=== PATIENT | male | born 1940 | race Caucasian/White ===

== ENCOUNTER → 2018-03-24 11:08 | Outpatient (CLI) | payer MEDICARE, OTHER, SELFPAY ==
[2018-03-24 12:01] LABS: Add Manual Diff / Slide Review NO; Basophils Percent Auto 1.1 % (0-2); Eosinophils Percent Auto 2.7 % (2-4); Hematocrit 40.9 % (41-53); Lymphocytes Percent Auto 23.7 % (25-40); Mean Corpuscular HGB Conc 34.2 % (30-36); Mean Corpuscular Hemoglobin 30.9 PG (26-34); Mean Corpuscular Volume 90.6 fL (80-100); Monocytes Percent Auto 10.8 % (3-14); Neutrophils Absolute Auto 3700 /uL (3000-5900); Neutrophils Percent Auto 61.7 % (50-75); Platelet Count 206 X10^3/uL (150-400); Red Blood Cell Count 4.52 X10^6/uL (4.5-5.9); Red Cell Distribution Width 13.1 % (11.6-14.8)
[2018-03-24 12:12] LABS: Alanine Aminotransferase 13 IU/L (21-72); Albumin 4.3 g/dL (3.5-5.0); Albumin Globulin Ratio 1.4 (1.0-2.8); Alkaline Phosphatase 102 U/L (38-126); Aspartate Aminotransferase 28 IU/L (17-59); Bilirubin Total 0.8 mg/dL (0.2-1.3); Blood Urea Nitrogen 14 mg/dL (9-20); Calcium 9.3 mg/dL (8.4-10.2); Carbon Dioxide 31 mmol/L (22-32); Chloride 96 mmol/L (98-107); Cholesterol 146 mg/dL (140-199); Estimated Glomerular Filt Rate > 60.0 mL/min (>60); Globulin 3.1 g/dL (1.7-4.1); Glucose 97 mg/dL (80-110); HDL Cholesterol 77 mg/dL (40-60); HEMOLYSIS < 15 (0-50); LDL Cholesterol Calculated 59 mg/dL (<100); Potassium 3.9 mmol/L (3.4-5.1); Sodium 136 mmol/L (137-145); Total Protein 7.4 g/dL (6.3-8.2); Triglycerides 51 mg/dL (35-150)
[2018-03-24 12:59] LABS: Vitamin B12 916 pg/mL (239-931)
[2018-03-24 13:21] LABS: TSH w/ Reflex to FT4 1.61 uIU/mL (0.47-4.68)
[2018-03-24 16:22] LABS: Vitamin D 25 Hydroxy (D3) 53.8 ng/mL (30.0-100.0)
== END ==
PROVIDERS: PCP Family Medicine; Visit Provider Family Medicine
DX: R53.83 Other fatigue (principal); I10 Essential (primary) hypertension; E78.5 Hyperlipidemia, unspecified; E53.8 Deficiency of other specified B group vitamins; E55.9 Vitamin D deficiency, unspecified; G20 Parkinson's disease
CPT/HCPCS: 36415; 80053; 80061; 82306; 82607; 84443; 85025

== ENCOUNTER 2018-04-20 13:30 | Outpatient (RCR) | payer MEDICARE, OTHER, SELFPAY ==
--- NOTE | 2018-03-28 07:43 | PT.OIE ---
Current Diagnoses Parkinson's disease (03/27/18) Past Medical History (Last Reviewed 03/28/18 @ 06:54 by Marialuisa Culver, PT) Benign prostatic hyperplasia (Chronic ~2003) Hepatitis A (Chronic ~1985) Hypertension (Chronic ~1989) Migraines (Chronic ~2011) Osteoarthritis (Chronic ~2004) Osteopenia (Chronic ~2004) Osteoporosis (Chronic ~2009) Parkinson's disease (Chronic ~2012) Peripheral neuropathy (Chronic ~2011) Scoliosis (Chronic ~2004) Chicken pox (Resolved) Measles (Resolved) Mumps (Resolved) Past Surgical History (Last Reviewed 03/25/18 @ 17:00 by Steff Jacobson DO) Anesthesia (Resolved) History of tonsillectomy (Resolved ~1944) Provider Visit Care Team Role Provider Type Steff Jacobson DO Primary Care Provider Physician Specialty: Family Practice Address: [address] [place] [address], [id number] Email: [email or web address] Vidal Fernandes MD Attending Provider Non-Staff Specialty: Neurology Address: [address] [place] [address] [place], [address] Email: Physical Therapy Initial Evaluation PT-OP-A Visit Information Start: 03/28/18 06:41 Freq: Status: Active Protocol: Document 03/27/18 13:30 AMB (Rec: 03/28/18 07:05 AMB [email or web address]) Out-Patient Physical Therapy Visit Information Visit Information Visit Type Initial Evaluation Visit Start Time 13:30 Visit Stop Time 14:30 Total Visit Minutes 60 Visit Number 1 Evaluation Information Evaluation Date 03/27/18 PT-OP-B Current Condition Start: 03/28/18 06:41 Freq: Status: Active Protocol: Document 03/27/18 13:30 AMB (Rec: 03/28/18 07:05 AMB [email or web address]) Current Condition History of Current Condition History of Current Condition The patient reports history of Parkinson's for about the last 5 years. He moved to [place] about 7 months ago, to live closer to his brother and sister in law. He lives at [facility], but is still able to dress himself and bathe himself independently (although it does take longer to do). Prior Functional Status Baseline Function- ADL's Modified Independent Baseline Function- Mobility Modified Independent Current Functional Impairments (Reported) Functional Limitations- ADL's Patient is right handed, but has recently switched to eating with his left hand due to right sided stiffness. Difficulty writing, difficulty donning pants. Functional Limitations- Mobility/Gait Walks for an hour 5x/week, but gets tired doing so. No stairs at [place], but stairs at the park where he walks. Functional Limitations- Other Nocturia x4 (does use a night light) Personal Factors Other Personal Factors That May Effect History of 1 fall a year ago Therapy/Recovery PT-OP-C Subjective Start: 03/28/18 06:41 Freq: Status: Active Protocol: Document 03/27/18 13:30 AMB (Rec: 03/28/18 07:08 AMB [email or web address]) OP-PT Subjective Patient Comments Patient Comments Pt reports overall more difficulty in the last 2 years with ADLs and gait. Generally slower and stiffer. PT-OP-D Balance Start: 03/28/18 06:41 Freq: Status: Active Protocol: Document 03/27/18 13:30 AMB (Rec: 03/28/18 07:24 AMB [email or web address]) Balance Tests Romberg Romberg 15 seconds with forward LOB Single Limb Standing Single Limb- Right 12 seconds Single Limb- Left 10 seconds PT-OP-E Functional Tests Start: 03/28/18 06:41 Freq: Status: Active Protocol: Document 03/27/18 13:30 AMB (Rec: 03/28/18 07:21 AMB [email or web address]) Functional Tests 6 Minute Walk Test Distance 1026 Device Used none Five Times Sit to Stand Test Score 11 seconds Comments difficulty coming into full stand PT-OP-G Mobility & Gait Start: 03/28/18 06:41 Freq: Status: Active Protocol: Document 03/27/18 13:30 AMB (Rec: 03/28/18 07:21 AMB [email or web address]) OP Gait Assessment Comments Gait Comments Complete lack of trunk rotation/ arm swing unless the patient is actively concentrating on it, and then still small. Significantly reduced ankle dorsiflexion on the right during swing. PT-OP-H Neuro Start: 03/28/18 06:41 Freq: Status: Active Protocol: Document 03/27/18 13:30 AMB (Rec: 03/28/18 07:21 AMB [email or web address]) Sensation Evaluation Comments Summary Comments Pt reports reduced sensation in toes/ feet bilaterally. 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 Overall increased tightness with hip and shoulder flexion and wrist extension. PT-OP-J Posture/Palpation/Skin Start: 03/28/18 06:41 Freq: Status: Active Protocol: Document 03/27/18 13:30 AMB (Rec: 03/28/18 07:21 AMB [email or web address]) Posture Evaluation Comments Posture Comments Moderate thoracic kyphosis with history of scoliosis. PT-OP-K Range of Motion Start: 03/28/18 06:41 Freq: Status: Active Protocol: Document 03/27/18 13:30 AMB (Rec: 03/28/18 07:21 AMB [email or web address]) Shoulder Goniometric Range of Motion Shoulder Measured in Degrees Left Active Flexion 145 Extension 55 Right Active Flexion 133 Extension 55 PT-OP-M Strength Start: 03/28/18 06:41 Freq: Status: Active Protocol: Document 03/27/18 13:30 AMB (Rec: 03/28/18 07:21 AMB [email or web address]) Hand Med Spa Manager/Pinch Strength Hand Dominance Hand Dominance Right Hand Strength Right Med Spa Manager (lbs) 43 Left Med Spa Manager (lbs) 53 PT-OP-T Assessment and Plan Start: 03/28/18 06:41 Freq: Status: Active Protocol: Document 03/27/18 13:30 AMB (Rec: 03/28/18 07:42 AMB [email or web address]) Physical Therapy Assessment Rehab Potential Rehabilitation Potential Good Evaluation Complexity Number of Personal Factors/Comorbidities 1-2 Number of Body Systems Impaired 4 or More Clinical Presentation at Evaluation Evolving Impairments Impairments Balance Coordination Functional Mobility Gait Posture ROM Sensation Strength Tone Transfers Goals Three Impairment ADLs Short Term Goal (STG) The patient will use his right arm to eat a meal. STG Duration 2 weeks Gl Accountant Goal (LTG) The patient will write 3 sentences legibly within 1 minute. LTG Duration 4 weeks Two Impairment Balance Short Term Goal (STG) The patient will improve his single leg stance to 15 seconds bilaterally to show reduced risk of falling. STG Duration 2 weeks Correction Goal (LTG) The patient will stand from a chair without UE support without loss of balance. LTG Duration 4 weeks One Impairment Gait Short Term Goal (STG) The patient will ambulate short distances with appropriate trunk rotation and arm swing. STG Duration 2 weeks Gl Accountant Goal (LTG) The patient will increase his 6MWT to 1,300 feet so that he can improve to 75% of his age/ gender norm. LTG Duration 4 weeks Assessment Summary Assessment The patient presents to physical therapy with impaired gait, balance, stiffness, posture, and difficulty using the right hand to eat or write . He will benefit from the LSV[employer] BIG program to improve these impairments and instruct him in a program that he will be able to continue with safely at home. Physical Therapy Plan Frequency and Duration Frequency of Treatment 4x/Week Duration of Treatment 4 weeks Plan of Care Start Date 03/27/18 Plan of Care End Date 04/24/18 Therapeutic Interventions Therapeutic Interventions Balance Training Coordination Training Gait Training Home Exercise Program Manual Therapy Neuromuscular Re-education Self-Care/Home Management Therapeutic Activities Therapeutic Exercises Modalities Cold Pack/Ice Massage Electric Stimulation Hot Packs Next Visit Focus/Plan Next Note Type Treatment Note
--- NOTE | 2018-03-28 07:44 | PT.OPPOC ---
Current Diagnoses Parkinson's disease (03/27/18) Provider Visit Care Team Role Provider Type Steff Jacobson DO Primary Care Provider Physician Specialty: Family Practice Address: [address] [place] [address], [id number] Email: [email or web address] Vidal Fernandes MD Attending Provider Non-Staff Specialty: Neurology Address: [address] [place] [address] [id number], [place], [address] Email: Plan Of Care PT-OP-T Assessment and Plan Start: 03/28/18 06:41 Freq: Status: Active Protocol: Document 03/27/18 13:30 AMB (Rec: 03/28/18 07:42 AMB [email or web address]) Physical Therapy Assessment Rehab Potential Rehabilitation Potential Good Evaluation Complexity Number of Personal Factors/Comorbidities 1-2 Number of Body Systems Impaired 4 or More Clinical Presentation at Evaluation Evolving Impairments Impairments Balance Coordination Functional Mobility Gait Posture ROM Sensation Strength Tone Transfers Goals Three Impairment ADLs Short Term Goal (STG) The patient will use his right arm to eat a meal. STG Duration 2 weeks Nursing Home Goal (LTG) The patient will write 3 sentences legibly within 1 minute. LTG Duration 4 weeks Two Impairment Balance Short Term Goal (STG) The patient will improve his single leg stance to 15 seconds bilaterally to show reduced risk of falling. STG Duration 2 weeks Ict Development Manager Goal (LTG) The patient will stand from a chair without UE support without loss of balance. LTG Duration 4 weeks One Impairment Gait Short Term Goal (STG) The patient will ambulate short distances with appropriate trunk rotation and arm swing. STG Duration 2 weeks Ict Development Manager Goal (LTG) The patient will increase his 6MWT to 1,300 feet so that he can improve to 75% of his age/ gender norm. LTG Duration 4 weeks Assessment Summary Assessment The patient presents to physical therapy with impaired gait, balance, stiffness, posture, and difficulty using the right hand to eat or write . He will benefit from the LSVT BIG program to improve these impairments and instruct him in a program that he will be able to continue with safely at home. Physical Therapy Plan Frequency and Duration Frequency of Treatment 4x/Week Duration of Treatment 4 weeks Plan of Care Start Date 03/27/18 Plan of Care End Date 04/24/18 Therapeutic Interventions Therapeutic Interventions Balance Training Coordination Training Gait Training Home Exercise Program Manual Therapy Neuromuscular Re-education Self-Care/Home Management Therapeutic Activities Therapeutic Exercises Modalities Cold Pack/Ice Massage Electric Stimulation Hot Packs Next Visit Focus/Plan Next Note Type Treatment Note Plan of Care Dates Plan of Care Start Date 03/27/18 Plan of Care End Date 04/24/18 Please Sign and Return: I have reviewed this Plan of Care and certify that the skilled therapy services above are required to meet the patient?s needs. Physician Signature Date Printed Name and Credentials Clinical Instructor Signature Printed Name and Credentials
--- NOTE | 2018-03-28 16:40 | PT.OTN ---
Current Diagnoses Parkinson's disease (03/28/18) Physical Therapy Treatment Note PT-OP-A Visit Information Start: 03/28/18 06:41 Freq: Status: Active Protocol: Document 03/28/18 13:30 AMB (Rec: 03/28/18 16:39 AMB [email or web address]) Out-Patient Physical Therapy Visit Information Visit Information Visit Type Treatment Note Visit Start Time 13:30 Visit Stop Time 14:30 Total Visit Minutes 60 Visit Number 2 Evaluation Information Evaluation Date 03/27/18 PT-OP-B Current Condition Start: 03/28/18 06:41 Freq: Status: Active Protocol: Document 03/27/18 13:30 AMB (Rec: 03/28/18 07:05 AMB [email or web address]) Current Condition History of Current Condition History of Current Condition The patient reports history of Parkinson's for about the last 5 years. He moved to [place] about 7 months ago, to live closer to his brother and sister in law. He lives at [facility], but is still able to dress himself and bathe himself independently (although it does take longer to do). Prior Functional Status Baseline Function- ADL's Modified Independent Baseline Function- Mobility Modified Independent Current Functional Impairments (Reported) Functional Limitations- ADL's Patient is right handed, but has recently switched to eating with his left hand due to right sided stiffness. Difficulty writing, difficulty donning pants. Functional Limitations- Mobility/Gait Walks for an hour 5x/week, but gets tired doing so. No stairs at [facility], but stairs at the park where [place] walks. Functional Limitations- Other Nocturia x4 (does use a night light) Personal Factors Other Personal Factors That May Effect History of 1 fall a year ago Therapy/Recovery PT-OP-C Subjective Start: 03/28/18 06:41 Freq: Status: Active Protocol: Document 03/28/18 13:30 AMB (Rec: 03/28/18 16:39 AMB [email or web address]) OP-PT Subjective Patient Comments Patient Comments Pt reports working hard in speech therapy. PT-OP-D Balance Start: 03/28/18 06:41 Freq: Status: Active Protocol: Document 03/27/18 13:30 AMB (Rec: 03/28/18 07:24 AMB [email or web address]) Balance Tests Romberg Romberg 15 seconds with forward LOB Single Limb Standing Single Limb- Right 12 seconds Single Limb- Left 10 seconds PT-OP-E Functional Tests Start: 03/28/18 06:41 Freq: Status: Active Protocol: Document 03/27/18 13:30 AMB (Rec: 03/28/18 07:21 AMB [email or web address]) Functional Tests 6 Minute Walk Test Distance 1026 Device Used none Five Times Sit to Stand Test Score 11 seconds Comments difficulty coming into full stand PT-OP-G Mobility & Gait Start: 03/28/18 06:41 Freq: Status: Active Protocol: Document 03/27/18 13:30 AMB (Rec: 03/28/18 07:21 AMB [email or web address]) OP Gait Assessment Comments Gait Comments Complete lack of trunk rotation/ arm swing unless the patient is actively concentrating on it, and then still small. Significantly reduced ankle dorsiflexion on the right during swing. PT-OP-H Neuro Start: 03/28/18 06:41 Freq: Status: Active Protocol: Document 03/27/18 13:30 AMB (Rec: 03/28/18 07:21 AMB [email or web address]) Sensation Evaluation Comments Summary Comments Pt reports reduced sensation in toes/ feet bilaterally. 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 Overall increased tightness with hip and shoulder flexion and wrist extension. PT-OP-J Posture/Palpation/Skin Start: 03/28/18 06:41 Freq: Status: Active Protocol: Document 03/27/18 13:30 AMB (Rec: 03/28/18 07:21 AMB [email or web address]) Posture Evaluation Comments Posture Comments Moderate thoracic kyphosis with history of scoliosis. PT-OP-K Range of Motion Start: 03/28/18 06:41 Freq: Status: Active Protocol: Document 03/27/18 13:30 AMB (Rec: 03/28/18 07:21 AMB [email or web address]) Shoulder Goniometric Range of Motion Shoulder Measured in Degrees Left Active Flexion 145 Extension 55 Right Active Flexion 133 Extension 55 PT-OP-M Strength Start: 03/28/18 06:41 Freq: Status: Active Protocol: Document 03/27/18 13:30 AMB (Rec: 03/28/18 07:21 AMB [email or web address]) Hand Wagon Winder/Pinch Strength Hand Dominance Hand Dominance Right Hand Strength Right Wagon Winder (lbs) 43 Left Wagon Winder (lbs) 53 PT-OP-Q Treatments Start: 03/28/18 06:41 Freq: Status: Active Protocol: Document 03/28/18 13:30 AMB (Rec: 03/28/18 16:39 AMB [email or web address]) Therapeutic Exercises Sitting Exercises 3 Sitting Exercise Name putty gripping with pinch and finger extension Comments yellow 2 Sitting Exercise Name Trunk rotation with reach Reps/Minutes 8 1 Sitting Exercise Name Forward bend with horizontal abduction Reps/Minutes 8 Neuro Re-Education Treatment Balance Activities 5 Details WBOS trunk rotation Comments with UE reach 4 Details Stride stance a/p weightshift Comments With alternating arm reach 3 Details Backward stepping Comments With UE reach 1 Details Lateral stepping Comments With UE reach 2 Details Forward stepping Comments With UE reach PT-OP-T Assessment and Plan Start: 03/28/18 06:41 Freq: Status: Active Protocol: Document 03/28/18 13:30 AMB (Rec: 03/28/18 16:39 AMB [email or web address]) Physical Therapy Assessment Assessment Summary Assessment Pt needed extensive cueing physical and verbal for appropriate exercise. Stiffness is difficult. HEP will have pt with UE support with exercises. Physical Therapy Plan Next Visit Focus/Plan Next Note Type Treatment Note Next Visit Plan Progress HEP, gait
--- NOTE | 2018-03-29 17:08 | PT.OTN ---
Current Diagnoses Parkinson's disease (03/29/18) Physical Therapy Treatment Note PT-OP-A Visit Information Start: 03/28/18 06:41 Freq: Status: Active Protocol: Document 03/29/18 14:30 AMB (Rec: 03/29/18 17:08 AMB [email or web address]) Out-Patient Physical Therapy Visit Information Visit Information Visit Type Treatment Note Visit Start Time 13:30 Visit Stop Time 14:30 Total Visit Minutes 60 Visit Number 3 Evaluation Information Evaluation Date 03/27/18 PT-OP-B Current Condition Start: 03/28/18 06:41 Freq: Status: Active Protocol: Document 03/27/18 13:30 AMB (Rec: 03/28/18 07:05 AMB [email or web address]) Current Condition History of Current Condition History of Current Condition The patient reports history of Parkinson's for about the last 5 years. He moved to [place] about 7 months ago, to live closer to his brother and sister in law. He lives at [facility], but is still able to dress himself and bathe himself independently (although it does take longer to do). Prior Functional Status Baseline Function- ADL's Modified Independent Baseline Function- Mobility Modified Independent Current Functional Impairments (Reported) Functional Limitations- ADL's Patient is right handed, but has recently switched to eating with his left hand due to right sided stiffness. Difficulty writing, difficulty donning pants. Functional Limitations- Mobility/Gait Walks for an hour 5x/week, but gets tired doing so. No stairs at [facility], but stairs at the park where [place] walks. Functional Limitations- Other Nocturia x4 (does use a night light) Personal Factors Other Personal Factors That May Effect History of 1 fall a year ago Therapy/Recovery PT-OP-C Subjective Start: 03/28/18 06:41 Freq: Status: Active Protocol: Document 03/29/18 14:30 AMB (Rec: 03/29/18 17:08 AMB [email or web address]) OP-PT Subjective Patient Comments Patient Comments Pt reports he did his exercises yesterday, but did not feel he was able to move as far as he was during therapy. PT-OP-D Balance Start: 03/28/18 06:41 Freq: Status: Active Protocol: Document 03/27/18 13:30 AMB (Rec: 03/28/18 07:24 AMB [email or web address]) Balance Tests Romberg Romberg 15 seconds with forward LOB Single Limb Standing Single Limb- Right 12 seconds Single Limb- Left 10 seconds PT-OP-E Functional Tests Start: 03/28/18 06:41 Freq: Status: Active Protocol: Document 03/27/18 13:30 AMB (Rec: 03/28/18 07:21 AMB [email or web address]) Functional Tests 6 Minute Walk Test Distance 1026 Device Used none Five Times Sit to Stand Test Score 11 seconds Comments difficulty coming into full stand PT-OP-G Mobility & Gait Start: 03/28/18 06:41 Freq: Status: Active Protocol: Document 03/27/18 13:30 AMB (Rec: 03/28/18 07:21 AMB [email or web address]) OP Gait Assessment Comments Gait Comments Complete lack of trunk rotation/ arm swing unless the patient is actively concentrating on it, and then still small. Significantly reduced ankle dorsiflexion on the right during swing. PT-OP-H Neuro Start: 03/28/18 06:41 Freq: Status: Active Protocol: Document 03/27/18 13:30 AMB (Rec: 03/28/18 07:21 AMB [email or web address]) Sensation Evaluation Comments Summary Comments Pt reports reduced sensation in toes/ feet bilaterally. 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 Overall increased tightness with hip and shoulder flexion and wrist extension. PT-OP-J Posture/Palpation/Skin Start: 03/28/18 06:41 Freq: Status: Active Protocol: Document 03/27/18 13:30 AMB (Rec: 03/28/18 07:21 AMB [email or web address]) Posture Evaluation Comments Posture Comments Moderate thoracic kyphosis with history of scoliosis. PT-OP-K Range of Motion Start: 03/28/18 06:41 Freq: Status: Active Protocol: Document 03/27/18 13:30 AMB (Rec: 03/28/18 07:21 AMB [email or web address]) Shoulder Goniometric Range of Motion Shoulder Measured in Degrees Left Active Flexion 145 Extension 55 Right Active Flexion 133 Extension 55 PT-OP-M Strength Start: 03/28/18 06:41 Freq: Status: Active Protocol: Document 03/27/18 13:30 AMB (Rec: 07/10/18 07:21 AMB [email or web address]) Hand Stock Pitcher/Pinch Strength Hand Dominance Hand Dominance Right Hand Strength Right Stock Pitcher (lbs) 43 Left Stock Pitcher (lbs) 53 PT-OP-Q Treatments Start: 03/28/18 06:41 Freq: Status: Active Protocol: Document 03/29/18 14:30 AMB (Rec: 03/29/18 17:08 AMB [email or web address]) Therapeutic Exercises Sitting Exercises 2 Sitting Exercise Name Trunk rotation with reach Reps/Minutes 8 1 Sitting Exercise Name Forward bend with horizontal abduction Reps/Minutes 8 Standing Exercises 1 Standing Exercise Name Shoulder extension Side bilateral Resistance #1 Therapeutic Activity Therapeutic Activity 1 Name Writing Comments support forearm, take breaks Gait Training Gait Activity 1 Description Smooth surface ambulation Distance/Duration 4 min Comments Vc for arm swing and to control R ankle dorsiflexion Neuro Re-Education Treatment Balance Activities 5 Details WBOS trunk rotation Comments with UE reach 4 Details Stride stance a/p weightshift Comments With alternating arm reach 3 Details Backward stepping Comments With UE reach 1 Details Lateral stepping Comments With UE reach 2 Details Forward stepping Comments With UE reach PT-OP-T Assessment and Plan Start: 03/28/18 06:41 Freq: Status: Active Protocol: Document 03/29/18 14:30 AMB (Rec: 03/29/18 17:08 AMB [email or web address]) Physical Therapy Assessment Assessment Summary Assessment Pt will need repetition to do well with PT. Physical Therapy Plan Next Visit Focus/Plan Next Note Type Treatment Note Next Visit Plan Progress HEP, gait
--- NOTE | 2018-03-30 16:19 | PT.OTN ---
Current Diagnoses Parkinson's disease (03/30/18) Physical Therapy Treatment Note PT-OP-A Visit Information Start: 03/28/18 06:41 Freq: Status: Active Protocol: Document 03/30/18 13:30 AMB (Rec: 03/30/18 16:16 AMB [email or web address]) Out-Patient Physical Therapy Visit Information Visit Information Visit Type Treatment Note Visit Start Time 13:30 Visit Stop Time 14:30 Total Visit Minutes 60 Visit Number 4 Evaluation Information Evaluation Date 03/27/18 PT-OP-B Current Condition Start: 03/28/18 06:41 Freq: Status: Active Protocol: Document 03/27/18 13:30 AMB (Rec: 03/28/18 07:05 AMB [email or web address]) Current Condition History of Current Condition History of Current Condition The patient reports history of Parkinson's for about the last 5 years. He moved to [place] about 7 months ago, to live closer to his brother and sister in law. He lives at [facility], but is still able to dress himself and bathe himself independently (although it does take longer to do). Prior Functional Status Baseline Function- ADL's Modified Independent Baseline Function- Mobility Modified Independent Current Functional Impairments (Reported) Functional Limitations- ADL's Patient is right handed, but has recently switched to eating with his left hand due to right sided stiffness. Difficulty writing, difficulty donning pants. Functional Limitations- Mobility/Gait Walks for an hour 5x/week, but gets tired doing so. No stairs at [facility], but stairs at the park [place] walks. Functional Limitations- Other Nocturia x4 (does use a night light) Personal Factors Other Personal Factors That May Effect History of 1 fall a year ago Therapy/Recovery PT-OP-C Subjective Start: 03/28/18 06:41 Freq: Status: Active Protocol: Document 03/30/18 13:30 AMB (Rec: 03/30/18 16:16 AMB [email or web address]) OP-PT Subjective Patient Comments Patient Comments Pt reports he was sore in his R arm after exercising. PT-OP-D Balance Start: 03/28/18 06:41 Freq: Status: Active Protocol: Document 03/27/18 13:30 AMB (Rec: 03/28/18 07:24 AMB [email or web address]) Balance Tests Romberg Romberg 15 seconds with forward LOB Single Limb Standing Single Limb- Right 12 seconds Single Limb- Left 10 seconds PT-OP-E Functional Tests Start: 03/28/18 06:41 Freq: Status: Active Protocol: Document 03/27/18 13:30 AMB (Rec: 03/28/18 07:21 AMB [email or web address]) Functional Tests 6 Minute Walk Test Distance 1026 Device Used none Five Times Sit to Stand Test Score 11 seconds Comments difficulty coming into full stand PT-OP-G Mobility & Gait Start: 03/28/18 06:41 Freq: Status: Active Protocol: Document 03/27/18 13:30 AMB (Rec: 03/28/18 07:21 AMB [email or web address]) OP Gait Assessment Comments Gait Comments Complete lack of trunk rotation/ arm swing unless the patient is actively concentrating on it, and then still small. Significantly reduced ankle dorsiflexion on the right during swing. PT-OP-H Neuro Start: 03/28/18 06:41 Freq: Status: Active Protocol: Document 03/27/18 13:30 AMB (Rec: 03/28/18 07:21 AMB [email or web address]) Sensation Evaluation Comments Summary Comments Pt reports reduced sensation in toes/ feet bilaterally. 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 Overall increased tightness with hip and shoulder flexion and wrist extension. PT-OP-J Posture/Palpation/Skin Start: 03/28/18 06:41 Freq: Status: Active Protocol: Document 03/27/18 13:30 AMB (Rec: 03/28/18 07:21 AMB [email or web address]) Posture Evaluation Comments Posture Comments Moderate thoracic kyphosis with history of scoliosis. PT-OP-K Range of Motion Start: 03/28/18 06:41 Freq: Status: Active Protocol: Document 03/27/18 13:30 AMB (Rec: 03/28/18 07:21 AMB [email or web address]) Shoulder Goniometric Range of Motion Shoulder Measured in Degrees Left Active Flexion 145 Extension 55 Right Active Flexion 133 Extension 55 PT-OP-M Strength Start: 03/28/18 06:41 Freq: Status: Active Protocol: Document 03/27/18 13:30 AMB (Rec: 03/28/18 07:21 AMB [email or web address]) Hand Certified Technician/Pinch Strength Hand Dominance Hand Dominance Right Hand Strength Right Certified Technician (lbs) 43 Left Certified Technician (lbs) 53 PT-OP-Q Treatments Start: 03/28/18 06:41 Freq: Status: Active Protocol: Document 03/30/18 13:30 AMB (Rec: 03/30/18 16:16 AMB [email or web address]) Therapeutic Exercises Sitting Exercises 2 Sitting Exercise Name Trunk rotation with reach Reps/Minutes 8 1 Sitting Exercise Name Forward bend with horizontal abduction Reps/Minutes 8 Standing Exercises 5 Standing Exercise Name shoulder flexion Resistance 1# 4 Standing Exercise Name bicep curl Resistance 2# Comments pc for full ROM 3 Standing Exercise Name calf stretch Reps/Minutes 30x2 2 Standing Exercise Name door way stretch Comments 30x2 1 Standing Exercise Name Shoulder extension Side bilateral Resistance #1 Neuro Re-Education Treatment Balance Activities 5 Details WBOS trunk rotation Comments with UE reach 4 Details Stride stance a/p weightshift Comments With alternating arm reach 3 Details Backward stepping Comments With UE reach 1 Details Lateral stepping Comments With UE reach 2 Details Forward stepping Comments With UE reach PT-OP-T Assessment and Plan Start: 03/28/18 06:41 Freq: Status: Active Protocol: Document 03/30/18 13:30 AMB (Rec: 03/30/18 16:16 AMB [email or web address]) Physical Therapy Assessment Assessment Summary Assessment Encouraged pt that muscle soreness right now is to be expected. Physical Therapy Plan Frequency and Duration Frequency of Treatment 4x/Week Duration of Treatment 4 weeks Plan of Care Start Date 03/27/18 Plan of Care End Date 04/24/18 Next Visit Focus/Plan Next Note Type Treatment Note Next Visit Plan Progress HEP, UE function
--- NOTE | 2018-04-03 17:28 | PT.OTN ---
Current Diagnoses Parkinson's disease (04/03/18) Physical Therapy Treatment Note PT-OP-A Visit Information Start: 03/28/18 06:41 Freq: Status: Active Protocol: Document 04/03/18 13:30 AMB (Rec: 04/03/18 17:26 AMB [email or web address]) Out-Patient Physical Therapy Visit Information Visit Information Visit Type Treatment Note Visit Start Time 13:30 Visit Stop Time 14:30 Total Visit Minutes 60 Visit Number 5 Evaluation Information Evaluation Date 03/27/18 PT-OP-B Current Condition Start: 03/28/18 06:41 Freq: Status: Active Protocol: Document 03/27/18 13:30 AMB (Rec: 03/28/18 07:05 AMB [email or web address]) Current Condition History of Current Condition History of Current Condition The patient reports history of Parkinson's for about the last 5 years. He moved to [place] about 7 months ago, to live closer to his brother and sister in law. He lives at [facility], but is still able to dress himself and bathe himself independently (although it does take longer to do). Prior Functional Status Baseline Function- ADL's Modified Independent Baseline Function- Mobility Modified Independent Current Functional Impairments (Reported) Functional Limitations- ADL's Patient is right handed, but has recently switched to eating with his left hand due to right sided stiffness. Difficulty writing, difficulty donning pants. Functional Limitations- Mobility/Gait Walks for an hour 5x/week, but gets tired doing so. No stairs at [facility], but stairs at the park [place]. Functional Limitations- Other Nocturia x4 (does use a night light) Personal Factors Other Personal Factors That May Effect History of 1 fall a year ago Therapy/Recovery PT-OP-C Subjective Start: 03/28/18 06:41 Freq: Status: Active Protocol: Document 04/03/18 13:30 AMB (Rec: 04/03/18 17:26 AMB [email or web address]) OP-PT Subjective Patient Comments Patient Comments Pt reports continued R arm soreness. PT-OP-D Balance Start: 03/28/18 06:41 Freq: Status: Active Protocol: Document 03/27/18 13:30 AMB (Rec: 03/28/18 07:24 AMB [email or web address]) Balance Tests Romberg Romberg 15 seconds with forward LOB Single Limb Standing Single Limb- Right 12 seconds Single Limb- Left 10 seconds PT-OP-E Functional Tests Start: 03/28/18 06:41 Freq: Status: Active Protocol: Document 03/27/18 13:30 AMB (Rec: 03/28/18 07:21 AMB [email or web address]) Functional Tests 6 Minute Walk Test Distance 1026 Device Used none Five Times Sit to Stand Test Score 11 seconds Comments difficulty coming into full stand PT-OP-G Mobility & Gait Start: 03/28/18 06:41 Freq: Status: Active Protocol: Document 03/27/18 13:30 AMB (Rec: 03/28/18 07:21 AMB [email or web address]) OP Gait Assessment Comments Gait Comments Complete lack of trunk rotation/ arm swing unless the patient is actively concentrating on it, and then still small. Significantly reduced ankle dorsiflexion on the right during swing. PT-OP-H Neuro Start: 03/28/18 06:41 Freq: Status: Active Protocol: Document 03/27/18 13:30 AMB (Rec: 03/28/18 07:21 AMB [email or web address]) Sensation Evaluation Comments Summary Comments Pt reports reduced sensation in toes/ feet bilaterally. 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 Overall increased tightness with hip and shoulder flexion and wrist extension. PT-OP-J Posture/Palpation/Skin Start: 03/28/18 06:41 Freq: Status: Active Protocol: Document 03/27/18 13:30 AMB (Rec: 03/28/18 07:21 AMB [email or web address]) Posture Evaluation Comments Posture Comments Moderate thoracic kyphosis with history of scoliosis. PT-OP-K Range of Motion Start: 03/28/18 06:41 Freq: Status: Active Protocol: Document 03/27/18 13:30 AMB (Rec: 03/28/18 07:21 AMB [email or web address]) Shoulder Goniometric Range of Motion Shoulder Measured in Degrees Left Active Flexion 145 Extension 55 Right Active Flexion 133 Extension 55 PT-OP-M Strength Start: 03/28/18 06:41 Freq: Status: Active Protocol: Document 03/27/18 13:30 AMB (Rec: 03/28/18 07:21 AMB [email or web address]) Hand Reciprocating Drill Operator/Pinch Strength Hand Dominance Hand Dominance Right Hand Strength Right Reciprocating Drill Operator (lbs) 43 Left Reciprocating Drill Operator (lbs) 53 PT-OP-Q Treatments Start: 03/28/18 06:41 Freq: Status: Active Protocol: Document 04/03/18 13:30 AMB (Rec: 04/03/18 17:26 AMB [email or web address]) Therapeutic Exercises Standing Exercises 6 Standing Exercise Name forearm AROM Comments flex/ext, sup/pron, rad/ulnar deviation 3 Standing Exercise Name calf stretch Reps/Minutes 30x2 2 Standing Exercise Name door way stretch Comments 30x2 1 Standing Exercise Name Shoulder extension Side bilateral Resistance #1 Gait Training Gait Activity 1 Description Smooth surface ambulation Distance/Duration 4 min Comments Vc for arm swing and to control R ankle dorsiflexion Neuro Re-Education Treatment Balance Activities 5 Details WBOS trunk rotation Comments with UE reach 4 Details Stride stance a/p weightshift Comments With alternating arm reach 3 Details Backward stepping Comments With UE reach 1 Details Lateral stepping Comments With UE reach 2 Details Forward stepping Comments With UE reach PT-OP-T Assessment and Plan Start: 03/28/18 06:41 Freq: Status: Active Protocol: Document 04/03/18 13:30 AMB (Rec: 04/03/18 17:26 AMB [email or web address]) Physical Therapy Assessment Assessment Summary Assessment Educated pt in icing his elbow . Would benefit from forearm strengthening. Physical Therapy Plan Next Visit Focus/Plan Next Note Type Treatment Note Next Visit Plan Progress HEP, UE function
--- NOTE | 2018-04-04 18:00 | PT.OTN ---
Current Diagnoses Parkinson's disease (04/04/18) Physical Therapy Treatment Note PT-OP-A Visit Information Start: 03/28/18 06:41 Freq: Status: Active Protocol: Document 04/04/18 13:30 AMB (Rec: 04/04/18 18:00 AMB [email or web address]) Out-Patient Physical Therapy Visit Information Visit Information Visit Type Treatment Note Visit Start Time 13:30 Visit Stop Time 14:30 Total Visit Minutes 60 Visit Number 6 Evaluation Information Evaluation Date 03/27/18 PT-OP-B Current Condition Start: 03/28/18 06:41 Freq: Status: Active Protocol: Document 03/27/18 13:30 AMB (Rec: 03/28/18 07:05 AMB [email or web address]) Current Condition History of Current Condition History of Current Condition The patient reports history of Parkinson's for about the last 5 years. He moved to [place] about 7 months ago, to live closer to his brother and sister in law. He lives at [facility], but is still able to dress himself and bathe himself independently (although it does take longer to do). Prior Functional Status Baseline Function- ADL's Modified Independent Baseline Function- Mobility Modified Independent Current Functional Impairments (Reported) Functional Limitations- ADL's Patient is right handed, but has recently switched to eating with his left hand due to right sided stiffness. Difficulty writing, difficulty donning pants. Functional Limitations- Mobility/Gait Walks for an hour 5x/week, but gets tired doing so. No stairs at [facility], but stairs at the [place]. Functional Limitations- Other Nocturia x4 (does use a night light) Personal Factors Other Personal Factors That May Effect History of 1 fall a year ago Therapy/Recovery PT-OP-C Subjective Start: 03/28/18 06:41 Freq: Status: Active Protocol: Document 04/04/18 13:30 AMB (Rec: 04/04/18 18:00 AMB [email or web address]) OP-PT Subjective Patient Comments Patient Comments Pt reports continued R arm soreness, better with icing. PT-OP-D Balance Start: 03/28/18 06:41 Freq: Status: Active Protocol: Document 03/27/18 13:30 AMB (Rec: 03/28/18 07:24 AMB [email or web address]) Balance Tests Romberg Romberg 15 seconds with forward LOB Single Limb Standing Single Limb- Right 12 seconds Single Limb- Left 10 seconds PT-OP-E Functional Tests Start: 03/28/18 06:41 Freq: Status: Active Protocol: Document 03/27/18 13:30 AMB (Rec: 03/28/18 07:21 AMB [email or web address]) Functional Tests 6 Minute Walk Test Distance 1026 Device Used none Five Times Sit to Stand Test Score 11 seconds Comments difficulty coming into full stand PT-OP-G Mobility & Gait Start: 03/28/18 06:41 Freq: Status: Active Protocol: Document 03/27/18 13:30 AMB (Rec: 03/28/18 07:21 AMB [email or web address]) OP Gait Assessment Comments Gait Comments Complete lack of trunk rotation/ arm swing unless the patient is actively concentrating on it, and then still small. Significantly reduced ankle dorsiflexion on the right during swing. PT-OP-H Neuro Start: 03/28/18 06:41 Freq: Status: Active Protocol: Document 03/27/18 13:30 AMB (Rec: 03/28/18 07:21 AMB [email or web address]) Sensation Evaluation Comments Summary Comments Pt reports reduced sensation in toes/ feet bilaterally. 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 Overall increased tightness with hip and shoulder flexion and wrist extension. PT-OP-J Posture/Palpation/Skin Start: 03/28/18 06:41 Freq: Status: Active Protocol: Document 03/27/18 13:30 AMB (Rec: 03/28/18 07:21 AMB [email or web address]) Posture Evaluation Comments Posture Comments Moderate thoracic kyphosis with history of scoliosis. PT-OP-K Range of Motion Start: 03/28/18 06:41 Freq: Status: Active Protocol: Document 03/27/18 13:30 AMB (Rec: 03/28/18 07:21 AMB [email or web address]) Shoulder Goniometric Range of Motion Shoulder Measured in Degrees Left Active Flexion 145 Extension 55 Right Active Flexion 133 Extension 55 PT-OP-M Strength Start: 03/28/18 06:41 Freq: Status: Active Protocol: Document 03/27/18 13:30 AMB (Rec: 03/28/18 07:21 AMB [email or web address]) Hand Career Development Consultant/Pinch Strength Hand Dominance Hand Dominance Right Hand Strength Right Career Development Consultant (lbs) 43 Left Career Development Consultant (lbs) 53 PT-OP-Q Treatments Start: 03/28/18 06:41 Freq: Status: Active Protocol: Document 04/04/18 13:30 AMB (Rec: 04/04/18 18:00 AMB [email or web address]) Therapeutic Exercises Sitting Exercises 2 Sitting Exercise Name Trunk rotation with reach Reps/Minutes 8 1 Sitting Exercise Name Forward bend with horizontal abduction Reps/Minutes 8 Standing Exercises 7 Standing Exercise Name D1, D2 flexion Comments 2# weight 6 Standing Exercise Name forearm AROM Comments flex/ext, sup/pron, rad/ulnar deviation 3 Standing Exercise Name calf stretch Reps/Minutes 30x2 2 Standing Exercise Name door way stretch Comments 30x2 1 Standing Exercise Name Shoulder extension Side bilateral Resistance #1 Therapeutic Activity Therapeutic Activity 1 Name Writing Comments support forearm, take breaks, stretch hand Neuro Re-Education Treatment Balance Activities 5 Details WBOS trunk rotation Comments with UE reach 4 Details Stride stance a/p weightshift Comments With alternating arm reach 3 Details Backward stepping Comments With UE reach 1 Details Lateral stepping Comments With UE reach 2 Details Forward stepping Comments With UE reach PT-OP-T Assessment and Plan Start: 03/28/18 06:41 Freq: Status: Active Protocol: Document 04/04/18 13:30 AMB (Rec: 04/04/18 18:00 AMB [email or web address]) Physical Therapy Assessment Assessment Summary Assessment Pt is doing well, but feels he does not get as good of a workout at home. Educated to take his time and really think about getting maximal amplitude. Physical Therapy Plan Frequency and Duration Frequency of Treatment 4x/Week Duration of Treatment 4 weeks Plan of Care Start Date 03/27/18 Plan of Care End Date 04/24/18 Next Visit Focus/Plan Next Note Type Treatment Note Next Visit Plan Progress UE function, eating, writing, brushing teeth
--- NOTE | 2018-04-05 17:44 | PT.OTN ---
Current Diagnoses Parkinson's disease (04/05/18) Physical Therapy Treatment Note PT-OP-A Visit Information Start: 03/28/18 06:41 Freq: Status: Active Protocol: Document 04/05/18 16:30 AMB (Rec: 04/05/18 17:44 AMB [email or web address]) Out-Patient Physical Therapy Visit Information Visit Information Visit Type Treatment Note Visit Start Time 14:30 Visit Stop Time 15:30 Total Visit Minutes 60 Visit Number 7 Evaluation Information Evaluation Date 03/27/18 PT-OP-B Current Condition Start: 03/28/18 06:41 Freq: Status: Active Protocol: Document 03/27/18 13:30 AMB (Rec: 03/28/18 07:05 AMB [email or web address]) Current Condition History of Current Condition History of Current Condition The patient reports history of Parkinson's for about the last 5 years. He moved to [place] about 7 months ago, to live closer to his brother and sister in law. He lives at [facility], but is still able to dress himself and bathe himself independently (although it does take longer to do). Prior Functional Status Baseline Function- ADL's Modified Independent Baseline Function- Mobility Modified Independent Current Functional Impairments (Reported) Functional Limitations- ADL's Patient is right handed, but has recently switched to eating with his left hand due to right sided stiffness. Difficulty writing, difficulty donning pants. Functional Limitations- Mobility/Gait Walks for an hour 5x/week, but gets tired doing so. No stairs at [facility], but stairs at the [place]. Functional Limitations- Other Nocturia x4 (does use a night light) Personal Factors Other Personal Factors That May Effect History of 1 fall a year ago Therapy/Recovery PT-OP-C Subjective Start: 03/28/18 06:41 Freq: Status: Active Protocol: Document 04/05/18 16:30 AMB (Rec: 04/05/18 17:44 AMB [email or web address]) OP-PT Subjective Patient Comments Patient Comments Pt went to the dentist today so he is a little sore. PT-OP-D Balance Start: 03/28/18 06:41 Freq: Status: Active Protocol: Document 03/27/18 13:30 AMB (Rec: 03/28/18 07:24 AMB [email or web address]) Balance Tests Romberg Romberg 15 seconds with forward LOB Single Limb Standing Single Limb- Right 12 seconds Single Limb- Left 10 seconds PT-OP-E Functional Tests Start: 03/28/18 06:41 Freq: Status: Active Protocol: Document 03/27/18 13:30 AMB (Rec: 03/28/18 07:21 AMB [email or web address]) Functional Tests 6 Minute Walk Test Distance 1026 Device Used none Five Times Sit to Stand Test Score 11 seconds Comments difficulty coming into full stand PT-OP-G Mobility & Gait Start: 03/28/18 06:41 Freq: Status: Active Protocol: Document 03/27/18 13:30 AMB (Rec: 03/28/18 07:21 AMB [email or web address]) OP Gait Assessment Comments Gait Comments Complete lack of trunk rotation/ arm swing unless the patient is actively concentrating on it, and then still small. Significantly reduced ankle dorsiflexion on the right during swing. PT-OP-H Neuro Start: 03/28/18 06:41 Freq: Status: Active Protocol: Document 03/27/18 13:30 AMB (Rec: 03/28/18 07:21 AMB [email or web address]) Sensation Evaluation Comments Summary Comments Pt reports reduced sensation in toes/ feet bilaterally. 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 Overall increased tightness with hip and shoulder flexion and wrist extension. PT-OP-J Posture/Palpation/Skin Start: 03/28/18 06:41 Freq: Status: Active Protocol: Document 03/27/18 13:30 AMB (Rec: 03/28/18 07:21 AMB [email or web address]) Posture Evaluation Comments Posture Comments Moderate thoracic kyphosis with history of scoliosis. PT-OP-K Range of Motion Start: 03/28/18 06:41 Freq: Status: Active Protocol: Document 03/27/18 13:30 AMB (Rec: 03/28/18 07:21 AMB [email or web address]) Shoulder Goniometric Range of Motion Shoulder Measured in Degrees Left Active Flexion 145 Extension 55 Right Active Flexion 133 Extension 55 PT-OP-M Strength Start: 03/28/18 06:41 Freq: Status: Active Protocol: Document 03/27/18 13:30 AMB (Rec: 03/28/18 07:21 AMB [email or web address]) Hand Registered Dietetic Technician/Pinch Strength Hand Dominance Hand Dominance Right Hand Strength Right Registered Dietetic Technician (lbs) 43 Left Registered Dietetic Technician (lbs) 53 PT-OP-Q Treatments Start: 03/28/18 06:41 Freq: Status: Active Protocol: Document 04/05/18 16:30 AMB (Rec: 04/05/18 17:44 AMB [email or web address]) Therapeutic Exercises Sitting Exercises 2 Sitting Exercise Name Trunk rotation with reach Reps/Minutes 8 1 Sitting Exercise Name Forward bend with horizontal abduction Reps/Minutes 8 Standing Exercises 7 Standing Exercise Name D1, D2 flexion Comments 2# weight 3 Standing Exercise Name calf stretch Reps/Minutes 30x2 1 Standing Exercise Name Shoulder extension Side bilateral Resistance #1 Gait Training Gait Activity 1 Description Smooth surface ambulation Distance/Duration 10 min Comments Vc for arm swing and to control R ankle dorsiflexion Neuro Re-Education Treatment Balance Activities 5 Details WBOS trunk rotation Comments with UE reach 4 Details Stride stance a/p weightshift Comments With alternating arm reach 3 Details Backward stepping Comments With UE reach 1 Details Lateral stepping Comments With UE reach 2 Details Forward stepping Comments With UE reach PT-OP-T Assessment and Plan Start: 03/28/18 06:41 Freq: Status: Active Protocol: Document 04/05/18 16:30 AMB (Rec: 04/05/18 17:44 AMB [email or web address]) Physical Therapy Assessment Assessment Summary Assessment The patient went to the dentist earlier so he is a bit numb in his face, a bit tired . Physical Therapy Plan Next Visit Focus/Plan Next Note Type Treatment Note Next Visit Plan Progress R arm function
--- NOTE | 2018-04-07 16:52 | PT.OTN ---
Current Diagnoses Parkinson's disease (04/07/18) Physical Therapy Treatment Note PT-OP-A Visit Information Start: 03/28/18 06:41 Freq: Status: Active Protocol: Document 04/07/18 13:30 AMB (Rec: 04/07/18 14:24 AMB [id number]) Out-Patient Physical Therapy Visit Information Visit Information Visit Type Treatment Note PT-OP-B Current Condition Start: 03/28/18 06:41 Freq: Status: Active Protocol: Document 03/27/18 13:30 AMB (Rec: 03/28/18 07:05 AMB [email or web address]) Current Condition History of Current Condition History of Current Condition The patient reports history of Parkinson's for about the last 5 years. He moved to [place] about 7 months ago, to live closer to his brother and sister in law. He lives at [facility], but is still able to dress himself and bathe himself independently (although it does take longer to do). Prior Functional Status Baseline Function- ADL's Modified Independent Baseline Function- Mobility Modified Independent Current Functional Impairments (Reported) Functional Limitations- ADL's Patient is right handed, but has recently switched to eating with his left hand due to right sided stiffness. Difficulty writing, difficulty donning pants. Functional Limitations- Mobility/Gait Walks for an hour 5x/week, but gets tired doing so. No stairs at [facility], but stairs at the [place]. Functional Limitations- Other Nocturia x4 (does use a night light) Personal Factors Other Personal Factors That May Effect History of 1 fall a year ago Therapy/Recovery PT-OP-C Subjective Start: 03/28/18 06:41 Freq: Status: Active Protocol: Document 04/07/18 13:30 AMB (Rec: 04/07/18 14:44 AMB [id number]) OP-PT Subjective Patient Comments Patient Comments Pt did not sleep well last night. PT-OP-D Balance Start: 03/28/18 06:41 Freq: Status: Active Protocol: Document 03/27/18 13:30 AMB (Rec: 03/28/18 07:24 AMB [email or web address]) Balance Tests Romberg Romberg 15 seconds with forward LOB Single Limb Standing Single Limb- Right 12 seconds Single Limb- Left 10 seconds PT-OP-E Functional Tests Start: 03/28/18 06:41 Freq: Status: Active Protocol: Document 03/27/18 13:30 AMB (Rec: 03/28/18 07:21 AMB [email or web address]) Functional Tests 6 Minute Walk Test Distance 1026 Device Used none Five Times Sit to Stand Test Score 11 seconds Comments difficulty coming into full stand PT-OP-G Mobility & Gait Start: 03/28/18 06:41 Freq: Status: Active Protocol: Document 03/27/18 13:30 AMB (Rec: 03/28/18 07:21 AMB [email or web address]) OP Gait Assessment Comments Gait Comments Complete lack of trunk rotation/ arm swing unless the patient is actively concentrating on it, and then still small. Significantly reduced ankle dorsiflexion on the right during swing. PT-OP-H Neuro Start: 03/28/18 06:41 Freq: Status: Active Protocol: Document 03/27/18 13:30 AMB (Rec: 03/28/18 07:21 AMB [email or web address]) Sensation Evaluation Comments Summary Comments Pt reports reduced sensation in toes/ feet bilaterally. 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 Overall increased tightness with hip and shoulder flexion and wrist extension. PT-OP-J Posture/Palpation/Skin Start: 03/28/18 06:41 Freq: Status: Active Protocol: Document 03/27/18 13:30 AMB (Rec: 03/28/18 07:21 AMB [email or web address]) Posture Evaluation Comments Posture Comments Moderate thoracic kyphosis with history of scoliosis. PT-OP-K Range of Motion Start: 03/28/18 06:41 Freq: Status: Active Protocol: Document 03/27/18 13:30 AMB (Rec: 03/28/18 07:21 AMB [email or web address]) Shoulder Goniometric Range of Motion Shoulder Measured in Degrees Left Active Flexion 145 Extension 55 Right Active Flexion 133 Extension 55 PT-OP-M Strength Start: 03/28/18 06:41 Freq: Status: Active Protocol: Document 03/27/18 13:30 AMB (Rec: 03/28/18 07:21 AMB [email or web address]) Hand Monotype Mechanic/Pinch Strength Hand Dominance Hand Dominance Right Hand Strength Right Monotype Mechanic (lbs) 43 Left Monotype Mechanic (lbs) 53 PT-OP-Q Treatments Start: 03/28/18 06:41 Freq: Status: Active Protocol: Document 04/07/18 13:30 AMB (Rec: 04/07/18 14:24 AMB [id number]) Therapeutic Exercises Sitting Exercises 2 Sitting Exercise Name Trunk rotation with reach Reps/Minutes 8 1 Sitting Exercise Name Forward bend with horizontal abduction Reps/Minutes 8 Standing Exercises 7 Standing Exercise Name D1, D2 flexion Comments 2# weight 3 Standing Exercise Name calf stretch Reps/Minutes 30x2 1 Standing Exercise Name Shoulder extension Side bilateral Resistance #1 Gait Training Gait Activity 1 Description Smooth surface ambulation Distance/Duration 10 min Comments Vc for arm swing and to control R ankle dorsiflexion Manual Therapy Treatment Taping 2 Body Location R elbow Type of Tape Kinesio Tape Neuro Re-Education Treatment Balance Activities 5 Details WBOS trunk rotation Comments with UE reach 4 Details Stride stance a/p weightshift Comments With alternating arm reach 3 Details Backward stepping Comments With UE reach 1 Details Lateral stepping Comments With UE reach 2 Details Forward stepping Comments With UE reach PT-OP-R Modalities Start: 04/07/18 16:46 Freq: Status: Active Protocol: Document 04/07/18 13:30 AMB (Rec: 04/07/18 16:48 AMB [email or web address]) Electric Stimulation Electric Stimulation Interferential Current (IFC) Body Location R elbow Duration (Minutes) 10 Combined With Heat/Cold Cold Pack PT-OP-T Assessment and Plan Start: 03/28/18 06:41 Freq: Status: Active Protocol: Document 04/07/18 13:30 AMB (Rec: 04/07/18 14:24 AMB [id number]) Physical Therapy Assessment Assessment Summary Assessment The patient states he did not sleep well. Physical Therapy Plan Frequency and Duration Frequency of Treatment 4x/Week Duration of Treatment 4 weeks Plan of Care Start Date 03/27/18 Plan of Care End Date 04/24/18
--- NOTE | 2018-04-10 15:51 | PT.OTN ---
Current Diagnoses Parkinson's disease (04/10/18) Physical Therapy Treatment Note PT-OP-A Visit Information Start: 03/28/18 06:41 Freq: Status: Active Protocol: Document 04/10/18 13:30 AMB (Rec: 04/10/18 13:31 AMB [id number]) Out-Patient Physical Therapy Visit Information Visit Information Visit Type Treatment Note Visit Start Time 13:30 Visit Stop Time 14:30 Total Visit Minutes 60 Visit Number 9 Evaluation Information Evaluation Date 03/27/18 PT-OP-B Current Condition Start: 03/28/18 06:41 Freq: Status: Active Protocol: Document 03/27/18 13:30 AMB (Rec: 03/28/18 07:05 AMB [email or web address]) Current Condition History of Current Condition History of Current Condition The patient reports history of Parkinson's for about the last 5 years. He moved to [place] about 7 months ago, to live closer to his brother and sister in law. He lives at [facility], but is still able to dress himself and bathe himself independently (although it does take longer to do). Prior Functional Status Baseline Function- ADL's Modified Independent Baseline Function- Mobility Modified Independent Current Functional Impairments (Reported) Functional Limitations- ADL's Patient is right handed, but has recently switched to eating with his left hand due to right sided stiffness. Difficulty writing, difficulty donning pants. Functional Limitations- Mobility/Gait Walks for an hour 5x/week, but gets tired doing so. No stairs at [facility], but stairs at the [place]. Functional Limitations- Other Nocturia x4 (does use a night light) Personal Factors Other Personal Factors That May Effect History of 1 fall a year ago Therapy/Recovery PT-OP-C Subjective Start: 03/28/18 06:41 Freq: Status: Active Protocol: Document 04/10/18 13:30 AMB (Rec: 04/10/18 14:50 AMB [id number]) OP-PT Subjective Patient Comments Patient Comments Pt continues to feel that he is unable to reach as far at home as when he is at PT. PT-OP-D Balance Start: 03/28/18 06:41 Freq: Status: Active Protocol: Document 03/27/18 13:30 AMB (Rec: 03/28/18 07:24 AMB [email or web address]) Balance Tests Romberg Romberg 15 seconds with forward LOB Single Limb Standing Single Limb- Right 12 seconds Single Limb- Left 10 seconds PT-OP-E Functional Tests Start: 03/28/18 06:41 Freq: Status: Active Protocol: Document 03/27/18 13:30 AMB (Rec: 03/28/18 07:21 AMB [email or web address]) Functional Tests 6 Minute Walk Test Distance 1026 Device Used none Five Times Sit to Stand Test Score 11 seconds Comments difficulty coming into full stand PT-OP-G Mobility & Gait Start: 03/28/18 06:41 Freq: Status: Active Protocol: Document 03/27/18 13:30 AMB (Rec: 03/28/18 07:21 AMB [email or web address]) OP Gait Assessment Comments Gait Comments Complete lack of trunk rotation/ arm swing unless the patient is actively concentrating on it, and then still small. Significantly reduced ankle dorsiflexion on the right during swing. PT-OP-H Neuro Start: 03/28/18 06:41 Freq: Status: Active Protocol: Document 03/27/18 13:30 AMB (Rec: 03/28/18 07:21 AMB [email or web address]) Sensation Evaluation Comments Summary Comments Pt reports reduced sensation in toes/ feet bilaterally. 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 Overall increased tightness with hip and shoulder flexion and wrist extension. PT-OP-J Posture/Palpation/Skin Start: 03/28/18 06:41 Freq: Status: Active Protocol: Document 03/27/18 13:30 AMB (Rec: 03/28/18 07:21 AMB [email or web address]) Posture Evaluation Comments Posture Comments Moderate thoracic kyphosis with history of scoliosis. PT-OP-K Range of Motion Start: 03/28/18 06:41 Freq: Status: Active Protocol: Document 03/27/18 13:30 AMB (Rec: 03/28/18 07:21 AMB [email or web address]) Shoulder Goniometric Range of Motion Shoulder Measured in Degrees Left Active Flexion 145 Extension 55 Right Active Flexion 133 Extension 55 PT-OP-M Strength Start: 03/28/18 06:41 Freq: Status: Active Protocol: Document 03/27/18 13:30 AMB (Rec: 03/28/18 07:21 AMB [email or web address]) Hand Stamp Machine Servicer/Pinch Strength Hand Dominance Hand Dominance Right Hand Strength Right Stamp Machine Servicer (lbs) 43 Left Stamp Machine Servicer (lbs) 53 PT-OP-Q Treatments Start: 03/28/18 06:41 Freq: Status: Active Protocol: Document 04/10/18 13:30 AMB (Rec: 04/10/18 15:50 AMB [email or web address]) Therapeutic Exercises Sitting Exercises 2 Sitting Exercise Name Trunk rotation with reach Reps/Minutes 8 1 Sitting Exercise Name Forward bend with horizontal abduction Reps/Minutes 8 Standing Exercises 6 Standing Exercise Name forearm AROM Comments flex/ext, sup/pron, rad/ulnar deviation 3 Standing Exercise Name calf stretch Reps/Minutes 30x2 1 Standing Exercise Name Shoulder extension Side bilateral Resistance #1 Gait Training Gait Activity 1 Description Smooth surface ambulation Distance/Duration 10 min Comments Vc for arm swing and to control R ankle dorsiflexion Manual Therapy Treatment Taping 2 Body Location R elbow Type of Tape Kinesio Tape Neuro Re-Education Treatment Balance Activities 5 Details WBOS trunk rotation Comments with UE reach 4 Details Stride stance a/p weightshift Comments With alternating arm reach 3 Details Backward stepping Comments With UE reach 1 Details Lateral stepping Comments With UE reach 2 Details Forward stepping Comments With UE reach PT-OP-R Modalities Start: 04/07/18 16:46 Freq: Status: Active Protocol: Document 04/10/18 13:30 AMB (Rec: 04/10/18 15:50 AMB [email or web address]) Electric Stimulation Electric Stimulation Interferential Current (IFC) Body Location R elbow Duration (Minutes) 10 Combined With Heat/Cold Cold Pack PT-OP-T Assessment and Plan Start: 03/28/18 06:41 Freq: Status: Active Protocol: Document 04/10/18 13:30 AMB (Rec: 04/10/18 15:50 AMB [email or web address]) Physical Therapy Assessment Assessment Summary Assessment The patient needs continued encouragement that he is doing well, would likely do better in a group environment once discharged. Suggested Parkinson's dance group, possibly consider personal insurance advisor? Physical Therapy Plan Frequency and Duration Frequency of Treatment 4x/Week Duration of Treatment 4 weeks Plan of Care Start Date 03/27/18 Plan of Care End Date 04/24/18 Next Visit Focus/Plan Next Note Type Treatment Note Next Visit Plan Focus on HEP- what pt can do at home to get max
--- NOTE | 2018-04-11 15:53 | PT.OTN ---
Current Diagnoses Parkinson's disease (04/11/18) Physical Therapy Treatment Note PT-OP-A Visit Information Start: 03/28/18 06:41 Freq: Status: Active Protocol: Document 04/11/18 13:30 AMB (Rec: 04/11/18 13:35 AMB [email or web address]) Out-Patient Physical Therapy Visit Information Visit Information Visit Type Treatment Note Visit Start Time 13:30 Visit Stop Time 14:30 Total Visit Minutes 60 Visit Number 10 Evaluation Information Evaluation Date 03/27/18 PT-OP-B Current Condition Start: 03/28/18 06:41 Freq: Status: Active Protocol: Document 03/27/18 13:30 AMB (Rec: 03/28/18 07:05 AMB [email or web address]) Current Condition History of Current Condition History of Current Condition The patient reports history of Parkinson's for about the last 5 years. He moved to [place] about 7 months ago, to live closer to his brother and sister in law. He lives at [facility], but is still able to dress himself and bathe himself independently (although it does take longer to do). Prior Functional Status Baseline Function- ADL's Modified Independent Baseline Function- Mobility Modified Independent Current Functional Impairments (Reported) Functional Limitations- ADL's Patient is right handed, but has recently switched to eating with his left hand due to right sided stiffness. Difficulty writing, difficulty donning pants. Functional Limitations- Mobility/Gait Walks for an hour 5x/week, but gets tired doing so. No stairs at [facility], but stairs at the [place]. Functional Limitations- Other Nocturia x4 (does use a night light) Personal Factors Other Personal Factors That May Effect History of 1 fall a year ago Therapy/Recovery PT-OP-C Subjective Start: 03/28/18 06:41 Freq: Status: Active Protocol: Document 04/11/18 13:30 AMB (Rec: 04/11/18 14:36 AMB [id number]) OP-PT Subjective Patient Comments Patient Comments Pt reports 3/10 R arm pain at the beginning of the session. No pain at the end of the session. He was busy yesterday with a walk to [employer]. PT-OP-D Balance Start: 03/28/18 06:41 Freq: Status: Active Protocol: Document 03/27/18 13:30 AMB (Rec: 03/28/18 07:24 AMB [email or web address]) Balance Tests Romberg Romberg 15 seconds with forward LOB Single Limb Standing Single Limb- Right 12 seconds Single Limb- Left 10 seconds PT-OP-E Functional Tests Start: 03/28/18 06:41 Freq: Status: Active Protocol: Document 03/27/18 13:30 AMB (Rec: 03/28/18 07:21 AMB [email or web address]) Functional Tests 6 Minute Walk Test Distance 1026 Device Used none Five Times Sit to Stand Test Score 11 seconds Comments difficulty coming into full stand PT-OP-G Mobility & Gait Start: 03/28/18 06:41 Freq: Status: Active Protocol: Document 03/27/18 13:30 AMB (Rec: 03/28/18 07:21 AMB [email or web address]) OP Gait Assessment Comments Gait Comments Complete lack of trunk rotation/ arm swing unless the patient is actively concentrating on it, and then still small. Significantly reduced ankle dorsiflexion on the right during swing. PT-OP-H Neuro Start: 03/28/18 06:41 Freq: Status: Active Protocol: Document 03/27/18 13:30 AMB (Rec: 03/28/18 07:21 AMB [email or web address]) Sensation Evaluation Comments Summary Comments Pt reports reduced sensation in toes/ feet bilaterally. 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 Overall increased tightness with hip and shoulder flexion and wrist extension. PT-OP-J Posture/Palpation/Skin Start: 03/28/18 06:41 Freq: Status: Active Protocol: Document 03/27/18 13:30 AMB (Rec: 03/28/18 07:21 AMB [email or web address]) Posture Evaluation Comments Posture Comments Moderate thoracic kyphosis with history of scoliosis. PT-OP-K Range of Motion Start: 03/28/18 06:41 Freq: Status: Active Protocol: Document 03/27/18 13:30 AMB (Rec: 03/28/18 07:21 AMB [email or web address]) Shoulder Goniometric Range of Motion Shoulder Measured in Degrees Left Active Flexion 145 Extension 55 Right Active Flexion 133 Extension 55 PT-OP-M Strength Start: 03/28/18 06:41 Freq: Status: Active Protocol: Document 03/27/18 13:30 AMB (Rec: 03/28/18 07:21 AMB [email or web address]) Hand Tax Attorney/Pinch Strength Hand Dominance Hand Dominance Right Hand Strength Right Tax Attorney (lbs) 43 Left Tax Attorney (lbs) 53 PT-OP-Q Treatments Start: 03/28/18 06:41 Freq: Status: Active Protocol: Document 04/11/18 13:30 AMB (Rec: 04/11/18 13:35 AMB [email or web address]) Therapeutic Exercises Sitting Exercises 2 Sitting Exercise Name Trunk rotation with reach Reps/Minutes 8 1 Sitting Exercise Name Forward bend with horizontal abduction Reps/Minutes 8 Standing Exercises 8 Standing Exercise Name pec stretch doorway Reps/Minutes 30x2 6 Standing Exercise Name forearm AROM Resistance 2# Reps/Minutes 1x10 ea Comments flex/ext, sup/pron, rad/ulnar deviation 3 Standing Exercise Name calf stretch Reps/Minutes 30x2 1 Standing Exercise Name Shoulder extension Side bilateral Resistance #1 Gait Training Gait Activity 1 Description Smooth surface ambulation Distance/Duration 10 min Comments Vc for arm swing and to control R ankle dorsiflexion Neuro Re-Education Treatment Balance Activities 5 Details WBOS trunk rotation Comments with UE reach 4 Details Stride stance a/p weightshift Comments With alternating arm reach 3 Details Backward stepping Comments With UE reach 1 Details Lateral stepping Comments With UE reach 2 Details Forward stepping Comments With UE reach PT-OP-R Modalities Start: 04/07/18 16:46 Freq: Status: Active Protocol: Document 04/11/18 13:30 AMB (Rec: 04/11/18 14:39 AMB [id number]) Electric Stimulation Electric Stimulation Interferential Current (IFC) Body Location R elbow Duration (Minutes) 10 Combined With Heat/Cold Cold Pack PT-OP-T Assessment and Plan Start: 03/28/18 06:41 Freq: Status: Active Protocol: Document 04/11/18 13:30 AMB (Rec: 04/11/18 15:49 AMB [email or web address]) Physical Therapy Assessment Assessment Summary Assessment The patient continues to report less arm pain after exercising, but he is concerned he is not working as hard a he should be. 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 Physical Therapy Plan Next Visit Focus/Plan Next Note Type Treatment Note Next Visit Plan Continue to progress fine motor exercises
--- NOTE | 2018-04-12 16:05 | PT.OTN ---
Current Diagnoses Parkinson's disease (04/12/18) Physical Therapy Treatment Note PT-OP-A Visit Information Start: 03/28/18 06:41 Freq: Status: Active Protocol: Document 04/12/18 13:30 AMB (Rec: 04/12/18 13:30 AMB [email or web address]) Out-Patient Physical Therapy Visit Information Visit Information Visit Type Treatment Note Visit Start Time 13:30 Visit Stop Time 14:30 Total Visit Minutes 60 Visit Number 11 Evaluation Information Evaluation Date 03/27/18 PT-OP-B Current Condition Start: 03/28/18 06:41 Freq: Status: Active Protocol: Document 03/27/18 13:30 AMB (Rec: 03/28/18 07:05 AMB [email or web address]) Current Condition History of Current Condition History of Current Condition The patient reports history of Parkinson's for about the last 5 years. He moved to [place] about 7 months ago, to live closer to his brother and sister in law. He lives at [facility], but is still able to dress himself and bathe himself independently (although it does take longer to do). Prior Functional Status Baseline Function- ADL's Modified Independent Baseline Function- Mobility Modified Independent Current Functional Impairments (Reported) Functional Limitations- ADL's Patient is right handed, but has recently switched to eating with his left hand due to right sided stiffness. Difficulty writing, difficulty donning pants. Functional Limitations- Mobility/Gait Walks for an hour 5x/week, but gets tired doing so. No stairs at [facility], but stairs at the [place]. Functional Limitations- Other Nocturia x4 (does use a night light) Personal Factors Other Personal Factors That May Effect History of 1 fall a year ago Therapy/Recovery PT-OP-C Subjective Start: 03/28/18 06:41 Freq: Status: Active Protocol: Document 04/12/18 13:30 AMB (Rec: 04/12/18 16:03 AMB [email or web address]) OP-PT Subjective Patient Comments Patient Comments The patient continues to note R arm stiffness, not so much pain. Finds it difficult to push himself as much at home as he does here. PT-OP-D Balance Start: 03/28/18 06:41 Freq: Status: Active Protocol: Document 03/27/18 13:30 AMB (Rec: 03/28/18 07:24 AMB [email or web address]) Balance Tests Romberg Romberg 15 seconds with forward LOB Single Limb Standing Single Limb- Right 12 seconds Single Limb- Left 10 seconds PT-OP-E Functional Tests Start: 03/28/18 06:41 Freq: Status: Active Protocol: Document 03/27/18 13:30 AMB (Rec: 03/28/18 07:21 AMB [email or web address]) Functional Tests 6 Minute Walk Test Distance 1026 Device Used none Five Times Sit to Stand Test Score 11 seconds Comments difficulty coming into full stand PT-OP-G Mobility & Gait Start: 03/28/18 06:41 Freq: Status: Active Protocol: Document 03/27/18 13:30 AMB (Rec: 03/28/18 07:21 AMB [email or web address]) OP Gait Assessment Comments Gait Comments Complete lack of trunk rotation/ arm swing unless the patient is actively concentrating on it, and then still small. Significantly reduced ankle dorsiflexion on the right during swing. PT-OP-H Neuro Start: 03/28/18 06:41 Freq: Status: Active Protocol: Document 03/27/18 13:30 AMB (Rec: 03/28/18 07:21 AMB [email or web address]) Sensation Evaluation Comments Summary Comments Pt reports reduced sensation in toes/ feet bilaterally. 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 Overall increased tightness with hip and shoulder flexion and wrist extension. PT-OP-J Posture/Palpation/Skin Start: 03/28/18 06:41 Freq: Status: Active Protocol: Document 03/27/18 13:30 AMB (Rec: 03/28/18 07:21 AMB [email or web address]) Posture Evaluation Comments Posture Comments Moderate thoracic kyphosis with history of scoliosis. PT-OP-K Range of Motion Start: 03/28/18 06:41 Freq: Status: Active Protocol: Document 03/27/18 13:30 AMB (Rec: 03/28/18 07:21 AMB [email or web address]) Shoulder Goniometric Range of Motion Shoulder Measured in Degrees Left Active Flexion 145 Extension 55 Right Active Flexion 133 Extension 55 PT-OP-M Strength Start: 03/28/18 06:41 Freq: Status: Active Protocol: Document 03/27/18 13:30 AMB (Rec: 03/28/18 07:21 AMB [email or web address]) Hand [employer]/Pinch Strength Hand Dominance Hand Dominance Right Hand Strength Right [employer] (lbs) 43 Left [employer] (lbs) 53 PT-OP-Q Treatments Start: 03/28/18 06:41 Freq: Status: Active Protocol: Document 04/12/18 13:30 AMB (Rec: 04/12/18 16:03 AMB [email or web address]) Therapeutic Exercises Sitting Exercises 2 Sitting Exercise Name Trunk rotation with reach Reps/Minutes 8 1 Sitting Exercise Name Forward bend with horizontal abduction Reps/Minutes 8 Standing Exercises 8 Standing Exercise Name pec stretch doorway Reps/Minutes 30x2 6 Standing Exercise Name forearm AROM Resistance 2# Reps/Minutes 1x10 ea Comments flex/ext, sup/pron, rad/ulnar deviation 3 Standing Exercise Name calf stretch Reps/Minutes 30x2 Gait Training Gait Activity 1 Description Smooth surface ambulation Distance/Duration 10 min Comments Vc for arm swing and to control R ankle dorsiflexion Neuro Re-Education Treatment Balance Activities 5 Details WBOS trunk rotation Comments with UE reach 4 Details Stride stance a/p weightshift Comments With alternating arm reach 3 Details Backward stepping Comments With UE reach 1 Details Lateral stepping Comments With UE reach 2 Details Forward stepping Comments With UE reach PT-OP-R Modalities Start: 04/07/18 16:46 Freq: Status: Active Protocol: Document 04/11/18 13:30 AMB (Rec: 04/11/18 14:39 AMB [id number]) Electric Stimulation Electric Stimulation Interferential Current (IFC) Body Location R elbow Duration (Minutes) 10 Combined With Heat/Cold Cold Pack PT-OP-T Assessment and Plan Start: 03/28/18 06:41 Freq: Status: Active Protocol: Document 04/12/18 13:30 AMB (Rec: 04/12/18 16:03 AMB [email or web address]) Physical Therapy Assessment Assessment Summary Assessment Encourage pt that he is doing well, to continue to move arm to avoid stiffness. Working on one good movement for sit to stand, to get out of movie theater seat. Physical Therapy Plan Frequency and Duration Frequency of Treatment 4x/Week Duration of Treatment 4 weeks Plan of Care Start Date 03/27/18 Plan of Care End Date 04/24/18 Next Visit Focus/Plan Next Note Type Treatment Note Next Visit Plan Continue to progress dynamic balance, full ROM.
--- NOTE | 2018-04-13 15:26 | PT.OTN ---
Current Diagnoses Parkinson's disease (04/13/18) Physical Therapy Treatment Note PT-OP-A Visit Information Start: 03/28/18 06:41 Freq: Status: Active Protocol: Document 04/13/18 13:30 AMB (Rec: 04/13/18 14:35 AMB [id number]) Out-Patient Physical Therapy Visit Information Visit Information Visit Type Treatment Note Visit Start Time 13:30 Visit Stop Time 14:30 Total Visit Minutes 60 Visit Number 12 Evaluation Information Evaluation Date 03/27/18 PT-OP-B Current Condition Start: 03/28/18 06:41 Freq: Status: Active Protocol: Document 03/27/18 13:30 AMB (Rec: 03/28/18 07:05 AMB [email or web address]) Current Condition History of Current Condition History of Current Condition The patient reports history of Parkinson's for about the last 5 years. He moved to [place] about 7 months ago, to live closer to his brother and sister in law. He lives at [facility], but is still able to dress himself and bathe himself independently (although it does take longer to do). Prior Functional Status Baseline Function- ADL's Modified Independent Baseline Function- Mobility Modified Independent Current Functional Impairments (Reported) Functional Limitations- ADL's Patient is right handed, but has recently switched to eating with his left hand due to right sided stiffness. Difficulty writing, difficulty donning pants. Functional Limitations- Mobility/Gait Walks for an hour 5x/week, but gets tired doing so. No stairs at [facility], but stairs at the park [place]. Functional Limitations- Other Nocturia x4 (does use a night light) Personal Factors Other Personal Factors That May Effect History of 1 fall a year ago Therapy/Recovery PT-OP-C Subjective Start: 03/28/18 06:41 Freq: Status: Active Protocol: Document 04/13/18 13:30 AMB (Rec: 04/13/18 14:35 AMB [id number]) OP-PT Subjective Patient Comments Patient Comments Pt reports fatigue today. No difficulty getting out of movie theater seats. PT-OP-D Balance Start: 03/28/18 06:41 Freq: Status: Active Protocol: Document 03/27/18 13:30 AMB (Rec: 03/28/18 07:24 AMB [email or web address]) Balance Tests Romberg Romberg 15 seconds with forward LOB Single Limb Standing Single Limb- Right 12 seconds Single Limb- Left 10 seconds PT-OP-E Functional Tests Start: 03/28/18 06:41 Freq: Status: Active Protocol: Document 03/27/18 13:30 AMB (Rec: 03/28/18 07:21 AMB [email or web address]) Functional Tests 6 Minute Walk Test Distance 1026 Device Used none Five Times Sit to Stand Test Score 11 seconds Comments difficulty coming into full stand PT-OP-G Mobility & Gait Start: 03/28/18 06:41 Freq: Status: Active Protocol: Document 03/27/18 13:30 AMB (Rec: 03/28/18 07:21 AMB [email or web address]) OP Gait Assessment Comments Gait Comments Complete lack of trunk rotation/ arm swing unless the patient is actively concentrating on it, and then still small. Significantly reduced ankle dorsiflexion on the right during swing. PT-OP-H Neuro Start: 03/28/18 06:41 Freq: Status: Active Protocol: Document 03/27/18 13:30 AMB (Rec: 03/28/18 07:21 AMB [email or web address]) Sensation Evaluation Comments Summary Comments Pt reports reduced sensation in toes/ feet bilaterally. 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 Overall increased tightness with hip and shoulder flexion and wrist extension. PT-OP-J Posture/Palpation/Skin Start: 03/28/18 06:41 Freq: Status: Active Protocol: Document 03/27/18 13:30 AMB (Rec: 03/28/18 07:21 AMB [email or web address]) Posture Evaluation Comments Posture Comments Moderate thoracic kyphosis with history of scoliosis. PT-OP-K Range of Motion Start: 03/28/18 06:41 Freq: Status: Active Protocol: Document 03/27/18 13:30 AMB (Rec: 03/28/18 07:21 AMB [email or web address]) Shoulder Goniometric Range of Motion Shoulder Measured in Degrees Left Active Flexion 145 Extension 55 Right Active Flexion 133 Extension 55 PT-OP-M Strength Start: 03/28/18 06:41 Freq: Status: Active Protocol: Document 03/27/18 13:30 AMB (Rec: 03/28/18 07:21 AMB [email or web address]) Hand Timber Hand/Pinch Strength Hand Dominance Hand Dominance Right Hand Strength Right Timber Hand (lbs) 43 Left Timber Hand (lbs) 53 PT-OP-Q Treatments Start: 03/28/18 06:41 Freq: Status: Active Protocol: Document 04/13/18 13:30 AMB (Rec: 04/13/18 14:39 AMB [id number]) Therapeutic Exercises Supine Exercises 1 Supine Exercise Name Trunk rotation Comments on 55cm ball Sitting Exercises 2 Sitting Exercise Name Trunk rotation with reach Reps/Minutes 8 1 Sitting Exercise Name Forward bend with horizontal abduction Reps/Minutes 8 Standing Exercises 8 Standing Exercise Name pec stretch doorway Reps/Minutes 30x2 7 Standing Exercise Name D1, D2 flexion Comments 3# weight 6 Standing Exercise Name forearm AROM Resistance 2# Reps/Minutes 1x10 ea Comments flex/ext, sup/pron, rad/ulnar deviation 3 Standing Exercise Name calf stretch Reps/Minutes 30x2 1 Standing Exercise Name Shoulder extension Side bilateral Resistance #1 Neuro Re-Education Treatment Balance Activities 5 Details WBOS trunk rotation Comments with UE reach 4 Details Stride stance a/p weightshift Comments With alternating arm reach 3 Details Backward stepping Comments With UE reach 1 Details Lateral stepping Comments With UE reach 2 Details Forward stepping Comments With UE reach PT-OP-R Modalities Start: 04/07/18 16:46 Freq: Status: Active Protocol: Document 04/13/18 13:30 AMB (Rec: 04/13/18 14:40 AMB [id number]) Electric Stimulation Electric Stimulation Interferential Current (IFC) Body Location R elbow Duration (Minutes) 10 Combined With Heat/Cold Cold Pack PT-OP-T Assessment and Plan Start: 03/28/18 06:41 Freq: Status: Active Protocol: Document 04/13/18 13:30 AMB (Rec: 04/13/18 15:23 AMB [email or web address]) Physical Therapy Assessment Assessment Summary Assessment Mirror feedback helped pt realize how close his ROM is L vs R. Physical Therapy Plan Next Visit Focus/Plan Next Note Type Treatment Note Next Visit Plan Follwo up on use of R arm with eating
--- NOTE | 2018-04-17 14:37 | PT.OTN ---
Current Diagnoses Parkinson's disease (04/17/18) Physical Therapy Treatment Note PT-OP-A Visit Information Start: 03/28/18 06:41 Freq: Status: Active Protocol: Document 04/17/18 13:30 AMB (Rec: 04/17/18 14:25 AMB [id number]) Out-Patient Physical Therapy Visit Information Visit Information Visit Type Treatment Note Visit Start Time 13:30 Visit Stop Time 14:30 Total Visit Minutes 60 Visit Number 13 Evaluation Information Evaluation Date 03/27/18 PT-OP-B Current Condition Start: 03/28/18 06:41 Freq: Status: Active Protocol: Document 03/27/18 13:30 AMB (Rec: 03/28/18 07:05 AMB [email or web address]) Current Condition History of Current Condition History of Current Condition The patient reports history of Parkinson's for about the last 5 years. He moved to [place] about 7 months ago, to live closer to his brother and sister in law. He lives at [facility], but is still able to dress himself and bathe himself independently (although it does take longer to do). Prior Functional Status Baseline Function- ADL's Modified Independent Baseline Function- Mobility Modified Independent Current Functional Impairments (Reported) Functional Limitations- ADL's Patient is right handed, but has recently switched to eating with his left hand due to right sided stiffness. Difficulty writing, difficulty donning pants. Functional Limitations- Mobility/Gait Walks for an hour 5x/week, but gets tired doing so. No stairs at [facility], but stairs at the park [place]. Functional Limitations- Other Nocturia x4 (does use a night light) Personal Factors Other Personal Factors That May Effect History of 1 fall a year ago Therapy/Recovery PT-OP-C Subjective Start: 03/28/18 06:41 Freq: Status: Active Protocol: Document 04/17/18 13:30 AMB (Rec: 04/17/18 14:25 AMB [id number]) OP-PT Subjective Patient Comments Patient Comments Pt reports he did not sleep well last night PT-OP-D Balance Start: 03/28/18 06:41 Freq: Status: Active Protocol: Document 03/27/18 13:30 AMB (Rec: 03/28/18 07:24 AMB [email or web address]) Balance Tests Romberg Romberg 15 seconds with forward LOB Single Limb Standing Single Limb- Right 12 seconds Single Limb- Left 10 seconds PT-OP-E Functional Tests Start: 03/28/18 06:41 Freq: Status: Active Protocol: Document 03/27/18 13:30 AMB (Rec: 03/28/18 07:21 AMB [email or web address]) Functional Tests 6 Minute Walk Test Distance 1026 Device Used none Five Times Sit to Stand Test Score 11 seconds Comments difficulty coming into full stand PT-OP-G Mobility & Gait Start: 03/28/18 06:41 Freq: Status: Active Protocol: Document 03/27/18 13:30 AMB (Rec: 03/28/18 07:21 AMB [email or web address]) OP Gait Assessment Comments Gait Comments Complete lack of trunk rotation/ arm swing unless the patient is actively concentrating on it, and then still small. Significantly reduced ankle dorsiflexion on the right during swing. PT-OP-H Neuro Start: 03/28/18 06:41 Freq: Status: Active Protocol: Document 03/27/18 13:30 AMB (Rec: 03/28/18 07:21 AMB [email or web address]) Sensation Evaluation Comments Summary Comments Pt reports reduced sensation in toes/ feet bilaterally. 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 Overall increased tightness with hip and shoulder flexion and wrist extension. PT-OP-J Posture/Palpation/Skin Start: 03/28/18 06:41 Freq: Status: Active Protocol: Document 03/27/18 13:30 AMB (Rec: 03/28/18 07:21 AMB [email or web address]) Posture Evaluation Comments Posture Comments Moderate thoracic kyphosis with history of scoliosis. PT-OP-K Range of Motion Start: 03/28/18 06:41 Freq: Status: Active Protocol: Document 03/27/18 13:30 AMB (Rec: 03/28/18 07:21 AMB [email or web address]) Shoulder Goniometric Range of Motion Shoulder Measured in Degrees Left Active Flexion 145 Extension 55 Right Active Flexion 133 Extension 55 PT-OP-M Strength Start: 03/28/18 06:41 Freq: Status: Active Protocol: Document 03/27/18 13:30 AMB (Rec: 03/28/18 07:21 AMB [email or web address]) Hand [employer]/Pinch Strength Hand Dominance Hand Dominance Right Hand Strength Right [employer] (lbs) 43 Left [employer] (lbs) 53 PT-OP-Q Treatments Start: 03/28/18 06:41 Freq: Status: Active Protocol: Document 04/17/18 13:30 AMB (Rec: 04/17/18 14:25 AMB [id number]) Therapeutic Exercises Sitting Exercises 2 Sitting Exercise Name Trunk rotation with reach Reps/Minutes 8 1 Sitting Exercise Name Forward bend with horizontal abduction Reps/Minutes 8 Standing Exercises 8 Standing Exercise Name pec stretch doorway Reps/Minutes 30x2 3 Standing Exercise Name calf stretch Reps/Minutes 30x2 1 Standing Exercise Name Shoulder extension Side bilateral Resistance #1 Gait Training Gait Activity 1 Description Smooth surface ambulation Distance/Duration 10 min Comments Vc for arm swing and to control R ankle dorsiflexion Neuro Re-Education Treatment Balance Activities 5 Details WBOS trunk rotation Comments with UE reach 4 Details Stride stance a/p weightshift Comments With alternating arm reach 3 Details Backward stepping Comments With UE reach 1 Details Lateral stepping Comments With UE reach 2 Details Forward stepping Comments With UE reach PT-OP-R Modalities Start: 04/07/18 16:46 Freq: Status: Active Protocol: Document 04/17/18 14:30 AMB (Rec: 04/17/18 14:31 AMB [id number]) Hot Pack/Cold Pack Treatment Cold Pack Location R elbow Patient Position Sitting Treatment Duration (minutes) 15 PT-OP-T Assessment and Plan Start: 03/28/18 06:41 Freq: Status: Active Protocol: Document 04/17/18 13:30 AMB (Rec: 04/17/18 14:37 AMB [id number]) Physical Therapy Assessment Assessment Summary Assessment Pt with difficult with writing / typing activities, but much better with stretching the hand. Continues to need cues for good gait. Physical Therapy Plan Next Visit Focus/Plan Next Note Type Treatment Note Next Visit Plan Progress gait/ fine motor activities
--- NOTE | 2018-04-18 16:26 | PT.OTN ---
Current Diagnoses Parkinson's disease (04/18/18) Physical Therapy Treatment Note PT-OP-A Visit Information Start: 03/28/18 06:41 Freq: Status: Active Protocol: Document 04/18/18 13:30 AMB (Rec: 04/18/18 16:25 AMB [email or web address]) Out-Patient Physical Therapy Visit Information Visit Information Visit Type Treatment Note Visit Start Time 13:30 Visit Stop Time 14:30 Total Visit Minutes 60 Visit Number 14 PT-OP-B Current Condition Start: 03/28/18 06:41 Freq: Status: Active Protocol: Document 03/27/18 13:30 AMB (Rec: 03/28/18 07:05 AMB [email or web address]) Current Condition History of Current Condition History of Current Condition The patient reports history of Parkinson's for about the last 5 years. He moved to [place] about 7 months ago, to live closer to his brother and sister in law. He lives at [facility], but is still able to dress himself and bathe himself independently (although it does take longer to do). Prior Functional Status Baseline Function- ADL's Modified Independent Baseline Function- Mobility Modified Independent Current Functional Impairments (Reported) Functional Limitations- ADL's Patient is right handed, but has recently switched to eating with his left hand due to right sided stiffness. Difficulty writing, difficulty donning pants. Functional Limitations- Mobility/Gait Walks for an hour 5x/week, but gets tired doing so. No stairs at [facility], but stairs at the park [place]. Functional Limitations- Other Nocturia x4 (does use a night light) Personal Factors Other Personal Factors That May Effect History of 1 fall a year ago Therapy/Recovery PT-OP-C Subjective Start: 03/28/18 06:41 Freq: Status: Active Protocol: Document 04/18/18 13:30 AMB (Rec: 04/18/18 16:25 AMB [email or web address]) OP-PT Subjective Patient Comments Patient Comments Pt is feeling better today. PT-OP-D Balance Start: 03/28/18 06:41 Freq: Status: Active Protocol: Document 03/27/18 13:30 AMB (Rec: 03/28/18 07:24 AMB [email or web address]) Balance Tests Romberg Romberg 15 seconds with forward LOB Single Limb Standing Single Limb- Right 12 seconds Single Limb- Left 10 seconds PT-OP-E Functional Tests Start: 03/28/18 06:41 Freq: Status: Active Protocol: Document 03/27/18 13:30 AMB (Rec: 03/28/18 07:21 AMB [email or web address]) Functional Tests 6 Minute Walk Test Distance 1026 Device Used none Five Times Sit to Stand Test Score 11 seconds Comments difficulty coming into full stand PT-OP-G Mobility & Gait Start: 03/28/18 06:41 Freq: Status: Active Protocol: Document 03/27/18 13:30 AMB (Rec: 03/28/18 07:21 AMB [email or web address]) OP Gait Assessment Comments Gait Comments Complete lack of trunk rotation/ arm swing unless the patient is actively concentrating on it, and then still small. Significantly reduced ankle dorsiflexion on the right during swing. PT-OP-H Neuro Start: 03/28/18 06:41 Freq: Status: Active Protocol: Document 03/27/18 13:30 AMB (Rec: 03/28/18 07:21 AMB [email or web address]) Sensation Evaluation Comments Summary Comments Pt reports reduced sensation in toes/ feet bilaterally. 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 Overall increased tightness with hip and shoulder flexion and wrist extension. PT-OP-J Posture/Palpation/Skin Start: 03/28/18 06:41 Freq: Status: Active Protocol: Document 03/27/18 13:30 AMB (Rec: 03/28/18 07:21 AMB [email or web address]) Posture Evaluation Comments Posture Comments Moderate thoracic kyphosis with history of scoliosis. PT-OP-K Range of Motion Start: 03/28/18 06:41 Freq: Status: Active Protocol: Document 03/27/18 13:30 AMB (Rec: 03/28/18 07:21 AMB [email or web address]) Shoulder Goniometric Range of Motion Shoulder Measured in Degrees Left Active Flexion 145 Extension 55 Right Active Flexion 133 Extension 55 PT-OP-M Strength Start: 03/28/18 06:41 Freq: Status: Active Protocol: Document 04/18/18 14:07 AMB (Rec: 04/18/18 14:08 AMB [id number]) Hand [employer]/Pinch Strength Hand Strength Right [employer] (lbs) 45 Left [employer] (lbs) 55 PT-OP-Q Treatments Start: 03/28/18 06:41 Freq: Status: Active Protocol: Document 04/18/18 13:30 AMB (Rec: 04/18/18 16:25 AMB [email or web address]) Therapeutic Exercises Sitting Exercises 2 Sitting Exercise Name Trunk rotation with reach Reps/Minutes 8 1 Sitting Exercise Name Forward bend with horizontal abduction Reps/Minutes 8 Standing Exercises 8 Standing Exercise Name pec stretch doorway Reps/Minutes 30x2 7 Standing Exercise Name D1, D2 flexion Comments 3# weight 6 Standing Exercise Name forearm AROM Resistance 2# Reps/Minutes 1x10 ea Comments flex/ext, sup/pron, rad/ulnar deviation 3 Standing Exercise Name calf stretch Reps/Minutes 30x2 1 Standing Exercise Name Shoulder extension Side bilateral Resistance #2 Gait Training Gait Activity 1 Description Smooth surface ambulation Distance/Duration 10 min Comments Vc for arm swing and to control R ankle dorsiflexion Neuro Re-Education Treatment Balance Activities 5 Details WBOS trunk rotation Comments with UE reach 4 Details Stride stance a/p weightshift Comments With alternating arm reach 3 Details Backward stepping Comments With UE reach 1 Details Lateral stepping Comments With UE reach 2 Details Forward stepping Comments With UE reach PT-OP-R Modalities Start: 04/07/18 16:46 Freq: Status: Active Protocol: Document 04/18/18 13:30 AMB (Rec: 04/18/18 16:25 AMB [email or web address]) Electric Stimulation Electric Stimulation Interferential Current (IFC) Body Location R elbow Duration (Minutes) 10 Combined With Heat/Cold Cold Pack PT-OP-T Assessment and Plan Start: 03/28/18 06:41 Freq: Status: Active Protocol: Document 04/18/18 13:30 AMB (Rec: 04/18/18 16:25 AMB [email or web address]) Physical Therapy Assessment Assessment Summary Assessment Pt with difficulty reaching to full extent without using chair. For now continue to recommend UE support at home. Physical Therapy Plan Next Visit Focus/Plan Next Note Type Treatment Note Next Visit Plan Begin reassessing objective measures
--- NOTE | 2018-04-19 16:03 | PT.OTN ---
Current Diagnoses Parkinson's disease (04/19/18) Physical Therapy Treatment Note PT-OP-A Visit Information Start: 03/28/18 06:41 Freq: Status: Active Protocol: Document 04/19/18 13:30 AMB (Rec: 04/19/18 16:01 AMB [email or web address]) Out-Patient Physical Therapy Visit Information Visit Information Visit Type Treatment Note Visit Start Time 13:30 Visit Stop Time 14:30 Total Visit Minutes 60 Visit Number 15 Evaluation Information Evaluation Date 03/27/18 PT-OP-B Current Condition Start: 03/28/18 06:41 Freq: Status: Active Protocol: Document 03/27/18 13:30 AMB (Rec: 03/28/18 07:05 AMB [email or web address]) Current Condition History of Current Condition History of Current Condition The patient reports history of Parkinson's for about the last 5 years. He moved to [place] about 7 months ago, to live closer to his brother and sister in law. He lives at [facility], but is still able to dress himself and bathe himself independently (although it does take longer to do). Prior Functional Status Baseline Function- ADL's Modified Independent Baseline Function- Mobility Modified Independent Current Functional Impairments (Reported) Functional Limitations- ADL's Patient is right handed, but has recently switched to eating with his left hand due to right sided stiffness. Difficulty writing, difficulty donning pants. Functional Limitations- Mobility/Gait Walks for an hour 5x/week, but gets tired doing so. No stairs at [facility], but stairs at the park [place]. Functional Limitations- Other Nocturia x4 (does use a night light) Personal Factors Other Personal Factors That May Effect History of 1 fall a year ago Therapy/Recovery PT-OP-C Subjective Start: 03/28/18 06:41 Freq: Status: Active Protocol: Document 04/19/18 13:30 AMB (Rec: 04/19/18 16:01 AMB [email or web address]) OP-PT Subjective Patient Comments Patient Comments Pt notes his family is noticing he is a bit louder. PT-OP-D Balance Start: 03/28/18 06:41 Freq: Status: Active Protocol: Document 03/27/18 13:30 AMB (Rec: 03/28/18 07:24 AMB [email or web address]) Balance Tests Romberg Romberg 15 seconds with forward LOB Single Limb Standing Single Limb- Right 12 seconds Single Limb- Left 10 seconds PT-OP-E Functional Tests Start: 03/28/18 06:41 Freq: Status: Active Protocol: Document 04/19/18 13:30 AMB (Rec: 04/19/18 14:06 AMB [id number]) Functional Tests 6 Minute Walk Test Distance 1, 282 feet Device Used none Five Times Sit to Stand Test Score 10 seconds Comments full stand PT-OP-G Mobility & Gait Start: 03/28/18 06:41 Freq: Status: Active Protocol: Document 03/27/18 13:30 AMB (Rec: 03/28/18 07:21 AMB [email or web address]) OP Gait Assessment Comments Gait Comments Complete lack of trunk rotation/ arm swing unless the patient is actively concentrating on it, and then still small. Significantly reduced ankle dorsiflexion on the right during swing. PT-OP-H Neuro Start: 03/28/18 06:41 Freq: Status: Active Protocol: Document 03/27/18 13:30 AMB (Rec: 03/28/18 07:21 AMB [email or web address]) Sensation Evaluation Comments Summary Comments Pt reports reduced sensation in toes/ feet bilaterally. 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 Overall increased tightness with hip and shoulder flexion and wrist extension. PT-OP-J Posture/Palpation/Skin Start: 03/28/18 06:41 Freq: Status: Active Protocol: Document 03/27/18 13:30 AMB (Rec: 03/28/18 07:21 AMB [email or web address]) Posture Evaluation Comments Posture Comments Moderate thoracic kyphosis with history of scoliosis. PT-OP-K Range of Motion Start: 03/28/18 06:41 Freq: Status: Active Protocol: Document 04/19/18 14:06 AMB (Rec: 04/19/18 14:10 AMB [id number]) Shoulder Goniometric Range of Motion Shoulder Measured in Degrees Left Active Flexion 150 Extension 60 Right Active Flexion 145 Extension 60 PT-OP-M Strength Start: 03/28/18 06:41 Freq: Status: Active Protocol: Document 04/18/18 14:07 AMB (Rec: 04/18/18 14:08 AMB [id number]) Hand Licensed Therapist/Pinch Strength Hand Strength Right Licensed Therapist (lbs) 45 Left Licensed Therapist (lbs) 55 PT-OP-Q Treatments Start: 03/28/18 06:41 Freq: Status: Active Protocol: Document 04/19/18 13:30 AMB (Rec: 04/19/18 16:01 AMB [email or web address]) Therapeutic Exercises Sitting Exercises 2 Sitting Exercise Name Trunk rotation with reach Reps/Minutes 8 1 Sitting Exercise Name Forward bend with horizontal abduction Reps/Minutes 8 Standing Exercises 8 Standing Exercise Name pec stretch doorway Reps/Minutes 30x2 3 Standing Exercise Name calf stretch Reps/Minutes 30x2 1 Standing Exercise Name Shoulder extension Side bilateral Resistance #2 Gait Training Gait Activity 1 Description Smooth surface ambulation Distance/Duration 10 min Comments Vc for arm swing and to control R ankle dorsiflexion Neuro Re-Education Treatment Balance Activities 5 Details WBOS trunk rotation Comments with UE reach 4 Details Stride stance a/p weightshift Comments With alternating arm reach 3 Details Backward stepping Comments With UE reach 1 Details Lateral stepping Comments With UE reach 2 Details Forward stepping Comments With UE reach PT-OP-R Modalities Start: 04/07/18 16:46 Freq: Status: Active Protocol: Document 04/19/18 13:30 AMB (Rec: 04/19/18 16:01 AMB [email or web address]) Hot Pack/Cold Pack Treatment Cold Pack Location R elbow Patient Position Sitting Treatment Duration (minutes) 15 PT-OP-T Assessment and Plan Start: 03/28/18 06:41 Freq: Status: Active Protocol: Document 04/19/18 13:30 AMB (Rec: 04/19/18 16:01 AMB [email or web address]) Physical Therapy Assessment Goals Three Impairment ADLs Short Term Goal (STG) The patient will use his right arm to eat a meal. STG Duration 2 weeks Group Home Goal (LTG) The patient will write 3 sentences legibly within 1 minute. LTG Duration 4 weeks Two Impairment Balance Short Term Goal (STG) The patient will improve his single leg stance to 15 seconds bilaterally to show reduced risk of falling. STG Duration 2 weeks Group Home Goal (LTG) The patient will stand from a chair without UE support without loss of balance. LTG Duration 4 weeks One Impairment Gait Short Term Goal (STG) The patient will ambulate short distances with appropriate trunk rotation and arm swing. STG Duration 2 weeks Group Home Goal (LTG) The patient will increase his 6MWT to 1,300 feet so that he can improve to 75% of his age/ gender norm. LTG Duration 4 weeks Assessment Summary Assessment Pt with improvement in shoulder flexion and 6MWT, 5x sit to stand about the same. Physical Therapy Plan Next Visit Focus/Plan Next Note Type Discharge Summary
--- NOTE | 2018-04-20 16:19 | PT.OTN ---
Current Diagnoses Parkinson's disease (04/20/18) Physical Therapy Treatment Note PT-OP-A Visit Information Start: 03/28/18 06:41 Freq: Status: Active Protocol: Document 04/20/18 13:30 AMB (Rec: 04/20/18 16:05 AMB [email or web address]) Out-Patient Physical Therapy Visit Information Visit Information Visit Type Treatment Note Visit Start Time 13:30 Visit Stop Time 14:40 Total Visit Minutes 70 Visit Number 16 Evaluation Information Evaluation Date 03/27/18 PT-OP-B Current Condition Start: 03/28/18 06:41 Freq: Status: Active Protocol: Document 03/27/18 13:30 AMB (Rec: 03/28/18 07:05 AMB [email or web address]) Current Condition History of Current Condition History of Current Condition The patient reports history of Parkinson's for about the last 5 years. He moved to [place] about 7 months ago, to live closer to his brother and sister in law. He lives at [facility], but is still able to dress himself and bathe himself independently (although it does take longer to do). Prior Functional Status Baseline Function- ADL's Modified Independent Baseline Function- Mobility Modified Independent Current Functional Impairments (Reported) Functional Limitations- ADL's Patient is right handed, but has recently switched to eating with his left hand due to right sided stiffness. Difficulty writing, difficulty donning pants. Functional Limitations- Mobility/Gait Walks for an hour 5x/week, but gets tired doing so. No stairs at [facility], but stairs at the park where [place] walks. Functional Limitations- Other Nocturia x4 (does use a night light) Personal Factors Other Personal Factors That May Effect History of 1 fall a year ago Therapy/Recovery PT-OP-C Subjective Start: 03/28/18 06:41 Freq: Status: Active Protocol: Document 04/20/18 13:30 AMB (Rec: 04/20/18 16:05 AMB [email or web address]) OP-PT Subjective Patient Comments Patient Comments The patient states he is doing well. Sad to be done with PT . PT-OP-D Balance Start: 03/28/18 06:41 Freq: Status: Active Protocol: Document 04/20/18 14:06 AMB (Rec: 04/20/18 14:10 AMB [id number]) Balance Tests Romberg Romberg 30 sec Single Limb Standing Single Limb- Right 10 sec Single Limb- Left 10 sec PT-OP-E Functional Tests Start: 03/28/18 06:41 Freq: Status: Active Protocol: Document 04/19/18 13:30 AMB (Rec: 04/19/18 14:06 AMB [id number]) Functional Tests 6 Minute Walk Test Distance 1, 282 feet Device Used none Five Times Sit to Stand Test Score 10 seconds Comments full stand PT-OP-G Mobility & Gait Start: 03/28/18 06:41 Freq: Status: Active Protocol: Document 03/27/18 13:30 AMB (Rec: 03/28/18 07:21 AMB [email or web address]) OP Gait Assessment Comments Gait Comments Complete lack of trunk rotation/ arm swing unless the patient is actively concentrating on it, and then still small. Significantly reduced ankle dorsiflexion on the right during swing. PT-OP-H Neuro Start: 03/28/18 06:41 Freq: Status: Active Protocol: Document 03/27/18 13:30 AMB (Rec: 03/28/18 07:21 AMB [email or web address]) Sensation Evaluation Comments Summary Comments Pt reports reduced sensation in toes/ feet bilaterally. 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 Overall increased tightness with hip and shoulder flexion and wrist extension. PT-OP-J Posture/Palpation/Skin Start: 03/28/18 06:41 Freq: Status: Active Protocol: Document 03/27/18 13:30 AMB (Rec: 03/28/18 07:21 AMB [email or web address]) Posture Evaluation Comments Posture Comments Moderate thoracic kyphosis with history of scoliosis. PT-OP-K Range of Motion Start: 03/28/18 06:41 Freq: Status: Active Protocol: Document 04/19/18 14:06 AMB (Rec: 04/19/18 14:10 AMB [id number]) Shoulder Goniometric Range of Motion Shoulder Measured in Degrees Left Active Flexion 150 Extension 60 Right Active Flexion 145 Extension 60 PT-OP-M Strength Start: 03/28/18 06:41 Freq: Status: Active Protocol: Document 04/18/18 14:07 AMB (Rec: 04/18/18 14:08 AMB [id number]) Hand Chain Saw Mechanic/Pinch Strength Hand Strength Right Chain Saw Mechanic (lbs) 45 Left Chain Saw Mechanic (lbs) 55 PT-OP-Q Treatments Start: 03/28/18 06:41 Freq: Status: Active Protocol: Document 04/20/18 13:30 AMB (Rec: 04/20/18 16:05 AMB [email or web address]) Therapeutic Exercises Sitting Exercises 2 Sitting Exercise Name Trunk rotation with reach Reps/Minutes 8 1 Sitting Exercise Name Forward bend with horizontal abduction Reps/Minutes 8 Standing Exercises 8 Standing Exercise Name pec stretch doorway Reps/Minutes 30x2 6 Standing Exercise Name forearm AROM Resistance 2# Reps/Minutes 1x10 ea Comments flex/ext, sup/pron, rad/ulnar deviation 3 Standing Exercise Name calf stretch Reps/Minutes 30x2 1 Standing Exercise Name Shoulder extension Side bilateral Resistance #2 Gait Training Gait Activity 1 Description Smooth surface ambulation Distance/Duration 10 min Comments Vc for arm swing and to control R ankle dorsiflexion Neuro Re-Education Treatment Balance Activities 5 Details WBOS trunk rotation Comments with UE reach 4 Details Stride stance a/p weightshift Comments With alternating arm reach 3 Details Backward stepping Comments With UE reach 1 Details Lateral stepping Comments With UE reach 2 Details Forward stepping Comments With UE reach PT-OP-R Modalities Start: 04/07/18 16:46 Freq: Status: Active Protocol: Document 04/20/18 13:30 AMB (Rec: 04/20/18 16:05 AMB [email or web address]) Electric Stimulation Electric Stimulation Interferential Current (IFC) Body Location R elbow Duration (Minutes) 10 Combined With Heat/Cold Cold Pack PT-OP-T Assessment and Plan Start: 03/28/18 06:41 Freq: Status: Active Protocol: Document 04/20/18 13:30 AMB (Rec: 04/20/18 16:05 AMB [email or web address]) Physical Therapy Assessment Goals Three Impairment ADLs Short Term Goal (STG) The patient will use his right arm to eat a meal. - NOT MET - pt eats primarily with left, but will try to eat with right intermittently STG Duration 2 weeks Long-Term Goal (LTG) The patient will write 3 sentences legibly within 1 minute. NOT MET- legible but takes more than 1 minute. LTG Duration 4 weeks Two Impairment Balance Short Term Goal (STG) The patient will improve his single leg stance to 15 seconds bilaterally to show reduced risk of falling. NOT MET STG Duration 2 weeks Long-Term Goal (LTG) The patient will stand from a chair without UE support without loss of balance. MET LTG Duration 4 weeks One Impairment Gait Short Term Goal (STG) The patient will ambulate short distances with appropriate trunk rotation and arm swing. PARTIALLY MET- requires verbal cues STG Duration 2 weeks Long-Term Goal (LTG) The patient will increase his 6MWT to 1,300 feet so that he can improve to 75% of his age/ gender norm. ALMOST MET- 1, 282 LTG Duration 4 weeks Assessment Summary Assessment The patient has shown some progress with his gait and good progress with his shoulder range. He continues to have discomfort in his right elbow with full extension. He continues to use his left hand to eat instead of making the right hand do it. So he has had some progress, but could have more if he works to move through his available range with ADLs. He has been consistent with his HEP and continues his daily walks. Physical Therapy Plan Discharge Physical Therapy Discharge Reasons Plateau in Progress Discharge Comments The patient came close to meeting many of his goals and has finished his [employer] program. He will need to continue with his HEP. He does find it difficult to push himself to get his maximal range.
== END 2018-04-24 12:45 ==
LOC: PHYS 13:30
PROVIDERS: PCP Family Medicine; Visit Provider Psychiatry & Neurology Neurology
DX: G20 Parkinson's disease (principal)
CPT/HCPCS: 97010; 97014; 97110; 97112; 97116; 97162; 97530; G0283

== ENCOUNTER 2018-04-27 11:00 | Outpatient (RCR) | payer MEDICARE, OTHER, SELFPAY | END 2018-05-19 11:01 | LOC: SP 11:00 | PROVIDERS: PCP Family Medicine; Visit Provider Psychiatry & Neurology Neurology | DX: G20 Parkinson's disease (principal) | CPT/HCPCS: 92507; 92520; 92524 ==

== ENCOUNTER 2018-08-01 17:06 | Emergency (ER) | payer MEDICARE, OTHER, SELFPAY ==
[2018-08-01 17:17] VITALS: BP 189/81; PULSE 54; RESP 15; TEMP 35.8; O2SAT 100
[2018-08-01 17:24] VITALS: BP 189/88; PULSE 54; RESP 15; TEMP 35.8; O2SAT 100
--- NOTE | 2018-08-01 17:31 | DI.CT.S_ITS ---
PROCEDURE: CT HEAD/BRAIN WO CON INDICATIONS: fall legs gave out TECHNIQUE: Noncontrast 4.5 mm thick angled axial sections acquired from the foramen magnum to the vertex, with coronal and sagittal reformats. For radiation dose reduction, the following was used: automated exposure control, adjustment of mA and/or kV according to patient size. COMPARISON: None. FINDINGS: Image quality: Excellent. CSF spaces: Basal cisterns are patent. No extra-axial fluid collections. Ventricles are normal in size and shape. Brain: No midline shift. No intracranial masses or hemorrhage. Mata-white matter interface is normal. There is calcified plaque of the cavernous internal carotid arteries. There is moderate subcortical and periventricular white matter hypoattenuation which is nonspecific but consistent with chronic microvascular ischemic changes. Skull and face: Calvarium and visualized facial bones are intact, without suspicious lesions. Sinuses: Visualized sinuses and mastoids are clear. IMPRESSION: No acute intracranial abnormality. Dictated by: Tony Heredia M.D. on 08/01/2018 at 18:43 Approved by: Tony Heredia M.D. on 08/01/2018 at 18:48
--- NOTE | 2018-08-01 17:31 | DI.RAD.S_ITS ---
PROCEDURE: XR CHEST 1V INDICATIONS: syncope TECHNIQUE: One view of the chest was acquired. COMPARISON: None. FINDINGS: Surgical changes and devices: None. Lungs and pleura: No pleural effusions or pneumothorax. Lungs are clear. Mediastinum: There is increased prominence of the right paratracheal stripe. There is tortuosity of the aorta. Heart size is normal. Bones and chest wall: No suspicious bony lesions. Overlying soft tissues appear unremarkable. There is an old distal right clavicular fracture which appears healed and deformity. IMPRESSION: #1. No focal consolidations concerning for pneumonia. #2. Increased prominence of the right paratracheal stripe/right mediastinum which is nonspecific and may be secondary to superimposition of overlying structures including the right first rib. Consider followup outpatient CT of the chest if there is clinical concern for malignancy. Dictated by: Tony Heredia M.D. on 08/01/2018 at 19:44 Approved by: Tony Heredia M.D. on 08/01/2018 at 19:47
[2018-08-01 17:39] LABS: Add Manual Diff / Slide Review NO; Basophils Percent Auto 0.7 % (0-2); Eosinophils Percent Auto 0.9 % (2-4); Hematocrit 42.9 % (41-53); Hemoglobin 14.4 g/dL (13.5-17.5); Lymphocytes Percent Auto 22.9 % (25-40); Mean Corpuscular HGB Conc 33.5 % (30-36); Mean Corpuscular Hemoglobin 30.6 PG (26-34); Mean Corpuscular Volume 91.2 fL (80-100); Monocytes Percent Auto 10.9 % (3-14); Neutrophils Absolute Auto 5300 /uL (3000-5900); Neutrophils Percent Auto 64.6 % (50-75); Platelet Count 206 X10^3/uL (150-400); White Blood Cell Count 8.2 X10^3/uL (4.5-11.0)
[2018-08-01 17:41] LABS: INR 1.1 (0.9-1.3); Prothrombin Time 12.1 SECONDS (10.1-12.7)
[2018-08-01 17:49] LABS: Alanine Aminotransferase 25 IU/L (21-72); Albumin 4.6 g/dL (3.5-5.0); Albumin Globulin Ratio 1.5 (1.0-2.8); Alkaline Phosphatase 113 U/L (38-126); Aspartate Aminotransferase 43 IU/L (17-59); Bilirubin Total 0.6 mg/dL (0.2-1.3); Blood Urea Nitrogen 15 mg/dL (9-20); Calcium 9.1 mg/dL (8.4-10.2); Carbon Dioxide 27 mmol/L (22-32); Chloride 97 mmol/L (98-107); Creatine Kinase 450 U/L (55-170); Estimated Glomerular Filt Rate > 60.0 mL/min (>60); Glucose 97 mg/dL (80-110); HEMOLYSIS 25 (0-50); Potassium 4.2 mmol/L (3.4-5.1); Sodium 137 mmol/L (137-145); Total Protein 7.6 g/dL (6.3-8.2)
[2018-08-01 18:01] LABS: Troponin I 0.013 ng/mL (0.01-0.034)
[2018-08-01 18:05] LABS: Creatine Kinase MB 4.33 ng/mL (<2.37)
[2018-08-01] MEDS: SODIUM CHLORIDE 0.9% 1,000 ML 150 ML IV (18:15)
[2018-08-01 18:44] VITALS: BP 177/78; BP 180/92; BP 186/98; PULSE 55; PULSE 76; PULSE 79
[2018-08-01 19:50] VITALS: BP 166/86; PULSE 57; RESP 14; O2SAT 100
[2018-08-01 21:25] VITALS: BP 189/88; PULSE 57; RESP 14; TEMP 35.8; O2SAT 100
--- NOTE | 2018-08-01 22:47 | ED.WEAKNESS ---
HPI - Weakness <TAVON Barnes-BC - Last Filed: 08/01/18 22:53> General Chief complaint: Fall Stated complaint: GLF Time Seen by Provider: 08/01/18 17:36 Source: patient, family and EMS Mode of arrival: EMS Limitations: no limitations History of Present Illness HPI Narrative: The patient is a 77-year-old male with history of Parkinson's who presents today after having an episode of weakness wall going on an hour long walk. He states he normally goes on hour long walks. Today he felt weakness in his legs, so he was concerned he was having a stroke. He states while EMS reported that he fell, he is emphatic that he did not fall and did not lose consciousness. He does not take any blood thinners. He does not have any chest pain, shortness of breath or weakness at this point. She states he feels much improved. He denies any abdominal pain, urinary urgency frequency or acute concerns. He is concerned that he did not eat or drink enough today. Related Data Home Medications Medication Instructions Recorded Confirmed amantadine HCl 100 mg PO DAILY #0 12/21/17 08/01/18 carbidopa-levodopa 1 tab PO BID #0 12/21/17 08/01/18 Previous Rx's Medication Instructions Recorded doxazosin 4 mg tablet 4 mg PO DAILY #90 tab 02/21/18 docusate sodium 100 mg capsule 100 mg PO DAILY #30 cap 03/21/18 hydralazine 50 mg tablet 50 mg PO BID #180 tab 05/02/18 Allergies Allergy/AdvReac Type Severity Reaction Status Date / Time No Known Drug Allergies Allergy Unverified 03/21/18 13:34 Review of Systems <FRANNY Barnes - Last Filed: 08/01/18 22:53> Review of Systems GENERAL: Denies chills, fatigue, malaise, fever, sweats. HEENT: Denies sinus pain, ear pain, sore throat, difficulty swallowing, dizziness. RESPIRATORY: Denies dyspnea, cough, wheezing, hemoptysis, sputum. CARDIOVASCULAR: Denies chest pain, palpitations, orthopnea, edema, GASTROINTESTINAL: Denies nausea, vomiting, abdominal pain, diarrhea, constipation, melena. : Denies dysuria, frequency, incontinence, hematuria, urinary retention. MUSCULOSKELETAL: denies weakness, joint pain, or bony pain SKIN: Denies rash, skin lesions, or other NEUROLOGIC: See HPI PSYCHIATRIC: No concerning psychosocial issues. 12 point review of systems is negative except for those stated above Exam <TAVON Barnes-BC - Last Filed: 08/01/18 22:53> Narrative Exam Narrative: GENERAL: This is a well-nourished, well-developed patient, no acute distress HEAD: Atraumatic. Normocephalic. No temporal or scalp tenderness. EYES: Pupils equal round and reactive. Extraocular motions intact. No scleral icterus. No injection or drainage. ENT: Nose without bleeding, purulent drainage or septal hematoma. Throat without erythema, tonsillar hypertrophy or exudate. Uvula midline. Airway patent. NECK: Trachea midline. No JVD or lymphadenopathy. Supple, nontender, no meningeal signs. CARDIOVASCULAR: Regular rate and rhythm without murmurs, gallops, or rubs. RESPIRATORY: Clear to auscultation. Breath sounds equal bilaterally. No wheezes, rales, or rhonchi. No cough or increased respiratory effort. GASTROINTESTINAL: Abdomen soft, non-tender, nondistended. No hepato-splenomegaly, or palpable masses. No guarding. EXTREMITIES: No clubbing, cyanosis, or edema. No joint tenderness, effusion, or edema noted. BACK: Nontender without deformity or crepitance. No flank tenderness. No pain to C-spine or spinal palpation NEURO: AOx3. No slurred speech. Stable gait. Equal strength upper and lower extremities bilaterally. Finger-nose test intact. Cranial nerves grossly intact. Negative Romberg. SKIN: No rash or erythema. Initial Vital Signs Initial Vital Signs: Vital Signs Temperature 96.5 F L 08/01/18 17:17 Pulse Rate 54 L 08/01/18 17:17 Respiratory Rate 15 08/01/18 17:17 Blood Pressure 189/81 H 08/01/18 17:17 Pulse Oximetry 100 08/01/18 17:17 <Cuca Wayne DO - Last Filed: 08/02/18 03:38> Initial Vital Signs Initial Vital Signs: Vital Signs Temperature 96.5 F L 08/01/18 17:17 Pulse Rate 54 L 08/01/18 17:17 Respiratory Rate 15 08/01/18 17:17 Blood Pressure 189/81 H 08/01/18 17:17 Pulse Oximetry 100 08/01/18 17:17 Course <FRANNY BarnesBC - Last Filed: 08/01/18 22:53> Orders Ordered: Discontinued Medications Sodium Chloride (Normal Saline 0.9%) 1,000 mls @ 150 mls/hr IV BOLUS ONE Stop: 08/02/18 00:10 Last Infusion: 08/01/18 20:50 Dose: 0 mls/hr Admin: 08/01/18 18:15 Dose: 150 mls/hr Vital Signs - 8 hr 08/01/18 19:50 08/01/18 21:25 Temperature 96.5 F L Pulse Rate 57 L 57 L Respiratory Rate 14 14 Blood Pressure 189/88 H Blood Pressure [Right Arm] 166/86 H Pulse Oximetry 100 100 <Cuca Wayne DO - Last Filed: 08/02/18 03:38> Orders Ordered: Discontinued Medications Sodium Chloride (Normal Saline 0.9%) 1,000 mls @ 150 mls/hr IV BOLUS ONE Stop: 08/02/18 00:10 Last Infusion: 08/01/18 20:50 Dose: 0 mls/hr Admin: 08/01/18 18:15 Dose: 150 mls/hr Vital Signs - 8 hr 08/01/18 19:50 08/01/18 21:25 Temperature 96.5 F L Pulse Rate 57 L 57 L Respiratory Rate 14 14 Blood Pressure 189/88 H Blood Pressure [Right Arm] 166/86 H Pulse Oximetry 100 100 MDM - Weakness <HADLEY Barnes - Last Filed: 08/01/18 22:53> Lab Data Result diagrams: 08/01/18 17:00 08/01/18 17:00 Lab Results 08/01/18 08/01/18 08/01/18 Range/Units 17:00 17:00 17:00 WBC 8.2 (4.5-11.0) X10^3/uL RBC 4.70 (4.5-5.9) X10^6/uL Hgb 14.4 (13.5-17.5) g/dL Hct 42.9 (41-53) % MCV 91.2 (80-100) fL MCH 30.6 (26-34) PG MCHC 33.5 (30-36) % RDW 13.0 (11.6-14.8) % Plt Count 206 (150-400) X10^3/uL Neut % (Auto) 64.6 (50-75) % Lymph % (Auto) 22.9 L (25-40) % Camp % (Auto) 10.9 (3-14) % Eos % (Auto) 0.9 L (2-4) % Baso % (Auto) 0.7 (0-2) % Neut # (Auto) 5300 (4832-4760) /uL PT 12.1 (10.1-12.7) SECONDS INR 1.1 (0.9-1.3) Sodium 137 (137-145) mmol/L Potassium 4.2 (3.4-5.1) mmol/L Chloride 97 L (98-107) mmol/L Carbon Dioxide 27 (22-32) mmol/L BUN 15 (9-20) mg/dL Creatinine 0.60 L (0.66-1.25) mg/dL Estimated GFR > 60.0 (>60) mL/min BUN/Creatinine Ratio 25.0 H (6-22) Glucose 97 (80-110) mg/dL Calcium 9.1 (8.4-10.2) mg/dL Total Bilirubin 0.6 (0.2-1.3) mg/dL AST 43 (17-59) IU/L ALT 25 (21-72) IU/L Alkaline Phosphatase 113 (38-126) U/L Total Creatine Kinase 450 H (55-170) U/L CK-MB (CK-2) 4.33 H (<2.37) ng/mL CK-MB (CK-2) Rel Index 1.0 L (1.5-5.0) % Troponin I 0.013 (0.01-0.034) ng/mL Total Protein 7.6 (6.3-8.2) g/dL Albumin 4.6 (3.5-5.0) g/dL Globulin 3.0 (1.7-4.1) g/dL Albumin/Globulin Ratio 1.5 (1.0-2.8) Imaging Data CT scan - head: Radiologist's impression: Hoang Rose - Patient Chart Chart Viewer Diagnostics DATE TYPE STATUS AUTHOR Marcie 08/01/18 17:31 Tony Heredia 08/01/18 17:31 Tony HerediaHoang 77, M1938 [facility] ER, ED - Main ED: R13 63.503kg Fall Search Chart No Known Drug Allergies ONSET 12/21/17 12/21/17 12/21/17 12/21/17 Today 21:25 [place] [address] CT Scan Report Signed Patient: Hoang RoseMR#: [id number] : 9Acct:[id number] Age/Sex: 77 / MDate of Service: 08/01/18 Loc: ED Accession Number: [id number] Procedure: CT head/brain wo con Ordering Provider: Cecelia Kiran D.O. PROCEDURE: CT HEAD/BRAIN WO CON INDICATIONS: fall legs gave out TECHNIQUE: Noncontrast 4.5 mm thick angled axial sections acquired from the foramen magnum to the vertex, with coronal and sagittal reformats. For radiation dose reduction, the following was used: automated exposure control, adjustment of mA and/or kV according to patient size. COMPARISON: None. FINDINGS: Image quality: Excellent. CSF spaces: Basal cisterns are patent. No extra-axial fluid collections. Ventricles are normal in size and shape. Brain: No midline shift. No intracranial masses or hemorrhage. Mata-white matter interface is normal. There is calcified plaque of the cavernous internal carotid arteries. There is moderate subcortical and periventricular white matter hypoattenuation which is nonspecific but consistent with chronic microvascular ischemic changes. Skull and face: Calvarium and visualized facial bones are intact, without suspicious lesions. Sinuses: Visualized sinuses and mastoids are clear. IMPRESSION: No acute intracranial abnormality. Dictated by: Tony Heredia M.D. on 08/01/2018 at 18:43 Approved by: Tony Heredia M.D. on 08/01/2018 at 18:48 Chest x-ray: My impression: Discussed with patient increased prominence noted mediastinum and encourage follow-up with primary care provider if necessary. Radiologist's impression: ECG Data Attestation: I personally reviewed and interpreted this ECG as follows: Interpretation: Sinus bradycardia. Ventricular rate 54. No ectopy noted. No ST elevation or depression. MDM Narrative Medical decision making narrative: The patient presents with chief complaint of an episode of weakness. He had a negative x-ray of his chest, negative head CT and grossly normal lab work. His CK-MB relative index was low. He had normal orthostatic vital signs and was able to pass ambulation trial with nursing staff prior to discharge. Patient states that he felt better throughout his stay in the emergency department. He was nontoxic, incredibly pleasant hemodynamically stable. I encouraged follow-up with his primary care provider. He had no questions or concerns upon discharge. Family was at bedside throughout the stay. I encourage return precautions of concern of heart attack, stroke or acute etiology. <Cuca Wayne, DO - Last Filed: 08/02/18 03:38> Lab Data Lab Results 08/01/18 08/01/18 08/01/18 Range/Units 17:00 17:00 17:00 WBC 8.2 (4.5-11.0) X10^3/uL RBC 4.70 (4.5-5.9) X10^6/uL Hgb 14.4 (13.5-17.5) g/dL Hct 42.9 (41-53) % MCV 91.2 (80-100) fL MCH 30.6 (26-34) PG MCHC 33.5 (30-36) % RDW 13.0 (11.6-14.8) % Plt Count 206 (150-400) X10^3/uL Neut % (Auto) 64.6 (50-75) % Lymph % (Auto) 22.9 L (25-40) % Camp % (Auto) 10.9 (3-14) % Eos % (Auto) 0.9 L (2-4) % Baso % (Auto) 0.7 (0-2) % Neut # (Auto) 5300 (2441-4310) /uL PT 12.1 (10.1-12.7) SECONDS INR 1.1 (0.9-1.3) Sodium 137 (137-145) mmol/L Potassium 4.2 (3.4-5.1) mmol/L Chloride 97 L (98-107) mmol/L Carbon Dioxide 27 (22-32) mmol/L BUN 15 (9-20) mg/dL Creatinine 0.60 L (0.66-1.25) mg/dL Estimated GFR > 60.0 (>60) mL/min BUN/Creatinine Ratio 25.0 H (6-22) Glucose 97 (80-110) mg/dL Calcium 9.1 (8.4-10.2) mg/dL Total Bilirubin 0.6 (0.2-1.3) mg/dL AST 43 (17-59) IU/L ALT 25 (21-72) IU/L Alkaline Phosphatase 113 (38-126) U/L Total Creatine Kinase 450 H (55-170) U/L CK-MB (CK-2) 4.33 H (<2.37) ng/mL CK-MB (CK-2) Rel Index 1.0 L (1.5-5.0) % Troponin I 0.013 (0.01-0.034) ng/mL Total Protein 7.6 (6.3-8.2) g/dL Albumin 4.6 (3.5-5.0) g/dL Globulin 3.0 (1.7-4.1) g/dL Albumin/Globulin Ratio 1.5 (1.0-2.8) Discharge Plan Departure Patient Disposition: Home Clinical Impression: Weakness Discharge Date/Time: 08/01/18 20:50 Interventions: ED Discharge Assessment Last Done: 08/01/18 21:26 Instructions: DI for Fatigue, DI for Muscle Weakness Activity Restrictions/Additional Instructions: Your head CT came back negative. You have a brain, but you do not have a brain bleed. Otherwise her lab work came back normal. Please follow-up with primary care provider. Please come back to the emergency department for any acute concerns including chest pain or shortness of breath or concern of stroke. Please be sure to eat well, drink fluids, and pace your activity level. Prescriptions: No Action amantadine HCl 100 MG capsule 100 mg PO DAILY Qty: 0 RF: 0 carbidopa-levodopa 25 MG/100 MG tablet 1 tab PO BID Qty: 0 RF: 0 doxazosin [Cardura] 4 mg tablet 4 mg PO DAILY Qty: 90 RF: 1 hydralazine 50 mg tablet 50 mg PO BID Qty: 180 RF: 1 docusate sodium 100 mg capsule 100 mg PO DAILY Qty: 30 RF: 1 Referrals: Steff Jacobson DO [Primary Care Provider] - <Cuca Wayne DO - Last Filed: 08/02/18 03:38> Cosign ED Attending Cosignature Attestation: I was immediately available in the department for consultation. This documentation has been reviewed and I agree with plan. Supervised by Cuca Wayne DO
--- NOTE | 2018-08-01 22:53 | ED_ITS ---
HPI - Weakness <TAVON Barnes-BC - Last Filed: 08/01/18 22:53> General Chief complaint: Fall Stated complaint: GLF Time Seen by Provider: 08/01/18 17:36 Source: patient, family and EMS Mode of arrival: EMS Limitations: no limitations History of Present Illness HPI Narrative: The patient is a 77-year-old male with history of Parkinson's who presents today after having an episode of weakness wall going on an hour long walk. He states he normally goes on hour long walks. Today he felt weakness in his legs, so he was concerned he was having a stroke. He states while EMS reported that he fell, he is emphatic that he did not fall and did not lose consciousness. He does not take any blood thinners. He does not have any chest pain, shortness of breath or weakness at this point. She states he feels much improved. He denies any abdominal pain, urinary urgency frequency or acute concerns. He is concerned that he did not eat or drink enough today. Related Data Home Medications Medication Instructions Recorded Confirmed amantadine HCl 100 mg PO DAILY #0 12/21/17 08/01/18 carbidopa-levodopa 1 tab PO BID #0 12/21/17 08/01/18 Previous Rx's Medication Instructions Recorded doxazosin 4 mg tablet 4 mg PO DAILY #90 tab 02/21/18 docusate sodium 100 mg capsule 100 mg PO DAILY #30 cap 03/21/18 hydralazine 50 mg tablet 50 mg PO BID #180 tab 05/02/18 Allergies Allergy/AdvReac Type Severity Reaction Status Date / Time No Known Drug Allergies Allergy Unverified 03/21/18 13:34 Review of Systems <FRANNY Barnes - Last Filed: 08/01/18 22:53> Review of Systems GENERAL: Denies chills, fatigue, malaise, fever, sweats. HEENT: Denies sinus pain, ear pain, sore throat, difficulty swallowing, dizziness. RESPIRATORY: Denies dyspnea, cough, wheezing, hemoptysis, sputum. CARDIOVASCULAR: Denies chest pain, palpitations, orthopnea, edema, GASTROINTESTINAL: Denies nausea, vomiting, abdominal pain, diarrhea, constipation, melena. : Denies dysuria, frequency, incontinence, hematuria, urinary retention. MUSCULOSKELETAL: denies weakness, joint pain, or bony pain SKIN: Denies rash, skin lesions, or other NEUROLOGIC: See HPI PSYCHIATRIC: No concerning psychosocial issues. 12 point review of systems is negative except for those stated above Exam <TAVON Barnes-BC - Last Filed: 08/01/18 22:53> Narrative Exam Narrative: GENERAL: This is a well-nourished, well-developed patient, no acute distress HEAD: Atraumatic. Normocephalic. No temporal or scalp tenderness. EYES: Pupils equal round and reactive. Extraocular motions intact. No scleral icterus. No injection or drainage. ENT: Nose without bleeding, purulent drainage or septal hematoma. Throat without erythema, tonsillar hypertrophy or exudate. Uvula midline. Airway patent. NECK: Trachea midline. No JVD or lymphadenopathy. Supple, nontender, no meningeal signs. CARDIOVASCULAR: Regular rate and rhythm without murmurs, gallops, or rubs. RESPIRATORY: Clear to auscultation. Breath sounds equal bilaterally. No wheezes , rales, or rhonchi. No cough or increased respiratory effort. GASTROINTESTINAL: Abdomen soft, non-tender, nondistended. No hepato-splenomegaly , or palpable masses. No guarding. EXTREMITIES: No clubbing, cyanosis, or edema. No joint tenderness, effusion, or edema noted. BACK: Nontender without deformity or crepitance. No flank tenderness. No pain to C-spine or spinal palpation NEURO: AOx3. No slurred speech. Stable gait. Equal strength upper and lower extremities bilaterally. Finger-nose test intact. Cranial nerves grossly intact. Negative Romberg. SKIN: No rash or erythema. Initial Vital Signs Initial Vital Signs: Vital Signs Temperature 96.5 F L 08/01/18 17:17 Pulse Rate 54 L 08/01/18 17:17 Respiratory Rate 15 08/01/18 17:17 Blood Pressure 189/81 H 08/01/18 17:17 Pulse Oximetry 100 08/01/18 17:17 <Cuca Wayne DO - Last Filed: 08/02/18 03:38> Initial Vital Signs Initial Vital Signs: Vital Signs Temperature 96.5 F L 08/01/18 17:17 Pulse Rate 54 L 08/01/18 17:17 Respiratory Rate 15 08/01/18 17:17 Blood Pressure 189/81 H 08/01/18 17:17 Pulse Oximetry 100 08/01/18 17:17 Course <FRANNY BarnesBC - Last Filed: 08/01/18 22:53> Orders Ordered: Discontinued Medications Sodium Chloride (Normal Saline 0.9%) 1,000 mls @ 150 mls/hr IV BOLUS ONE Stop: 08/02/18 00:10 Last Infusion: 08/01/18 20:50 Dose: 0 mls/hr Admin: 08/01/18 18:15 Dose: 150 mls/hr Vital Signs - 8 hr 08/01/18 19:50 08/01/18 21:25 Temperature 96.5 F L Pulse Rate 57 L 57 L Respiratory Rate 14 14 Blood Pressure 189/88 H Blood Pressure [Right Arm] 166/86 H Pulse Oximetry 100 100 <Cuca Wayne DO - Last Filed: 08/02/18 03:38> Orders Ordered: Discontinued Medications Sodium Chloride (Normal Saline 0.9%) 1,000 mls @ 150 mls/hr IV BOLUS ONE Stop: 08/02/18 00:10 Last Infusion: 08/01/18 20:50 Dose: 0 mls/hr Admin: 08/01/18 18:15 Dose: 150 mls/hr Vital Signs - 8 hr 08/01/18 19:50 08/01/18 21:25 Temperature 96.5 F L Pulse Rate 57 L 57 L Respiratory Rate 14 14 Blood Pressure 189/88 H Blood Pressure [Right Arm] 166/86 H Pulse Oximetry 100 100 MDM - Weakness <HADLEY Barnes - Last Filed: 08/01/18 22:53> Lab Data Result diagrams: 08/01/18 17:00 08/01/18 17:00 Lab Results 08/01/18 08/01/18 08/01/18 Range/Units 17:00 17:00 17:00 WBC 8.2 (4.5-11.0) X10^3/uL RBC 4.70 (4.5-5.9) X10^6/uL Hgb 14.4 (13.5-17.5) g/dL Hct 42.9 (41-53) % MCV 91.2 (80-100) fL MCH 30.6 (26-34) PG MCHC 33.5 (30-36) % RDW 13.0 (11.6-14.8) % Plt Count 206 (150-400) X10^3/uL Neut % (Auto) 64.6 (50-75) % Lymph % (Auto) 22.9 L (25-40) % [place] % (Auto) 10.9 (3-14) % Eos % (Auto) 0.9 L (2-4) % Baso % (Auto) 0.7 (0-2) % Neut # (Auto) 5300 (9831-5303) /uL PT 12.1 (10.1-12.7) SECONDS INR 1.1 (0.9-1.3) Sodium 137 (137-145) mmol/L Potassium 4.2 (3.4-5.1) mmol/L Chloride 97 L (98-107) mmol/L Carbon Dioxide 27 (22-32) mmol/L BUN 15 (9-20) mg/dL Creatinine 0.60 L (0.66-1.25) mg/dL Estimated GFR > 60.0 (>60) mL/min BUN/Creatinine Ratio 25.0 H (6-22) Glucose 97 (80-110) mg/dL Calcium 9.1 (8.4-10.2) mg/dL Total Bilirubin 0.6 (0.2-1.3) mg/dL AST 43 (17-59) IU/L ALT 25 (21-72) IU/L Alkaline Phosphatase 113 (38-126) U/L Total Creatine Kinase 450 H (55-170) U/L CK-MB (CK-2) 4.33 H (<2.37) ng/mL CK-MB (CK-2) Rel Index 1.0 L (1.5-5.0) % Troponin I 0.013 (0.01-0.034) ng/mL Total Protein 7.6 (6.3-8.2) g/dL Albumin 4.6 (3.5-5.0) g/dL Globulin 3.0 (1.7-4.1) g/dL Albumin/Globulin Ratio 1.5 (1.0-2.8) Imaging Data CT scan - head: Radiologist's impression: Hoang Rose - Patient Chart Chart Viewer Diagnostics DATE TYPE STATUS AUTHOR Marcie 08/01/18 17:31 Tony Heredia 08/01/18 17:31 Tony HerediaHoang 77, M1938 [facility] ER, ED - Main ED: R13 63.503kg Fall Search Chart No Known Drug Allergies ONSET 12/21/17 12/21/17 12/21/17 12/21/17 Today 21:25 [place] [address] CT Scan Report Signed Patient: Hoang RoseMR#: [id number] : 9Acct:[id number] Age/Sex: 77 / MDate of Service: 08/01/18 Loc: ED Accession Number: [id number] Procedure: CT head/brain wo con Ordering Provider: Cecelia Kiran D.O. PROCEDURE: CT HEAD/BRAIN WO CON INDICATIONS: fall legs gave out TECHNIQUE: Noncontrast 4.5 mm thick angled axial sections acquired from the foramen magnum to the vertex, with coronal and sagittal reformats. For radiation dose reduction, the following was used: automated exposure control, adjustment of mA and/or kV according to patient size. COMPARISON: None. FINDINGS: Image quality: Excellent. CSF spaces: Basal cisterns are patent. No extra-axial fluid collections. Ventricles are normal in size and shape. Brain: No midline shift. No intracranial masses or hemorrhage. Mata-white matter interface is normal. There is calcified plaque of the cavernous internal carotid arteries. There is moderate subcortical and periventricular white matter hypoattenuation which is nonspecific but consistent with chronic microvascular ischemic changes. Skull and face: Calvarium and visualized facial bones are intact, without suspicious lesions. Sinuses: Visualized sinuses and mastoids are clear. IMPRESSION: No acute intracranial abnormality. Dictated by: Tony Heredia M.D. on 08/01/2018 at 18:43 Approved by: Tony Heredia M.D. on 08/01/2018 at 18:48 Chest x-ray: My impression: Discussed with patient increased prominence noted mediastinum and encourage follow-up with primary care provider if necessary. Radiologist's impression: ECG Data Attestation: I personally reviewed and interpreted this ECG as follows: Interpretation: Sinus bradycardia. Ventricular rate 54. No ectopy noted. No ST elevation or depression. MDM Narrative Medical decision making narrative: The patient presents with chief complaint of an episode of weakness. He had a negative x-ray of his chest, negative head CT and grossly normal lab work. His CK-MB relative index was low. He had normal orthostatic vital signs and was able to pass ambulation trial with nursing staff prior to discharge. Patient states that he felt better throughout his stay in the emergency department. He was nontoxic, incredibly pleasant hemodynamically stable. I encouraged follow-up with his primary care provider. He had no questions or concerns upon discharge. Family was at bedside throughout the stay. I encourage return precautions of concern of heart attack , stroke or acute etiology. <Cuca Wayne, DO - Last Filed: 08/02/18 03:38> Lab Data Lab Results 08/01/18 08/01/18 08/01/18 Range/Units 17:00 17:00 17:00 WBC 8.2 (4.5-11.0) X10^3/uL RBC 4.70 (4.5-5.9) X10^6/uL Hgb 14.4 (13.5-17.5) g/dL Hct 42.9 (41-53) % MCV 91.2 (80-100) fL MCH 30.6 (26-34) PG MCHC 33.5 (30-36) % RDW 13.0 (11.6-14.8) % Plt Count 206 (150-400) X10^3/uL Neut % (Auto) 64.6 (50-75) % Lymph % (Auto) 22.9 L (25-40) % [place] % (Auto) 10.9 (3-14) % Eos % (Auto) 0.9 L (2-4) % Baso % (Auto) 0.7 (0-2) % Neut # (Auto) 5300 (5737-9683) /uL PT 12.1 (10.1-12.7) SECONDS INR 1.1 (0.9-1.3) Sodium 137 (137-145) mmol/L Potassium 4.2 (3.4-5.1) mmol/L Chloride 97 L (98-107) mmol/L Carbon Dioxide 27 (22-32) mmol/L BUN 15 (9-20) mg/dL Creatinine 0.60 L (0.66-1.25) mg/dL Estimated GFR > 60.0 (>60) mL/min BUN/Creatinine Ratio 25.0 H (6-22) Glucose 97 (80-110) mg/dL Calcium 9.1 (8.4-10.2) mg/dL Total Bilirubin 0.6 (0.2-1.3) mg/dL AST 43 (17-59) IU/L ALT 25 (21-72) IU/L Alkaline Phosphatase 113 (38-126) U/L Total Creatine Kinase 450 H (55-170) U/L CK-MB (CK-2) 4.33 H (<2.37) ng/mL CK-MB (CK-2) Rel Index 1.0 L (1.5-5.0) % Troponin I 0.013 (0.01-0.034) ng/mL Total Protein 7.6 (6.3-8.2) g/dL Albumin 4.6 (3.5-5.0) g/dL Globulin 3.0 (1.7-4.1) g/dL Albumin/Globulin Ratio 1.5 (1.0-2.8) Discharge Plan Departure Patient Disposition: Home Clinical Impression: Weakness Discharge Date/Time: 08/01/18 20:50 Interventions: ED Discharge Assessment Last Done: 08/01/18 21:26 Instructions: DI for Fatigue, DI for Muscle Weakness Activity Restrictions/Additional Instructions: Your head CT came back negative. You have a brain, but you do not have a brain bleed. Otherwise her lab work came back normal. Please follow-up with primary care provider. Please come back to the emergency department for any acute concerns including chest pain or shortness of breath or concern of stroke. Please be sure to eat well, drink fluids, and pace your activity level. Prescriptions: No Action amantadine HCl 100 MG capsule 100 mg PO DAILY Qty: 0 RF: 0 carbidopa-levodopa 25 MG/100 MG tablet 1 tab PO BID Qty: 0 RF: 0 doxazosin [Cardura] 4 mg tablet 4 mg PO DAILY Qty: 90 RF: 1 hydralazine 50 mg tablet 50 mg PO BID Qty: 180 RF: 1 docusate sodium 100 mg capsule 100 mg PO DAILY Qty: 30 RF: 1 Referrals: Steff Jacobson DO [Primary Care Provider] - <Cuca Wayne DO - Last Filed: 08/02/18 03:38> Cosign ED Attending Cosignature Attestation: I was immediately available in the department for consultation. This documentation has been reviewed and I agree with plan. Supervised by Cuca Wayne DO
== END 2018-08-01 20:50 | disposition home or self-care (01) ==
PROVIDERS: Emergency Medicine; Emergency Provider Nurse Practitioner Family; Family Provider Family Medicine; PCP Family Medicine; Referring Provider Psychiatry & Neurology Neurology
DX: R53.1 Weakness (principal)
CPT/HCPCS: 70450; 71045; 80053; 82550; 82553; 84484; 85025; 85610; 93005; 96360; 96361; 99283; 99285

== ENCOUNTER 2018-08-14 10:23 | Observation (INO) | payer MEDICARE, OTHER, SELFPAY ==
[2018-08-14] VITALS (10 sets, daily range): BP systolic 140–169; BP diastolic 67–88; PULSE 54–88; RESP 14–20; TEMP 36.7–37; O2SAT 96–98; BMI 21.9
--- NOTE | 2018-08-14 10:31 | DI.RAD.S_ITS ---
PROCEDURE: XR RIBS RT MIN 3V W CXR 1V INDICATIONS: fall pain TECHNIQUE: 3 views of the right ribs were acquired, along with a single view chest. COMPARISON: None. FINDINGS: Surgical changes and devices: None. Bones and chest wall: No fractures or dislocations. No suspicious bony lesions. Overlying soft tissues appear unremarkable. Lungs and pleura: No pleural effusions or pneumothorax. Lungs appear clear. Mediastinum: Mediastinal contours appear normal. Heart size is normal. IMPRESSION: No trauma found. Dictated by: Carter Silvestre M.D. on 08/14/2018 at 11:09 Approved by: Carter Silvestre M.D. on 08/14/2018 at 11:10
--- NOTE | 2018-08-14 10:31 | DI.RAD.S_ITS ---
PROCEDURE: XR SHOULDER RT MIN 2V INDICATIONS: fall pain TECHNIQUE: 2 views of the shoulder were acquired. COMPARISON: [facility], CR, XR RIBS RT MIN 3V W CXR 1V, 08/14/2018, 10:43. FINDINGS: Bones: No definite fractures or dislocations but there is a slight angulation of the cortical margin of the medial humeral head on the right potentially representing a minimally displaced occult fracture or prior trauma. No suspicious bony lesions. Visualized ribs appear intact. Soft tissues: No suspicious soft tissue calcifications. IMPRESSION: Possible occult fracture medial humeral head given the mild angulation abnormality noted in that area. Followup CT or MR scanning may be warranted depending on clinical status. Dictated by: Carter Silvestre M.D. on 08/14/2018 at 11:07 Approved by: Carter Silvestre M.D. on 08/14/2018 at 11:09
[2018-08-14 11:25] LABS: Add Manual Diff / Slide Review NO; Basophils Percent Auto 0.4 % (0-2); Eosinophils Percent Auto 0.6 % (2-4); Hematocrit 40.2 % (41-53); Hemoglobin 13.6 g/dL (13.5-17.5); Lymphocytes Percent Auto 7.7 % (25-40); Mean Corpuscular HGB Conc 33.8 % (30-36); Mean Corpuscular Hemoglobin 30.5 PG (26-34); Mean Corpuscular Volume 90.2 fL (80-100); Monocytes Percent Auto 8.9 % (3-14); Neutrophils Absolute Auto 8500 /uL (3000-5900); Neutrophils Percent Auto 82.4 % (50-75); Platelet Count 200 X10^3/uL (150-400); Red Blood Cell Count 4.46 X10^6/uL (4.5-5.9); Red Cell Distribution Width 12.8 % (11.6-14.8); White Blood Cell Count 10.4 X10^3/uL (4.5-11.0)
[2018-08-14 11:37] LABS: Blood Urea Nitrogen 12 mg/dL (9-20); Calcium 8.9 mg/dL (8.4-10.2); Carbon Dioxide 29 mmol/L (22-32); Chloride 97 mmol/L (98-107); Estimated Glomerular Filt Rate > 60.0 mL/min (>60); Glucose 121 mg/dL (80-110); HEMOLYSIS < 15 (0-50); Potassium 3.8 mmol/L (3.4-5.1); Sodium 136 mmol/L (137-145)
[2018-08-14] MEDS: ACETAMINOPHEN 325 MG TABLET 650 MG PO (13:12)
[2018-08-14] MEDS: IBUPROFEN 400 MG TABLET PO (14:15)
--- NOTE | 2018-08-14 15:10 | OT.IP.EVAL ---
Current Diagnoses Parkinson's disease (08/14/18) Essential (primary) hypertension (08/14/18) Other constipation (08/14/18) Benign prostatic hyperplasia without lower urinary tract symptoms (08/14/18) Other nondisplaced fracture of upper end of right humerus, initial encounter for closed fracture (08/14/18) Fall on same level, unspecified, initial encounter (08/14/18) Past Medical History (Last Reviewed 08/14/18 @ 17:22 by Steff Jacobson DO) Benign prostatic hyperplasia (Chronic ~2003) Hepatitis A (Chronic ~1985) Hypertension (Chronic ~1989) Migraines (Chronic ~2011) Osteoarthritis (Chronic ~2004) Osteopenia (Chronic ~2004) Osteoporosis (Chronic ~2009) Parkinson's disease (Chronic ~2012) Peripheral neuropathy (Chronic ~2011) Scoliosis (Chronic ~2004) Chicken pox (Resolved) Measles (Resolved) Mumps (Resolved) Surgical History (Last Reviewed 08/14/18 @ 17:22 by Steff Jacobson DO) Anesthesia (Resolved) History of tonsillectomy (Resolved ~1944) Occupational Therapy Inpatient Evaluation/Re-Eval M1 PT/OT-IP Prior Functional Status Start: 08/14/18 14:43 Freq: Status: Active Protocol: Document 08/14/18 15:10 ÓSCAR (Rec: 08/14/18 17:44 ÓSCAR [id number]) Medical Review Prior Functional Status Medical History Reviewed Yes Diet/Fluid Consistency Regular Communication No deficits noted Mobility and Gait Previously independent ambulator using no AD. States usual walking distances up to 2 miles. Has Parkinson's disease and is (+) for 2 recent falls including injurious fall he is admitted for today. Activities of Daily Living and IADL's Independent with self care. Prior Functional Level (Other details) Pt no longer drives; his brother and sister in law live locally and provide transport PRN. Brother is POA. He is recovering from recent B knee surgery. Social History Household Members none Living Arrangements Residential Facility Number of Floors (Floors) One Floor Number of Stairs To Enter/Railing? No steps to enter Home Environment Standard Height Toilet Walk in Shower Home Equipment Shower Seat with Backrest Hand Held Shower Grab Bars In Shower Employment Status Retired Additional Social History Comment Pt also owns mechanical bed ( HOB and feet up/down), no rails on bed. Pt lives at [facility] living [facility]; provides 2 meals/day and housekeeping. M2 OT-IP Current Condition Start: 08/14/18 14:43 Freq: Status: Active Protocol: Document 08/14/18 15:10 PJM (Rec: 08/14/18 17:44 PJ NR) Occupational Therapy Current Condition Current Condition Evaluation Date 08/14/18 Treatment Diagnosis decreased self care, functional mobility s/p fall With R humeral neck fx Diagnosis Onset Date 08/13/18 Post Operative Precautions Shoulder Precautions Sling Other Precautions fall risk, R sling on all times, waist strap can be off during day if needed, RUE pendulums only per ortho MD Dr Paulino Weight Bearing Status Weight Bearing Status Non-Weight Bearing Allowed Weight Bearing Amount (enter % Non weight bearing RUE or #) (%) M3 OT- IP Subjective and Pain Start: 08/14/18 17:12 Freq: Status: Active Protocol: Document 08/14/18 15:10 PJM (Rec: 08/14/18 17:44 PJ NR) OT- Subjective Occupational Therapy Visit Type Type Initial Evaluation Visit Start Time 14:28 Visit Stop Time 15:10 Total Visit Minutes 42 Occupational Therapy Visit Comments Patient Comments I can't be home alone like this. How will I get dressed? Patient/Caregiver Goals to resume independent living when able OT Pain Assessment Pain When Pain Assessed After Treatment Pain Present Pain Present Pain Reported Location right posterior back Intensity 6 Scale Used Numeric (1 - 10) Description Aching Acute Sharp right arm Intensity 6 Scale Used Numeric (1 - 10) Description Aching Acute M4 OT- IP ADL's Start: 08/14/18 17:12 Freq: Status: Active Protocol: Document 08/14/18 15:10 PJM (Rec: 08/14/18 17:44 PJ NR) OT [id number] General Evaluation Self-Feeding Ability Standby Assistance Areas Needing Assistance Cutting Food Opening Containers Comments OT Self-Feeding Comments Pt needs assist to cut up food and open containers due to unilateral function. Pt is L dominant since R hand tremors became more severe. OT ADL-Grooming General Evaluation Grooming Ability Minimal Assistance Areas Needing Assistance Retrieving/Set-up of Grooming Items Comments OT Grooming Comments Needs cues to use R hand within sling to hold objects e.g to open containers OT ADL-Oral Care General Eval Areas of Assistance Brushing Teeth Devices Oral Care Devices Toothbrush Comments Oral Care Comments Needs cues to use R hand within sling to hold objects OT ADL-Dressing General Eval Upper Body Dressing Ability Moderate Assistance Maximum Assistance Areas Needing Assistance Retrieving/Set-up of Clothing Comments OT Dressing Comments Pt needs mod assist with gown management; max assist donning and doffing sling with max verbal cues, despite recent review of sling use by P.T. OT ADL-Toileting General Evaluation Toileting Ability Moderate Assistance Devices Toileting Assistive Devices Urinal Comments OT Toileting Comments pt using urinal at present OT ADL-Bathing Comments OT Bathing Comments did not occur, but pt will need max assist with removingsling for shower and at least mod assist with seated shower due to unilateral function at present M5 OT- IP IADL's Start: 08/14/18 17:12 Freq: Status: Active Protocol: Document 08/14/18 15:10 PJM (Rec: 08/14/18 17:44 PJM [email or web address]) OT-Instrumental Activities of Daily Living Deficits IADL Deficits Identified Deficits Home Safety Awareness Awareness of Need for Assistance at Home Good Awareness Medication Management Medication Management No Deficits Identified Medication Management Comments pt manages own meds without errors per brother; pt mail orders meds Money Management Money Management No Deficits Identified Money Management Comments pt manages own finances without difficulty per brother Meal Preparation Meal Preparation Caregiver Provides Assist Meal Preparation Comments 2 meals/day provided to pt Investment Manager Investment Manager Caregiver Provides Assist Investment Manager Comments housekeeping included in his rent Driving Driving Caregiver Provides Assist Driving Comments brother provides transport M6 OT- IP Functional Cognition Start: 08/14/18 17:15 Freq: Status: Active Protocol: Document 08/14/18 15:10 PJM (Rec: 08/14/18 17:44 PJ [id number]) Cognitive Factors Limiting Selfcare Function Cognitive Ability Level of Alertness Alert Patient Orientation Name Month Date Year Place Situation Attention Span Ability Capable of Focused Attention Capable of Sustained Attention Ability to Follow Commands Able to Follow One Step Commands Memory Description Short Term Impaired Safety Awareness Decreased Ability to Apply Precautions Problem Solving Ability Unable to Identify Errors Needs Assist to Identify Solutions Cognitive Comments Cognitive Assessment Comments Pt did not appear to recall education re: sling provided by P.T. prior to OT session OT- Vision and Hearing OT- Hearing Assessment OT- Hearing Assessment WFL OT- Vision Assessment Visual Acuity WFL Glasses For Reading Vision Assessment Comments Pt denies any recent vision changes. M7 OT- IP Mobility and Balance Start: 08/14/18 17:17 Freq: Status: Active Protocol: Document 08/14/18 15:10 PJM (Rec: 08/14/18 17:44 PJ [id number]) OT- Bed Mobility Assessment Rolling Type of Rolling Roll to Left Level of Assistance Minimal Assistance Head of Bed Elevated Supine to Sit Supine to Sit Assist Minimal Assistance 1 Person Assistance Head of Bed Elevated Sit to Supine Sit to Supine Assist Minimal Assistance 1 Person Assistance Head of Bed Elevated Scooting Scooting to Edge of Bed Standby Assistance OT-Transfer Assessment Sit to and From Stand Sit to and from Stand Contact Guard Assistance Comments Mobility Comments CGA to side step along edge of gurney in ED. See P.T. notes for details. OT- Gait Assessment Comments Gait Ability Comments did not occur this session, see P.T. notes for details. OT- Balance Assessment Sitting Balance and Reactions Static Sitting Balance Ability Good Dynamic Sitting Balance Ability Fair Standing Balance and Reactions Static Standing Balance Ability Fair Comments Other Balance Tests/Deviations/Treatment see P.T. notes for balance : assessment M8 OT- IP Objective Assessments Start: 08/14/18 17:16 Freq: Status: Active Protocol: Document 08/14/18 15:10 PJM (Rec: 08/14/18 17:44 [email or web address] [id number]) OT Strength Upper Extremity Strength Assessment Right Impaired Shoulder NT in sling due to fx Elbow R 3/5 LUE WFL Forearm R 3/5 LUE WFL Wrist R 3/5 LUE WFL Hand R 3+/5 LUE WFL Hand Sound Installation Worker Strength Hand Dominance Left OT- Coordination Assessment Upper Extremity Finger to Nose Test Right UE Impaired Finger Tapping Test Right UE Impaired Comments Coordination Comments Pt has longstanding R hand tremor and has switched to L dominant. OT- Range of Motion RUE AROM WFL at elbow, wrist, fingers, Shldr NT due to fx with only pendulums allowed per ortho MD orders. LUE AROM WNL with coordination WFL. OT-Muscle Tone Assessment Muscle Tone WNL No Muscle Tone Location Right Upper Extremity Manifestation of Tone Intention Tremors OT Sensation Assessment Comments Summary Comments Pt detects lt touch in BUE's/ hands. M9 OT- IP Assessment and Plan Start: 08/14/18 17:17 Freq: Status: Active Protocol: Document 08/14/18 15:10 PJM (Rec: 08/14/18 17:44 PJM [id number]) OT Summary Assessment and Plan Potential Rehabilitation Potential Good Analytic Complexity at Evaluation Low Summary OT Impairments Pain Range of Motion Strength Balance Coordination Functional Cognition Functional Mobility Self-Feeding Grooming Dressing Toileting Bathing Toilet Transfers Shower Transfers Assessment Summary Pt seen for low complexity OT assessment after fall while exiting a car with R humeral neck fx (non surgical immobilized in sling with waist strap), concussion and co-morbidity of Parkinsons. Pt now has no functional use of RUE which results in performance deficits in balance, and all self care skills including eating, grooming, dressing, bathing and toileting as described above. He needs max assist with max verbal cues to don and doff sling at present. Pt lives alone. He has not been cleared by P.T. for independent ambulation due to dizziness and balance issues. Pt currently requires 24 hr assist for safety with all mobility and self care skills. Brother, sister in law live locally but cannot provide that level of assist. Recommend SNF vs home with 24 hr caregivers and HH OT/PT. Goals Self-Feeding Goal Independent Grooming Goal Independent Dressing Goal Minimal Assistance Toileting Goal Independent Bathing Goal Minimal Assistance Toilet Transfer Goal Independent Shower Transfer Goal Contact Guard Assistance Patient/Caregiver Education Goal Caregiver Independent Assisting Patient Days to Meet Goals 5 Frequency of Treatment Frequency Of Treatment Once a Day Treatment Plan OT Treatment Plan ADL Training Functional Mobility Patient/Family Education Discharge Planning Discharge Recommendations OT Discharge Recommendations SNF Rehab Other Discharge Recommendations vs home w/24 hr caregivers and HH OT/PT
--- NOTE | 2018-08-14 15:29 | DI.CT.S_ITS ---
PROCEDURE: CT HEAD/BRAIN WO CON INDICATIONS: fall yesterday dizzy TECHNIQUE: Noncontrast 4.5 mm thick angled axial sections acquired from the foramen magnum to the vertex, with coronal and sagittal reformats. For radiation dose reduction, the following was used: automated exposure control, adjustment of mA and/or kV according to patient size. COMPARISON: [facility], CT, CT HEAD/BRAIN WO CON, 08/01/2018, 17:32. FINDINGS: Image quality: Excellent. CSF spaces: Basal cisterns are patent. No extra-axial fluid collections. The ventricles are symmetric in size and shape. Brain: No intracranial bleeds or masses. There is cerebral volume loss for age, with resultant ventricular and sulcal prominence. There are periventricular and deep white matter chronic small vessel ischemic changes. There is intracranial internal carotid artery atherosclerosis. Skull and face: Calvarium and visualized facial bones appear intact, without suspicious lesions. Sinuses: Visualized sinuses and mastoids are clear. IMPRESSION: Source of current symptoms is not seen, no trauma found. Moderate microvascular atherosclerotic change in the deep white matter of each hemisphere. Dictated by: Carter Silvestre M.D. on 08/14/2018 at 15:53 Approved by: Carter Silvestre M.D. on 08/14/2018 at 15:53
--- NOTE | 2018-08-14 15:57 | PT.IIE ---
Surgical History (Last Reviewed 03/25/18 @ 17:00 by Steff Jacobson, DO) Anesthesia (Resolved) History of tonsillectomy (Resolved ~194) Medical History (Last Reviewed 03/28/18 @ 06:54 by Marialuisa Culver, PT) Benign prostatic hyperplasia (Chronic ~2003) Hepatitis A (Chronic ~1985) Hypertension (Chronic ~1989) Migraines (Chronic ~2011) Osteoarthritis (Chronic ~2004) Osteopenia (Chronic ~2004) Osteoporosis (Chronic ~2009) Parkinson's disease (Chronic ~2012) Peripheral neuropathy (Chronic ~2011) Scoliosis (Chronic ~2004) Chicken pox (Resolved) Measles (Resolved) Mumps (Resolved) Physical Therapy Inpatient Evaluation/Re-Eval M1 PT/OT-IP Prior Functional Status Start: 08/14/18 14:43 Freq: Status: Active Protocol: Document 08/14/18 13:40 RS (Rec: 08/14/18 15:27 RS [id number]) Medical Review Prior Functional Status Medical History Reviewed Yes Communication No deficits noted Mobility and Gait Previously independent ambulator using no AD. States usual walking distances up to 2 miles. Has Parkinson's disease and is (+) for 2 recent falls including injurious fall he is admitted for today. Activities of Daily Living and IADL's Independent with self care. Social History Household Members none Living Arrangements [facility] Number of Floors (Floors) One Floor Number of Stairs To Enter/Railing? No steps to enter Home Environment Standard Height Toilet Walk in Shower Home Equipment Shower Seat with Backrest Hand Held Shower Grab Bars In Shower Additional Social History Comment Pt also owns mechanical bed ( HOB and feet up/down), no rails on bed. Pt lives at [facility] living [facility]; provides 2 meals/day and housekeeping. M2 PT-IP Current Condition Start: 08/14/18 14:52 Freq: Status: Active Protocol: Document 08/14/18 13:40 RS (Rec: 08/14/18 15:27 RS [id number]) Physical Therapy Current Condition Current Condition Evaluation Date 08/14/18 Treatment Diagnosis GLF; difficulty walking Onset Date 08/14/2018 Precautions Other Precautions fall risk Weight Bearing Status Weight Bearing Status Non-Weight Bearing Allowed Weight Bearing Amount (enter % Non weight bearing RUE or #) (%) M3 PT-IP Subjective Start: 08/14/18 14:43 Freq: Status: Active Protocol: Document 08/14/18 13:40 RS (Rec: 08/14/18 15:27 RS [id number]) Subjective Physical Therapy Visit Type Type Initial Evaluation Visit Start Time 13:40 Visit Stop Time 14:32 Total Visit Minutes 52 Number of YARD LOADER OPERATOR Visits 0 Physical Therapy Visit Comments Patient Comments Pt agreeable to mobilize with PT. His brother and sister in law are present for this session. Patient Goals Prevent future falls Therapy Pain Assessment Pain When Pain Assessed During Mobility Pain Present Pain Present Pain Reported Location right posterior back Intensity 8 Scale Used Numeric (1 - 10) right arm Intensity 8 Scale Used Numeric (1 - 10) Pain Management Techniques Elevation Modification of Treatment Re-positioning Timing of Activity with Medications M4 PT-IP Mobility and Gait Start: 08/14/18 14:43 Freq: Status: Active Protocol: Document 08/14/18 13:40 RS (Rec: 08/14/18 15:27 RS [id number]) PT-Bed Mobility Assessment Supine to Sit Supine to Sit Moderate Assistance 1 Person Assistance Sit to Supine Sit to Supine Minimal Assistance 2 Person Assistance Scooting Scooting to Edge of Bed Standby Assistance Gait Assessment Gait Gait Assistance Required: Contact Guard Assist Distance (Feet) 200 Able to Maintain Weight Bearing Status Yes During Gait Assistive Devices Assistive Device None Gait Belt Large Based Quad Cane Gait Deviations General Gait Pattern Ataxic Decreased Stride Length Decreased Feet Clearance Flexed Trunk Narrow Based Gait Wide Based Gait Factors Limiting Gait Function Factors Limiting Gait Function Abnormal Tonal Influences Decreased Strength Incoordination Pain Poor Balance Poor Safety Awareness Comments Gait Comments Resting/supine BP 118/54 HR 67 . Supine > sit pt requiring modAx1 and LUE to pull himself upright. Sit <> stand is CGA with quad cane. Sit <> stand using no AD also CGA. Pt complaining of dizziness that increased with standing. Pt instructed to return to seated . BP 109/62 HR 72. Pt instructed in deep breathing and rest 2 mins. BP 119/65 HR 75 seated. PT agreeable to continue and stating dizziness is decreased. Standing BP 126/65 HR 77. Attempt walking 20 ft with quad cane and CGA, pt needing max cues to manage quad cane and still having difficulty managing quad cane. Attempt walking with no AD, pt is CGA 200 ft. Dizziness is stated as still present, but decreased. Post ambulation in seated, BP 137/ 70 HR 87. Gait pattern is notable for significant variability in step width, foot clearance and stride length; no festination noted but pt is mildly ataxic. PT-Balance Assessment Sitting Balance and Reactions Static Sitting Balance Ability Fair Dynamic Sitting Balance Ability Fair Standing Balance and Reactions Static Standing Balance Ability Fair Dynamic Standing Balance Ability Poor Device Used fww Functional Assessments Functional Tests Dynamic Gait Index M5 PT-IP Objective Assessments Start: 08/14/18 14:43 Freq: Status: Active Protocol: Document 08/14/18 13:40 RS (Rec: 08/14/18 15:27 RS [id number]) Orientation Orientation/Cognition Level of Alertness Alert Orientation Name Birthday Day of Week Place Situation Language Function Ability No Deficits Noted Safety Awareness Decreased Safety Awareness Comments Pt with slightly increased response time. Gross Range of Motion Upper Extremity ROM Assessment Right Impaired Impairments R UE in sling. Lower Extremity ROM Assessment Within Functional Limits Strength Lower Extremity Strength Assessment Bilaterally Impaired Comments Strength Comments BLE 4-/5 Sensation Assessment Sensation Light Touch Impaired Proprioception (Position) Impaired Comments Sensation Comments B feet demonstrate mild sensation loss. R foot demonstrates impaired proprioception of large toe. M6 PT-IP Treatment Start: 08/14/18 14:43 Freq: Status: Active Protocol: Document 08/14/18 13:40 RS (Rec: 08/14/18 15:27 [id number]) Physical Therapy Treatment Education Education Provided Precautions Safety Brace Education Caregiver Other Treatments Other Treatment Performed Demonstrated donning of sling and pt and caregivers educated that sling is primarily for comfort and support during healing. Pt is allowed to move RUE gently per ER nursing . M7 PT-IP Assessment and Plan Start: 08/14/18 14:43 Freq: Status: Active Protocol: Document 08/14/18 13:40 RS (Rec: 08/14/18 15:27 [id number]) PT Summary Assessment and Plan Potential Rehabilitation Potential Good Status of Condition at Evaluation Stable Summary Impairments Pain Strength Balance Coordination Tone Bed Mobility Transfers Gait Activity Tolerance Progress Towards Goals Slow Progress due to Pain Slow Progress due to Medical Issues Assessment Summary Pt reported to ER after GLF. ER requested PT to assess pt mobility and safety to return home. Pt with high fall risk as evidenced by on DGI performance, history of falls, as well as significant variability in pt gait pattern . At this time he is not safe to return home. If pt were to return home he would require 24/7 assist including physical assist and f/u HH for skilled intervention to address pt balance and impaired mobilities. Pt would benefit greatly from SNF for daily interventions and assist to prevent future falls and improve pt functional status. Goals Bed Mobility Goal Standby Assistance Transfer Goal Standby Assistance Cane Gait Goal Standby Assistance Cane Gait Distance 300 Other Goals Pt to ambulate with least restrictive or no AD. Pt attempted quad cane today and had great difficulty managing this, likely pt will remain using no AD. Frequency of Treatment Frequency Of Treatment Twice a Day Treatment Plan Physical Therapy Treatment Plan Bed Mobility Training Transfer Training Gait Training Therapeutic Exercise Balance Retraining Discharge Planning Hot or Cold Pack Neuromuscular Re-ed Coordination Retraining Manual Therapy Other Recommendations and Next Treatment Balance, dynamic gait. Focus Recommendations To Nursing Amount of Assist Needed 1 Person Assist Discharge Recommendations PT Discharge Recommendations Home with 24/7 Assist Home Health SNF Rehab Other Discharge Recommendations SNF vs. home with 24/7 and
--- NOTE | 2018-08-14 15:59 | ED_ITS ---
HPI - Fall General Chief Complaint: Fall Stated Complaint: GLF Time Seen by Provider: 08/14/18 10:30 Source: EMS Mode of arrival: ambulatory Limitations: no limitations History of Present Illness HPI Narrative: Patient is a 77-year-old male who presents after a mechanical ground level fall yesterday. He fell over on his left shoulder and hit his head. No loss of consciousness. He does have Parkinson's and has had increase in falls.This is his 2nd fall in 2 weeks. He was here on the after a fall as well. He is complaining of left shoulder pain he says that he is not able to walk well but has no he pain. He has some mild dizziness but really says it is not a problem. He has no chest pain heart palpitations cough fever. complaint: fall Onset (ago): day(s) (1) Related Data Home Medications Medication Instructions Recorded Confirmed amantadine HCl 100 mg PO DAILY #0 12/21/17 08/14/18 carbidopa-levodopa 1 tab PO BID #0 12/21/17 08/14/18 docusate sodium 100 mg PO DAILY PRN 08/14/18 08/14/18 Previous Rx's Medication Instructions Recorded hydralazine 50 mg tablet 50 mg PO BID #180 tab 05/02/18 doxazosin 4 mg tablet 4 mg PO DAILY #90 tab 08/09/18 Allergies Allergy/AdvReac Type Severity Reaction Status Date / Time No Known Drug Allergies Allergy Verified 08/14/18 10:32 Review of Systems Review of Systems All systems reviewed & are unremarkable except as noted in HPI and below Constitutional Denies chills, Denies fever(s), Denies lethargy and Denies weakness Eyes Denies change in vision Cardiovascular Denies chest pain, Denies irregular heart rhythm, Denies lightheadedness, Denies palpitations, Denies dyspnea, Denies dyspnea on exertion and Denies orthopnea Respiratory Denies cough, Denies dyspnea, Denies dyspnea on exertion and Denies wheezing Gastrointestinal Gastrointestinal: Denies abdominal pain, Denies change in bowel habits, Denies diarrhea, Denies nausea and Denies vomiting Musculoskeletal Reports system reviewed and no additional complaints, except as docu Integumentary/Breasts Denies pruritus, Denies erythema, Denies rash and Denies wounds Neurologic Denies weakness Endocrine Denies palpitations Allergic/Immunologic Denies wheezing Exam Initial Vital Signs Initial Vital Signs: Vital Signs Temperature 98.1 F 08/14/18 10:29 Pulse Rate 88 08/14/18 10:29 Respiratory Rate 18 08/14/18 10:29 Blood Pressure 169/86 H 08/14/18 10:29 Pulse Oximetry 98 08/14/18 10:29 Const General: cooperative, comfortable and frail appearing Nutritional Appearance: thin Orientation: alert, awake and oriented x3 HENMT Head: abrasion (Right side mild abrasion no laceration) Eyes General: appearance normal, both eyes and all related structures Pupils: PERRL EOM: EOM intact bilaterally Neck Neck: normal visual inspection Chest Chest: normal inspection of the chest and tenderness (Right ribs are tender no crepitation no contusion no flail chest) Resp Effort & Inspection: normal respiratory effort, able to speak in complete sentences, no respiratory distress and no use of accessory muscles Auscultation: clear to auscultation bilaterally, no rales, no rhonchi and no wheezes Cardio Rate: regular rate Rhythm: regular rhythm Heart Sounds: no click, no gallops, no murmurs and no rubs Pulses: normal peripheral pulses Back/Spine/Pelvis Back: normal to inspection, No back tenderness, No CVA tenderness and No ecchymosis Cervical Spine: normal cervical lordosis Thoracic/Lumbar Spine: thoracic and lumbar spine normal to inspection Sacroiliac Joints: nontender Skin General: no rashes or lesions noted, No jaundice and No petechiae Neuro General: alert and awake Extrem General: normal to inspection [facility] Medical History Benign prostatic hyperplasia (Chronic ~2003) Hepatitis A (Chronic ~1985) Hypertension (Chronic ~1989) Migraines (Chronic ~2011) Osteoarthritis (Chronic ~2004) Osteopenia (Chronic ~2004) Osteoporosis (Chronic ~2009) Parkinson's disease (Chronic ~2012) Peripheral neuropathy (Chronic ~2011) Scoliosis (Chronic ~2004) Chicken pox (Resolved) Measles (Resolved) Mumps (Resolved) Surgical History Anesthesia (Resolved) History of tonsillectomy (Resolved ~194) Family History: Reviewed 08/14/18 by Steff Jacobson DO Social History household members: none Smoking Status: Never smoker Course Orders Ordered: ED Orders 08/14/18 11:15 Basic Metabolic Panel Stat Complete Blood Count AUTO DIFF Stat 08/14/18 12:28 Consult to Physical Therapy Evaluate & Treat 08/14/18 13:35 Consult to Occupational Therapy Evaluate & Treat 08/14/18 15:29 CT head/brain wo con Stat 08/14/18 17:54 Consult to Discharge Planning Routine Consult to Student Development Advisor Stat Education, smoking cessation ONGOING Acetaminophen (Tylenol) 650 mg PO Q6HR PRN PRN Reason: As Needed for Fever/Mild Pain Calcium Carbonate (Tums) 1,000 mg PO Q4HR PRN PRN Reason: Dyspepsia Ibuprofen (Advil) 600 mg PO Q6HR PRN PRN Reason: As Needed for Fever/Mild Pain Amantadine 100 Mg 0 each PO DAILY FÉLIX Sinemet Cr 25/100 0 each PO 1000,1600 FÉLIX Doxazosin 4 Mg 0 each PO BEDTIME FÉLIX Hydralazine 50 Mg 0 each PO BID FÉLIX Stored In Pharmacy 0 each PO . FÉLIX Docusate 100 Mg 0 each PO DAILY PRN PRN Reason: Constipation Discontinued Medications Acetaminophen (Tylenol) 650 mg PO NOW ONE Stop: 08/14/18 13:10 Last Admin: 08/14/18 13:12 Dose: 650 mg Carbidopa/Levodopa (Sinemet 25-100 Tab) 1 each PO NOW ONE Stop: 08/14/18 16:40 Last Admin: 08/14/18 16:46 Dose: 1 each Docusate Sodium (Colace) 100 mg PO DAILY PRN PRN Reason: Constipation Ibuprofen (Advil) 400 mg PO NOW ONE Stop: 08/14/18 14:12 Last Admin: 08/14/18 14:15 Dose: 400 mg Vital Signs - 8 hr 08/14/18 12:36 08/14/18 16:50 08/14/18 17:20 Temperature 98.2 F Pulse Rate 54 L 72 58 L Respiratory Rate 18 14 16 Blood Pressure 162/85 H Blood Pressure [Left Arm] 151/67 H 150/80 H Pulse Oximetry 96 98 08/14/18 17:54 08/14/18 18:18 Temperature 98.2 F Pulse Rate 58 L Respiratory Rate 16 Blood Pressure 162/85 H Blood Pressure [Left Arm] Pulse Oximetry 97 97 MDM - Fall Lab Data Attestation: I reviewed the patient's lab results. Result diagrams: 08/14/18 11:15 08/14/18 11:15 Lab Results 08/14/18 08/14/18 Range/Units 11:15 11:15 WBC 10.4 (4.5-11.0) X10^3/uL RBC 4.46 L (4.5-5.9) X10^6/uL Hgb 13.6 (13.5-17.5) g/dL Hct 40.2 L (41-53) % MCV 90.2 (80-100) fL MCH 30.5 (26-34) PG MCHC 33.8 (30-36) % RDW 12.8 (11.6-14.8) % Plt Count 200 (150-400) X10^3/uL Neut % (Auto) 82.4 H (50-75) % Lymph % (Auto) 7.7 L (25-40) % [place] % (Auto) 8.9 (3-14) % Eos % (Auto) 0.6 L (2-4) % Baso % (Auto) 0.4 (0-2) % Neut # (Auto) 8500 H (2070-8850) /uL Sodium 136 L (137-145) mmol/L Potassium 3.8 (3.4-5.1) mmol/L Chloride 97 L (98-107) mmol/L Carbon Dioxide 29 (22-32) mmol/L BUN 12 (9-20) mg/dL Creatinine 0.60 L (0.66-1.25) mg/dL Estimated GFR > 60.0 (>60) mL/min BUN/Creatinine Ratio 20.0 (6-22) Glucose 121 H (80-110) mg/dL Calcium 8.9 (8.4-10.2) mg/dL Urine Dip Bedside Urine Glucose Negative Bedside Urine Bilirubin - Negative Bedside Urine Ketone - Negative Urine Specific [place] 1.015 Bedside Urine Occult Blood - Negative Bedside Urine pH 7.0 Bedside Urine Protein - Negative Bedside Urine Urobilinogen - Negative Bedside Urine Nitrite - Negative Bedside Urine Leukocytes - Negative Esterase Imaging Data CT scan - head: Radiologist's impression: PROCEDURE: CT HEAD/BRAIN WO CON INDICATIONS: fall yesterday dizzy TECHNIQUE: Noncontrast 4.5 mm thick angled axial sections acquired from the foramen magnum to the vertex, with coronal and sagittal reformats. For radiation dose reduction, the following was used: automated exposure control, adjustment of mA and/or kV according to patient size. COMPARISON: [facility], CT, CT HEAD/BRAIN WO CON, 08/01/2018, 17:32. FINDINGS: Image quality: Excellent. CSF spaces: Basal cisterns are patent. No extra-axial fluid collections. The ventricles are symmetric in size and shape. Brain: No intracranial bleeds or masses. There is cerebral volume loss for age , with resultant ventricular and sulcal prominence. There are periventricular and deep white matter chronic small vessel ischemic changes. There is intracranial internal carotid artery atherosclerosis. Skull and face: Calvarium and visualized facial bones appear intact, without suspicious lesions. Sinuses: Visualized sinuses and mastoids are clear. IMPRESSION: Source of current symptoms is not seen, no trauma found. Moderate microvascular atherosclerotic change in the deep white matter of each hemisphere. Dictated by: Carter Silvestre M.D. on 08/14/2018 at 15:53 Right shoulder: Radiologist's impression: PROCEDURE: XR SHOULDER RT MIN 2V INDICATIONS: fall pain TECHNIQUE: 2 views of the shoulder were acquired. COMPARISON: [facility], CR, XR RIBS RT MIN 3V W CXR 1V, 08/14/2018, 10:43. FINDINGS: Bones: No definite fractures or dislocations but there is a slight angulation of the cortical margin of the medial humeral head on the right potentially representing a minimally displaced occult fracture or prior trauma. No suspicious bony lesions. Visualized ribs appear intact. Soft tissues: No suspicious soft tissue calcifications. IMPRESSION: Possible occult fracture medial humeral head given the mild angulation abnormality noted in that area. Followup CT or MR scanning may be warranted depending on clinical status. Dictated by: Carter Silvestre M.D. on 08/14/2018 at 11:07 Approved by: Carter Silvestre M.D. on 08/14/2018 at 11:09 Rib x-ray: Radiologist's impression: PROCEDURE: XR RIBS RT MIN 3V W CXR 1V INDICATIONS: fall pain TECHNIQUE: 3 views of the right ribs were acquired, along with a single view chest. COMPARISON: None. FINDINGS: Surgical changes and devices: None. Bones and chest wall: No fractures or dislocations. No suspicious bony lesions. Overlying soft tissues appear unremarkable. Lungs and pleura: No pleural effusions or pneumothorax. Lungs appear clear. Mediastinum: Mediastinal contours appear normal. Heart size is normal. IMPRESSION: No trauma found. Dictated by: Carter Silvestre M.D. on 08/14/2018 at 11:09 [facility] Narrative Medical decision making narrative: Patient will need sling for his mild humerus fracture. His PT and OT have been down to evaluate him. [place] but it has no assistance and he lives alone. They both recommend that he be admitted to the hospital he is a high fall risk. The doctor morning has been consulted in regards to movement restrictions. He has actually been to the ED to evaluate patient and has written consultation. Dr. Jacobson is in the ED to also evaluate patient. Patient will be placed in observation. Discharge Plan Departure Patient Disposition: Admitted as Observation Clinical Impression: Fracture, humerus Discharge Date/Time: 08/14/18 17:17 Interventions: ED Discharge Assessment Last Done: 08/14/18 17:17 Admit Date/Time: 08/14/18 17:38 Admit Provider: Anand Gupta
--- NOTE | 2018-08-14 16:23 | PM.CN ---
History of Present Illness Date Patient Seen: 08/14/18 Time Patient Seen: 16:27 Chief complaint: GLF Reason for consult: R proximal humerus fracture Requesting provider: Cecelia Kiran Narrative: 77-year-old male who had a ground level fall today. He has Parkinson's. He just tripped and went down. He landed on his right arm. He did hit his head but did not lose consciousness. He did not have any prodromal dizziness. Denies pain anywhere else. Pain just in the right shoulder for now. He is right-hand dominant. [facility] Medical History Benign prostatic hyperplasia (Chronic ~2003) Hepatitis A (Chronic ~1985) Hypertension (Chronic ~1989) Migraines (Chronic ~2011) Osteoarthritis (Chronic ~2004) Osteopenia (Chronic ~2004) Osteoporosis (Chronic ~2009) Parkinson's disease (Chronic ~2012) Peripheral neuropathy (Chronic ~2011) Scoliosis (Chronic ~2004) Chicken pox (Resolved) Measles (Resolved) Mumps (Resolved) Surgical History Anesthesia (Resolved) History of tonsillectomy (Resolved ~194) Family History Father Alzheimer's disease Hypertension Mother History of acquired heart valve infection Hypertension Mitral valve disease Grandmother Stroke Social History household members: none Smoking Status: Never smoker Meds Home Medications Medication Instructions Recorded Confirmed Type amantadine HCl 100 mg PO DAILY #0 12/21/17 08/14/18 History carbidopa-levodopa 1 tab PO BID #0 12/21/17 08/14/18 History hydralazine 50 mg tablet 50 mg PO BID #180 tab 05/02/18 08/14/18 Rx doxazosin 4 mg tablet 4 mg PO DAILY #90 tab 08/09/18 08/14/18 Rx docusate sodium 100 mg PO DAILY PRN 08/14/18 08/14/18 History Allergies Allergy/AdvReac Type Severity Reaction Status Date / Time No Known Drug Allergies Allergy Verified 08/14/18 10:32 Review of Systems Constitutional Constitutional: Denies chills, Denies fever(s) and Reports frequent falls Cardiovascular Cardiovascular: Denies chest pain Respiratory Respiratory: Denies cough Gastrointestinal Gastrointestinal: Denies nausea Musculoskeletal Musculoskeletal: Denies numbness Neurologic Neurologic: Reports frequent falls and Denies numbness Exam Vital Signs (past 8 hours): - 08/14/18 10:29 08/14/18 11:10 08/14/18 12:36 Temperature 98.1 F Pulse Rate 88 70 54 L Respiratory Rate 18 20 18 Blood Pressure 169/86 H Blood Pressure [Left Arm] 140/71 151/67 H Pulse Oximetry 98 97 96 Oxygen Delivery Method Room Air Const Orientation: alert and oriented x3 Extrem Other: Right shoulder discomfort with logroll of humerus. Intact sensation throughout all fingers and hand and dorsal forearm. Good banquet set up person. Intact integument over the right proximal humerus Objective Imaging Right shoulder: My impression: Minimally impacted proximal humerus neck fracture. Nondisplaced Labs Result Diagrams: 08/14/18 11:15 08/14/18 11:15 Labs: Laboratory Results - last 24 hr 08/14/18 08/14/18 11:15 11:15 WBC 10.4 RBC 4.46 L Hgb 13.6 Hct 40.2 L MCV 90.2 MCH 30.5 MCHC 33.8 RDW 12.8 Plt Count 200 Neut % (Auto) 82.4 H Lymph % (Auto) 7.7 L [place] % (Auto) 8.9 Eos % (Auto) 0.6 L Baso % (Auto) 0.4 Neut # (Auto) 8500 H Sodium 136 L Potassium 3.8 Chloride 97 L Carbon Dioxide 29 BUN 12 Creatinine 0.60 L Estimated GFR > 60.0 BUN/Creatinine Ratio 20.0 Glucose 121 H Calcium 8.9 Assessment & Plan Plan: Assessment/Plan Narrative: He has a minimally impacted right proximal humerus fracture. This should be stable and not require any surgical intervention. He is to stay in the sling and swath while in bed. Under controlled situations, he can get his arm out of the sling and work on mild pendulum exercises. During the daytime the belt around the sling does not need to be attached around his body if this makes things easier for physical therapy. He can follow up in my office in 2 weeks with x-rays of the right proximal humerus. He is getting admitted for therapy and mobilization to the medicine service. No further follow-up needed while in the hospital.
--- NOTE | 2018-08-14 16:34 | P.CONS_ITS ---
History of Present Illness Date Patient Seen: 08/14/18 Time Patient Seen: 16:27 Chief complaint: GLF Reason for consult: R proximal humerus fracture Requesting provider: Cecelia Kiran Narrative: 77-year-old male who had a ground level fall today. He has Parkinson' s. He just tripped and went down. He landed on his right arm. He did hit his head but did not lose consciousness. He did not have any prodromal dizziness. Denies pain anywhere else. Pain just in the right shoulder for now. He is right-hand dominant. [facility] Medical History Benign prostatic hyperplasia (Chronic ~2003) Hepatitis A (Chronic ~1985) Hypertension (Chronic ~1989) Migraines (Chronic ~2011) Osteoarthritis (Chronic ~2004) Osteopenia (Chronic ~2004) Osteoporosis (Chronic ~2009) Parkinson's disease (Chronic ~2012) Peripheral neuropathy (Chronic ~2011) Scoliosis (Chronic ~2004) Chicken pox (Resolved) Measles (Resolved) Mumps (Resolved) Surgical History Anesthesia (Resolved) History of tonsillectomy (Resolved ~194) Family History Father Alzheimer's disease Hypertension Mother History of acquired heart valve infection Hypertension Mitral valve disease Grandmother Stroke Social History household members: none Smoking Status: Never smoker Meds Home Medications Medication Instructions Recorded Confirmed Type amantadine HCl 100 mg PO DAILY #0 12/21/17 08/14/18 History carbidopa-levodopa 1 tab PO BID #0 12/21/17 08/14/18 History hydralazine 50 mg tablet 50 mg PO BID #180 tab 05/02/18 08/14/18 Rx doxazosin 4 mg tablet 4 mg PO DAILY #90 tab 08/09/18 08/14/18 Rx docusate sodium 100 mg PO DAILY PRN 08/14/18 08/14/18 History Allergies Allergy/AdvReac Type Severity Reaction Status Date / Time No Known Drug Allergies Allergy Verified 08/14/18 10:32 Review of Systems Constitutional Constitutional: Denies chills, Denies fever(s) and Reports frequent falls Cardiovascular Cardiovascular: Denies chest pain Respiratory Respiratory: Denies cough Gastrointestinal Gastrointestinal: Denies nausea Musculoskeletal Musculoskeletal: Denies numbness Neurologic Neurologic: Reports frequent falls and Denies numbness Exam Vital Signs (past 8 hours): - 08/14/18 10:29 08/14/18 11:10 08/14/18 12:36 Temperature 98.1 F Pulse Rate 88 70 54 L Respiratory Rate 18 20 18 Blood Pressure 169/86 H Blood Pressure [Left Arm] 140/71 151/67 H Pulse Oximetry 98 97 96 Oxygen Delivery Method Room Air Const Orientation: alert and oriented x3 Extrem Other: Right shoulder discomfort with logroll of humerus. Intact sensation throughout all fingers and hand and dorsal forearm. Good junior staff accountant. Intact integument over the right proximal humerus Objective Imaging Right shoulder: My impression: Minimally impacted proximal humerus neck fracture. Nondisplaced Labs Result Diagrams: 08/14/18 11:15 08/14/18 11:15 Labs: Laboratory Results - last 24 hr 08/14/18 08/14/18 11:15 11:15 WBC 10.4 RBC 4.46 L Hgb 13.6 Hct 40.2 L MCV 90.2 MCH 30.5 MCHC 33.8 RDW 12.8 Plt Count 200 Neut % (Auto) 82.4 H Lymph % (Auto) 7.7 L [place] % (Auto) 8.9 Eos % (Auto) 0.6 L Baso % (Auto) 0.4 Neut # (Auto) 8500 H Sodium 136 L Potassium 3.8 Chloride 97 L Carbon Dioxide 29 BUN 12 Creatinine 0.60 L Estimated GFR > 60.0 BUN/Creatinine Ratio 20.0 Glucose 121 H Calcium 8.9 Assessment & Plan Plan: Assessment/Plan Narrative: He has a minimally impacted right proximal humerus fracture. This should be stable and not require any surgical intervention. He is to stay in the sling and swath while in bed. Under controlled situations, he can get his arm out of the sling and work on mild pendulum exercises. During the daytime the belt around the sling does not need to be attached around his body if this makes things easier for physical therapy. He can follow up in my office in 2 weeks with x-rays of the right proximal humerus. He is getting admitted for therapy and mobilization to the medicine service. No further follow-up needed while in the hospital.
[2018-08-14] MEDS: CARBIDOPA-LEVODOPA 25/100 TABLET 1 EACH PO (16:46)
--- NOTE | 2018-08-14 17:16 | P.HP_ITS ---
History of Present Illness Date Patient Seen: 08/14/18 Time Patient Seen: 16:45 Chief complaint: GLF Narrative: 77-year-old male with Parkinson's disease and hypertension who suffered a fall the night prior to admission. He and his family feel his Parkinson's disease has progressed and is now impairing his mobility. Neurologist is Dr. Cee in [place]. He was seen in the ER 2 weeks ago after a fall but was able to return home. Last night he was in his usual state of health but fell exiting the car. This morning he had significant difficulty walking due to pain, particularly in his right arm. He does have occasional dizziness but denies dizziness today. Eating and drinking at baseline. Denies chest pain or fevers. Struggles with chronic constipation. Last BM was 2 days ago. In the emergency department shoulder x-ray was significant for a small fracture in the right humerus. Dr. Paulino saw him in the ER and he was placed in a sling. No rib fractures. Head CT was unchanged from prior. Labs were normal. Physical therapy saw the patient in the emergency department and determined that he was unsafe to return to his home where he lives independently at [facility]. His brother and [id number] are supportive but unable to stay with him overnight. Patient and family agree that he likely needs assisted living and are eager to speak with a public health social worker to set this up. Patient History Medical History Benign prostatic hyperplasia (Chronic ~2003) Hepatitis A (Chronic ~1985) Hypertension (Chronic ~1989) Migraines (Chronic ~2011) Osteoarthritis (Chronic ~2004) Osteopenia (Chronic ~2004) Osteoporosis (Chronic ~2009) Parkinson's disease (Chronic ~2012) Peripheral neuropathy (Chronic ~2011) Scoliosis (Chronic ~2004) Chicken pox (Resolved) Measles (Resolved) Mumps (Resolved) Surgical History Anesthesia (Resolved) History of tonsillectomy (Resolved ~194) Family & Social History Family History: Reviewed 08/14/18 by Steff Jacobson DO Social History: household members none Prior Living Arrangements Long-Term Facility Safety & Behavioral: Feels Safe in Current Yes Environment Been Physically Hurt or No Threatened By a Person Tobacco & Substance use: Smoking Status Never smoker alcohol intake frequency 0-2 drinks per day Substance Use Type does not use Meds Home Medications Medication Instructions Recorded Confirmed Type amantadine HCl 100 mg PO DAILY #0 12/21/17 08/14/18 History carbidopa-levodopa 1 tab PO BID #0 12/21/17 08/14/18 History hydralazine 50 mg tablet 50 mg PO BID #180 tab 05/02/18 08/14/18 Rx doxazosin 4 mg tablet 4 mg PO DAILY #90 tab 08/09/18 08/14/18 Rx docusate sodium 100 mg PO DAILY PRN 08/14/18 08/14/18 History Allergies Allergy/AdvReac Type Severity Reaction Status Date / Time No Known Drug Allergies Allergy Verified 08/14/18 10:32 Review of Systems Constitutional Constitutional: Denies fatigue, Denies fever(s), Reports frequent falls and Denies headache(s) ENT Ears, Nose, Mouth, and Throat: Yes dizziness and No headache(s) Cardiovascular Cardiovascular: Denies chest pain, Denies fainting, Denies leg swelling and Denies shortness of breath Respiratory Respiratory: Denies cough and Denies dyspnea Gastrointestinal Gastrointestinal: Denies abdominal pain, Denies change in bowel habits and Reports constipation Musculoskeletal Musculoskeletal: Reports abnormal gait Neurologic Neurologic: Reports abnormal gait, Reports dizziness, Denies syncope, Reports frequent falls and Denies headache(s) Endocrine Endocrine: Denies fatigue Exam Vital Signs (past 8 hours): - 08/14/18 10:29 08/14/18 11:10 08/14/18 12:36 Temperature 98.1 F Pulse Rate 88 70 54 L Respiratory Rate 18 20 18 Blood Pressure 169/86 H Blood Pressure [Left Arm] 140/71 151/67 H Pulse Oximetry 98 97 96 08/14/18 16:50 Temperature Pulse Rate 72 Respiratory Rate 14 Blood Pressure Blood Pressure [Left Arm] 150/80 H Pulse Oximetry 98 Oxygen Delivery Method Room Air Narrative Exam Narrative: General appearance: Alert, appears stated age, cooperative. Head: Small superficial abrasion posterior occiput on the right. Eyes: Conjunctivae/corneas clear. EOM's intact. Ears: External ears normal bilaterally. Nose: Nares normal. Mucosa pink and moist. Throat: Moist mucosa. Neck: No adenopathy, supple, symmetric, trachea midline. Lungs: Clear to auscultation bilaterally, no wheezes or crackles. Heart: Regular rate and rhythm, S1, S2 normal, no murmur. Abdomen: Soft, non-tender; bowel sounds normal; no masses, no organomegaly. Extremities: Right arm in sling. Moves right fingers spontaneously. Sensation intact. Lower extremities normal, atraumatic, no edema. Neurologic: No focal deficits. Speech is fluid and fluent. Gait not assessed. Psych: Alert and oriented to person, time, and place. Mood and affect appropriately modulated. Judgment and insight regarding health issues, within normal limits. Recent and remote memory intact. Objective Imaging Right shoulder: Radiologist's impression: IMPRESSION: Possible occult fracture medial humeral head given the mild angulation abnormality noted in that area. Followup CT or MR scanning may be warranted depending on clinical status. Dictated by: Carter Silvestre M.D. on 08/14/2018 at 11:07 Approved by: Carter Silvestre M.D. on 08/14/2018 at 11:09 CT scan - head: Radiologist's impression: IMPRESSION: Source of current symptoms is not seen, no trauma found. Moderate microvascular atherosclerotic change in the deep white matter of each hemisphere. Dictated by: Carter Silvestre M.D. on 08/14/2018 at 15:53 Approved by: Carter Silvestre M.D. on 08/14/2018 at 15:53 Labs Result Diagrams: 08/14/18 11:15 08/14/18 11:15 Labs: Laboratory Results - last 24 hr 08/14/18 08/14/18 11:15 11:15 WBC 10.4 RBC 4.46 L Hgb 13.6 Hct 40.2 L MCV 90.2 MCH 30.5 MCHC 33.8 RDW 12.8 Plt Count 200 Neut % (Auto) 82.4 H Lymph % (Auto) 7.7 L [place] % (Auto) 8.9 Eos % (Auto) 0.6 L Baso % (Auto) 0.4 Neut # (Auto) 8500 H Sodium 136 L Potassium 3.8 Chloride 97 L Carbon Dioxide 29 BUN 12 Creatinine 0.60 L Estimated GFR > 60.0 BUN/Creatinine Ratio 20.0 Glucose 121 H Calcium 8.9 Assessment & Plan (1) Fall from ground level: Current visit: No Status: Acute (2) Parkinson's disease: Current visit: No Status: None (3) Chronic constipation: Current visit: No Status: Chronic (4) Essential hypertension: Current visit: No Status: None (5) BPH (benign prostatic hyperplasia): Current visit: No Status: Chronic (6) Fracture, humerus: Qualifiers: Encounter type: initial encounter Fracture alignment: nondisplaced Fracture healing: Fracture morphology: other fracture Fracture type: closed Humerus Location: proximal Laterality: right [place] Fracture Type: Qualified Code(s): S42.294A - Other nondisplaced fracture of upper end of right humerus, initial encounter for closed fracture Current visit: No Status: Acute Plan: Assessment/Plan Narrative: Delightful 77-year-old male with Parkinson's disease, hypertension, and BPH who suffered a ground level fall on 08/13/18 now with a right humerus fracture. He is unable to ambulate with a cane or walker due to the humerus fracture but is also too unsteady to walk without assistance. Patient will be admitted under observation for continued PT, OT and consultation with Care Management. He has had a gradual decline which I believe is secondary to progression of Parkinson's disease and needs assistance at home. Previously lived independently at [facility]. He and family are interested in pursuing assisted living. Patient and family are aware he is currently under observation and does not meet inpatient criteria. Appreciate consultation by Dr. Paulino. Will continue his usual medications for Parkinson's disease, hypertension, BPH and chronic constipation. Diet: Heart healthy diet DVT prophylaxis: SCDs Code status: Full Code Disposition: Hopefully patient can discharge in the next day or two to assisted living. Appreciate care management assistance with discharge planning.
--- NOTE | 2018-08-14 18:21 | PC.NURSE ---
patient up to floor at 1720. Patient is A&OX4, 97% on RA, rates his pain 6/10 in his back, shoulder and head. Was given tylenol and ibuprofen in ED. Right arm is in sling. Right lung sounds wheezy with some fine crackles, left lung sounds diminished. This RN encouraged patient to take deep breathes whenever he's awake and remembers to. Patient has been oriented to call light and its use. patient is normally independent at his appt in [place] [address], is not at least 1PA with cane to use urinal/bsc. PT/OT consult ordered. Care management consult ordered per protocol. No IV access, ED RN took it out. No fluids are ordered for this time. BA active, call light in reach, will change to yellow gown when patient is done eating.
[2018-08-14] MEDS: DOXAZOSIN 4 MG PO (21:26)
[2018-08-14] MEDS: HYDRALAZINE 50 MG PO (21:27)
[2018-08-15 04:05] VITALS: BP 140/92; PULSE 64; RESP 15; TEMP 36.9
[2018-08-15] MEDS: IBUPROFEN 600 MG TABLET PO (04:19)
[2018-08-15 07:00] VITALS: O2SAT 96
[2018-08-15 07:50] VITALS: BP 158/99; PULSE 62; RESP 18; TEMP 36.7; O2SAT 96
[2018-08-15] MEDS: AMANTADINE 100 MG PO (09:14)
[2018-08-15] MEDS: DOCUSATE 100 MG CAPSULE PO (09:14)
[2018-08-15] MEDS: SINEMET CR 25/100 PO (09:15)
[2018-08-15] MEDS: HYDRALAZINE 50 MG PO (09:15)
--- NOTE | 2018-08-15 09:45 | PC.NURSE ---
Day shift Assisted pt from bed to bathroom, 1 CGA with gaitbelt, pt is unsteady and needs assistance, right arm in sling. Denies pain at this time, ice applied to arm for comfort. Sitting up in chair, call light within reach and chair alarm on.
[2018-08-15 11:46] VITALS: BP 110/65; PULSE 69; RESP 16; TEMP 36.6; O2SAT 96
--- NOTE | 2018-08-15 11:58 | OT.IP.TRT ---
Current Diagnoses Parkinson's disease (08/14/18) Essential (primary) hypertension (08/14/18) Other constipation (08/14/18) Benign prostatic hyperplasia without lower urinary tract symptoms (08/14/18) Other nondisplaced fracture of upper end of right humerus, initial encounter for closed fracture (08/14/18) Fall on same level, unspecified, initial encounter (08/14/18) Occupational Therapy Treatment Note M2 OT-IP Current Condition Start: 08/14/18 14:43 Freq: Status: Active Protocol: Document 08/14/18 15:10 PJM (Rec: 08/14/18 17:44 PJM [email or web address]) Occupational Therapy Current Condition Current Condition Evaluation Date 08/14/18 Treatment Diagnosis decreased self care, functional mobility s/p fall With R humeral neck fx Diagnosis Onset Date 08/13/18 Post Operative Precautions Shoulder Precautions Sling Other Precautions fall risk, R sling on all times, waist strap can be off during day if needed, RUE pendulums only Weight Bearing Status Weight Bearing Status Non-Weight Bearing Allowed Weight Bearing Amount (enter % Non weight bearing RUE or #) (%) M3 OT- IP Subjective and Pain Start: 08/14/18 17:12 Freq: Status: Active Protocol: Document 08/15/18 11:58 PJM (Rec: 08/15/18 14:20 PJM [email or web address]) OT- Subjective Occupational Therapy Visit Type Type Treatment Note Visit Start Time 11:02 Visit Stop Time 11:58 Total Visit Minutes 56 Notes Pt awake and alert in recliner and requesting to shower. Pt OK for shower per RN. Occupational Therapy Visit Comments Patient/Caregiver Goals to get stronger and have better balance OT Pain Assessment Pain When Pain Assessed After Treatment Pain Present Pain Present Pain Reported Location right posterior back Intensity 4 Scale Used Numeric (1 - 10) Description Aching Acute M4 OT- IP ADL's Start: 08/14/18 17:12 Freq: Status: Active Protocol: Document 08/15/18 11:58 PJM (Rec: 08/15/18 14:20 PJM [email or web address]) OT ADL-Grooming General Evaluation Grooming Ability Standby Assistance Areas Needing Assistance Retrieving/Set-up of Grooming Items Combing/Brushing Hair Comments OT Grooming Comments seated in chair after shower OT ADL-Dressing General Eval Upper Body Dressing Ability Minimal Assistance Lower Body Dressing Ability Moderate Assistance Maximum Assistance Areas Needing Assistance Underpants/Brief Socks Comments OT Dressing Comments Pt needs min assist with gown change; mod+ assist with sling off/on today. Pt mod assist to don undershorts to start over feet and supervisor pullet farm hips with L hand only. Pt max assist with donning socks, SBA to remove them while seated. OT ADL-Bathing Bathing Type Bathing Type Shower General Evaluation Bathing Ability Moderate Assistance Areas Needing Assistance Retrieving/Setting Up Items Wash/Dry Back Wash/Dry Lower Extremities Devices Bathing Equipment Hand Held Shower Sprayer Shower Chair without Arms Grab Bars Comments OT Bathing Comments Pt needs mod assist and mod cues for unilateral techniques for shower and reminders not to use RUE for functional tasks when sling off.Pt stood 50% of the time with heavy use of grab bars. Start: 08/14/18 17:12 M6 OT- IP Functional Cognition Start: 08/14/18 17:15 Freq: Status: Active Protocol: Document 08/15/18 11:58 PJM (Rec: 08/15/18 14:20 PJM [id number]) Cognitive Factors Limiting Selfcare Function Cognitive Ability Level of Alertness Alert Patient Orientation Name Month Date Year Place Situation Attention Span Ability Capable of Focused Attention Capable of Sustained Attention Ability to Follow Commands Able to Follow One Step Commands Safety Awareness Decreased Ability to Apply Precautions Problem Solving Ability Needs Assist to Identify Solutions Cognitive Comments Cognitive Assessment Comments Pt presents with faster speed of processing today and recalls information about sling from yesterday. He is beginning to problem solve unilateral self care techniques. M7 OT- IP Mobility and Balance Start: 08/14/18 17:17 Freq: Status: Active Protocol: Document 08/15/18 11:58 PJM (Rec: 08/15/18 14:20 PJM [id number]) OT-Transfer Assessment Sit to and From Stand Sit to and from Stand Contact Guard Assistance Transfers Transfer Ability Minimal Assistance Technique Transfer Destination Chair Shower Stall Transfer Technique Stand Step Pivot Devices Transfer Assistive Devices Gait Belt Comments Mobility Comments Pt unsteady on turns and had slight loss of balance when stepping over low threshold of shower stall. OT- Gait Assessment Gait Gait Assistance Required: Contact Guard Assist Distance (Feet) 20 Assistive Devices Assistive Device Gait Belt Comments Gait Ability Comments see P.T. notes for details OT- Balance Assessment Sitting Balance and Reactions Static Sitting Balance Ability Good Dynamic Sitting Balance Ability Fair Standing Balance and Reactions Static Standing Balance Ability Fair Dynamic Standing Balance Ability Fair M8 OT- IP Objective Assessments Start: 08/14/18 17:16 Freq: Status: Active Protocol: Document 08/15/18 11:58 PJM (Rec: 08/15/18 14:20 PJM [id number]) OT Gross Range of Motion Upper Extremity Range of Motion ROM Impairments Educated pt re: RUE pendulum exercises and AROM exercises for elbow, forearm, wrist and fingers to be done with sling off 5 reps 2x day. Written instructions provided and pt demo's exercises correctly with min cues. OT Strength Comments Strength Comments RUE distal strength in elbow, forearm, wrist, fingers appears WFL OT- Coordination Assessment Comments Coordination Comments Pt beginning to use R hand as gross assist ot stabilize objects within sling OT-Muscle Tone Assessment Muscle Tone Location Right Upper Extremity Severity of Tone Mild Manifestation of Tone Intention Tremors M9 OT- IP Assessment and Plan Start: 08/14/18 17:17 Freq: Status: Active Protocol: Document 08/15/18 11:58 PJM (Rec: 08/15/18 14:20 PJM [id number]) OT Summary Assessment and Plan Potential Rehabilitation Potential Good Summary OT Impairments Range of Motion Strength Balance Coordination Tone Functional Cognition Functional Mobility Grooming Dressing Toileting Bathing Toilet Transfers Shower Transfers Progress Towards Goals Progressing Toward Goals with good daily improvement Assessment Summary Pt presents with faster speed of processing and improving performance in donning/doffing sling. Pt demonstrating improved participation with dressing and showering, but is not independent with self care as noted above. He is still unsteady on his feet. He has NOT been cleared by P.T. for independent ambulation. Pt not safe to return home alone to independent living apartment. Pt is an excellent candidate for short term SNF rehab with goal of transitioning to an assisted living situation. Goals Self-Feeding Goal Independent Grooming Goal Independent Dressing Goal Minimal Assistance Toileting Goal Independent Bathing Goal Minimal Assistance Toilet Transfer Goal Independent Shower Transfer Goal Contact Guard Assistance Patient/Caregiver Education Goal Caregiver Independent Assisting Patient Days to Meet Goals 5 Frequency of Treatment Frequency Of Treatment Once a Day Treatment Plan OT Treatment Plan ADL Training Functional Mobility Patient/Family Education Discharge Planning Discharge Recommendations OT Discharge Recommendations SNF Rehab
--- NOTE | 2018-08-15 13:43 | PT.IPTN ---
Current Diagnoses Parkinson's disease (08/14/18) Essential (primary) hypertension (08/14/18) Other constipation (08/14/18) Benign prostatic hyperplasia without lower urinary tract symptoms (08/14/18) Other nondisplaced fracture of upper end of right humerus, initial encounter for closed fracture (08/14/18) Fall on same level, unspecified, initial encounter (08/14/18) Physical Therapy Treatment Note M2 PT-IP Current Condition Start: 08/14/18 14:52 Freq: Status: Active Protocol: Document 08/14/18 13:40 RS (Rec: 08/14/18 15:27 RS [id number]) Physical Therapy Current Condition Current Condition Evaluation Date 08/14/18 Treatment Diagnosis GLF; difficulty walking Onset Date 08/14/2018 Precautions Other Precautions fall risk Weight Bearing Status Weight Bearing Status Non-Weight Bearing Allowed Weight Bearing Amount (enter % Non weight bearing RUE or #) (%) M3 PT-IP Subjective Start: 08/14/18 14:43 Freq: Status: Active Protocol: Document 08/15/18 12:08 RS (Rec: 08/15/18 13:43 RS [id number]) Subjective Physical Therapy Visit Type Type Treatment Note Visit Start Time 11:40 Visit Stop Time 12:08 Total Visit Minutes 28 Number of CAREER CONSULTANT Visits 0 Physical Therapy Visit Comments Patient Comments Pt reports feeling a little better than yesterday, but really wants to go to rehab. Patient Goals go to rehab, improve mobility and indep Therapy Pain Assessment Pain When Pain Assessed At Rest Pain Present Pain Present Pain Reported M4 PT-IP Mobility and Gait Start: 08/14/18 14:43 Freq: Status: Active Protocol: Document 08/15/18 12:08 RS (Rec: 08/15/18 13:43 RS [id number]) PT-Bed Mobility Assessment Rolling Type of Rolling Roll to Left Level of Assist Moderate Assistance Supine to Sit Supine to Sit Moderate Assistance Sit to Supine Sit to Supine Moderate Assistance Scooting Scooting to Edge of Bed Standby Assistance PT-Transfer Assessment Sit to and From Stand Sit to and from Stand Contact Guard Assistance Equipment Transfer Assistive Device None Transfers Transfer Destination Bed Chair Transfer Technique Stand Step Pivot Transfer Ability Level of Assist Contact Guard Assistance Comments Mobility Comments Pt needing up to mod A for bed mobility, more steady on his feet today but still not safe to be up alone. Gait Assessment Gait Gait Assistance Required: Contact Guard Assist Distance (Feet) 300 Assistive Devices Assistive Device Gait Belt Orthotic/Prosthetic Devices or Brace: Yes Gait Deviations General Gait Pattern Ataxic Decreased Stride Length Decreased Feet Clearance Flexed Trunk Narrow Based Gait Wide Based Gait Factors Limiting Gait Function Factors Limiting Gait Function Abnormal Tonal Influences Decreased Strength Incoordination Pain Poor Balance Poor Safety Awareness Comments Gait Comments More steady today, still walks more on the balls of his feet , never gets to neutral. Stair Climbing Assessment Evaluation Level of Assist On Stairs Contact Guard Assistance Devices Stair Climbing Assistive Devices None Technique/Endurance Stair Climbing Direction Ascend and Descend Stair Climbing Technique Step Over Step Step to Step Number of Steps Climbed 3 Query Text: Stair Climbing Set # Repetitions (reps) 1 Comments Stair Climbing Comments Pt used L rail each way, up w/ step through pattern, down w/ step-to pattern. Pt had much more difficulty descending. M5 PT-IP Objective Assessments Start: 08/14/18 14:43 Freq: Status: Active Protocol: Document 08/14/18 13:40 RS (Rec: 08/14/18 15:27 [id number]) Orientation Orientation/Cognition Level of Alertness Alert Orientation Name Birthday Day of Week Place Situation Language Function Ability No Deficits Noted Safety Awareness Decreased Safety Awareness Comments Pt with slightly increased response time. Gross Range of Motion Upper Extremity ROM Assessment Right Impaired Impairments R UE in sling. Lower Extremity ROM Assessment Within Functional Limits Strength Lower Extremity Strength Assessment Bilaterally Impaired Comments Strength Comments BLE 4-/5 Sensation Assessment Sensation Light Touch Impaired Proprioception (Position) Impaired Comments Sensation Comments B feet demonstrate mild sensation loss. R foot demonstrates impaired proprioception of large toe. M6 PT-IP Treatment Start: 08/14/18 14:43 Freq: Status: Active Protocol: Document 08/15/18 12:08 RS (Rec: 08/15/18 13:43 RS [id number]) Physical Therapy Treatment Other Treatments Other Treatment Performed DGI items M7 PT-IP Assessment and Plan Start: 08/14/18 14:43 Freq: Status: Active Protocol: Document 08/15/18 12:08 RS (Rec: 08/15/18 13:43 RS [id number]) PT Summary Assessment and Plan Potential Rehabilitation Potential Excellent Status of Condition at Evaluation Stable Summary Impairments Pain Strength Balance Coordination Tone Bed Mobility Transfers Gait Activity Tolerance Progress Towards Goals Progressing Toward Goals Assessment Summary Pt's overall balance and motor control are better today, but pt is still a fall risk and not safe to be up without assist. Pt has great potential for further functional improvement and will benefit from ongoing daily skilled therapy at [facility]. Pt is extremely motivated and compliant with fall risk precautions. He is an ideal rehab candidate. Frequency of Treatment Frequency Of Treatment Once a Day Recommendations To Nursing Amount of Assist Needed 1 Person Assist Discharge Recommendations PT Discharge Recommendations [facility] Rehab
--- NOTE | 2018-08-15 15:18 | PM.DS.1 ---
History of Present Illness Date Patient Seen: 08/15/18 Time Patient Seen: 08:00 Chief complaint: Fall Narrative: 77-year-old male with Parkinson's disease and hypertension who suffered a fall the night prior to admission. In the emergency department shoulder x-ray was significant for a small fracture in the right humerus. Dr. Paulino saw him in the ER and he was placed in a sling. No other fractures identified. Head CT was unchanged from prior. Labs were normal. Physical therapy saw the patient in the emergency department and determined that he was unsafe to return home (he lives independently at [facility]) so he was admitted for physical therapy and placement. Discharge Providers Date of admission: 08/14/18 17:38 Primary care physician: Steff Jacobson DO Consults: 08/14/18 12:28 Consult to Physical Therapy Evaluate & Treat Comment: right humerus fx, Parkinson's Physician Instructions: Evaluate and Treat 08/14/18 13:35 Consult to Occupational Therapy Evaluate & Treat Comment: Physician Instructions: Evaluate and treat 08/14/18 17:54 Consult to Discharge Planning Routine Comment: Needs assisted living Consult to Snow Removing Supervisor Stat Comment: Discharge provider: Steff Jacobson DO Discharge Date: 08/15/18 Summary Discharge Diagnosis: Ground level fall Parkinson's disease Hypertension Right humerus fracture Hospital Course: Hospital course was uneventful. He was continued on his usual antihypertensive, Parkinson's and bowel medications. Patient continued to use the sling on his right arm. Pain well controlled with ibuprofen. He was seen by PT and OT who both recommended [facility]entiary on discharge for ongoing therapy. Care Management saw him and coordinating discharge to [facility] for ongoing therapy. Patient and his family were very appreciative and pleased with the plan. He needs to follow up with Dr. Paulino in 2 weeks for his fracture and Dr. Jacobson in clinic in two weeks as well. Scheduled to follow up with neurology in September. Exam Vital Signs (past 8 hours): - 08/15/18 07:50 08/15/18 11:46 Temperature 98.1 F 97.9 F Pulse Rate 62 69 Respiratory Rate 18 16 Blood Pressure 158/99 H 110/65 Pulse Oximetry 96 96 Oxygen Delivery Method Room Air Oxygen Flow Rate 0 Narrative Exam Narrative: General: Delightful older gentleman appearing younger than stated age. Awake and alert, no acute distress. HEENT: NCAT, EOMI, moist oral mucosa CV: Regular rate and rhythm, no murmurs, rubs or gallops Lungs: CTAB, no wheezes, rales, or rhonchi Abdomen: Soft, nontender; bowel tones active; no hepatosplenomegaly Extremities: Warm, no edema, 2+ pedal pulses bilaterally Objective Labs Result Diagrams: 08/14/18 11:15 08/14/18 11:15 Discharge Plan Discharge Plan Discharge Problem: Fracture, humerus Patient Disposition: Assisted Living Discharge Med Rec/Prescriptions Prescriptions: New acetaminophen 325 mg Tablet 650 mg PO Q6HR PRN (Reason: As Needed For Fever/Mild Pain) Qty: 30 RF: 0 ibuprofen 600 mg Tablet 600 mg PO Q6HR PRN (Reason: As Needed For Fever/Mild Pain) Qty: 30 RF: 0 Continue amantadine HCl 100 MG capsule 100 mg PO DAILY Qty: 0 RF: 0 carbidopa-levodopa 25 MG/100 MG tablet 1 tab PO BID Qty: 0 RF: 0 hydralazine 50 mg tablet 50 mg PO BID Qty: 180 RF: 1 doxazosin [Cardura] 4 mg tablet 4 mg PO DAILY Qty: 90 RF: 1 docusate sodium 100 mg capsule 100 mg PO DAILY PRN (Reason: Constipation) RF: 0 Follow up/Referrals: Steff Jacobson DO [Primary Care Provider] - 2 Weeks Discharge Orders: Discharge (Order); Ordered 08/15/18 Ordered By: Steff Jacobson Provider Discharge Instructions Diet: Regular Liquid consistency: Normal/Thin Food texture: Regular [facility] Rehab type: Physical therapy and Occupational therapy Discharge Data Primary Care Provider: Steff Jacobson Attending Provider: Steff Jacobson Admit Date/Time: 08/14/18 17:38 Discharges patient from system. Discharge Date/Time: 08/15/18 16:40
--- NOTE | 2018-08-15 16:39 | PC.NURSE ---
Pt discharged to [facility]. Escorted out of hospital by [facility] staff. Has discharge packet. IV out. Report called to facility by rose RN. In no acute distress. Has all belongings.
== END 2018-08-15 16:40 ==
LOC: ED 16:51 → AC 08-15 07:29
PROVIDERS: Admitting Provider Family Medicine; Emergency Provider Emergency Medicine; PCP Family Medicine; Visit Provider Family Medicine
DX: S42.294A Other nondisplaced fracture of upper end of right humerus, initial encounter for closed fracture (principal); M25.512 Pain in left shoulder; W01.198A Fall on same level from slipping, tripping and stumbling with subsequent striking against other object, initial encounter; V48.4XXA Person boarding or alighting a car injured in noncollision transport accident, initial encounter; G20 Parkinson's disease; Z91.81 History of falling; I10 Essential (primary) hypertension; N40.0 Benign prostatic hyperplasia without lower urinary tract symptoms; K59.09 Other constipation; G62.9 Polyneuropathy, unspecified
CPT/HCPCS: 36591; 70450; 71101; 73030; 80048; 81003; 85025; 97110; 97112; 97116; 97162; 97530; 97535; 99217; 99219; 99283; 99285; G0378

== ENCOUNTER → 2018-08-26 16:30 | Outpatient (REF) | payer MEDICARE, OTHER, SELFPAY ==
[2018-08-14 17:40] VITALS: BMI 21.9
[2018-08-26 16:41] LABS: Bacteria Urine None Seen; RBC Urine None Seen (0-5/HPF); WBC Urine None Seen (0-5/HPF)
[2018-08-26 16:44] LABS: Appearance Urine UA CLEAR; Bilirubin Urine UA NEGATIVE (NEGATIVE); Color Urine UA YELLOW; Glucose Urine UA NEGATIVE (Normal); Ketones Urine UA NEGATIVE (NEGATIVE); Leukocyte Esterase Urine UA NEGATIVE (NEGATIVE); Nitrite Urine UA NEGATIVE (Negative); Occult Blood Urine UA NEGATIVE (Negative); Protein Urine UA NEGATIVE (Negative); Specific Gravity Urine UA 1.015 (1.000-1.035); Urobilinogen Urine UA 0.2 E.U./dL (0.2); pH Urine UA 6.5 (4.5-8.0)
[2018-08-26 16:50] LABS: Culture Indicated Urine Cult Not Indicated; Urine Comments Microscopic Normal
== END ==
LOC: LAB 16:30
PROVIDERS: Visit Provider Family Medicine
DX: R39.89 Other symptoms and signs involving the genitourinary system (principal)
CPT/HCPCS: 81001

== ENCOUNTER → 2018-09-05 11:43 | Outpatient (CLI) | payer MEDICARE, OTHER, SELFPAY ==
[2018-08-14 17:40] VITALS: BMI 21.9
--- NOTE | 2018-09-05 11:51 | DI.RAD.S_ITS ---
PROCEDURE: XR RIBS RT 2V INDICATIONS: pain TECHNIQUE: 3 views of the right ribs were acquired. COMPARISON: [facility], , XR RIBS RT MIN 3V W CXR 1V, 08/14/2018, 10:43. FINDINGS: Surgical changes and devices: None. Bones and chest wall: Multiple minimally displaced right rib fractures are seen with callus formation. No suspicious bony lesions. Overlying soft tissues appear unremarkable. Lungs and pleura: The visualized lung appears clear. No pleural effusions or pneumothorax are visible. IMPRESSION: Multiple right rib fractures involving right ribs 4-8, demonstrating healing callus formation. Dictated by: Steven Gil M.D. on 09/05/2018 at 13:53 Approved by: Steven Gil M.D. on 09/05/2018 at 13:56
--- NOTE | 2018-09-05 11:51 | DI.RAD.S_ITS ---
PROCEDURE: XR CHEST 2V INDICATIONS: cough TECHNIQUE: 2 views of the chest were acquired. COMPARISON: [facility], CR, XR CHEST 1V, 08/01/2018, 17:44. FINDINGS: Surgical changes and devices: None. Lungs and pleura: No pleural effusions or pneumothorax. No acute consolidation. Scattered subsegmental atelectasis and/or scarring. Scattered calcified granulomas. Mediastinum: Mediastinal contours are normal. Heart size is normal. Tortuous aorta as before Bones and chest wall: No suspicious bony abnormalities. Bilateral shoulder joint degeneration Soft tissues appear unremarkable. Discogenic change is noted. IMPRESSION: No acute consolidation. Scattered subsegmental atelectasis and/or scarring Dictated by: Steven Gil M.D. on 09/05/2018 at 13:49 Approved by: Steven Gil M.D. on 09/05/2018 at 13:53
== END ==
PROVIDERS: Family Provider Family Medicine; PCP Family Medicine; Visit Provider Family Medicine
DX: R07.81 Pleurodynia (principal); R05 Cough; S22.41XD Multiple fractures of ribs, right side, subsequent encounter for fracture with routine healing
CPT/HCPCS: 71046; 71100

== ENCOUNTER → 2018-12-27 16:54 | Outpatient (CLI) | payer MEDICARE, OTHER, SELFPAY ==
[2018-08-14 17:40] VITALS: BMI 21.9
[2018-12-27 18:58] LABS: BUN Creatinine Ratio 17.1 (6-22); Blood Urea Nitrogen 12 mg/dL (9-20); Calcium 9.6 mg/dL (8.4-10.2); Carbon Dioxide 31 mmol/L (22-32); Chloride 94 mmol/L (98-107); Estimated Glomerular Filt Rate > 60.0 mL/min (>60); Glucose 86 mg/dL (80-110); HEMOLYSIS < 15 (0-50); Sodium 134 mmol/L (137-145)
== END ==
PROVIDERS: PCP Family Medicine; Visit Provider Family Medicine
DX: E87.1 Hypo-osmolality and hyponatremia (principal)
CPT/HCPCS: 36415; 80048

== ENCOUNTER → 2019-02-26 10:58 | Outpatient (CLI) | payer MEDICARE, OTHER, SELFPAY ==
[2018-08-14 17:40] VITALS: BMI 21.9
--- NOTE | 2019-02-26 11:00 | DI.RAD.S_ITS ---
PROCEDURE: XR ELBOW LT MIN 3V INDICATIONS: fall 3 weeks ago TECHNIQUE: 3 views of the elbow were acquired. COMPARISON: None. FINDINGS: Bones: No fractures or dislocations. No suspicious bony lesions. Soft tissues: No elbow joint effusion. No suspicious soft tissue calcifications. IMPRESSION: No trauma found. Dictated by: Carter Silvestre M.D. on 02/26/2019 at 11:37 Approved by: Carter Silvestre M.D. on 02/26/2019 at 11:38
== END ==
PROVIDERS: PCP Family Medicine; Visit Provider Family Medicine
DX: M25.522 Pain in left elbow (principal); S59.902A Unspecified injury of left elbow, initial encounter; W19.XXXA Unspecified fall, initial encounter
CPT/HCPCS: 73080

== ENCOUNTER → 2020-02-01 11:47 | Outpatient (CLI) | payer MEDICARE, SELFPAY ==
[2018-08-14 17:40] VITALS: BMI 21.9
[2020-02-01 13:04] LABS: Add Manual Diff / Slide Review NO; Basophils Absolute Auto 0 /uL (0-100); Basophils Percent Auto 0.7 % (0-2); Eosinophils Absolute Auto 100 /uL (0-450); Hematocrit 41.5 % (41-53); Lymphocytes Absolute Auto 1400 /uL (1100-4500); Lymphocytes Percent Auto 23.9 % (25-40); Mean Corpuscular HGB Conc 33.9 % (30-36); Mean Corpuscular Hemoglobin 31.2 PG (26-34); Mean Corpuscular Volume 92.1 fL (80-100); Monocytes Absolute Auto 800 /uL (0-900); Monocytes Percent Auto 12.8 % (3-14); Neutrophils Absolute Auto 3700 /uL (1500-7000); Neutrophils Percent Auto 61.6 % (50-75); Platelet Count 193 X10^3/uL (150-400); Red Cell Distribution Width 13.2 % (11.6-14.8)
[2020-02-01 15:14] LABS: Vitamin D 25 Hydroxy (D3) 70.8 ng/mL (30.0-100.0)
[2020-02-01 18:14] LABS: Alanine Aminotransferase 12 IU/L (<50); Albumin 4.6 g/dL (3.5-5.0); Albumin Globulin Ratio 1.5 (1.0-2.8); Alkaline Phosphatase 112 U/L (38-126); Aspartate Aminotransferase 41 IU/L (17-59); BUN Creatinine Ratio 17.5 (6-22); Bilirubin Total 0.5 mg/dL (0.2-1.3); Blood Urea Nitrogen 11 mg/dL (9-20); Calcium 9.5 mg/dL (8.4-10.2); Carbon Dioxide 28 mmol/L (22-32); Chloride 95 mmol/L (98-107); Estimated Glomerular Filt Rate > 60.0 mL/min (>60); Globulin 3.1 g/dL (1.7-4.1); Glucose 96 mg/dL (80-110); HEMOLYSIS < 15 (0-50); Sodium 134 mmol/L (137-145); Total Protein 7.7 g/dL (6.3-8.2)
== END ==
PROVIDERS: PCP Family Medicine; Referring Provider Family Medicine; Visit Provider Family Medicine
DX: G20 Parkinson's disease (principal); I10 Essential (primary) hypertension
CPT/HCPCS: 36415; 80053; 82306; 85025

== ENCOUNTER 2020-05-30 19:35 | Emergency (ER) | payer MEDICARE, SELFPAY ==
[2018-08-14 17:40] VITALS: BMI 21.9
[2020-05-30] VITALS (9 sets, daily range): BP systolic 167–172; BP diastolic 70–105; PULSE 51–77; RESP 15–20; TEMP 36.4–36.7; O2SAT 95–100; BMI 23.1
--- NOTE | 2020-05-30 20:06 | ED_ITS ---
HPI - Extremity Injury (Upper) General Chief Complaint: Extremity Injury, Upper Stated Complaint: fall, lt shoulder , upper arm pain Time Seen by Provider: 05/30/20 20:06 History of Present Illness HPI narrative: 79-year-old gentleman residing at [facility], had a witnessed fall landing on the left shoulder. His head script along the carpet any has a small abrasion of the forehead that he does not describe specifically hitting it and is complaining of no head or neck pain. Gentleman has Parkinson's disease and he says he tripped over the bedding that was on the floor causing fall. With the left shoulder the care staff stated that they heard a ?pop? when the resident fell. He is able to move elbow fingers and is neurovascularly intact. He is having tenderness at the proximal humerus. Related Data Home Medications Medication Instructions Recorded Confirmed docusate sodium 100 mg PO DAILY PRN 08/14/18 09/05/18 capsaicin 0.025 % topical patch 1 patch TOP BID PRN 08/25/18 09/05/18 amantadine HCl 100 mg capsule 100 mg PO BID #0 cap 09/26/18 09/26/18 carbidopa 25 mg-levodopa 100 mg 1 tab PO TID #0 tab 09/26/18 09/26/18 tablet triamcinolone acetonide 0.025 % 1 applictn TOP QID 09/26/18 09/26/18 lotion artificial EYE-BOTH PRN 05/17/19 05/17/19 tears([id number]) 0.1 %-0.3 %-0.2 % eye drops magnesium hydroxide 400 mg/5 mL 30 ml PO BEDTIME PRN ml 05/17/19 05/17/19 oral suspension melatonin 5 mg tablet 5 mg PO BEDTIME PRN 05/17/19 05/17/19 Previous Rx's Medication Instructions Recorded acetaminophen 650 mg PO Q6HR PRN #30 tab 08/15/18 ibuprofen 600 mg PO Q6HR PRN #30 tab 08/15/18 hydrocortisone 2.5 % topical cream 1 applictn TOP BID #30 gram 04/17/19 nystatin 100,000 unit/gram topical 1 applictn TOP BID #30 gram 05/17/19 powder doxazosin 4 mg tablet 4 mg PO DAILY #90 tab 04/16/20 hydralazine 50 mg tablet 50 mg PO BID #180 tab 04/16/20 Allergies Allergy/AdvReac Type Severity Reaction Status Date / Time No Known Drug Allergies Allergy Verified 05/30/20 19:49 Review of Systems Review of Systems Narrative: Remainder of review of systems including constitutional, ENT, cardiovascular, respiratory, GI, , musculoskeletal, skin, neurologic and psychiatric systems reviewed and are unremarkable except as noted in HPI. Patient History Medical History Benign prostatic hyperplasia (Chronic ~2003) Chicken pox (Resolved) Hepatitis A (Chronic ~1985) Hypertension (Chronic ~1989) Measles (Resolved) Migraines (Chronic ~2011) Mumps (Resolved) Osteoarthritis (Chronic ~2004) Osteopenia (Chronic ~2004) Osteoporosis (Chronic ~2009) Parkinson's disease (Chronic ~2012) Peripheral neuropathy (Chronic ~2011) Scoliosis (Chronic ~2004) Surgical History Anesthesia (Resolved) History of tonsillectomy (Resolved ~1944) Family History Father Alzheimer's disease Hypertension Mother History of acquired heart valve infection Hypertension Mitral valve disease Grandmother Stroke Social History marital status: unmarried,single household members: none housing: assisted living facility ([facility]) Previous occupational history: Flight attendent Smoking Status: Never smoker alcohol intake: current substance use type: does not use Smoking Status: Never smoker alcohol intake frequency: a few times a week Substance Use Type: does not use Exam Narrative Exam Narrative: General: Alert appropriate in no acute distress HEENT: Minor abrasion left side of his forehead. Pupils are equal and reactive. There is no tenderness along his cervical spine. Respiratory: Able to speak in full sentences, no obvious respiratory distress Skin: No obvious rashes, warm and dry Neurologic: Increased muscle rigidity with slight tremor. Awake and alert. Extremity: Tenderness and mild deformity to the left upper arm without abrasion or contusion Initial Vital Signs Initial Vital Signs: Vital Signs Pulse Rate 51 L 05/30/20 19:45 Pulse Oximetry 98 05/30/20 19:45 Course Orders Ordered: ED Orders 05/30/20 20:14 XR shoulder LT min 2V Stat Vital Signs Vital signs: Vital Signs - 8 hr 05/30/20 19:45 05/30/20 19:49 05/30/20 20:00 Temperature 97.5 F L Pulse Rate 51 L 66 59 L Respiratory Rate 18 Blood Pressure 172/105 H Pulse Oximetry 98 98 95 05/30/20 20:31 05/30/20 20:32 Temperature Pulse Rate Respiratory Rate Blood Pressure 172/77 H Pulse Oximetry 99 99 MDM - Extremity Injury (Upper) Medical Records Attestation: I reviewed the patient's medical records. Imaging Data X-ray shoulder: Radiologist's Impression: FINDINGS: Bones: Nondisplaced impaction fracture of the humeral neck. No dislocation. No shoulder separation. Soft tissues: No suspicious soft tissue calcifications. IMPRESSION: Nondisplaced humeral neck fracture. Dictated by: Clover Kat M.D. on 05/30/2020 at 21:54 [facility] Narrative Medical decision making narrative: Mechanical fall this evening with a nondisplaced humeral neck fracture on the left side. Patient will need sling for comfort and call to schedule orthopedic outpatient follow-up appointment. Will be safe for him to return to his assisted living facility Discharge Plan Departure Patient Disposition: Home Clinical Impression: Fracture of humerus Instructions: DI for Fracture Activity Restrictions/Additional Instructions: Thank you for coming in today You broke your upper arm close to the shoulder joint. The bones are nicely approximated and you will not need any surgery or other intervention. With these type of broken bones, the only treatment is a sling and pain control as needed. Using 400 mg of ibuprofen (2 frag-[id number] pills) and 1 Tylenol every 6 hours can be very helpful in controlling pain. Ice to the area may also be helpful. Please call to schedule a follow-up appointment with Dr. Chelsea Purvis, our orthopedic surgeon. She will make sure that you are healing optimally. I hope you feel better soon Prescriptions: No Action capsaicin [Capsicum] 0.025 % adhesive patch,medicated 1 patch TOP BID PRNRF: 0 hydrocortisone 2.5 % cream 1 applictn TOP BID Qty: 30 RF: 1 hydralazine 50 mg tablet 50 mg PO BID Qty: 180 RF: 1 doxazosin [Cardura] 4 mg tablet 4 mg PO DAILY Qty: 90 RF: 3 artificial tear([id number]) 0.1-0.3-0.2 % drops EYE-BOTH PRNRF: 0 melatonin 5 mg tablet 5 mg PO BEDTIME PRNRF: 0 magnesium hydroxide [Milk of Magnesia] 400 mg/5 mL suspension 30 ml PO BEDTIME PRNRF: 0 nystatin 100,000 unit/gram powder 1 applictn TOP BID Qty: 30 RF: 0 carbidopa-levodopa 25-100 mg tablet 1 tab PO TID Qty: 0 RF: 0 amantadine HCl 100 mg capsule 100 mg PO BID Qty: 0 RF: 0 triamcinolone acetonide 0.025 % lotion 1 applictn TOP QID RF: 0 docusate sodium 100 mg capsule 100 mg PO DAILY PRN (Reason: Constipation) RF: 0 acetaminophen 325 mg Tablet 650 mg PO Q6HR PRN (Reason: As Needed For Fever/Mild Pain) Qty: 30 RF: 0 ibuprofen 600 mg Tablet 600 mg PO Q6HR PRN (Reason: As Needed For Fever/Mild Pain) Qty: 30 RF: 0 Referrals: Steff Jacobson DO [Primary Care Provider] - Chelsea Purvis MD [Physician] -
--- NOTE | 2020-05-30 20:14 | DI.RAD.S_ITS ---
PROCEDURE: XR SHOULDER LT MIN 2V INDICATIONS: fall left shoulder pain TECHNIQUE: Two views of the shoulder were acquired. COMPARISON: [facility], CR, XR SHOULDER RT MIN 2V, 08/14/2018, 10:41. FINDINGS: Bones: Nondisplaced impaction fracture of the humeral neck. No dislocation. No shoulder separation. Soft tissues: No suspicious soft tissue calcifications. IMPRESSION: Nondisplaced humeral neck fracture. Dictated by: Clover Kat M.D. on 05/30/2020 at 21:54 Approved by: Clover Kat M.D. on 05/30/2020 at 21:55
== END 2020-05-30 22:30 | disposition home or self-care (01) ==
PROVIDERS: Emergency Provider Emergency Medicine; PCP Family Medicine
DX: S42.215A Unspecified nondisplaced fracture of surgical neck of left humerus, initial encounter for closed fracture (principal); S00.81XA Abrasion of other part of head, initial encounter; W19.XXXA Unspecified fall, initial encounter; G20 Parkinson's disease
CPT/HCPCS: 73030; 99283

== ENCOUNTER → 2020-06-03 20:04 | Outpatient (ROUT) | payer MEDICARE, SELFPAY ==
[2018-08-14 17:40] VITALS: BMI 21.9
[2020-06-03 20:06] LABS: Bacteria Urine None Seen
[2020-06-03 20:13] LABS: Bilirubin Urine UA NEGATIVE (NEGATIVE); Color Urine UA YELLOW; Glucose Urine UA NEGATIVE (Negative); Ketones Urine UA NEGATIVE (NEGATIVE); Leukocyte Esterase Urine UA NEGATIVE (NEGATIVE); Nitrite Urine UA NEGATIVE (Negative); Occult Blood Urine UA 2+ (Negative); Protein Urine UA NEGATIVE (Negative); Urobilinogen Urine UA 0.2 E.U./dL (0.2)
[2020-06-03 20:18] LABS: Appearance Urine UA SL CLOUDY
[2020-06-03 20:21] LABS: Culture Indicated Urine Cult Not Indicated; RBC Urine 5-10/HPF (0-5/HPF); Squamous Epithelial Cell Urine 0-1 /HPF (0-5/HPF); WBC Urine 1-5/HPF (0-5/HPF)
== END ==
PROVIDERS: PCP Family Medicine; Visit Provider Family Medicine
DX: R31.9 Hematuria, unspecified (principal)
CPT/HCPCS: 81001

== ENCOUNTER → 2020-06-05 14:26 | Outpatient (CLI) | payer MEDICARE, SELFPAY ==
[2018-08-14 17:40] VITALS: BMI 21.9
--- NOTE | 2020-06-05 | DI.RAD.S_ITS ---
PROCEDURE: XR SHOULDER LT MIN 2V INDICATIONS: S42.202A f/u for left surgical neck fracture. TECHNIQUE: 3 views of the shoulder were acquired. COMPARISON: [facility], CR, XR SHOULDER 2+ VIEWS RIGHT, 09/06/2018, 9:36. [facility], CR, XR SHOULDER LT MIN 2V, 05/30/2020, 20:12. [facility], CR, XR SHOULDER RT MIN 2V, 08/14/2018, 10:41. FINDINGS: Bones: No previously on identified fractures or dislocations. The left-sided humeral head/neck junction fracture identified initially 05/30/20 has not changed in mild malalignment, and no new injury is seen. No suspicious bony lesions. Visualized ribs appear intact. Soft tissues: No suspicious soft tissue calcifications. IMPRESSION: No new acute trauma found. No change in mild malalignment at the humeral head/neck junction fractures identified 6 days ago. Dictated by: Carter Silvestre M.D. on 06/05/2020 at 16:17 Approved by: Carter Silvestre M.D. on 06/05/2020 at 16:20
== END ==
PROVIDERS: PCP Family Medicine; Referring Provider Orthopaedic Surgery; Visit Provider Orthopaedic Surgery
DX: S42.212A Unspecified displaced fracture of surgical neck of left humerus, initial encounter for closed fracture (principal); X58.XXXA Exposure to other specified factors, initial encounter
CPT/HCPCS: 73030

== ENCOUNTER → 2020-06-06 13:14 | Outpatient (CLI) | payer MEDICARE, SELFPAY ==
[2018-08-14 17:40] VITALS: BMI 21.9
[2020-06-06 14:08] LABS: Appearance Urine UA CLEAR; Bilirubin Urine UA NEGATIVE (NEGATIVE); Color Urine UA YELLOW; Glucose Urine UA NEGATIVE (Negative); Ketones Urine UA TRACE (NEGATIVE); Leukocyte Esterase Urine UA NEGATIVE (NEGATIVE); Nitrite Urine UA NEGATIVE (Negative); Occult Blood Urine UA 3+ (Negative); Protein Urine UA NEGATIVE (Negative); Urobilinogen Urine UA 0.2 E.U./dL (0.2); pH Urine UA 7.5 (4.5-8.0)
[2020-06-06 14:12] LABS: Add Manual Diff / Slide Review NO; Basophils Absolute Auto 100 /uL (0-100); Basophils Percent Auto 0.9 % (0-2); Eosinophils Absolute Auto 100 /uL (0-450); Eosinophils Percent Auto 1.9 % (2-4); Hematocrit 39.6 % (41-53); Hemoglobin 13.2 g/dL (13.5-17.5); Lymphocytes Absolute Auto 1000 /uL (1100-4500); Lymphocytes Percent Auto 13.4 % (25-40); Mean Corpuscular HGB Conc 33.4 % (30-36); Mean Corpuscular Hemoglobin 30.6 PG (26-34); Mean Corpuscular Volume 91.5 fL (80-100); Monocytes Absolute Auto 900 /uL (0-900); Monocytes Percent Auto 12.6 % (3-14); Neutrophils Absolute Auto 5100 /uL (1500-7000); Neutrophils Percent Auto 71.2 % (50-75); Platelet Count 202 X10^3/uL (150-400); Red Blood Cell Count 4.33 X10^6/uL (4.5-5.9); Red Cell Distribution Width 13.1 % (11.6-14.8); White Blood Cell Count 7.1 X10^3/uL (4.5-11.0)
[2020-06-06 14:25] LABS: Bacteria Urine Occasional (0-1); Culture Indicated Urine Cult Not Indicated; RBC Urine 30-100/HPF (0-5/HPF); Squamous Epithelial Cell Urine 0-1 /HPF (0-5/HPF); WBC Urine 0-1/HPF (0-5/HPF)
[2020-06-06 15:18] LABS: Alanine Aminotransferase 10 IU/L (<50); Albumin Globulin Ratio 1.4 (1.0-2.8); Alkaline Phosphatase 119 U/L (38-126); Aspartate Aminotransferase 31 IU/L (17-59); BUN Creatinine Ratio 24.2 (6-22); Bilirubin Total 0.8 mg/dL (0.2-1.3); Blood Urea Nitrogen 15 mg/dL (9-20); Calcium 9.3 mg/dL (8.4-10.2); Carbon Dioxide 32 mmol/L (22-32); Chloride 94 mmol/L (98-107); Estimated Glomerular Filt Rate > 60.0 mL/min (>60); Globulin 2.9 g/dL (1.7-4.1); Glucose 111 mg/dL (80-110); HEMOLYSIS < 15 (0-50); Potassium 4.3 mmol/L (3.4-5.1); Sodium 134 mmol/L (137-145); Total Protein 6.9 g/dL (6.3-8.2)
== END ==
PROVIDERS: PCP Family Medicine; Referring Provider Family Medicine; Visit Provider Family Medicine
DX: R29.6 Repeated falls (principal); R31.9 Hematuria, unspecified
CPT/HCPCS: 36415; 80053; 81001; 85025

== ENCOUNTER → 2020-06-10 20:38 | Outpatient (ROUT) | payer MEDICARE, SELFPAY ==
[2018-08-14 17:40] VITALS: BMI 21.9
== END ==
PROVIDERS: PCP Family Medicine; Visit Provider Family Medicine
DX: R31.9 Hematuria, unspecified (principal)
CPT/HCPCS: 87086

== ENCOUNTER → 2020-06-11 12:43 | Outpatient (CLI) | payer MEDICARE, SELFPAY ==
[2018-08-14 17:40] VITALS: BMI 21.9
--- NOTE | 2020-06-11 | DI.RAD.S_ITS ---
PROCEDURE: XR SHOULDER LT MIN 2V INDICATIONS: LT HUMERAL FRACTURE TECHNIQUE: 2 views of the shoulder were acquired. COMPARISON: [facility], CR, XR SHOULDER LT MIN 2V, 06/05/2020, 14:33. FINDINGS: Bones: Stable alignment without significant interval healing of the humeral head/necks fracture with impaction. Soft tissues: No suspicious soft tissue calcifications. IMPRESSION: Stable alignment of humeral head/neck fracture. Dictated by: Tila Dao M.D. on 06/11/2020 at 16:21 Approved by: Tila Dao M.D. on 06/11/2020 at 16:23
== END ==
PROVIDERS: PCP Family Medicine; Referring Provider Family Medicine; Visit Provider Orthopaedic Surgery
DX: S42.242A 4-part fracture of surgical neck of left humerus, initial encounter for closed fracture (principal)
CPT/HCPCS: 73030

== ENCOUNTER → 2020-06-12 12:31 | Outpatient (CLI) | payer MEDICARE, SELFPAY ==
[2018-08-14 17:40] VITALS: BMI 21.9
--- NOTE | 2020-06-12 12:32 | DI.US.S_ITS ---
PROCEDURE: US RENAL COMPLETE INDICATIONS: hematuria TECHNIQUE: Real-time scanning was performed of the kidneys and bladder, with image documentation. COMPARISON: None. FINDINGS: Kidneys: Kidneys are normal in size. Right kidney measures 13.3 cm long; left kidney measures 10.4 cm long. Right renal cortical thickness is 1.8 cm; left renal cortical thickness is 1.8 cm. Renal cortical echotexture is normal. No hydronephrosis or nephrolithiasis. No suspicious solid mass lesions. 5.6 cm inferior pole simple right renal cyst. Bladder: Pre-void bladder volume is 5mL. Post-void residual is 177 mL. Pre-void images demonstrate no intraluminal masses or stones. On pre-void images, neither ureteral jets are noted with color Doppler interrogation. (Of note, ureteral jets may not be detectable in up to 25% of cases due to insufficient differences in specific gravity between ureteral and bladder urine). Miscellaneous: No free pelvic fluid. IMPRESSION: 5.6 cm right renal cyst; otherwise normal appearance of the kidneys. Dictated by: Helder Malagon [facility] Interpreted: Steven Gil MD on 06/12/2020 at 13:26 Approved by: Steven Gil M.D. on 06/12/2020 at 16:49
== END ==
PROVIDERS: PCP Family Medicine; Referring Provider Family Medicine; Visit Provider Family Medicine
DX: R31.9 Hematuria, unspecified (principal); N28.1 Cyst of kidney, acquired
CPT/HCPCS: 76770

== ENCOUNTER → 2020-06-20 15:38 | Outpatient (ROUT) | payer MEDICARE, SELFPAY ==
[2018-08-14 17:40] VITALS: BMI 21.9
[2020-06-20 15:39] LABS: Bacteria Urine None Seen; RBC Urine None Seen (0-5/HPF); WBC Urine None Seen (0-5/HPF)
[2020-06-20 15:57] LABS: Appearance Urine UA CLEAR; Bilirubin Urine UA NEGATIVE (NEGATIVE); Color Urine UA YELLOW; Glucose Urine UA NEGATIVE (Negative); Ketones Urine UA NEGATIVE (NEGATIVE); Leukocyte Esterase Urine UA NEGATIVE (NEGATIVE); Nitrite Urine UA NEGATIVE (Negative); Occult Blood Urine UA NEGATIVE (Negative); Protein Urine UA NEGATIVE (Negative); Urobilinogen Urine UA 0.2 E.U./dL (0.2)
[2020-06-20 16:04] LABS: Culture Indicated Urine Cult Not Indicated; Urine Comments Microscopic Normal
== END ==
PROVIDERS: PCP Family Medicine; Visit Provider Family Medicine
DX: R31.9 Hematuria, unspecified (principal); R35.0 Frequency of micturition
CPT/HCPCS: 81001

== ENCOUNTER → 2020-07-17 16:16 | Outpatient (CLI) | payer MEDICARE, SELFPAY ==
[2018-08-14 17:40] VITALS: BMI 21.9
--- NOTE | 2020-07-17 16:22 | DI.RAD.S_ITS ---
PROCEDURE: XR HUMERUS LT 2V INDICATIONS: fracture, follow up healing TECHNIQUE: 2 views of the humerus were acquired. COMPARISON: [facility], CR, XR SHOULDER LT MIN 2V, 06/05/2020, 14:33. [facility], CR, XR SHOULDER LT MIN 2V, 05/30/2020, 20:12. [facility], CR, XR SHOULDER LT MIN 2V, 06/11/2020, 11:45. FINDINGS: Bones: There is a left humeral head and neck fracture with superior migration of the distal fracture fragment. The alignment is stable compared to 06/11/2020. No suspicious bony lesions. Soft tissues: No suspicious soft tissue calcifications. IMPRESSION: Healing left humeral head and neck fracture with stable alignment. Dictated by: Loida Romero M.D. on 07/17/2020 at 20:34 Approved by: Loida Romero M.D. on 07/17/2020 at 20:38
== END ==
PROVIDERS: PCP Family Medicine; Referring Provider Family Medicine; Visit Provider Family Medicine
DX: S42.292D Other displaced fracture of upper end of left humerus, subsequent encounter for fracture with routine healing (principal); X58.XXXD Exposure to other specified factors, subsequent encounter
CPT/HCPCS: 73060

== ENCOUNTER 2020-12-17 14:15 | Outpatient (RCR) | payer MEDICARE, SELFPAY ==
[2018-08-14 17:40] VITALS: BMI 21.9
--- NOTE | 2020-08-06 16:00 | PT.OPPOC ---
Physical, Occupational & Speech Therapy At [facility] Current Diagnoses Parkinson's disease (08/06/20) Repeated falls (08/06/20) Visit Care Team Role Provider Type Steff Jacobson DO Attending Provider Physician Primary Care Provider Referring Provider Specialty: [facility] Address: [address] [place] [address], [id number] Email: [email or web address] Plan Of Care PT-OP-T Assessment and Plan Start: 08/06/20 07:45 Freq: Status: Active Protocol: Document 08/06/20 14:15 AMB (Rec: 08/08/20 11:28 AMB [id number]) Physical Therapy Assessment Rehab Potential Rehabilitation Potential Good Evaluation Complexity Number of Personal Factors/Comorbidities 3 or More Number of Body Systems Impaired 4 or More Clinical Presentation at Evaluation Unstable Impairments Impairments Activity Tolerance,Balance, Functional Activities, Functional Mobility,Gait,Pain, Posture,Strength Goals Three Impairment Gait Short Term Goal (STG) Hoang will show decreased fall risk by ambulating around obstacles without a shuffling gait pattern. STG Duration 5 weeks Mcc Goal (LTG) Hoang will ambulate at least 1,000 feet in 6 minutes without loss of balance or need for physical assistance. LTG Duration 10 weeks Two Impairment Bed mobility Physical Therapy Attendant Goal (LTG) Honag will perform all bed mobility without physical assistance. LTG Duration 10 weeks One Impairment Sit to stand Short Term Goal (STG) Hoang will move from sit to stand from a standard height chair without heavy use of the back of his knees pushing into the chair. STG Duration 5 weeks Physical Therapy Attendant Goal (LTG) Hoang will improve his 5x sit to stand time to 20 seconds or less. LTG Duration 10 weeks Assessment Summary Assessment Hoang attends physical therapy with significant decline in mobility s/p humerus fracture. He is a significant fall risk, with most risk being when he moves from sit to stand or walks around obstacles. At these times he takes small shuffling steps. Once he gets going with his walking it is much better, especially if he is just walking in a straight line. Both his humeral fracture on the left and his Parkinson's on the right arm make using an assistive device challenging. He will benefit from physical therapy to improve his overall mobility with transfers and decrease his fall risk. Physical Therapy Plan Frequency and Duration Frequency of Treatment 2x/Week Duration of Treatment 10 weeks Plan of Care Start Date 08/06/20 Plan of Care End Date 10/15/20 Therapeutic Interventions Therapeutic Interventions Balance Training,Gait Training ,Home Exercise Program,Manual Therapy,Neuromuscular Re- education,Self-Care/Home Management,Therapeutic Activities,Therapeutic Exercises Next Visit Focus/Plan Next Note Type Treatment Note Next Visit Plan Establish HEP, gait training, transfer training Plan of Care Dates Plan of Care Start Date 08/06/20 Plan of Care End Date 10/15/20 Electronically Signed by: Marialuisa Culver, PT 08/08/20 [id number] Please Sign and Return: I have reviewed this Plan of Care and certify that the skilled therapy services above are required to meet the patient?s needs. Physician Signature Date Printed Name and Credentials Clinical Instructor Signature Printed Name and Credentials
--- NOTE | 2020-08-06 16:00 | PT.OIE ---
Current Diagnoses Parkinson's disease (08/06/20) Repeated falls (08/06/20) Past Medical History (Last Reviewed 07/10/20 @ 16:58 by Steff Jacobson DO) Benign prostatic hyperplasia (~2003) BPH w urinary obs/LUTS Chicken pox Gross hematuria Hepatitis A (~1985) Hypertension (~1989) Measles Migraines (~2011) Mumps Osteoarthritis (~2004) Osteopenia (~2004) Osteoporosis (~2009) Parkinson's disease (~2012) Peripheral neuropathy (~2011) Scoliosis (~2004) Past Surgical History (Last Reviewed 07/10/20 @ 16:58 by Steff aJcobson DO) Anesthesia History of tonsillectomy (~1944) Visit Care Team Role Provider Type Steff Jacobson DO Attending Provider Physician Primary Care Provider Referring Provider Specialty: [facility] Address: [address] [place] [address], [facility] Email: [email or web address] Physical Therapy Initial Evaluation PT-OP-A Visit Information Start: 08/06/20 07:45 Freq: Status: Active Protocol: Document 08/06/20 14:15 AMB (Rec: 08/07/20 15:58 AMB [id number]) Out-Patient Physical Therapy Visit Information Visit Information Visit Type Initial Evaluation Visit Start Time 14:15 Visit Stop Time 15:00 Total Visit Minutes 45 Visit Number 1 PT-OP-B Current Condition Start: 08/06/20 07:45 Freq: Status: Active Protocol: Document 08/06/20 14:16 AMB (Rec: 08/06/20 14:30 AMB [id number]) Current Condition History of Current Condition Onset Date May 30, 2020 Current Complaints reduced mobility s/p L humerus fracture History of Current Condition Hoang attends PT with decreased moblity s/p recent L humerus fracture due to fall, tripping over laundry 05/30. Fell out bed once since then. Currently walking inside 10 minutes a day, previously walking in the community 30 minutes/ day. Was wearing a sling until end of June when got repeat X-ray. Pt reports sitting in the recliner most of the day, it is a power lift chair, so it helps him move from sit to stand. Pt feels sleepy most of the day. Does walk around the room a little, but does get help with showering and with bed mobility. L arm is painful at rest, when moved overhead increases pain. R arm is more affected with parkinson's making using a walker very difficult. Prior Treatments and Tests X-ray:There is a left humeral head and neck fracture with superior migration of the distal fracture fragment. The alignment is stable compared to 06/11/2020. No suspicious bony lesions. 07/17 Treatment Goals Patient/Caregiver Goals Get back to walking, was previously walking 30 minutes a day outside. Prior Functional Status Baseline Function- ADL's Modified Independent Baseline Function- Mobility Modified Independent Current Functional Impairments (Reported) Functional Limitations- ADL's Requires physical assist to get into bed due to L shoulder pain, physical assist with showering. Describes what sounds like CGA with ambulation, although does ambulate short distances around his room independently. Personal Factors Other Personal Factors That May Effect Lives in assisted living, Therapy/Recovery feels limited to walking 10 minutes/day because that is what the aides have time to help with PT-OP-E Functional Tests Start: 08/06/20 07:45 Freq: Status: Active Protocol: Document 08/06/20 14:15 AMB (Rec: 08/08/20 11:29 AMB [id number]) Functional Tests 10 Meter Walk Test Distance 8 seconds Device Used none Five Times Sit to Stand Test Score 23 sec Comments pushing knees back into chair hard but no UE support PT-OP-G Mobility & Gait Start: 08/06/20 07:45 Freq: Status: Active Protocol: Document 08/06/20 14:15 AMB (Rec: 08/08/20 10:12 AMB [id number]) OP Mobility Evaluation Bed Mobility Supine to and from Sit Lul due to pain from L shoulder Transfers Sit to Stand Requires multiple attempts, poor form Bed to Chair Transfers multiple shuffling steps OP Gait Assessment Comments Gait Comments Once Hoang starts walking, he walks quite well in a straight line. His gait is much more precarious in small spaces and when he first starts, or with turns or when moving around obstacles. He is more of a fall risk when first starting out or when negotiating around obstacles, but when he can walk in a straight line has good step length and ami considering his advancing Parkinson's. PT-OP-J Posture/Palpation/Skin Start: 08/06/20 07:45 Freq: Status: Active Protocol: Document 08/06/20 14:15 AMB (Rec: 08/08/20 11:16 AMB [id number]) Posture Evaluation Comments Posture Comments Forward shoulders, forward head. Difficulty actively extending fingers in R hand but does have PROM available to do so. PT-OP-M Strength Start: 08/06/20 07:45 Freq: Status: Active Protocol: Document 08/06/20 14:15 AMB (Rec: 08/08/20 11:16 AMB [id number]) Hip Strength Hip Manual Muscle Testing Right Flexion (L2) 4- Good- Extension (S1) 3+ Fair+ Abduction 4- Good- Left Flexion (L2) 4- Good- Extension (S1) 3+ Fair+ Abduction 4- Good- Knee Strength Knee Manual Muscle Testing Right Flexion (S2) 5 Normal Extension (L3) 5 Normal Left Flexion (S2) 5 Normal Extension (L3) 5 Normal PT-OP-T Assessment and Plan Start: 08/06/20 07:45 Freq: Status: Active Protocol: Document 08/06/20 14:15 AMB (Rec: 08/08/20 11:28 AMB [id number]) Physical Therapy Assessment Rehab Potential Rehabilitation Potential Good Evaluation Complexity Number of Personal Factors/Comorbidities 3 or More Number of Body Systems Impaired 4 or More Clinical Presentation at Evaluation Unstable Impairments Impairments Activity Tolerance,Balance, Functional Activities, Functional Mobility,Gait,Pain, Posture,Strength Goals Three Impairment Gait Short Term Goal (STG) Hoang will show decreased fall risk by ambulating around obstacles without a shuffling gait pattern. STG Duration 5 weeks External Grinder Goal (LTG) Hoang will ambulate at least 1,000 feet in 6 minutes without loss of balance or need for physical assistance. LTG Duration 10 weeks Two Impairment Bed mobility Longterm Goal (LTG) Hoang will perform all bed mobility without physical assistance. LTG Duration 10 weeks One Impairment Sit to stand Short Term Goal (STG) Hoang will move from sit to stand from a standard height chair without heavy use of the back of his knees pushing into the chair. STG Duration 5 weeks External Grinder Goal (LTG) Hoang will improve his 5x sit to stand time to 20 seconds or less. LTG Duration 10 weeks Assessment Summary Assessment Hoang attends physical therapy with significant decline in mobility s/p humerus fracture. He is a significant fall risk, with most risk being when he moves from sit to stand or walks around obstacles. At these times he takes small shuffling steps. Once he gets going with his walking it is much better, especially if he is just walking in a straight line. Both his humeral fracture on the left and his Parkinson's on the right arm make using an assistive device challenging. He will benefit from physical therapy to improve his overall mobility with transfers and decrease his fall risk. Physical Therapy Plan Frequency and Duration Frequency of Treatment 2x/Week Duration of Treatment 10 weeks Plan of Care Start Date 08/06/20 Plan of Care End Date 10/15/20 Therapeutic Interventions Therapeutic Interventions Balance Training,Gait Training ,Home Exercise Program,Manual Therapy,Neuromuscular Re- education,Self-Care/Home Management,Therapeutic Activities,Therapeutic Exercises Next Visit Focus/Plan Next Note Type Treatment Note Next Visit Plan Establish HEP, gait training, transfer training
--- NOTE | 2020-08-08 15:42 | PT.OTN ---
Current Diagnoses Parkinson's disease (08/08/20) Repeated falls (08/08/20) Physical Therapy Treatment Note PT-OP-A Visit Information Start: 08/06/20 07:45 Freq: Status: Active Protocol: Document 08/08/20 14:15 AMB (Rec: 08/08/20 15:42 AMB [id number]) Out-Patient Physical Therapy Visit Information Visit Information Visit Type Treatment Note Visit Start Time 14:15 Visit Stop Time 15:00 Total Visit Minutes 45 Visit Number 2 PT-OP-B Current Condition Start: 08/06/20 07:45 Freq: Status: Active Protocol: Document 08/06/20 14:16 AMB (Rec: 08/06/20 14:30 AMB [id number]) Current Condition History of Current Condition Onset Date May 30, 2020 Current Complaints reduced mobility s/p L humerus fracture History of Current Condition Hoang attends PT with decreased moblity s/p recent L humerus fracture due to fall, tripping over laundry 05/30. Fell out bed once since then. Currently walking inside 10 minutes a day, previously walking in the community 30 minutes/ day. Was wearing a sling until end of June when got repeat X-ray. Pt reports sitting in the recliner most of the day, it is a power lift chair, so it helps him move from sit to stand. Pt feels sleepy most of the day. Does walk around the room a little, but does get help with showering and with bed mobility. L arm is painful at rest, when moved overhead increases pain. R arm is more affected with parkinson's making using a walker very difficult. Prior Treatments and Tests X-ray:There is a left humeral head and neck fracture with superior migration of the distal fracture fragment. The alignment is stable compared to 06/11/2020. No suspicious bony lesions. 07/17 Treatment Goals Patient/Caregiver Goals Get back to walking, was previously walking 30 minutes a day outside. Prior Functional Status Baseline Function- ADL's Modified Independent Baseline Function- Mobility Modified Independent Current Functional Impairments (Reported) Functional Limitations- ADL's Requires physical assist to get into bed due to L shoulder pain, physical assist with showering. Describes what sounds like CGA with ambulation, although does ambulate short distances around his room independently. Personal Factors Other Personal Factors That May Effect Lives in assisted living, Therapy/Recovery feels limited to walking 10 minutes/day because that is what the aides have time to help with PT-OP-C Subjective Start: 08/06/20 07:45 Freq: Status: Active Protocol: Document 08/08/20 14:15 AMB (Rec: 08/08/20 15:42 AMB [id number]) OP-PT Subjective Patient Comments Patient Comments Pt reports no soreness after IE, feeling ok today. PT-OP-E Functional Tests Start: 08/06/20 07:45 Freq: Status: Active Protocol: Document 08/08/20 14:15 AMB (Rec: 08/08/20 14:45 AMB [id number]) Functional Tests 6 Minute Walk Test Distance 1,033 feet Device Used none PT-OP-G Mobility & Gait Start: 08/06/20 07:45 Freq: Status: Active Protocol: Document 08/06/20 14:15 AMB (Rec: 08/08/20 10:12 AMB [id number]) OP Mobility Evaluation Bed Mobility Supine to and from Sit Lul due to pain from L shoulder Transfers Sit to Stand Requires multiple attempts, poor form Bed to Chair Transfers multiple shuffling steps OP Gait Assessment Comments Gait Comments Once Hoang starts walking, he walks quite well in a straight line. His gait is much more precarious in small spaces and when he first starts, or with turns or when moving around obstacles. He is more of a fall risk when first starting out or when negotiating around obstacles, but when he can walk in a straight line has good step length and ami considering his advancing Parkinson's. PT-OP-J Posture/Palpation/Skin Start: 08/06/20 07:45 Freq: Status: Active Protocol: Document 08/06/20 14:15 AMB (Rec: 08/08/20 11:16 AMB [id number]) Posture Evaluation Comments Posture Comments Forward shoulders, forward head. Difficulty actively extending fingers in R hand but does have PROM available to do so. PT-OP-M Strength Start: 08/06/20 07:45 Freq: Status: Active Protocol: Document 08/06/20 14:15 AMB (Rec: 08/08/20 11:16 AMB [id number]) Hip Strength Hip Manual Muscle Testing Right Flexion (L2) 4- Good- Extension (S1) 3+ Fair+ Abduction 4- Good- Left Flexion (L2) 4- Good- Extension (S1) 3+ Fair+ Abduction 4- Good- Knee Strength Knee Manual Muscle Testing Right Flexion (S2) 5 Normal Extension (L3) 5 Normal Left Flexion (S2) 5 Normal Extension (L3) 5 Normal PT-OP-Q Treatments Start: 08/06/20 07:45 Freq: Status: Active Protocol: Document 08/08/20 14:15 AMB (Rec: 08/08/20 15:42 AMB [id number]) Therapeutic Activity Therapeutic Activity 1 Name sit to stand Reps/Minutes 10 Comments heavy cueing to reduce back of knees against chair Gait Training Gait Activity 3 Description TUG Comments 16 seconds vc avoiding plopping, avoid knees against chair, get COG forward to avoid LOB posterior with sit to stand 2 Description obstacle course Comments weave around cones and step over lebron, vc long step length 1 Description 6MWT Device Used none Neuro Re-Education Treatment Balance Activities 1 Details stride stance weightshift Comments with UE hovering over counter- -HEP PT-OP-T Assessment and Plan Start: 08/06/20 07:45 Freq: Status: Active Protocol: Document 08/08/20 14:15 AMB (Rec: 08/08/20 15:42 AMB [id number]) Physical Therapy Assessment Assessment Summary Assessment Hoang needs continued vc to get COG anterior enough with sit to stand. Extensive explanation of HEP and pt agrees that it should be safe for him to do at home, will hover hand over counter at all times. Physical Therapy Plan Next Visit Focus/Plan Next Note Type Treatment Note Next Visit Plan Continue to progress HEP, gait and sit to stand safety
--- NOTE | 2020-08-13 08:05 | PT.OTN ---
Current Diagnoses Parkinson's disease (08/12/20) Repeated falls (08/12/20) Physical Therapy Treatment Note PT-OP-A Visit Information Start: 08/06/20 07:45 Freq: Status: Active Protocol: Document 08/12/20 14:14 AMB (Rec: 08/12/20 15:24 AMB [id number]) Out-Patient Physical Therapy Visit Information Visit Information Visit Type Treatment Note Visit Start Time 14:15 Visit Stop Time 15:00 Total Visit Minutes 45 Visit Number 3 PT-OP-B Current Condition Start: 08/06/20 07:45 Freq: Status: Active Protocol: Document 08/06/20 14:16 AMB (Rec: 08/06/20 14:30 AMB [id number]) Current Condition History of Current Condition Onset Date May 30, 2020 Current Complaints reduced mobility s/p L humerus fracture History of Current Condition Hoang attends PT with decreased moblity s/p recent L humerus fracture due to fall, tripping over laundry 05/30. Fell out bed once since then. Currently walking inside 10 minutes a day, previously walking in the community 30 minutes/ day. Was wearing a sling until end of June when got repeat X-ray. Pt reports sitting in the recliner most of the day, it is a power lift chair, so it helps him move from sit to stand. Pt feels sleepy most of the day. Does walk around the room a little, but does get help with showering and with bed mobility. L arm is painful at rest, when moved overhead increases pain. R arm is more affected with parkinson's making using a walker very difficult. Prior Treatments and Tests X-ray:There is a left humeral head and neck fracture with superior migration of the distal fracture fragment. The alignment is stable compared to 06/11/2020. No suspicious bony lesions. 07/17 Treatment Goals Patient/Caregiver Goals Get back to walking, was previously walking 30 minutes a day outside. Prior Functional Status Baseline Function- ADL's Modified Independent Baseline Function- Mobility Modified Independent Current Functional Impairments (Reported) Functional Limitations- ADL's Requires physical assist to get into bed due to L shoulder pain, physical assist with showering. Describes what sounds like CGA with ambulation, although does ambulate short distances around his room independently. Personal Factors Other Personal Factors That May Effect Lives in assisted living, Therapy/Recovery feels limited to walking 10 minutes/day because that is what the aides have time to help with PT-OP-C Subjective Start: 08/06/20 07:45 Freq: Status: Active Protocol: Document 08/12/20 14:14 AMB (Rec: 08/12/20 15:24 AMB [id number]) OP-PT Subjective Patient Comments Patient Comments Pt reports feeling tired today after a poor sleep. Tried exercise 1x/day and it went ok . PT-OP-E Functional Tests Start: 08/06/20 07:45 Freq: Status: Active Protocol: Document 08/08/20 14:15 AMB (Rec: 08/08/20 14:45 AMB [id number]) Functional Tests 6 Minute Walk Test Distance 1,033 feet Device Used none PT-OP-G Mobility & Gait Start: 08/06/20 07:45 Freq: Status: Active Protocol: Document 08/06/20 14:15 AMB (Rec: 08/08/20 10:12 AMB [id number]) OP Mobility Evaluation Bed Mobility Supine to and from Sit Lul due to pain from L shoulder Transfers Sit to Stand Requires multiple attempts, poor form Bed to Chair Transfers multiple shuffling steps OP Gait Assessment Comments Gait Comments Once Hoang starts walking, he walks quite well in a straight line. His gait is much more precarious in small spaces and when he first starts, or with turns or when moving around obstacles. He is more of a fall risk when first starting out or when negotiating around obstacles, but when he can walk in a straight line has good step length and ami considering his advancing Parkinson's. PT-OP-J Posture/Palpation/Skin Start: 08/06/20 07:45 Freq: Status: Active Protocol: Document 08/06/20 14:15 AMB (Rec: 08/08/20 11:16 AMB [id number]) Posture Evaluation Comments Posture Comments Forward shoulders, forward head. Difficulty actively extending fingers in R hand but does have PROM available to do so. PT-OP-M Strength Start: 08/06/20 07:45 Freq: Status: Active Protocol: Document 08/06/20 14:15 AMB (Rec: 08/08/20 11:16 AMB [id number]) Hip Strength Hip Manual Muscle Testing Right Flexion (L2) 4- Good- Extension (S1) 3+ Fair+ Abduction 4- Good- Left Flexion (L2) 4- Good- Extension (S1) 3+ Fair+ Abduction 4- Good- Knee Strength Knee Manual Muscle Testing Right Flexion (S2) 5 Normal Extension (L3) 5 Normal Left Flexion (S2) 5 Normal Extension (L3) 5 Normal PT-OP-Q Treatments Start: 08/06/20 07:45 Freq: Status: Active Protocol: Document 08/12/20 14:15 AMB (Rec: 08/13/20 08:05 AMB [id number]) Therapeutic Exercises Standing Exercises 1 Standing Exercise Name pendulum Comments focus on weightshift to move L arm Therapeutic Activity Therapeutic Activity 2 Name sit to supine Comments through right arm 1 Name sit to stand Reps/Minutes 10 Comments heavy cueing to reduce back of knees against chair Gait Training Gait Activity 4 Description hurdles Comments big stepping forward and laterally over 1 lebron. Lul to prevent LOB with gaitbelt 1 Device Used none Surface smooth Distance/Duration 200' Comments CGA PT-OP-T Assessment and Plan Start: 08/06/20 07:45 Freq: Status: Active Protocol: Document 08/12/20 14:15 AMB (Rec: 08/13/20 08:05 AMB [id number]) Physical Therapy Assessment Assessment Summary Assessment Pt continues to have shoulder pain with bed mobility that makes it difficult for him to be independent with his bed mobility. Suggested he turn his bed around (put pillows on other side of bed) so he can get in on right shoulder instead. Physical Therapy Plan Next Visit Focus/Plan Next Note Type Treatment Note Next Visit Plan Continue transfer training, promote safety with gait especially when walking around obstacles, follow up on bed mobility, shoulder pain
--- NOTE | 2020-08-18 15:45 | PT.OTN ---
Current Diagnoses Parkinson's disease (08/18/20) Repeated falls (08/18/20) Physical Therapy Treatment Note PT-OP-A Visit Information Start: 08/06/20 07:45 Freq: Status: Active Protocol: Document 08/18/20 15:25 AMB (Rec: 08/18/20 15:33 AMB [email or web address]) Out-Patient Physical Therapy Visit Information Visit Information Visit Type Treatment Note Visit Start Time 14:15 Visit Stop Time 15:00 Total Visit Minutes 45 Visit Number 4 PT-OP-B Current Condition Start: 08/06/20 07:45 Freq: Status: Active Protocol: Document 08/06/20 14:16 AMB (Rec: 08/06/20 14:30 AMB [id number]) Current Condition History of Current Condition Onset Date May 30, 2020 Current Complaints reduced mobility s/p L humerus fracture History of Current Condition Hoang attends PT with decreased moblity s/p recent L humerus fracture due to fall, tripping over laundry 05/30. Fell out bed once since then. Currently walking inside 10 minutes a day, previously walking in the community 30 minutes/ day. Was wearing a sling until end of June when got repeat X-ray. Pt reports sitting in the recliner most of the day, it is a power lift chair, so it helps him move from sit to stand. Pt feels sleepy most of the day. Does walk around the room a little, but does get help with showering and with bed mobility. L arm is painful at rest, when moved overhead increases pain. R arm is more affected with parkinson's making using a walker very difficult. Prior Treatments and Tests X-ray:There is a left humeral head and neck fracture with superior migration of the distal fracture fragment. The alignment is stable compared to 06/11/2020. No suspicious bony lesions. 07/17 Treatment Goals Patient/Caregiver Goals Get back to walking, was previously walking 30 minutes a day outside. Prior Functional Status Baseline Function- ADL's Modified Independent Baseline Function- Mobility Modified Independent Current Functional Impairments (Reported) Functional Limitations- ADL's Requires physical assist to get into bed due to L shoulder pain, physical assist with showering. Describes what sounds like CGA with ambulation, although does ambulate short distances around his room independently. Personal Factors Other Personal Factors That May Effect Lives in assisted living, Therapy/Recovery feels limited to walking 10 minutes/day because that is what the aides have time to help with PT-OP-C Subjective Start: 08/06/20 07:45 Freq: Status: Active Protocol: Document 08/18/20 15:25 AMB (Rec: 08/18/20 15:33 AMB [email or web address]) OP-PT Subjective Patient Comments Patient Comments Pt reports continued difficulty sleeping due to having to wait for aides to help him back into bed after going to the bathroom. PT-OP-E Functional Tests Start: 08/06/20 07:45 Freq: Status: Active Protocol: Document 08/08/20 14:15 AMB (Rec: 08/08/20 14:45 AMB [id number]) Functional Tests 6 Minute Walk Test Distance 1,033 feet Device Used none PT-OP-G Mobility & Gait Start: 08/06/20 07:45 Freq: Status: Active Protocol: Document 08/06/20 14:15 AMB (Rec: 08/08/20 10:12 AMB [id number]) OP Mobility Evaluation Bed Mobility Supine to and from Sit Lul due to pain from L shoulder Transfers Sit to Stand Requires multiple attempts, poor form Bed to Chair Transfers multiple shuffling steps OP Gait Assessment Comments Gait Comments Once Hoang starts walking, he walks quite well in a straight line. His gait is much more precarious in small spaces and when he first starts, or with turns or when moving around obstacles. He is more of a fall risk when first starting out or when negotiating around obstacles, but when he can walk in a straight line has good step length and ami considering his advancing Parkinson's. PT-OP-J Posture/Palpation/Skin Start: 08/06/20 07:45 Freq: Status: Active Protocol: Document 08/06/20 14:15 AMB (Rec: 08/08/20 11:16 AMB [id number]) Posture Evaluation Comments Posture Comments Forward shoulders, forward head. Difficulty actively extending fingers in R hand but does have PROM available to do so. PT-OP-M Strength Start: 08/06/20 07:45 Freq: Status: Active Protocol: Document 08/06/20 14:15 AMB (Rec: 08/08/20 11:16 AMB [id number]) Hip Strength Hip Manual Muscle Testing Right Flexion (L2) 4- Good- Extension (S1) 3+ Fair+ Abduction 4- Good- Left Flexion (L2) 4- Good- Extension (S1) 3+ Fair+ Abduction 4- Good- Knee Strength Knee Manual Muscle Testing Right Flexion (S2) 5 Normal Extension (L3) 5 Normal Left Flexion (S2) 5 Normal Extension (L3) 5 Normal PT-OP-Q Treatments Start: 08/06/20 07:45 Freq: Status: Active Protocol: Document 08/18/20 15:25 AMB (Rec: 08/18/20 15:45 AMB [id number]) Therapeutic Activity Therapeutic Activity 2 Name sit to supine Comments through left arm-- ModA working towards Lul, pt slow with supint to sit but can do I. 1 Name sit to stand Reps/Minutes 20 Comments heavy cueing to reduce back of knees against chair Gait Training Gait Activity 4 Description hurdles Comments big stepping forward and laterally over 1 lebron. Lul to prevent LOB with gaitbelt 1 Device Used none Surface smooth Distance/Duration 200' Comments CGA PT-OP-T Assessment and Plan Start: 08/06/20 07:45 Freq: Status: Active Protocol: Document 08/18/20 15:25 AMB (Rec: 08/18/20 15:33 AMB [email or web address]) Physical Therapy Assessment Assessment Summary Assessment Pt showed improved bed mobility at the end of the session. Physical Therapy Plan Next Visit Focus/Plan Next Note Type Treatment Note Next Visit Plan Continue transfer training, promote safety with gait especially when walking around obstacles, follow up on bed mobility, shoulder pain
--- NOTE | 2020-09-01 14:45 | PT.OTN ---
Current Diagnoses Parkinson's disease (09/01/20) Repeated falls (09/01/20) Physical Therapy Treatment Note PT-OP-A Visit Information Start: 08/06/20 07:45 Freq: Status: Active Protocol: Document 09/01/20 14:22 MA (Rec: 09/01/20 14:45 MA [email or web address]) Out-Patient Physical Therapy Visit Information Visit Information Visit Type Treatment Note Visit Start Time 13:40 Visit Stop Time 14:20 Total Visit Minutes 40 Visit Number 5 Number of CLERK RATING Visits 1 PT-OP-B Current Condition Start: 08/06/20 07:45 Freq: Status: Active Protocol: Document 08/06/20 14:16 AMB (Rec: 08/06/20 14:30 AMB [id number]) Current Condition History of Current Condition Onset Date May 30, 2020 Current Complaints reduced mobility s/p L humerus fracture History of Current Condition Hoang attends PT with decreased moblity s/p recent L humerus fracture due to fall, tripping over laundry 05/30. Fell out bed once since then. Currently walking inside 10 minutes a day, previously walking in the community 30 minutes/ day. Was wearing a sling until end june when got repeat X-ray. Pt reports sitting in the recliner most of the day, it is a power lift chair, so it helps him move from sit to stand. Pt feels sleepy most of the day. Does walk around the room a little, but does get help with showering and with bed mobility. L arm is painful at rest, when moved overhead increases pain. R arm is more affected with parkinson's making using a walker very difficult. Prior Treatments and Tests X-ray:There is a left humeral head and neck fracture with superior migration of the distal fracture fragment. The alignment is stable compared to 06/11/2020. No suspicious bony lesions. 07/17 Treatment Goals Patient/Caregiver Goals Get back to walking, was previously walking 30 minutes a day outside. Prior Functional Status Baseline Function- ADL's Modified Independent Baseline Function- Mobility Modified Independent Current Functional Impairments (Reported) Functional Limitations- ADL's Requires physical assist to get into bed due to L shoulder pain, physical assist with showering. Describes what sounds like CGA with ambulation, although does ambulate short distances around his room independently. Personal Factors Other Personal Factors That May Effect Lives in assisted living, Therapy/Recovery feels limited to walking 10 minutes/day because that is what the aides have time to help with PT-OP-C Subjective Start: 08/06/20 07:45 Freq: Status: Active Protocol: Document 09/01/20 14:22 MA (Rec: 09/01/20 14:45 MA [email or web address]) OP-PT Subjective Patient Comments Patient Comments Pt reports no recent falls. PT-OP-E Functional Tests Start: 08/06/20 07:45 Freq: Status: Active Protocol: Document 08/08/20 14:15 AMB (Rec: 08/08/20 14:45 AMB [id number]) Functional Tests 6 Minute Walk Test Distance 1,033 feet Device Used none PT-OP-G Mobility & Gait Start: 08/06/20 07:45 Freq: Status: Active Protocol: Document 08/06/20 14:15 AMB (Rec: 08/08/20 10:12 AMB [id number]) OP Mobility Evaluation Bed Mobility Supine to and from Sit Lul due to pain from L shoulder Transfers Sit to Stand Requires multiple attempts, poor form Bed to Chair Transfers multiple shuffling steps OP Gait Assessment Comments Gait Comments Once Hoang starts walking, he walks quite well in a straight line. His gait is much more precarious in small spaces and when he first starts, or with turns or when moving around obstacles. He is more of a fall risk when first starting out or when negotiating around obstacles, but when he can walk in a straight line has good step length and ami considering his advancing Parkinson's. PT-OP-J Posture/Palpation/Skin Start: 08/06/20 07:45 Freq: Status: Active Protocol: Document 08/06/20 14:15 AMB (Rec: 08/08/20 11:16 AMB [id number]) Posture Evaluation Comments Posture Comments Forward shoulders, forward head. Difficulty actively extending fingers in R hand but does have PROM available to do so. PT-OP-M Strength Start: 08/06/20 07:45 Freq: Status: Active Protocol: Document 08/06/20 14:15 AMB (Rec: 08/08/20 11:16 AMB [id number]) Hip Strength Hip Manual Muscle Testing Right Flexion (L2) 4- Good- Extension (S1) 3+ Fair+ Abduction 4- Good- Left Flexion (L2) 4- Good- Extension (S1) 3+ Fair+ Abduction 4- Good- Knee Strength Knee Manual Muscle Testing Right Flexion (S2) 5 Normal Extension (L3) 5 Normal Left Flexion (S2) 5 Normal Extension (L3) 5 Normal PT-OP-Q Treatments Start: 08/06/20 07:45 Freq: Status: Active Protocol: Document 09/01/20 14:22 MA (Rec: 09/01/20 14:45 MA [email or web address]) Therapeutic Exercises Standing Exercises Hip Ext Standing Exercise Name Hip extension Side bilateral Equipment Used bar for support Reps/Minutes x10 Comments cues to avoid trunk flexion Marches Side bilateral Reps/Minutes x20 Comments Min A for balance Therapeutic Activity Therapeutic Activity 2 Name sit to supine Comments SBA with cues to push through LUE. 1 Name sit to stand Reps/Minutes 20 Comments heavy cueing to reduce back of knees against chair Gait Training Gait Activity 4 Description hurdles Comments big stepping forward and laterally over 1 lebron. Lul to prevent LOB with gaitbelt 1 Device Used none Surface smooth Distance/Duration 200' Comments CGA- working on quick stops and turns Neuro Re-Education Treatment Balance Activities Balance Details modified tandem stance Surface Solid Reps/Duration 2x30 PT-OP-T Assessment and Plan Start: 08/06/20 07:45 Freq: Status: Active Protocol: Document 09/01/20 14:22 MA (Rec: 09/01/20 14:45 MA [email or web address]) Physical Therapy Assessment Goals Three Impairment Gait Short Term Goal (STG) Hoang will show decreased fall risk by ambulating around obstacles without a shuffling gait pattern. STG Duration 5 weeks Assisted Goal (LTG) Hoang will ambulate at least 1,000 feet in 6 minutes without loss of balance or need for physical assistance. LTG Duration 10 weeks Two Impairment Bed mobility Overcoiler Goal (LTG) Hoang will perform all bed mobility without physical assistance. LTG Duration 10 weeks One Impairment Sit to stand Short Term Goal (STG) Hoang will move from sit to stand from a standard height chair without heavy use of the back of his knees pushing into the chair. STG Duration 5 weeks Overcoiler Goal (LTG) Hoang will improve his 5x sit to stand time to 20 seconds or less. LTG Duration 10 weeks Assessment Summary Assessment Pt improved balance and step height by end of session. Needs cues to avoid trunk flexion during hip extension exercises and Min A for balance during standing marches. Pt was able to start/ stop and quick turn during gait training today without festination. Physical Therapy Plan Frequency and Duration Frequency of Treatment 2x/Week Duration of Treatment 10 weeks Plan of Care Start Date 08/06/20 Plan of Care End Date 10/15/20 Therapeutic Interventions Therapeutic Interventions Balance Training,Gait Training ,Home Exercise Program,Manual Therapy,Neuromuscular Re- education,Self-Care/Home Management,Therapeutic Activities,Therapeutic Exercises Modalities Cold Pack/Ice Massage,Electric Stimulation,Hot Packs Next Visit Focus/Plan Next Note Type Treatment Note Next Visit Plan Continue trasfer training, set up obstacle course for balance and improved gait
--- NOTE | 2020-09-03 14:30 | PT.OTN ---
Current Diagnoses Parkinson's disease (09/03/20) Repeated falls (09/03/20) Physical Therapy Treatment Note PT-OP-A Visit Information Start: 08/06/20 07:45 Freq: Status: Active Protocol: Document 09/03/20 14:26 MA (Rec: 09/03/20 14:27 MA [id number]) Out-Patient Physical Therapy Visit Information Visit Information Visit Type Treatment Note Visit Start Time 13:40 Visit Stop Time 14:20 Total Visit Minutes 40 Visit Number 6 Number of NURSING TECH Visits 2 PT-OP-B Current Condition Start: 08/06/20 07:45 Freq: Status: Active Protocol: Document 08/06/20 14:16 AMB (Rec: 08/06/20 14:30 AMB [id number]) Current Condition History of Current Condition Onset Date May 30, 2020 Current Complaints reduced mobility s/p L humerus fracture History of Current Condition Hoang attends PT with decreased moblity s/p recent L humerus fracture due to fall, tripping over laundry 05/30. Fell out bed once since then. Currently walking inside 10 minutes a day, previously walking in the community 30 minutes/ day. Was wearing a sling until end june when got repeat X-ray. Pt reports sitting in the recliner most of the day, it is a power lift chair, so it helps him move from sit to stand. Pt feels sleepy most of the day. Does walk around the room a little, but does get help with showering and with bed mobility. L arm is painful at rest, when moved overhead increases pain. R arm is more affected with parkinson's making using a walker very difficult. Prior Treatments and Tests X-ray:There is a left humeral head and neck fracture with superior migration of the distal fracture fragment. The alignment is stable compared to 06/11/2020. No suspicious bony lesions. 07/17 Treatment Goals Patient/Caregiver Goals Get back to walking, was previously walking 30 minutes a day outside. Prior Functional Status Baseline Function- ADL's Modified Independent Baseline Function- Mobility Modified Independent Current Functional Impairments (Reported) Functional Limitations- ADL's Requires physical assist to get into bed due to L shoulder pain, physical assist with showering. Describes what sounds like CGA with ambulation, although does ambulate short distances around his room independently. Personal Factors Other Personal Factors That May Effect Lives in assisted living, Therapy/Recovery feels limited to walking 10 minutes/day because that is what the aides have time to help with PT-OP-C Subjective Start: 08/06/20 07:45 Freq: Status: Active Protocol: Document 09/03/20 14:26 MA (Rec: 09/03/20 14:27 MA [id number]) OP-PT Subjective Patient Comments Patient Comments Pt states this is usually his nap time so he is a little tired. PT-OP-E Functional Tests Start: 08/06/20 07:45 Freq: Status: Active Protocol: Document 08/08/20 14:15 AMB (Rec: 08/08/20 14:45 AMB [id number]) Functional Tests 6 Minute Walk Test Distance 1,033 feet Device Used none PT-OP-G Mobility & Gait Start: 08/06/20 07:45 Freq: Status: Active Protocol: Document 08/06/20 14:15 AMB (Rec: 08/08/20 10:12 AMB [id number]) OP Mobility Evaluation Bed Mobility Supine to and from Sit Lul due to pain from L shoulder Transfers Sit to Stand Requires multiple attempts, poor form Bed to Chair Transfers multiple shuffling steps OP Gait Assessment Comments Gait Comments Once Hoang starts walking, he walks quite well in a straight line. His gait is much more precarious in small spaces and when he first starts, or with turns or when moving around obstacles. He is more of a fall risk when first starting out or when negotiating around obstacles, but when he can walk in a straight line has good step length and ami considering his advancing Parkinson's. PT-OP-J Posture/Palpation/Skin Start: 08/06/20 07:45 Freq: Status: Active Protocol: Document 08/06/20 14:15 AMB (Rec: 08/08/20 11:16 AMB [id number]) Posture Evaluation Comments Posture Comments Forward shoulders, forward head. Difficulty actively extending fingers in R hand but does have PROM available to do so. PT-OP-M Strength Start: 08/06/20 07:45 Freq: Status: Active Protocol: Document 08/06/20 14:15 AMB (Rec: 08/08/20 11:16 AMB [id number]) Hip Strength Hip Manual Muscle Testing Right Flexion (L2) 4- Good- Extension (S1) 3+ Fair+ Abduction 4- Good- Left Flexion (L2) 4- Good- Extension (S1) 3+ Fair+ Abduction 4- Good- Knee Strength Knee Manual Muscle Testing Right Flexion (S2) 5 Normal Extension (L3) 5 Normal Left Flexion (S2) 5 Normal Extension (L3) 5 Normal PT-OP-Q Treatments Start: 08/06/20 07:45 Freq: Status: Active Protocol: Document 09/03/20 14:28 MA (Rec: 09/03/20 14:31 MA [id number]) Therapeutic Exercises Standing Exercises Hip Ext Standing Exercise Name Hip extension Side bilateral Resistance 2# ankle weights Equipment Used FWW Reps/Minutes x10 Marches Side bilateral Reps/Minutes x20 Comments Min A for balance Therapeutic Activity Therapeutic Activity 1 Name sit to stand Reps/Minutes 10x Comments heavy cueing to reduce back of knees against chair Gait Training Gait Activity Cones Description Figuring-8 around 6 cones Surface 4x Treatment Focus changing directions w/o festination Comments seated rest break after 2x 4 Description hurdles Distance/Duration 10x Comments Big stepping fwd and laterally over 6 hurdles in parallel bars. working on hovering hands 2 Description obstacle course Device Used parallel bars Distance/Duration 4x Comments 6 step, airex, hurdles Neuro Re-Education Treatment Balance Activities Balance Details standing tapping cones with one foot Surface solid Reps/Duration 10x rhonda Comments cones fwd, lateral, and bkwd- progressed to single finger on bar for support PT-OP-T Assessment and Plan Start: 08/06/20 07:45 Freq: Status: Active Protocol: Document 09/03/20 17:39 MA (Rec: 09/03/20 17:46 MA [id number]) Physical Therapy Assessment Goals Three Impairment Gait Short Term Goal (STG) Hoang will show decreased fall risk by ambulating around obstacles without a shuffling gait pattern. STG Duration 5 weeks Fuel Technician Goal (LTG) Hoang will ambulate at least 1,000 feet in 6 minutes without loss of balance or need for physical assistance. LTG Duration 10 weeks Two Impairment Bed mobility Fuel Technician Goal (LTG) Hoang will perform all bed mobility without physical assistance. LTG Duration 10 weeks One Impairment Sit to stand Short Term Goal (STG) Hoang will move from sit to stand from a standard height chair without heavy use of the back of his knees pushing into the chair. STG Duration 5 weeks Fuel Technician Goal (LTG) Hoang will improve his 5x sit to stand time to 20 seconds or less. LTG Duration 10 weeks Assessment Summary Assessment Pt able to remember to avoid trunk flexion during hip extension exercise. Added 2# weights to ankles for hip extension and for hurdles today. Worked on having pt hover hands over bar with all activities. During cone taps pt started with single hand support and was able to go down to single finger support on bar. Worked on weaving in/ out of cones with pt having a festinating gait in the beginning but able to overcome with cues to take bigger steps and slow down. Physical Therapy Plan Frequency and Duration Frequency of Treatment 2x/Week Duration of Treatment 10 weeks Plan of Care Start Date 08/06/20 Plan of Care End Date 10/15/20 Therapeutic Interventions Therapeutic Interventions Balance Training,Gait Training ,Home Exercise Program,Manual Therapy,Neuromuscular Re- education,Self-Care/Home Management,Therapeutic Activities,Therapeutic Exercises Modalities Cold Pack/Ice Massage,Electric Stimulation,Hot Packs Next Visit Focus/Plan Next Note Type Treatment Note Next Visit Plan Continue transfer training; progress balance and gait activities working on hovering hands in parallel bars
--- NOTE | 2020-09-08 14:30 | PT.OTN ---
Current Diagnoses Parkinson's disease (09/08/20) Repeated falls (09/08/20) Physical Therapy Treatment Note PT-OP-A Visit Information Start: 08/06/20 07:45 Freq: Status: Active Protocol: Document 09/08/20 13:51 MA (Rec: 09/08/20 14:32 MA [id number]) Out-Patient Physical Therapy Visit Information Visit Information Visit Type Treatment Note Visit Start Time 13:45 Visit Stop Time 14:28 Total Visit Minutes 43 Visit Number 7 Number of CAR DUMPER OPERATOR Visits 3 PT-OP-B Current Condition Start: 08/06/20 07:45 Freq: Status: Active Protocol: Document 08/06/20 14:16 AMB (Rec: 08/06/20 14:30 AMB [id number]) Current Condition History of Current Condition Onset Date May 30, 2020 Current Complaints reduced mobility s/p L humerus fracture History of Current Condition Hoang attends PT with decreased moblity s/p recent L humerus fracture due to fall, tripping over laundry 05/30. Fell out bed once since then. Currently walking inside 10 minutes a day, previously walking in the community 30 minutes/ day. Was wearing a sling until end june when got repeat X-ray. Pt reports sitting in the recliner most of the day, it is a power lift chair, so it helps him move from sit to stand. Pt feels sleepy most of the day. Does walk around the room a little, but does get help with showering and with bed mobility. L arm is painful at rest, when moved overhead increases pain. R arm is more affected with parkinson's making using a walker very difficult. Prior Treatments and Tests X-ray:There is a left humeral head and neck fracture with superior migration of the distal fracture fragment. The alignment is stable compared to 06/11/2020. No suspicious bony lesions. 07/17 Treatment Goals Patient/Caregiver Goals Get back to walking, was previously walking 30 minutes a day outside. Prior Functional Status Baseline Function- ADL's Modified Independent Baseline Function- Mobility Modified Independent Current Functional Impairments (Reported) Functional Limitations- ADL's Requires physical assist to get into bed due to L shoulder pain, physical assist with showering. Describes what sounds like CGA with ambulation, although does ambulate short distances around his room independently. Personal Factors Other Personal Factors That May Effect Lives in assisted living, Therapy/Recovery feels limited to walking 10 minutes/day because that is what the aides have time to help with PT-OP-C Subjective Start: 08/06/20 07:45 Freq: Status: Active Protocol: Document 09/08/20 13:51 MA (Rec: 09/08/20 14:32 MA [id number]) OP-PT Subjective Patient Comments Patient Comments Pt is cold and body aches today because of the cold, wet weather PT-OP-E Functional Tests Start: 08/06/20 07:45 Freq: Status: Active Protocol: Document 08/08/20 14:15 AMB (Rec: 08/08/20 14:45 AMB [id number]) Functional Tests 6 Minute Walk Test Distance 1,033 feet Device Used none PT-OP-G Mobility & Gait Start: 08/06/20 07:45 Freq: Status: Active Protocol: Document 08/06/20 14:15 AMB (Rec: 08/08/20 10:12 AMB [id number]) OP Mobility Evaluation Bed Mobility Supine to and from Sit Lul due to pain from L shoulder Transfers Sit to Stand Requires multiple attempts, poor form Bed to Chair Transfers multiple shuffling steps OP Gait Assessment Comments Gait Comments Once Hoang starts walking, he walks quite well in a straight line. His gait is much more precarious in small spaces and when he first starts, or with turns or when moving around obstacles. He is more of a fall risk when first starting out or when negotiating around obstacles, but when he can walk in a straight line has good step length and ami considering his advancing Parkinson's. PT-OP-J Posture/Palpation/Skin Start: 08/06/20 07:45 Freq: Status: Active Protocol: Document 08/06/20 14:15 AMB (Rec: 08/08/20 11:16 AMB [id number]) Posture Evaluation Comments Posture Comments Forward shoulders, forward head. Difficulty actively extending fingers in R hand but does have PROM available to do so. PT-OP-M Strength Start: 08/06/20 07:45 Freq: Status: Active Protocol: Document 08/06/20 14:15 AMB (Rec: 08/08/20 11:16 AMB [id number]) Hip Strength Hip Manual Muscle Testing Right Flexion (L2) 4- Good- Extension (S1) 3+ Fair+ Abduction 4- Good- Left Flexion (L2) 4- Good- Extension (S1) 3+ Fair+ Abduction 4- Good- Knee Strength Knee Manual Muscle Testing Right Flexion (S2) 5 Normal Extension (L3) 5 Normal Left Flexion (S2) 5 Normal Extension (L3) 5 Normal PT-OP-Q Treatments Start: 08/06/20 07:45 Freq: Status: Active Protocol: Document 09/08/20 13:51 MA (Rec: 09/08/20 14:32 MA [id number]) Cardio Equipment Recumbent Bicycle Duration (Minutes) 6 Resistance 4 Seat Position 4 Other pt's foot slipped off petal once Gym Equipment Shuttle Balance Yellow Clips Details fwd-WBOS, NBOS, modified tandem Reps/Duration 5 minutes Therapeutic Exercises Other Exercises Sit<>Stand Reps/Minutes x10 Gait Training Gait Activity Step Ups Treatment Focus trying not to use bar for balance Comments 1. step ups 4 step 2. Step up 4 step with airex on top for added balance challenge Cones Description Figuring-8 around 6 cones Surface 4x Treatment Focus changing directions w/o festination 4 Description hurdles Distance/Duration 10x Comments Big stepping fwd/backward and laterally over 1 hurdles with ballet bar. working on hovering hands Neuro Re-Education Treatment Balance Activities Balance Details standing tapping cones with one foot Surface solid Reps/Duration 10x rhonda Comments cones fwd PT-OP-T Assessment and Plan Start: 08/06/20 07:45 Freq: Status: Active Protocol: Document 09/08/20 13:51 MA (Rec: 09/08/20 14:32 MA [id number]) Physical Therapy Assessment Goals Three Impairment Gait Short Term Goal (STG) Hoang will show decreased fall risk by ambulating around obstacles without a shuffling gait pattern. STG Duration 5 weeks Limo Driver Goal (LTG) Hoang will ambulate at least 1,000 feet in 6 minutes without loss of balance or need for physical assistance. LTG Duration 10 weeks Two Impairment Bed mobility Snf Goal (LTG) Hoang will perform all bed mobility without physical assistance. LTG Duration 10 weeks One Impairment Sit to stand Short Term Goal (STG) Hoang will move from sit to stand from a standard height chair without heavy use of the back of his knees pushing into the chair. STG Duration 5 weeks Limo Driver Goal (LTG) Hoang will improve his 5x sit to stand time to 20 seconds or less. LTG Duration 10 weeks Assessment Summary Assessment Pt with improved balance today ; able to hover hands over bar instead of using bar for support. Needed cues to slow down during exercises to avoid LOB but seems more confident overall during gait and balance exercises Physical Therapy Plan Frequency and Duration Frequency of Treatment 2x/Week Duration of Treatment 10 weeks Plan of Care Start Date 08/06/20 Plan of Care End Date 10/15/20 Therapeutic Interventions Therapeutic Interventions Balance Training,Gait Training ,Home Exercise Program,Manual Therapy,Neuromuscular Re- education,Self-Care/Home Management,Therapeutic Activities,Therapeutic Exercises Modalities Cold Pack/Ice Massage,Electric Stimulation,Hot Packs Next Visit Focus/Plan Next Note Type Treatment Note Next Visit Plan Try blue clips on shuttle balance. Continue transfer training; progress balance and gait activities working on hovering hands in parallel bars
--- NOTE | 2020-09-10 15:15 | PT.OTN ---
Current Diagnoses Parkinson's disease (09/10/20) Repeated falls (09/10/20) Physical Therapy Treatment Note PT-OP-A Visit Information Start: 08/06/20 07:45 Freq: Status: Active Protocol: Document 09/10/20 14:39 MA (Rec: 09/10/20 15:14 MA [id number]) Out-Patient Physical Therapy Visit Information Visit Information Visit Type Treatment Note Visit Start Time 14:32 Visit Stop Time 13:10 Total Visit Minutes 38 Visit Number 8 Number of MANUFACTURING ENGINEERING TECHNICIAN Visits 4 PT-OP-B Current Condition Start: 08/06/20 07:45 Freq: Status: Active Protocol: Document 08/06/20 14:16 AMB (Rec: 08/06/20 14:30 AMB [id number]) Current Condition History of Current Condition Onset Date May 30, 2020 Current Complaints reduced mobility s/p L humerus fracture History of Current Condition Hoang attends PT with decreased moblity s/p recent L humerus fracture due to fall, tripping over laundry 05/30. Fell out bed once since then. Currently walking inside 10 minutes a day, previously walking in the community 30 minutes/ day. Was wearing a sling until end june when got repeat X-ray. Pt reports sitting in the recliner most of the day, it is a power lift chair, so it helps him move from sit to stand. Pt feels sleepy most of the day. Does walk around the room a little, but does get help with showering and with bed mobility. L arm is painful at rest, when moved overhead increases pain. R arm is more affected with parkinson's making using a walker very difficult. Prior Treatments and Tests X-ray:There is a left humeral head and neck fracture with superior migration of the distal fracture fragment. The alignment is stable compared to 06/11/2020. No suspicious bony lesions. 07/17 Treatment Goals Patient/Caregiver Goals Get back to walking, was previously walking 30 minutes a day outside. Prior Functional Status Baseline Function- ADL's Modified Independent Baseline Function- Mobility Modified Independent Current Functional Impairments (Reported) Functional Limitations- ADL's Requires physical assist to get into bed due to L shoulder pain, physical assist with showering. Describes what sounds like CGA with ambulation, although does ambulate short distances around his room independently. Personal Factors Other Personal Factors That May Effect Lives in assisted living, Therapy/Recovery feels limited to walking 10 minutes/day because that is what the aides have time to help with PT-OP-C Subjective Start: 08/06/20 07:45 Freq: Status: Active Protocol: Document 09/10/20 14:39 MA (Rec: 09/10/20 15:14 MA [id number]) OP-PT Subjective Patient Comments Patient Comments Pt states he had a half fall this morning. The caregiver was rushing me and I fell into the chair. My left arm hurts. PT-OP-E Functional Tests Start: 08/06/20 07:45 Freq: Status: Active Protocol: Document 08/08/20 14:15 AMB (Rec: 08/08/20 14:45 AMB [id number]) Functional Tests 6 Minute Walk Test Distance 1,033 feet Device Used none PT-OP-G Mobility & Gait Start: 08/06/20 07:45 Freq: Status: Active Protocol: Document 08/06/20 14:15 AMB (Rec: 08/08/20 10:12 AMB [id number]) OP Mobility Evaluation Bed Mobility Supine to and from Sit Lul due to pain from L shoulder Transfers Sit to Stand Requires multiple attempts, poor form Bed to Chair Transfers multiple shuffling steps OP Gait Assessment Comments Gait Comments Once Hoang starts walking, he walks quite well in a straight line. His gait is much more precarious in small spaces and when he first starts, or with turns or when moving around obstacles. He is more of a fall risk when first starting out or when negotiating around obstacles, but when he can walk in a straight line has good step length and ami considering his advancing Parkinson's. PT-OP-J Posture/Palpation/Skin Start: 08/06/20 07:45 Freq: Status: Active Protocol: Document 08/06/20 14:15 AMB (Rec: 08/08/20 11:16 AMB [id number]) Posture Evaluation Comments Posture Comments Forward shoulders, forward head. Difficulty actively extending fingers in R hand but does have PROM available to do so. PT-OP-M Strength Start: 08/06/20 07:45 Freq: Status: Active Protocol: Document 08/06/20 14:15 AMB (Rec: 08/08/20 11:16 AMB [id number]) Hip Strength Hip Manual Muscle Testing Right Flexion (L2) 4- Good- Extension (S1) 3+ Fair+ Abduction 4- Good- Left Flexion (L2) 4- Good- Extension (S1) 3+ Fair+ Abduction 4- Good- Knee Strength Knee Manual Muscle Testing Right Flexion (S2) 5 Normal Extension (L3) 5 Normal Left Flexion (S2) 5 Normal Extension (L3) 5 Normal PT-OP-Q Treatments Start: 08/06/20 07:45 Freq: Status: Active Protocol: Document 09/10/20 14:39 MA (Rec: 09/10/20 15:14 MA [id number]) Cardio Equipment Recumbent Elliptical (BiodAnsible) Duration (Minutes) 5 Resistance 1 Seat Position 10 Gym Equipment Shuttle Balance Blue Details WBOS/NBOS-EO/EC, modified tandem EO Reps/Duration 5 min Therapeutic Exercises Other Exercises Sit<>Stand Reps/Minutes x10 Comments working on not using back of legs against chair Gait Training Gait Activity Walking Description fwd/backward Device Used single rail support Surface level Distance/Duration 6x20 feet Comments cues to take big steps when walking backwards. 4 Description hurdles Distance/Duration 10x Comments Big stepping fwd/lateral working on using no hand held support Neuro Re-Education Treatment Balance Activities 4 Details Stride stance a/p weightshift Comments With alternating arm reach PT-OP-T Assessment and Plan Start: 08/06/20 07:45 Freq: Status: Active Protocol: Document 09/10/20 15:14 MA (Rec: 09/10/20 15:20 MA [id number]) Physical Therapy Assessment Goals Three Impairment Gait Short Term Goal (STG) Hoang will show decreased fall risk by ambulating around obstacles without a shuffling gait pattern. STG Duration 5 weeks Diesel Crane Operator Goal (LTG) Hoang will ambulate at least 1,000 feet in 6 minutes without loss of balance or need for physical assistance. LTG Duration 10 weeks Two Impairment Bed mobility Diesel Crane Operator Goal (LTG) Hoang will perform all bed mobility without physical assistance. LTG Duration 10 weeks One Impairment Sit to stand Short Term Goal (STG) Hoang will move from sit to stand from a standard height chair without heavy use of the back of his knees pushing into the chair. STG Duration 5 weeks Snf Goal (LTG) Hoang will improve his 5x sit to stand time to 20 seconds or less. LTG Duration 10 weeks Assessment Summary Assessment Hoang was able to complete balance training using shuttle balance with blue clips today with no LOB. He was a little apprehensive at the beginning of treatment session due to falling earlier in the day but overall had good balance throughout session. Pt was able to step fwd over hurdles with no hand held support. Continues to need support when lateral stepping. MANUFACTURING ENGINEERING TECHNICIAN assessed LUE which shows signs of brusing but no major swelling or tender spots noted . Physical Therapy Plan Frequency and Duration Frequency of Treatment 2x/Week Duration of Treatment 10 weeks Plan of Care Start Date 08/06/20 Plan of Care End Date 10/15/20 Therapeutic Interventions Therapeutic Interventions Balance Training,Gait Training ,Home Exercise Program,Manual Therapy,Neuromuscular Re- education,Self-Care/Home Management,Therapeutic Activities,Therapeutic Exercises Modalities Cold Pack/Ice Massage,Electric Stimulation,Hot Packs Next Visit Focus/Plan Next Note Type Treatment Note Next Visit Plan Try red clips on shuttle balance. Continue transfer training; progress balance and gait activities working on hovering hands in parallel bars
--- NOTE | 2020-09-22 16:01 | PT.OTN ---
Current Diagnoses Parkinson's disease (09/22/20) Repeated falls (09/22/20) Physical Therapy Treatment Note PT-OP-A Visit Information Start: 08/06/20 07:45 Freq: Status: Active Protocol: Document 09/22/20 14:17 AMB (Rec: 09/22/20 15:29 AMB [id number]) Out-Patient Physical Therapy Visit Information Visit Information Visit Type Progress Note Visit Start Time 14:15 Visit Stop Time 15:00 Total Visit Minutes 45 Visit Number 9 Number of EDUCATOR SENIOR CLINICAL Visits 0 PT-OP-B Current Condition Start: 08/06/20 07:45 Freq: Status: Active Protocol: Document 08/06/20 14:16 AMB (Rec: 08/06/20 14:30 AMB [id number]) Current Condition History of Current Condition Onset Date May 30, 2020 Current Complaints reduced mobility s/p L humerus fracture History of Current Condition Hoang attends PT with decreased moblity s/p recent L humerus fracture due to fall, tripping over laundry 05/30. Fell out bed once since then. Currently walking inside 10 minutes a day, previously walking in the community 30 minutes/ day. Was wearing a sling until end june when got repeat X-ray. Pt reports sitting in the recliner most of the day, it is a power lift chair, so it helps him move from sit to stand. Pt feels sleepy most of the day. Does walk around the room a little, but does get help with showering and with bed mobility. L arm is painful at rest, when moved overhead increases pain. R arm is more affected with parkinson's making using a walker very difficult. Prior Treatments and Tests X-ray:There is a left humeral head and neck fracture with superior migration of the distal fracture fragment. The alignment is stable compared to 06/11/2020. No suspicious bony lesions. 07/17 Treatment Goals Patient/Caregiver Goals Get back to walking, was previously walking 30 minutes a day outside. Prior Functional Status Baseline Function- ADL's Modified Independent Baseline Function- Mobility Modified Independent Current Functional Impairments (Reported) Functional Limitations- ADL's Requires physical assist to get into bed due to L shoulder pain, physical assist with showering. Describes what sounds like CGA with ambulation, although does ambulate short distances around his room independently. Personal Factors Other Personal Factors That May Effect Lives in assisted living, Therapy/Recovery feels limited to walking 10 minutes/day because that is what the aides have time to help with PT-OP-C Subjective Start: 08/06/20 07:45 Freq: Status: Active Protocol: Document 09/22/20 14:15 AMB (Rec: 09/22/20 15:57 AMB [id number]) OP-PT Subjective Patient Comments Patient Comments Hoang states he did not sleep well last night. He is walking 15 minutes/day at his assisted living facility without assistance, he is doing sit ups in bed and doing some biceps curls with light weights. PT-OP-E Functional Tests Start: 08/06/20 07:45 Freq: Status: Active Protocol: Document 09/22/20 14:15 AMB (Rec: 09/22/20 15:53 AMB [id number]) Functional Tests 10 Meter Walk Test Distance 7 seconds Device Used none Five Times Sit to Stand Test Score 19 sec Timed Up and Go (TUG) Score 14.5 PT-OP-G Mobility & Gait Start: 08/06/20 07:45 Freq: Status: Active Protocol: Document 08/06/20 14:15 AMB (Rec: 08/08/20 10:12 AMB [id number]) OP Mobility Evaluation Bed Mobility Supine to and from Sit Lul due to pain from L shoulder Transfers Sit to Stand Requires multiple attempts, poor form Bed to Chair Transfers multiple shuffling steps OP Gait Assessment Comments Gait Comments Once Hoang starts walking, he walks quite well in a straight line. His gait is much more precarious in small spaces and when he first starts, or with turns or when moving around obstacles. He is more of a fall risk when first starting out or when negotiating around obstacles, but when he can walk in a straight line has good step length and ami considering his advancing Parkinson's. PT-OP-J Posture/Palpation/Skin Start: 08/06/20 07:45 Freq: Status: Active Protocol: Document 08/06/20 14:15 AMB (Rec: 08/08/20 11:16 AMB [id number]) Posture Evaluation Comments Posture Comments Forward shoulders, forward head. Difficulty actively extending fingers in R hand but does have PROM available to do so. PT-OP-M Strength Start: 08/06/20 07:45 Freq: Status: Active Protocol: Document 08/06/20 14:15 AMB (Rec: 08/08/20 11:16 AMB [id number]) Hip Strength Hip Manual Muscle Testing Right Flexion (L2) 4- Good- Extension (S1) 3+ Fair+ Abduction 4- Good- Left Flexion (L2) 4- Good- Extension (S1) 3+ Fair+ Abduction 4- Good- Knee Strength Knee Manual Muscle Testing Right Flexion (S2) 5 Normal Extension (L3) 5 Normal Left Flexion (S2) 5 Normal Extension (L3) 5 Normal PT-OP-Q Treatments Start: 08/06/20 07:45 Freq: Status: Active Protocol: Document 09/22/20 14:15 AMB (Rec: 09/22/20 15:57 AMB [id number]) Gym Equipment Shuttle Balance Blue Details WBOS/NBOS-EO/EC, modified tandem EO Reps/Duration 5 min Comments added HT vertical and horizontal, cued posture Gait Training Gait Activity Cones Description Figuring-8 around 6 cones Surface 4x Treatment Focus changing directions w/o festination 4 Description hurdles Distance/Duration 10x Comments Big stepping fwd/lateral working on using no hand held support Neuro Re-Education Treatment Balance Activities Balance Details standing tapping cones with one foot Surface solid Reps/Duration 10x rhonda Comments cones fwd 4 Details Stride stance a/p weightshift Comments With alternating arm reach PT-OP-T Assessment and Plan Start: 08/06/20 07:45 Freq: Status: Active Protocol: Document 09/22/20 14:17 AMB (Rec: 09/22/20 15:29 AMB [id number]) Physical Therapy Assessment Goals Three Impairment Gait Short Term Goal (STG) Hoang will show decreased fall risk by ambulating around obstacles without a shuffling gait pattern. PROGRESS MADE- intermittent STG Duration 5 weeks Penitentiary Goal (LTG) Hoang will ambulate at least 1,000 feet in 6 minutes without loss of balance or need for physical assistance. LTG Duration 10 weeks Two Impairment Bed mobility Mechanical And Auto Body Car Checker Goal (LTG) Hoang will perform all bed mobility without physical assistance. PROGRESS MADE- intermittent LTG Duration 10 weeks One Impairment Sit to stand Short Term Goal (STG) Hoang will move from sit to stand from a standard height chair without heavy use of the back of his knees pushing into the chair. PROGRESS MADE STG Duration 5 weeks Mechanical And Auto Body Car Checker Goal (LTG) Hoang will improve his 5x sit to stand time to 20 seconds or less. LTG Duration MET Assessment Summary Assessment Hoang has improved his TUG, 5xsit to stand and 10MWT times , with biggest improvement in 5xsit to stand. He is still a fall risk when it comes to navigating crowded areas that require multiple changes in direction, but once he gets walking in a straight line, he is doing quite well. We will continue to focus physical therapy on higher level transfers, higher level balance with avoiding festinating/shuffling gait pattern to help him return to his functional level before his recent shoulder fracture. Physical Therapy Plan Next Visit Focus/Plan Next Note Type Treatment Note Next Visit Plan Try red clips on shuttle balance. Continue transfer training; progress balance and gait activities working on hovering hands in parallel bars
--- NOTE | 2020-09-22 16:03 | PT.OPPN ---
Current Diagnoses Parkinson's disease (09/22/20) Repeated falls (09/22/20) Physical Therapy Progress Note PT-OP-A Visit Information Start: 08/06/20 07:45 Freq: Status: Active Protocol: Document 09/22/20 14:17 AMB (Rec: 09/22/20 15:29 AMB [id number]) Out-Patient Physical Therapy Visit Information Visit Information Visit Type Progress Note Visit Start Time 14:15 Visit Stop Time 15:00 Total Visit Minutes 45 Visit Number 9 Number of WAFER CLEANER Visits 0 PT-OP-B Current Condition Start: 08/06/20 07:45 Freq: Status: Active Protocol: Document 08/06/20 14:16 AMB (Rec: 08/06/20 14:30 AMB [id number]) Current Condition History of Current Condition Onset Date May 30, 2020 Current Complaints reduced mobility s/p L humerus fracture History of Current Condition Hoang attends PT with decreased moblity s/p recent L humerus fracture due to fall, tripping over laundry 05/30. Fell out bed once since then. Currently walking inside 10 minutes a day, previously walking in the community 30 minutes/ day. Was wearing a sling until end june when got repeat X-ray. Pt reports sitting in the recliner most of the day, it is a power lift chair, so it helps him move from sit to stand. Pt feels sleepy most of the day. Does walk around the room a little, but does get help with showering and with bed mobility. L arm is painful at rest, when moved overhead increases pain. R arm is more affected with parkinson's making using a walker very difficult. Prior Treatments and Tests X-ray:There is a left humeral head and neck fracture with superior migration of the distal fracture fragment. The alignment is stable compared to 06/11/2020. No suspicious bony lesions. 07/17 Treatment Goals Patient/Caregiver Goals Get back to walking, was previously walking 30 minutes a day outside. Prior Functional Status Baseline Function- ADL's Modified Independent Baseline Function- Mobility Modified Independent Current Functional Impairments (Reported) Functional Limitations- ADL's Requires physical assist to get into bed due to L shoulder pain, physical assist with showering. Describes what sounds like CGA with ambulation, although does ambulate short distances around his room independently. Personal Factors Other Personal Factors That May Effect Lives in assisted living, Therapy/Recovery feels limited to walking 10 minutes/day because that is what the aides have time to help with PT-OP-C Subjective Start: 08/06/20 07:45 Freq: Status: Active Protocol: Document 09/22/20 14:15 AMB (Rec: 09/22/20 15:57 AMB [email or web address]) OP-PT Subjective Patient Comments Patient Comments Hoang states he did not sleep well last night. He is walking 15 minutes/day at his assisted living facility without assistance, he is doing sit ups in bed and doing some biceps curls with light weights. PT-OP-E Functional Tests Start: 08/06/20 07:45 Freq: Status: Active Protocol: Document 09/22/20 14:15 AMB (Rec: 09/22/20 15:53 AMB [email or web address]) Functional Tests 10 Meter Walk Test Distance 7 seconds Device Used none Five Times Sit to Stand Test Score 19 sec Timed Up and Go (TUG) Score 14.5 PT-OP-G Mobility & Gait Start: 08/06/20 07:45 Freq: Status: Active Protocol: Document 08/06/20 14:15 AMB (Rec: 08/08/20 10:12 AMB [id number]) OP Mobility Evaluation Bed Mobility Supine to and from Sit Lul due to pain from L shoulder Transfers Sit to Stand Requires multiple attempts, poor form Bed to Chair Transfers multiple shuffling steps OP Gait Assessment Comments Gait Comments Once Hoang starts walking, he walks quite well in a straight line. His gait is much more precarious in small spaces and when he first starts, or with turns or when moving around obstacles. He is more of a fall risk when first starting out or when negotiating around obstacles, but when he can walk in a straight line has good step length and ami considering his advancing Parkinson's. PT-OP-J Posture/Palpation/Skin Start: 08/06/20 07:45 Freq: Status: Active Protocol: Document 08/06/20 14:15 AMB (Rec: 08/08/20 11:16 AMB [id number]) Posture Evaluation Comments Posture Comments Forward shoulders, forward head. Difficulty actively extending fingers in R hand but does have PROM available to do so. PT-OP-M Strength Start: 08/06/20 07:45 Freq: Status: Active Protocol: Document 08/06/20 14:15 AMB (Rec: 08/08/20 11:16 AMB [id number]) Hip Strength Hip Manual Muscle Testing Right Flexion (L2) 4- Good- Extension (S1) 3+ Fair+ Abduction 4- Good- Left Flexion (L2) 4- Good- Extension (S1) 3+ Fair+ Abduction 4- Good- Knee Strength Knee Manual Muscle Testing Right Flexion (S2) 5 Normal Extension (L3) 5 Normal Left Flexion (S2) 5 Normal Extension (L3) 5 Normal PT-OP-T Assessment and Plan Start: 08/06/20 07:45 Freq: Status: Active Protocol: Document 09/22/20 14:17 AMB (Rec: 09/22/20 15:29 AMB [id number]) Physical Therapy Assessment Goals Three Impairment Gait Short Term Goal (STG) Hoang will show decreased fall risk by ambulating around obstacles without a shuffling gait pattern. PROGRESS MADE- intermittent STG Duration 5 weeks Rhinestone Setter Goal (LTG) Hoang will ambulate at least 1,000 feet in 6 minutes without loss of balance or need for physical assistance. LTG Duration 10 weeks Two Impairment Bed mobility Jail Goal (LTG) Hoang will perform all bed mobility without physical assistance. PROGRESS MADE- intermittent LTG Duration 10 weeks One Impairment Sit to stand Short Term Goal (STG) Hoang will move from sit to stand from a standard height chair without heavy use of the back of his knees pushing into the chair. PROGRESS MADE STG Duration 5 weeks Jail Goal (LTG) Hoang will improve his 5x sit to stand time to 20 seconds or less. LTG Duration MET Assessment Summary Assessment Hoang has improved his TUG, 5xsit to stand and 10MWT times , with biggest improvement in 5xsit to stand. He is still a fall risk when it comes to navigating crowded areas that require multiple changes in direction, but once he gets walking in a straight line, he is doing quite well. We will continue to focus physical therapy on higher level transfers, higher level balance with avoiding festinating/shuffling gait pattern to help him return to his functional level before his recent shoulder fracture. Physical Therapy Plan Next Visit Focus/Plan Next Note Type Treatment Note Next Visit Plan Try red clips on shuttle balance. Continue transfer training; progress balance and gait activities working on hovering hands in parallel bars
--- NOTE | 2020-09-26 14:25 | PT.OTN ---
Current Diagnoses Parkinson's disease (09/26/20) Repeated falls (09/26/20) Physical Therapy Treatment Note PT-OP-A Visit Information Start: 08/06/20 07:45 Freq: Status: Active Protocol: Document 09/26/20 16:09 MA (Rec: 09/26/20 16:31 MA [email or web address]) Out-Patient Physical Therapy Visit Information Visit Information Visit Type Treatment Note Visit Start Time 13:41 Visit Stop Time 14:22 Total Visit Minutes 41 Visit Number 10 Number of HOSPICE NURSE Visits 1 PT-OP-B Current Condition Start: 08/06/20 07:45 Freq: Status: Active Protocol: Document 08/06/20 14:16 AMB (Rec: 08/06/20 14:30 AMB [id number]) Current Condition History of Current Condition Onset Date May 30, 2020 Current Complaints reduced mobility s/p L humerus fracture History of Current Condition Hoang attends PT with decreased moblity s/p recent L humerus fracture due to fall, tripping over laundry 05/30. Fell out bed once since then. Currently walking inside 10 minutes a day, previously walking in the community 30 minutes/ day. Was wearing a sling until end june when got repeat X-ray. Pt reports sitting in the recliner most of the day, it is a power lift chair, so it helps him move from sit to stand. Pt feels sleepy most of the day. Does walk around the room a little, but does get help with showering and with bed mobility. L arm is painful at rest, when moved overhead increases pain. R arm is more affected with parkinson's making using a walker very difficult. Prior Treatments and Tests X-ray:There is a left humeral head and neck fracture with superior migration of the distal fracture fragment. The alignment is stable compared to 06/11/2020. No suspicious bony lesions. 07/17 Treatment Goals Patient/Caregiver Goals Get back to walking, was previously walking 30 minutes a day outside. Prior Functional Status Baseline Function- ADL's Modified Independent Baseline Function- Mobility Modified Independent Current Functional Impairments (Reported) Functional Limitations- ADL's Requires physical assist to get into bed due to L shoulder pain, physical assist with showering. Describes what sounds like CGA with ambulation, although does ambulate short distances around his room independently. Personal Factors Other Personal Factors That May Effect Lives in assisted living, Therapy/Recovery feels limited to walking 10 minutes/day because that is what the aides have time to help with PT-OP-C Subjective Start: 08/06/20 07:45 Freq: Status: Active Protocol: Document 09/26/20 16:09 MA (Rec: 09/26/20 16:31 MA [email or web address]) OP-PT Subjective Patient Comments Patient Comments Hoang arrives stating I had to walk here from [facility] because no one came to get me. PT-OP-E Functional Tests Start: 08/06/20 07:45 Freq: Status: Active Protocol: Document 09/22/20 14:15 AMB (Rec: 09/22/20 15:53 AMB [email or web address]) Functional Tests 10 Meter Walk Test Distance 7 seconds Device Used none Five Times Sit to Stand Test Score 19 sec Timed Up and Go (TUG) Score 14.5 PT-OP-G Mobility & Gait Start: 08/06/20 07:45 Freq: Status: Active Protocol: Document 08/06/20 14:15 AMB (Rec: 08/08/20 10:12 AMB [id number]) OP Mobility Evaluation Bed Mobility Supine to and from Sit Lul due to pain from L shoulder Transfers Sit to Stand Requires multiple attempts, poor form Bed to Chair Transfers multiple shuffling steps OP Gait Assessment Comments Gait Comments Once Hoang starts walking, he walks quite well in a straight line. His gait is much more precarious in small spaces and when he first starts, or with turns or when moving around obstacles. He is more of a fall risk when first starting out or when negotiating around obstacles, but when he can walk in a straight line has good step length and ami considering his advancing Parkinson's. PT-OP-J Posture/Palpation/Skin Start: 08/06/20 07:45 Freq: Status: Active Protocol: Document 08/06/20 14:15 AMB (Rec: 08/08/20 11:16 AMB [id number]) Posture Evaluation Comments Posture Comments Forward shoulders, forward head. Difficulty actively extending fingers in R hand but does have PROM available to do so. PT-OP-M Strength Start: 08/06/20 07:45 Freq: Status: Active Protocol: Document 08/06/20 14:15 AMB (Rec: 08/08/20 11:16 AMB [id number]) Hip Strength Hip Manual Muscle Testing Right Flexion (L2) 4- Good- Extension (S1) 3+ Fair+ Abduction 4- Good- Left Flexion (L2) 4- Good- Extension (S1) 3+ Fair+ Abduction 4- Good- Knee Strength Knee Manual Muscle Testing Right Flexion (S2) 5 Normal Extension (L3) 5 Normal Left Flexion (S2) 5 Normal Extension (L3) 5 Normal PT-OP-Q Treatments Start: 08/06/20 07:45 Freq: Status: Active Protocol: Document 09/26/20 16:09 MA (Rec: 09/26/20 16:31 MA [email or web address]) Gym Equipment Shuttle Balance Blue Details WBOS/NBOS-EO/EC, modified tandem EO Reps/Duration 5 min Comments Attempted red clips but pt was too flustered from walking to PT Therapeutic Exercises Other Exercises Sit<>Stand Reps/Minutes x5 Comments working on not using back of legs against chair Gait Training Gait Activity Walking Comments 1. walking around gym on firm surface 2x 2. walking on/over obstacles- 4 box, hurdles, foam pads with no hand held support ( 4x15 feet) Step Ups Treatment Focus working on using no hand held support Comments 4 step, fwd and lateral step ups 4 Description hurdles Distance/Duration 10x Comments Big stepping fwd/lateral working on using no hand held support Neuro Re-Education Treatment Balance Activities Balance Comments 1. SLS single hand on bar for support 2. kicking soccer ball at 2x2 target 3. Alternating feet tapping top of soccer ball without moving ball PT-OP-T Assessment and Plan Start: 08/06/20 07:45 Freq: Status: Active Protocol: Document 09/26/20 16:09 MA (Rec: 09/26/20 16:31 MA [email or web address]) Physical Therapy Assessment Goals Three Impairment Gait Short Term Goal (STG) Hoang will show decreased fall risk by ambulating around obstacles without a shuffling gait pattern. PROGRESS MADE- intermittent STG Duration 5 weeks Mold Engraver Goal (LTG) Hoang will ambulate at least 1,000 feet in 6 minutes without loss of balance or need for physical assistance. LTG Duration 10 weeks Two Impairment Bed mobility Mold Engraver Goal (LTG) Hoang will perform all bed mobility without physical assistance. PROGRESS MADE- intermittent LTG Duration 10 weeks One Impairment Sit to stand Short Term Goal (STG) Hoang will move from sit to stand from a standard height chair without heavy use of the back of his knees pushing into the chair. PROGRESS MADE STG Duration 5 weeks Mold Engraver Goal (LTG) Hoang will improve his 5x sit to stand time to 20 seconds or less. LTG Duration MET Assessment Summary Assessment Hoang arrived aggitated from walking to therapy today which affected balance in the beginning of session. Once he calmed down, Hoang was able to step over hurdles and onto 4 box both forward and laterally without any hand held support or LOB. He needed one hand on bar for SLS and began to get frustrated. Switched to kicking soccer ball alternating feet for balance work with pt in better mood. Physical Therapy Plan Frequency and Duration Frequency of Treatment 2x/Week Duration of Treatment 10 weeks Plan of Care Start Date 08/06/20 Plan of Care End Date 10/15/20 Therapeutic Interventions Therapeutic Interventions Balance Training,Gait Training ,Home Exercise Program,Manual Therapy,Neuromuscular Re- education,Self-Care/Home Management,Therapeutic Activities,Therapeutic Exercises Modalities Cold Pack/Ice Massage,Electric Stimulation,Hot Packs Next Visit Focus/Plan Next Note Type Treatment Note Next Visit Plan Try red clips on shuttle balance. Continue transfer training; progress balance and gait activities working on hovering hands in parallel bars
--- NOTE | 2020-09-29 16:07 | PT.OTN ---
Current Diagnoses Parkinson's disease (09/29/20) Repeated falls (09/29/20) Physical Therapy Treatment Note PT-OP-A Visit Information Start: 08/06/20 07:45 Freq: Status: Active Protocol: Document 09/29/20 14:15 AMB (Rec: 09/29/20 15:17 AMB [email or web address]) Out-Patient Physical Therapy Visit Information Visit Information Visit Type Treatment Note Visit Start Time 14:15 Visit Stop Time 15:00 Total Visit Minutes 45 Visit Number 11 Number of FRAME OPERATOR Visits 0 PT-OP-B Current Condition Start: 08/06/20 07:45 Freq: Status: Active Protocol: Document 08/06/20 14:16 AMB (Rec: 08/06/20 14:30 AMB [id number]) Current Condition History of Current Condition Onset Date May 30, 2020 Current Complaints reduced mobility s/p L humerus fracture History of Current Condition Hoang attends PT with decreased moblity s/p recent L humerus fracture due to fall, tripping over laundry 05/30. Fell out bed once since then. Currently walking inside 10 minutes a day, previously walking in the community 30 minutes/ day. Was wearing a sling until end june when got repeat X-ray. Pt reports sitting in the recliner most of the day, it is a power lift chair, so it helps him move from sit to stand. Pt feels sleepy most of the day. Does walk around the room a little, but does get help with showering and with bed mobility. L arm is painful at rest, when moved overhead increases pain. R arm is more affected with parkinson's making using a walker very difficult. Prior Treatments and Tests X-ray:There is a left humeral head and neck fracture with superior migration of the distal fracture fragment. The alignment is stable compared to 06/11/2020. No suspicious bony lesions. 07/17 Treatment Goals Patient/Caregiver Goals Get back to walking, was previously walking 30 minutes a day outside. Prior Functional Status Baseline Function- ADL's Modified Independent Baseline Function- Mobility Modified Independent Current Functional Impairments (Reported) Functional Limitations- ADL's Requires physical assist to get into bed due to L shoulder pain, physical assist with showering. Describes what sounds like CGA with ambulation, although does ambulate short distances around his room independently. Personal Factors Other Personal Factors That May Effect Lives in assisted living, Therapy/Recovery feels limited to walking 10 minutes/day because that is what the aides have time to help with PT-OP-C Subjective Start: 08/06/20 07:45 Freq: Status: Active Protocol: Document 09/29/20 14:15 AMB (Rec: 09/29/20 16:07 AMB [id number]) OP-PT Subjective Patient Comments Patient Comments Pt is wondering what exercises he can safely do in his room. He is hoping to be able to walk outside again in the spring. He is seeing his doctor on and will bring up his shoulder pain. PT-OP-E Functional Tests Start: 08/06/20 07:45 Freq: Status: Active Protocol: Document 09/22/20 14:15 AMB (Rec: 09/22/20 15:53 AMB [email or web address]) Functional Tests 10 Meter Walk Test Distance 7 seconds Device Used none Five Times Sit to Stand Test Score 19 sec Timed Up and Go (TUG) Score 14.5 PT-OP-G Mobility & Gait Start: 08/06/20 07:45 Freq: Status: Active Protocol: Document 08/06/20 14:15 AMB (Rec: 08/08/20 10:12 AMB [id number]) OP Mobility Evaluation Bed Mobility Supine to and from Sit uLl due to pain from L shoulder Transfers Sit to Stand Requires multiple attempts, poor form Bed to Chair Transfers multiple shuffling steps OP Gait Assessment Comments Gait Comments Once Hoang starts walking, he walks quite well in a straight line. His gait is much more precarious in small spaces and when he first starts, or with turns or when moving around obstacles. He is more of a fall risk when first starting out or when negotiating around obstacles, but when he can walk in a straight line has good step length and ami considering his advancing Parkinson's. PT-OP-J Posture/Palpation/Skin Start: 08/06/20 07:45 Freq: Status: Active Protocol: Document 08/06/20 14:15 AMB (Rec: 08/08/20 11:16 AMB [id number]) Posture Evaluation Comments Posture Comments Forward shoulders, forward head. Difficulty actively extending fingers in R hand but does have PROM available to do so. PT-OP-M Strength Start: 08/06/20 07:45 Freq: Status: Active Protocol: Document 08/06/20 14:15 AMB (Rec: 08/08/20 11:16 AMB [id number]) Hip Strength Hip Manual Muscle Testing Right Flexion (L2) 4- Good- Extension (S1) 3+ Fair+ Abduction 4- Good- Left Flexion (L2) 4- Good- Extension (S1) 3+ Fair+ Abduction 4- Good- Knee Strength Knee Manual Muscle Testing Right Flexion (S2) 5 Normal Extension (L3) 5 Normal Left Flexion (S2) 5 Normal Extension (L3) 5 Normal PT-OP-Q Treatments Start: 08/06/20 07:45 Freq: Status: Active Protocol: Document 09/29/20 14:15 AMB (Rec: 09/29/20 16:07 AMB [id number]) Therapeutic Exercises Supine Exercises 1 Supine Exercise Name hamstring stretch Reps/Minutes 30x2 Sitting Exercises 3 Sitting Exercise Name hamstring stretch Comments 30x2 Standing Exercises 8 Standing Exercise Name calf stretch Reps/Minutes 30x4 7 Standing Exercise Name high marching Comments next to counter-hovering hand over 6 Standing Exercise Name weight shift in stride stance Comments next to counter- hover hand over Other Exercises Sit<>Stand Reps/Minutes x5 Comments working on not using back of legs against chair Gait Training Gait Activity Walking Comments 1. walking around gym on firm surface 2x 2. walking on/over obstacles- 4 box/8 box, hurdles, (4x15 feet) Step Ups Treatment Focus working on using no hand held support Comments 4 step, fwd and lateral step ups 6 tap ups 4 Description hurdles Distance/Duration 10x Comments Big stepping fwd/lateral working on using no hand held support PT-OP-T Assessment and Plan Start: 08/06/20 07:45 Freq: Status: Active Protocol: Document 09/29/20 14:15 AMB (Rec: 09/29/20 16:07 AMB [id number]) Physical Therapy Assessment Goals Three Impairment Gait Short Term Goal (STG) Hoang will show decreased fall risk by ambulating around obstacles without a shuffling gait pattern. PROGRESS MADE- intermittent STG Duration 5 weeks Community Health Nursing Director Goal (LTG) Hoang will ambulate at least 1,000 feet in 6 minutes without loss of balance or need for physical assistance. LTG Duration 10 weeks Two Impairment Bed mobility Longterm Goal (LTG) Hoang will perform all bed mobility without physical assistance. PROGRESS MADE- intermittent LTG Duration 10 weeks One Impairment Sit to stand Short Term Goal (STG) Hoang will move from sit to stand from a standard height chair without heavy use of the back of his knees pushing into the chair. PROGRESS MADE STG Duration 5 weeks Longterm Goal (LTG) Hoang will improve his 5x sit to stand time to 20 seconds or less. LTG Duration MET Assessment Summary Assessment Hoang is starting to realize that his gait and balance are improving, and is showing extra motivation to, exercise at least 1x/day. Introduced stretching today, for a safe exercise he could do at home that could help with posture. Physical Therapy Plan Frequency and Duration Frequency of Treatment 2x/Week Duration of Treatment 10 weeks Plan of Care Start Date 08/06/20 Plan of Care End Date 10/15/20 Therapeutic Interventions Therapeutic Interventions Balance Training,Gait Training ,Home Exercise Program,Manual Therapy,Neuromuscular Re- education,Self-Care/Home Management,Therapeutic Activities,Therapeutic Exercises Modalities Cold Pack/Ice Massage,Electric Stimulation,Hot Packs Next Visit Focus/Plan Next Note Type Treatment Note Next Visit Plan Try red clips on shuttle balance. Continue transfer training; progress balance and gait activities working on hovering hands in parallel bars
--- NOTE | 2020-10-01 16:00 | PT.OTN ---
Current Diagnoses Parkinson's disease (10/01/20) Repeated falls (10/01/20) Physical Therapy Treatment Note PT-OP-A Visit Information Start: 08/06/20 07:45 Freq: Status: Active Protocol: Document 10/01/20 16:50 MA (Rec: 10/01/20 17:09 MA [email or web address]) Out-Patient Physical Therapy Visit Information Visit Information Visit Type Treatment Note Visit Start Time 15:16 Visit Stop Time 15:58 Total Visit Minutes 42 Visit Number 12 Number of MAINTENANCE PLUMBER Visits 1 PT-OP-B Current Condition Start: 08/06/20 07:45 Freq: Status: Active Protocol: Document 08/06/20 14:16 AMB (Rec: 08/06/20 14:30 AMB [id number]) Current Condition History of Current Condition Onset Date May 30, 2020 Current Complaints reduced mobility s/p L humerus fracture History of Current Condition Hoang attends PT with decreased moblity s/p recent L humerus fracture due to fall, tripping over laundry 05/30. Fell out bed once since then. Currently walking inside 10 minutes a day, previously walking in the community 30 minutes/ day. Was wearing a sling until end june when got repeat X-ray. Pt reports sitting in the recliner most of the day, it is a power lift chair, so it helps him move from sit to stand. Pt feels sleepy most of the day. Does walk around the room a little, but does get help with showering and with bed mobility. L arm is painful at rest, when moved overhead increases pain. R arm is more affected with parkinson's making using a walker very difficult. Prior Treatments and Tests X-ray:There is a left humeral head and neck fracture with superior migration of the distal fracture fragment. The alignment is stable compared to 06/11/2020. No suspicious bony lesions. 07/17 Treatment Goals Patient/Caregiver Goals Get back to walking, was previously walking 30 minutes a day outside. Prior Functional Status Baseline Function- ADL's Modified Independent Baseline Function- Mobility Modified Independent Current Functional Impairments (Reported) Functional Limitations- ADL's Requires physical assist to get into bed due to L shoulder pain, physical assist with showering. Describes what sounds like CGA with ambulation, although does ambulate short distances around his room independently. Personal Factors Other Personal Factors That May Effect Lives in assisted living, Therapy/Recovery feels limited to walking 10 minutes/day because that is what the aides have time to help with PT-OP-C Subjective Start: 08/06/20 07:45 Freq: Status: Active Protocol: Document 10/01/20 16:50 MA (Rec: 10/01/20 17:09 MA [email or web address]) OP-PT Subjective Patient Comments Patient Comments Pt reports doing his HEP and stretching since last session. PT-OP-E Functional Tests Start: 08/06/20 07:45 Freq: Status: Active Protocol: Document 09/22/20 14:15 AMB (Rec: 09/22/20 15:53 AMB [email or web address]) Functional Tests 10 Meter Walk Test Distance 7 seconds Device Used none Five Times Sit to Stand Test Score 19 sec Timed Up and Go (TUG) Score 14.5 PT-OP-G Mobility & Gait Start: 08/06/20 07:45 Freq: Status: Active Protocol: Document 08/06/20 14:15 AMB (Rec: 08/08/20 10:12 AMB [id number]) OP Mobility Evaluation Bed Mobility Supine to and from Sit Lul due to pain from L shoulder Transfers Sit to Stand Requires multiple attempts, poor form Bed to Chair Transfers multiple shuffling steps OP Gait Assessment Comments Gait Comments Once Hoang starts walking, he walks quite well in a straight line. His gait is much more precarious in small spaces and when he first starts, or with turns or when moving around obstacles. He is more of a fall risk when first starting out or when negotiating around obstacles, but when he can walk in a straight line has good step length and ami considering his advancing Parkinson's. PT-OP-J Posture/Palpation/Skin Start: 08/06/20 07:45 Freq: Status: Active Protocol: Document 08/06/20 14:15 AMB (Rec: 08/08/20 11:16 AMB [id number]) Posture Evaluation Comments Posture Comments Forward shoulders, forward head. Difficulty actively extending fingers in R hand but does have PROM available to do so. PT-OP-M Strength Start: 08/06/20 07:45 Freq: Status: Active Protocol: Document 08/06/20 14:15 AMB (Rec: 08/08/20 11:16 AMB [id number]) Hip Strength Hip Manual Muscle Testing Right Flexion (L2) 4- Good- Extension (S1) 3+ Fair+ Abduction 4- Good- Left Flexion (L2) 4- Good- Extension (S1) 3+ Fair+ Abduction 4- Good- Knee Strength Knee Manual Muscle Testing Right Flexion (S2) 5 Normal Extension (L3) 5 Normal Left Flexion (S2) 5 Normal Extension (L3) 5 Normal PT-OP-Q Treatments Start: 08/06/20 07:45 Freq: Status: Active Protocol: Document 10/01/20 16:50 MA (Rec: 10/01/20 17:09 MA [email or web address]) Therapeutic Exercises Standing Exercises 8 Standing Exercise Name calf raises and calf stretch on stairs Side bilateral Reps/Minutes 10x Comments last one held stretch for 30 sec 7 Standing Exercise Name high marching Comments next to counter-hovering hand over 6 Standing Exercise Name weight shift in stride stance Comments next to counter- hover hand over Gait Training Gait Activity Walking Treatment Focus Curb management Comments Walking outside on gravel, grass, over curbs, and through parking lot Step Ups Treatment Focus working on using no hand held support Comments 4 step, fwd and lateral step ups 6 tap ups Manual Therapy Treatment Soft Tissue Mobilization HS & Gastroc Body Location Lasha HS and gastrocs Mobilization Type Cross-Friction,Rolling Intensity/Depth Moderate Body Position Supine Comments Supine with leg up on therapists shd PT-OP-T Assessment and Plan Start: 08/06/20 07:45 Freq: Status: Active Protocol: Document 10/01/20 16:50 MA (Rec: 10/01/20 17:09 MA [email or web address]) Physical Therapy Assessment Goals Three Impairment Gait Short Term Goal (STG) Hoang will show decreased fall risk by ambulating around obstacles without a shuffling gait pattern. PROGRESS MADE- intermittent STG Duration 5 weeks Fpc Goal (LTG) Hoang will ambulate at least 1,000 feet in 6 minutes without loss of balance or need for physical assistance. LTG Duration 10 weeks Two Impairment Bed mobility Chief Clerk Shelter Goal (LTG) Hoang will perform all bed mobility without physical assistance. PROGRESS MADE- intermittent LTG Duration 10 weeks One Impairment Sit to stand Short Term Goal (STG) Hoang will move from sit to stand from a standard height chair without heavy use of the back of his knees pushing into the chair. PROGRESS MADE STG Duration 5 weeks Chief Clerk Shelter Goal (LTG) Hoang will improve his 5x sit to stand time to 20 seconds or less. LTG Duration MET Assessment Summary Assessment Hoang is more motivated to work today and has been doing his new HEP stretch at home. Since he would like to return to walking outside when the weather is nice, focused gait session on walking outside over gravel, grass and curbs. Pt had good balance stepping up/down from curbs and was able to walk on both grass and gravel without any LOB today. Worked on STM of bilateral HS and calves to help improve stride length with pt stating it feels so much better afterward. Hoang did not need to hold onto bar today during step ups both forward and laterally showing good improvement with balance and coordination. Physical Therapy Plan Frequency and Duration Frequency of Treatment 2x/Week Duration of Treatment 10 weeks Plan of Care Start Date 08/06/20 Plan of Care End Date 10/15/20 Therapeutic Interventions Therapeutic Interventions Balance Training,Gait Training ,Home Exercise Program,Manual Therapy,Neuromuscular Re- education,Self-Care/Home Management,Therapeutic Activities,Therapeutic Exercises Modalities Cold Pack/Ice Massage,Electric Stimulation,Hot Packs Next Visit Focus/Plan Next Note Type Treatment Note Next Visit Plan Add 1-2 strengthening exercises to HEP such as hip abd and sit<>stands. If weather permits, work on curb management outside and continue with STM of HS/calves . Try returning to red clips on shuttle balance now that pt 's confidence is better.
--- NOTE | 2020-10-06 15:04 | PT.OTN ---
Current Diagnoses Parkinson's disease (10/06/20) Pain in left shoulder (10/06/20) Repeated falls (10/06/20) Physical Therapy Treatment Note PT-OP-A Visit Information Start: 08/06/20 07:45 Freq: Status: Active Protocol: Document 10/06/20 13:30 AMB (Rec: 10/06/20 15:04 AMB [email or web address]) Out-Patient Physical Therapy Visit Information Visit Information Visit Type Re-Evaluation Visit Start Time 13:30 Visit Stop Time 14:20 Total Visit Minutes 50 Visit Number 13 Number of NUCLEAR MEDICINE SPECIALIST Visits 0 PT-OP-B Current Condition Start: 08/06/20 07:45 Freq: Status: Active Protocol: Document 08/06/20 14:16 AMB (Rec: 08/06/20 14:30 AMB [id number]) Current Condition History of Current Condition Onset Date May 30, 2020 Current Complaints reduced mobility s/p L humerus fracture History of Current Condition Hoang attends PT with decreased moblity s/p recent L humerus fracture due to fall, tripping over laundry 05/30. Fell out bed once since then. Currently walking inside 10 minutes a day, previously walking in the community 30 minutes/ day. Was wearing a sling until end of June when got repeat X-ray. Pt reports sitting in the recliner most of the day, it is a power lift chair, so it helps him move from sit to stand. Pt feels sleepy most of the day. Does walk around the room a little, but does get help with showering and with bed mobility. L arm is painful at rest, when moved overhead increases pain. R arm is more affected with parkinson's making using a walker very difficult. Prior Treatments and Tests X-ray:There is a left humeral head and neck fracture with superior migration of the distal fracture fragment. The alignment is stable compared to 06/11/2020. No suspicious bony lesions. 07/17 Treatment Goals Patient/Caregiver Goals Get back to walking, was previously walking 30 minutes a day outside. Prior Functional Status Baseline Function- ADL's Modified Independent Baseline Function- Mobility Modified Independent Current Functional Impairments (Reported) Functional Limitations- ADL's Requires physical assist to get into bed due to L shoulder pain, physical assist with showering. Describes what sounds like CGA with ambulation, although does ambulate short distances around his room independently. Personal Factors Other Personal Factors That May Effect Lives in assisted living, Therapy/Recovery feels limited to walking 10 minutes/day because that is what the aides have time to help with PT-OP-C Subjective Start: 08/06/20 07:45 Freq: Status: Active Protocol: Document 10/06/20 13:30 AMB (Rec: 10/06/20 15:04 AMB [email or web address]) OP-PT Subjective Patient Comments Patient Comments Pt reports he saw his PCP saw him and is hoping that PT can work with him on his arm. PT-OP-E Functional Tests Start: 08/06/20 07:45 Freq: Status: Active Protocol: Document 09/22/20 14:15 AMB (Rec: 09/22/20 15:53 AMB [email or web address]) Functional Tests 10 Meter Walk Test Distance 7 seconds Device Used none Five Times Sit to Stand Test Score 19 sec Timed Up and Go (TUG) Score 14.5 PT-OP-G Mobility & Gait Start: 08/06/20 07:45 Freq: Status: Active Protocol: Document 08/06/20 14:15 AMB (Rec: 08/08/20 10:12 AMB [id number]) OP Mobility Evaluation Bed Mobility Supine to and from Sit Lul due to pain from L shoulder Transfers Sit to Stand Requires multiple attempts, poor form Bed to Chair Transfers multiple shuffling steps OP Gait Assessment Comments Gait Comments Once Hoang starts walking, he walks quite well in a straight line. His gait is much more precarious in small spaces and when he first starts, or with turns or when moving around obstacles. He is more of a fall risk when first starting out or when negotiating around obstacles, but when he can walk in a straight line has good step length and ami considering his advancing Parkinson's. PT-OP-J Posture/Palpation/Skin Start: 08/06/20 07:45 Freq: Status: Active Protocol: Document 08/06/20 14:15 AMB (Rec: 08/08/20 11:16 AMB [id number]) Posture Evaluation Comments Posture Comments Forward shoulders, forward head. Difficulty actively extending fingers in R hand but does have PROM available to do so. PT-OP-K Range of Motion Start: 08/06/20 07:45 Freq: Status: Active Protocol: Document 10/06/20 13:35 AMB (Rec: 10/06/20 14:30 AMB [id number]) Shoulder Goniometric Range of Motion Shoulder Right Active Testing Position Sitting Flexion 110 Abduction 110 Left Active Testing Position Sitting Flexion 110 Abduction 90 Comments painful 2-3/10 with movement. 0 degrees IR at 90 degrees abduction and painful PT-OP-M Strength Start: 08/06/20 07:45 Freq: Status: Active Protocol: Document 08/06/20 14:15 AMB (Rec: 08/08/20 11:16 AMB [id number]) Hip Strength Hip Manual Muscle Testing Right Flexion (L2) 4- Good- Extension (S1) 3+ Fair+ Abduction 4- Good- Left Flexion (L2) 4- Good- Extension (S1) 3+ Fair+ Abduction 4- Good- Knee Strength Knee Manual Muscle Testing Right Flexion (S2) 5 Normal Extension (L3) 5 Normal Left Flexion (S2) 5 Normal Extension (L3) 5 Normal PT-OP-Q Treatments Start: 08/06/20 07:45 Freq: Status: Active Protocol: Document 10/06/20 13:30 AMB (Rec: 10/06/20 15:04 AMB [email or web address]) Therapeutic Exercises Supine Exercises 5 Supine Exercise Name serratus punch Resistance 2# Reps/Minutes 10 3 Supine Exercise Name pec stretch in supine Reps/Minutes 30x4 2 Supine Exercise Name AAROM flexion/ abduction Reps/Minutes 10 Comments with wand Sitting Exercises 2 Sitting Exercise Name t band rows Resistance #3 Reps/Minutes 10 Comments heavy cues for form Standing Exercises 5 Standing Exercise Name counter stretch into shoulder flexion Reps/Minutes 30x2 Other Exercises Sit<>Stand Reps/Minutes x5 Comments working on not using back of legs against chair Gait Training Gait Activity Walking Comments 1. walking around gym on firm surface 2x PT-OP-T Assessment and Plan Start: 08/06/20 07:45 Freq: Status: Active Protocol: Document 10/06/20 13:30 AMB (Rec: 10/06/20 15:04 AMB [email or web address]) Physical Therapy Assessment Goals Four Impairment Shoulder Short Term Goal (STG) Hoang will improve his active L shoulder flexion to 130 degrees without an increase in pain. STG Duration 4 weeks Training And Development Professional Goal (LTG) Hoang will improve his active abduction to 100 degrees without an increase in pain. LTG Duration 8 weeks Three Impairment Gait Short Term Goal (STG) Hoang will show decreased fall risk by ambulating around obstacles without a shuffling gait pattern. PROGRESS MADE- intermittent STG Duration 5 weeks Skilled Nursing Goal (LTG) Hoang will ambulate at least 1,000 feet in 6 minutes without loss of balance or need for physical assistance. LTG Duration 10 weeks Two Impairment Bed mobility Training And Development Professional Goal (LTG) Hoang will perform all bed mobility without physical assistance. PROGRESS MADE- intermittent LTG Duration 10 weeks One Impairment Sit to stand Short Term Goal (STG) Hoang will move from sit to stand from a standard height chair without heavy use of the back of his knees pushing into the chair. PROGRESS MADE STG Duration 5 weeks Training And Development Professional Goal (LTG) Hoang will improve his 5x sit to stand time to 20 seconds or less. LTG Duration MET Assessment Summary Assessment Hoang is showing good improvement with his gait and balance. He is wanting to work on his left shoulder pain s/p fracture. His right arm is limited due to the parkinson's and it is difficult for him to reach and get into bed due to the left shoulder weakness and pain. Pt will continue to work on his gait/balance with the goal of community ambulation and start to work on his left shoulder strength and mobility . Physical Therapy Plan Frequency and Duration Frequency of Treatment 2x/Week Duration of Treatment 10 weeks Plan of Care Start Date 10/06/20 Plan of Care End Date 12/15/20 Therapeutic Interventions Therapeutic Interventions Balance Training,Gait Training ,Home Exercise Program,Manual Therapy,Neuromuscular Re- education,Self-Care/Home Management,Therapeutic Activities,Therapeutic Exercises Modalities Cold Pack/Ice Massage,Electric Stimulation,Hot Packs Next Visit Focus/Plan Next Note Type Treatment Note Next Visit Plan Follow up on new HEP of shoulder AAROM, stretching. Add 1-2 strengthening exercises to HEP such as hip abd and sit<>stands. If weather permits, work on curb management outside and continue with STM of HS/calves . Try returning to red clips on shuttle balance now that pt 's confidence is better.
--- NOTE | 2020-10-06 15:05 | PT.OPPOC ---
Physical, Occupational & Speech Therapy At [facility] Current Diagnoses Parkinson's disease (10/06/20) Pain in left shoulder (10/06/20) Repeated falls (10/06/20) Visit Care Team Role Provider Type Steff Jacobson DO Attending Provider Physician Primary Care Provider Referring Provider [facility]ty: [facility] Address: [address] [place] [address], [id number] Email: [email or web address] Plan Of Care PT-OP-T Assessment and Plan Start: 08/06/20 07:45 Freq: Status: Active Protocol: Document 10/06/20 13:30 AMB (Rec: 10/06/20 15:04 AMB [email or web address]) Physical Therapy Assessment Goals Four Impairment Shoulder Short Term Goal (STG) Hoang will improve his active L shoulder flexion to 130 degrees without an increase in pain. STG Duration 4 weeks Transit Coach Operator Goal (LTG) Hoang will improve his active abduction to 100 degrees without an increase in pain. LTG Duration 8 weeks Three Impairment Gait Short Term Goal (STG) Hoang will show decreased fall risk by ambulating around obstacles without a shuffling gait pattern. PROGRESS MADE- intermittent STG Duration 5 weeks Transit Coach Operator Goal (LTG) Hoang will ambulate at least 1,000 feet in 6 minutes without loss of balance or need for physical assistance. LTG Duration 10 weeks Two Impairment Bed mobility Jail Goal (LTG) Hoang will perform all bed mobility without physical assistance. PROGRESS MADE- intermittent LTG Duration 10 weeks One Impairment Sit to stand Short Term Goal (STG) Hoang will move from sit to stand from a standard height chair without heavy use of the back of his knees pushing into the chair. PROGRESS MADE STG Duration 5 weeks Jail Goal (LTG) Hoang will improve his 5x sit to stand time to 20 seconds or less. LTG Duration MET Assessment Summary Assessment Hoang is showing good improvement with his gait and balance. He is wanting to work on his left shoulder pain s/p fracture. His right arm is limited due to the parkinson's and it is difficult for him to reach and get into bed due to the left shoulder weakness and pain. Pt will continue to work on his gait/balance with the goal of community ambulation and start to work on his left shoulder strength and mobility . Physical Therapy Plan Frequency and Duration Frequency of Treatment 2x/Week Duration of Treatment 10 weeks Plan of Care Start Date 10/06/20 Plan of Care End Date 12/15/20 Therapeutic Interventions Therapeutic Interventions Balance Training,Gait Training ,Home Exercise Program,Manual Therapy,Neuromuscular Re- education,Self-Care/Home Management,Therapeutic Activities,Therapeutic Exercises Modalities Cold Pack/Ice Massage,Electric Stimulation,Hot Packs Next Visit Focus/Plan Next Note Type Treatment Note Next Visit Plan Follow up on new HEP of shoulder AAROM, stretching. Add 1-2 strengthening exercises to HEP such as hip abd and sit<>stands. If weather permits, work on curb management outside and continue with STM of HS/calves . Try returning to red clips on shuttle balance now that pt 's confidence is better. Plan of Care Dates Plan of Care Start Date 10/06/20 Plan of Care End Date 12/15/20 Electronically Signed by: Marialuisa Culver, PT 10/06/20 [id number] Please Sign and Return: I have reviewed this Plan of Care and certify that the skilled therapy services above are required to meet the patient?s needs. Physician Signature Date Printed Name and Credentials Clinical Instructor Signature Printed Name and Credentials
--- NOTE | 2020-10-08 17:00 | PT.OTN ---
Current Diagnoses Parkinson's disease (10/08/20) Pain in left shoulder (10/08/20) Repeated falls (10/08/20) Physical Therapy Treatment Note PT-OP-A Visit Information Start: 08/06/20 07:45 Freq: Status: Active Protocol: Document 10/08/20 16:48 MA (Rec: 10/08/20 17:04 MA [email or web address]) Out-Patient Physical Therapy Visit Information Visit Information Visit Type Treatment Note Visit Start Time 16:00 Visit Stop Time 16:45 Total Visit Minutes 45 Visit Number 14 Number of DEVELOPMENT DIRECTOR Visits 1 PT-OP-B Current Condition Start: 08/06/20 07:45 Freq: Status: Active Protocol: Document 08/06/20 14:16 AMB (Rec: 08/06/20 14:30 AMB [id number]) Current Condition History of Current Condition Onset Date May 30, 2020 Current Complaints reduced mobility s/p L humerus fracture History of Current Condition Hoang attends PT with decreased moblity s/p recent L humerus fracture due to fall, tripping over laundry 05/30. Fell out bed once since then. Currently walking inside 10 minutes a day, previously walking in the community 30 minutes/ day. Was wearing a sling until end of June when got repeat X-ray. Pt reports sitting in the recliner most of the day, it is a power lift chair, so it helps him move from sit to stand. Pt feels sleepy most of the day. Does walk around the room a little, but does get help with showering and with bed mobility. L arm is painful at rest, when moved overhead increases pain. R arm is more affected with parkinson's making using a walker very difficult. Prior Treatments and Tests X-ray:There is a left humeral head and neck fracture with superior migration of the distal fracture fragment. The alignment is stable compared to 06/11/2020. No suspicious bony lesions. 07/17 Treatment Goals Patient/Caregiver Goals Get back to walking, was previously walking 30 minutes a day outside. Prior Functional Status Baseline Function- ADL's Modified Independent Baseline Function- Mobility Modified Independent Current Functional Impairments (Reported) Functional Limitations- ADL's Requires physical assist to get into bed due to L shoulder pain, physical assist with showering. Describes what sounds like CGA with ambulation, although does ambulate short distances around his room independently. Personal Factors Other Personal Factors That May Effect Lives in assisted living, Therapy/Recovery feels limited to walking 10 minutes/day because that is what the aides have time to help with PT-OP-C Subjective Start: 08/06/20 07:45 Freq: Status: Active Protocol: Document 10/08/20 16:48 MA (Rec: 10/08/20 17:04 MA [email or web address]) OP-PT Subjective Patient Comments Patient Comments Pt has been doing his new UE HEP but states I still can't move it very well PT-OP-E Functional Tests Start: 08/06/20 07:45 Freq: Status: Active Protocol: Document 09/22/20 14:15 AMB (Rec: 09/22/20 15:53 AMB [email or web address]) Functional Tests 10 Meter Walk Test Distance 7 seconds Device Used none Five Times Sit to Stand Test Score 19 sec Timed Up and Go (TUG) Score 14.5 PT-OP-G Mobility & Gait Start: 08/06/20 07:45 Freq: Status: Active Protocol: Document 08/06/20 14:15 AMB (Rec: 08/08/20 10:12 AMB [id number]) OP Mobility Evaluation Bed Mobility Supine to and from Sit Lul due to pain from L shoulder Transfers Sit to Stand Requires multiple attempts, poor form Bed to Chair Transfers multiple shuffling steps OP Gait Assessment Comments Gait Comments Once Hoang starts walking, he walks quite well in a straight line. His gait is much more precarious in small spaces and when he first starts, or with turns or when moving around obstacles. He is more of a fall risk when first starting out or when negotiating around obstacles, but when he can walk in a straight line has good step length and ami considering his advancing Parkinson's. PT-OP-J Posture/Palpation/Skin Start: 08/06/20 07:45 Freq: Status: Active Protocol: Document 08/06/20 14:15 AMB (Rec: 08/08/20 11:16 AMB [id number]) Posture Evaluation Comments Posture Comments Forward shoulders, forward head. Difficulty actively extending fingers in R hand but does have PROM available to do so. PT-OP-K Range of Motion Start: 08/06/20 07:45 Freq: Status: Active Protocol: Document 10/06/20 13:35 AMB (Rec: 10/06/20 14:30 AMB [id number]) Shoulder Goniometric Range of Motion Shoulder Right Active Testing Position Sitting Flexion 110 Abduction 110 Left Active Testing Position Sitting Flexion 110 Abduction 90 Comments painful 2-3/10 with movement. 0 degrees IR at 90 degrees abduction and painful PT-OP-M Strength Start: 08/06/20 07:45 Freq: Status: Active Protocol: Document 08/06/20 14:15 AMB (Rec: 08/08/20 11:16 AMB [id number]) Hip Strength Hip Manual Muscle Testing Right Flexion (L2) 4- Good- Extension (S1) 3+ Fair+ Abduction 4- Good- Left Flexion (L2) 4- Good- Extension (S1) 3+ Fair+ Abduction 4- Good- Knee Strength Knee Manual Muscle Testing Right Flexion (S2) 5 Normal Extension (L3) 5 Normal Left Flexion (S2) 5 Normal Extension (L3) 5 Normal PT-OP-Q Treatments Start: 08/06/20 07:45 Freq: Status: Active Protocol: Document 10/08/20 16:48 MA (Rec: 10/08/20 17:04 MA [email or web address]) Therapeutic Exercises Supine Exercises 3 Supine Exercise Name pec stretch in supine Reps/Minutes 30x4 2 Supine Exercise Name AAROM flexion/ abduction Reps/Minutes 10 Comments with wand Sitting Exercises Kira Sitting Exercise Name flexion & scaption Side bilateral Reps/Minutes 4' Comments pain during ABD- d/c Standing Exercises 5 Standing Exercise Name counter stretch into shoulder flexion Reps/Minutes 30x2 Other Exercises Sit<>Stand Reps/Minutes x5 Comments working on not using back of legs against chair Gait Training Gait Activity Walking Treatment Focus Curb management Comments Walking outside on gravel, grass, over curbs, and through parking lot Manual Therapy Treatment Soft Tissue Mobilization Shd Body Location L RTC, rhonda pecs Mobilization Type Sustained Pressure,Trigger Point Release Intensity/Depth Moderate Body Position Supine PT-OP-T Assessment and Plan Start: 08/06/20 07:45 Freq: Status: Active Protocol: Document 10/08/20 16:48 MA (Rec: 10/08/20 17:04 MA [email or web address]) Physical Therapy Assessment Goals Four Impairment Shoulder Short Term Goal (STG) Hoang will improve his active L shoulder flexion to 130 degrees without an increase in pain. STG Duration 4 weeks Clin Nurse Goal (LTG) Hoang will improve his active abduction to 100 degrees without an increase in pain. LTG Duration 8 weeks Three Impairment Gait Short Term Goal (STG) Hoang will show decreased fall risk by ambulating around obstacles without a shuffling gait pattern. PROGRESS MADE- intermittent STG Duration 5 weeks Clin Nurse Goal (LTG) Hoang will ambulate at least 1,000 feet in 6 minutes without loss of balance or need for physical assistance. LTG Duration 10 weeks Two Impairment Bed mobility Clin Nurse Goal (LTG) Hoang will perform all bed mobility without physical assistance. PROGRESS MADE- intermittent LTG Duration 10 weeks One Impairment Sit to stand Short Term Goal (STG) Hoang will move from sit to stand from a standard height chair without heavy use of the back of his knees pushing into the chair. PROGRESS MADE STG Duration 5 weeks [facility] Goal (LTG) Hoang will improve his 5x sit to stand time to 20 seconds or less. LTG Duration MET Assessment Summary Assessment Hoang is doing better with outdoor community ambulation needing only CGA over curbs and on grass hill, and SBA while walking on gravel or pavement. He had better ROM using kira for shd flexion and scaption but had pain over L lateral shd during ABD. Added in STM to rhonda pecs and L RTC today. Pt would continue to benefit from skilled therapy for increasing L shd ROM, decreasing shd pain, and working on community ambulation to avoid future falls. Physical Therapy Plan Frequency and Duration Frequency of Treatment 2x/Week Duration of Treatment 10 weeks Plan of Care Start Date 10/06/20 Plan of Care End Date 12/15/20 Therapeutic Interventions Therapeutic Interventions Balance Training,Gait Training ,Home Exercise Program,Manual Therapy,Neuromuscular Re- education,Self-Care/Home Management,Therapeutic Activities,Therapeutic Exercises Modalities Cold Pack/Ice Massage,Electric Stimulation,Hot Packs Next Visit Focus/Plan Next Note Type Treatment Note Next Visit Plan Continue shd AAROM. If weather permits, work on curb management outside and continue with STM of rhonda pecs. Try returning to red clips on shuttle balance now that pt's confidence is better.
--- NOTE | 2020-10-13 17:43 | PT.OTN ---
Current Diagnoses Parkinson's disease (10/13/20) Pain in left shoulder (10/13/20) Repeated falls (10/13/20) Physical Therapy Treatment Note PT-OP-A Visit Information Start: 08/06/20 07:45 Freq: Status: Active Protocol: Document 10/13/20 17:36 MA (Rec: 10/13/20 17:43 MA [email or web address]) Out-Patient Physical Therapy Visit Information Visit Information Visit Type Treatment Note Visit Start Time 14:25 Visit Stop Time 15:08 Total Visit Minutes 43 Visit Number 15 Number of [employer] PL[employer] MAINTENANCE CONSULTANT Visits 2 PT-OP-B Current Condition Start: 08/06/20 07:45 Freq: Status: Active Protocol: Document 08/06/20 14:16 AMB (Rec: 08/06/20 14:30 AMB [id number]) Current Condition History of Current Condition Onset Date May 30, 2020 Current Complaints reduced mobility s/p L humerus fracture History of Current Condition Hoang attends PT with decreased moblity s/p recent L humerus fracture due to fall, tripping over laundry 05/30. Fell out bed once since then. Currently walking inside 10 minutes a day, previously walking in the community 30 minutes/ day. Was wearing a sling until end of June when got repeat X-ray. Pt reports sitting in the recliner most of the day, it is a power lift chair, so it helps him move from sit to stand. Pt feels sleepy most of the day. Does walk around the room a little, but does get help with showering and with bed mobility. L arm is painful at rest, when moved overhead increases pain. R arm is more affected with parkinson's making using a walker very difficult. Prior Treatments and Tests X-ray:There is a left humeral head and neck fracture with superior migration of the distal fracture fragment. The alignment is stable compared to 06/11/2020. No suspicious bony lesions. 07/17 Treatment Goals Patient/Caregiver Goals Get back to walking, was previously walking 30 minutes a day outside. Prior Functional Status Baseline Function- ADL's Modified Independent Baseline Function- Mobility Modified Independent Current Functional Impairments (Reported) Functional Limitations- ADL's Requires physical assist to get into bed due to L shoulder pain, physical assist with showering. Describes what sounds like CGA with ambulation, although does ambulate short distances around his room independently. Personal Factors Other Personal Factors That May Effect Lives in assisted living, Therapy/Recovery feels limited to walking 10 minutes/day because that is what the aides have time to help with PT-OP-C Subjective Start: 08/06/20 07:45 Freq: Status: Active Protocol: Document 10/13/20 17:36 MA (Rec: 10/13/20 17:43 MA [email or web address]) OP-PT Subjective Patient Comments Patient Comments Pt states he was really tired this weekend and did not do much of his HEp. He is still tired today. PT-OP-E Functional Tests Start: 08/06/20 07:45 Freq: Status: Active Protocol: Document 09/22/20 14:15 AMB (Rec: 09/22/20 15:53 AMB [email or web address]) Functional Tests 10 Meter Walk Test Distance 7 seconds Device Used none Five Times Sit to Stand Test Score 19 sec Timed Up and Go (TUG) Score 14.5 PT-OP-G Mobility & Gait Start: 08/06/20 07:45 Freq: Status: Active Protocol: Document 08/06/20 14:15 AMB (Rec: 08/08/20 10:12 AMB [id number]) OP Mobility Evaluation Bed Mobility Supine to and from Sit Lul due to pain from L shoulder Transfers Sit to Stand Requires multiple attempts, poor form Bed to Chair Transfers multiple shuffling steps OP Gait Assessment Comments Gait Comments Once Hoang starts walking, he walks quite well in a straight line. His gait is much more precarious in small spaces and when he first starts, or with turns or when moving around obstacles. He is more of a fall risk when first starting out or when negotiating around obstacles, but when he can walk in a straight line has good step length and ami considering his advancing Parkinson's. PT-OP-J Posture/Palpation/Skin Start: 08/06/20 07:45 Freq: Status: Active Protocol: Document 08/06/20 14:15 AMB (Rec: 08/08/20 11:16 AMB [id number]) Posture Evaluation Comments Posture Comments Forward shoulders, forward head. Difficulty actively extending fingers in R hand but does have PROM available to do so. PT-OP-K Range of Motion Start: 08/06/20 07:45 Freq: Status: Active Protocol: Document 10/06/20 13:35 AMB (Rec: 10/06/20 14:30 AMB [id number]) Shoulder Goniometric Range of Motion Shoulder Right Active Testing Position Sitting Flexion 110 Abduction 110 Left Active Testing Position Sitting Flexion 110 Abduction 90 Comments painful 2-3/10 with movement. 0 degrees IR at 90 degrees abduction and painful PT-OP-M Strength Start: 08/06/20 07:45 Freq: Status: Active Protocol: Document 08/06/20 14:15 AMB (Rec: 08/08/20 11:16 AMB [id number]) Hip Strength Hip Manual Muscle Testing Right Flexion (L2) 4- Good- Extension (S1) 3+ Fair+ Abduction 4- Good- Left Flexion (L2) 4- Good- Extension (S1) 3+ Fair+ Abduction 4- Good- Knee Strength Knee Manual Muscle Testing Right Flexion (S2) 5 Normal Extension (L3) 5 Normal Left Flexion (S2) 5 Normal Extension (L3) 5 Normal PT-OP-Q Treatments Start: 08/06/20 07:45 Freq: Status: Active Protocol: Document 10/13/20 17:36 MA (Rec: 10/13/20 17:43 MA [email or web address]) Therapeutic Exercises Supine Exercises 3 Supine Exercise Name pec stretch in supine & standing doorway Reps/Minutes 30x4 2 Supine Exercise Name AAROM flexion/ abduction Reps/Minutes 10 Comments with wand Sitting Exercises Smooth Sitting Exercise Name flexion & scaption Side bilateral Reps/Minutes 4' Other Exercises Sit<>Stand Reps/Minutes 10x Comments working on not using back of legs against chair Gait Training Gait Activity Walking Treatment Focus Curb management Comments Walking outside on gravel, grass, over curbs, and through parking lot Manual Therapy Treatment Soft Tissue Mobilization Shd Body Location Rhonda Pecs Mobilization Type Sustained Pressure,Other Intensity/Depth Moderate Body Position Supine Comments mm bending PT-OP-T Assessment and Plan Start: 08/06/20 07:45 Freq: Status: Active Protocol: Document 10/13/20 17:36 MA (Rec: 10/13/20 17:43 MA [email or web address]) Physical Therapy Assessment Goals Four Impairment Shoulder Short Term Goal (STG) Hoang will improve his active L shoulder flexion to 130 degrees without an increase in pain. STG Duration 4 weeks Hospital Staff Pharmacist Goal (LTG) Hoang will improve his active abduction to 100 degrees without an increase in pain. LTG Duration 8 weeks Three Impairment Gait Short Term Goal (STG) Hoang will show decreased fall risk by ambulating around obstacles without a shuffling gait pattern. PROGRESS MADE- intermittent STG Duration 5 weeks Skilled Nursing Goal (LTG) Hoang will ambulate at least 1,000 feet in 6 minutes without loss of balance or need for physical assistance. LTG Duration 10 weeks Two Impairment Bed mobility Skilled Nursing Goal (LTG) Hoang will perform all bed mobility without physical assistance. PROGRESS MADE- intermittent LTG Duration 10 weeks One Impairment Sit to stand Short Term Goal (STG) Hoang will move from sit to stand from a standard height chair without heavy use of the back of his knees pushing into the chair. PROGRESS MADE STG Duration 5 weeks Hospital Staff Pharmacist Goal (LTG) Hoang will improve his 5x sit to stand time to 20 seconds or less. LTG Duration MET Assessment Summary Assessment Hoang had no LOB during community ambulation today. He had increased ROM into horizontal ABD after STM to rhonda pecs and had no pain during shd exercises. Pt would benefit from continued therapy for increasing shd ROM and decreasing L shd pain. Physical Therapy Plan Frequency and Duration Frequency of Treatment 2x/Week Duration of Treatment 10 weeks Plan of Care Start Date 10/06/20 Plan of Care End Date 12/15/20 Therapeutic Interventions Therapeutic Interventions Balance Training,Gait Training ,Home Exercise Program,Manual Therapy,Neuromuscular Re- education,Self-Care/Home Management,Therapeutic Activities,Therapeutic Exercises Modalities Cold Pack/Ice Massage,Electric Stimulation,Hot Packs Next Visit Focus/Plan Next Note Type Treatment Note Next Visit Plan Continue shd AAROM. If weather permits, work on curb management outside and continue with STM of rhonda pecs.
--- NOTE | 2020-10-15 17:17 | PT.OTN ---
Current Diagnoses Parkinson's disease (10/15/20) Pain in left shoulder (10/15/20) Repeated falls (10/15/20) Physical Therapy Treatment Note PT-OP-A Visit Information Start: 08/06/20 07:45 Freq: Status: Active Protocol: Document 10/15/20 17:04 MA (Rec: 10/15/20 17:17 MA [id number]) Out-Patient Physical Therapy Visit Information Visit Information Visit Type Treatment Note Visit Start Time 15:22 Visit Stop Time 16:12 Total Visit Minutes 50 Visit Number 16 Number of MANAGER CARDIOLOGY Visits 3 PT-OP-B Current Condition Start: 08/06/20 07:45 Freq: Status: Active Protocol: Document 08/06/20 14:16 AMB (Rec: 08/06/20 14:30 AMB [id number]) Current Condition History of Current Condition Onset Date May 30, 2020 Current Complaints reduced mobility s/p L humerus fracture History of Current Condition Hoang attends PT with decreased moblity s/p recent L humerus fracture due to fall, tripping over laundry 05/30. Fell out bed once since then. Currently walking inside 10 minutes a day, previously walking in the community 30 minutes/ day. Was wearing a sling until end of June when got repeat X-ray. Pt reports sitting in the recliner most of the day, it is a power lift chair, so it helps him move from sit to stand. Pt feels sleepy most of the day. Does walk around the room a little, but does get help with showering and with bed mobility. L arm is painful at rest, when moved overhead increases pain. R arm is more affected with parkinson's making using a walker very difficult. Prior Treatments and Tests X-ray:There is a left humeral head and neck fracture with superior migration of the distal fracture fragment. The alignment is stable compared to 06/11/2020. No suspicious bony lesions. 07/17 Treatment Goals Patient/Caregiver Goals Get back to walking, was previously walking 30 minutes a day outside. Prior Functional Status Baseline Function- ADL's Modified Independent Baseline Function- Mobility Modified Independent Current Functional Impairments (Reported) Functional Limitations- ADL's Requires physical assist to get into bed due to L shoulder pain, physical assist with showering. Describes what sounds like CGA with ambulation, although does ambulate short distances around his room independently. Personal Factors Other Personal Factors That May Effect Lives in assisted living, Therapy/Recovery feels limited to walking 10 minutes/day because that is what the aides have time to help with PT-OP-C Subjective Start: 08/06/20 07:45 Freq: Status: Active Protocol: Document 10/15/20 17:04 MA (Rec: 10/15/20 17:17 MA [id number]) OP-PT Subjective Patient Comments Patient Comments Pt says his shd has been doing better and he does his HEP occassionally PT-OP-E Functional Tests Start: 08/06/20 07:45 Freq: Status: Active Protocol: Document 09/22/20 14:15 AMB (Rec: 09/22/20 15:53 AMB [id number]) Functional Tests 10 Meter Walk Test Distance 7 seconds Device Used none Five Times Sit to Stand Test Score 19 sec Timed Up and Go (TUG) Score 14.5 PT-OP-G Mobility & Gait Start: 08/06/20 07:45 Freq: Status: Active Protocol: Document 08/06/20 14:15 AMB (Rec: 08/08/20 10:12 AMB [id number]) OP Mobility Evaluation Bed Mobility Supine to and from Sit Lul due to pain from L shoulder Transfers Sit to Stand Requires multiple attempts, poor form Bed to Chair Transfers multiple shuffling steps OP Gait Assessment Comments Gait Comments Once Hoang starts walking, he walks quite well in a straight line. His gait is much more precarious in small spaces and when he first starts, or with turns or when moving around obstacles. He is more of a fall risk when first starting out or when negotiating around obstacles, but when he can walk in a straight line has good step length and ami considering his advancing Parkinson's. PT-OP-J Posture/Palpation/Skin Start: 08/06/20 07:45 Freq: Status: Active Protocol: Document 08/06/20 14:15 AMB (Rec: 08/08/20 11:16 AMB [id number]) Posture Evaluation Comments Posture Comments Forward shoulders, forward head. Difficulty actively extending fingers in R hand but does have PROM available to do so. PT-OP-K Range of Motion Start: 08/06/20 07:45 Freq: Status: Active Protocol: Document 10/06/20 13:35 AMB (Rec: 10/06/20 14:30 AMB [id number]) Shoulder Goniometric Range of Motion Shoulder Right Active Testing Position Sitting Flexion 110 Abduction 110 Left Active Testing Position Sitting Flexion 110 Abduction 90 Comments painful 2-3/10 with movement. 0 degrees IR at 90 degrees abduction and painful PT-OP-M Strength Start: 08/06/20 07:45 Freq: Status: Active Protocol: Document 08/06/20 14:15 AMB (Rec: 08/08/20 11:16 AMB [id number]) Hip Strength Hip Manual Muscle Testing Right Flexion (L2) 4- Good- Extension (S1) 3+ Fair+ Abduction 4- Good- Left Flexion (L2) 4- Good- Extension (S1) 3+ Fair+ Abduction 4- Good- Knee Strength Knee Manual Muscle Testing Right Flexion (S2) 5 Normal Extension (L3) 5 Normal Left Flexion (S2) 5 Normal Extension (L3) 5 Normal PT-OP-Q Treatments Start: 08/06/20 07:45 Freq: Status: Active Protocol: Document 10/15/20 17:04 MA (Rec: 10/15/20 17:17 MA [id number]) Therapeutic Exercises Supine Exercises 3 Supine Exercise Name pec stretch in supine & standing doorway Reps/Minutes 30x2 2 Supine Exercise Name AAROM flexion/ abduction Reps/Minutes 10 Comments with wand Sitting Exercises Smooth Sitting Exercise Name flexion & scaption Side bilateral Reps/Minutes 4' Standing Exercises Extension Standing Exercise Name shd ext Equipment Used with wand Reps/Minutes x10 Comments focusing on opening chest, getting stretch Band work Standing Exercise Name shd ext, ER, rows Resistance TB#1 Reps/Minutes 2x10 Other Exercises Sit<>Stand Reps/Minutes 5x Comments working on not using back of legs against chair Gait Training Gait Activity Walking Treatment Focus Curb management Comments Walking outside on gravel, grass, over curbs, and through parking lot Manual Therapy Treatment Soft Tissue Mobilization Shd Body Location Rhonda Pecs, L RTC Mobilization Type Strumming,Sustained Pressure, Trigger Point Release,Other Intensity/Depth Moderate Body Position Supine Comments mm bending PT-OP-T Assessment and Plan Start: 08/06/20 07:45 Freq: Status: Active Protocol: Document 10/15/20 17:04 MA (Rec: 10/15/20 17:17 MA [id number]) Physical Therapy Assessment Goals Four Impairment Shoulder Short Term Goal (STG) Hoang will improve his active L shoulder flexion to 130 degrees without an increase in pain. STG Duration 4 weeks Child Support Investigator Goal (LTG) Hoang will improve his active abduction to 100 degrees without an increase in pain. LTG Duration 8 weeks Three Impairment Gait Short Term Goal (STG) Hoang will show decreased fall risk by ambulating around obstacles without a shuffling gait pattern. PROGRESS MADE- intermittent STG Duration 5 weeks Child Support Investigator Goal (LTG) Hoang will ambulate at least 1,000 feet in 6 minutes without loss of balance or need for physical assistance. LTG Duration 10 weeks Two Impairment Bed mobility Child Support Investigator Goal (LTG) Hoang will perform all bed mobility without physical assistance. PROGRESS MADE- intermittent LTG Duration 10 weeks One Impairment Sit to stand Short Term Goal (STG) Hoang will move from sit to stand from a standard height chair without heavy use of the back of his knees pushing into the chair. PROGRESS MADE STG Duration 5 weeks Child Support Investigator Goal (LTG) Hoang will improve his 5x sit to stand time to 20 seconds or less. LTG Duration MET Assessment Summary Assessment Hoang had increased ROM through rhonda pecs after STM today. He is having less pain at home and continues to have good balance during community ambulation Physical Therapy Plan Frequency and Duration Frequency of Treatment 2x/Week Duration of Treatment 10 weeks Plan of Care Start Date 10/06/20 Plan of Care End Date 12/15/20 Therapeutic Interventions Therapeutic Interventions Balance Training,Gait Training ,Home Exercise Program,Manual Therapy,Neuromuscular Re- education,Self-Care/Home Management,Therapeutic Activities,Therapeutic Exercises Modalities Cold Pack/Ice Massage,Electric Stimulation,Hot Packs Next Visit Focus/Plan Next Note Type Treatment Note Next Visit Plan Continue sabas MARCH. If weather permits, work on curb management outside and continue with STM of rhonda pecs.
--- NOTE | 2020-10-20 15:20 | PT.OTN ---
Current Diagnoses Parkinson's disease (10/20/20) Pain in left shoulder (10/20/20) Repeated falls (10/20/20) Physical Therapy Treatment Note PT-OP-A Visit Information Start: 08/06/20 07:45 Freq: Status: Active Protocol: Document 10/20/20 14:32 AMB (Rec: 10/20/20 14:52 AMB [id number]) Out-Patient Physical Therapy Visit Information Visit Information Visit Type Treatment Note Visit Start Time 14:15 Visit Stop Time 15:00 Total Visit Minutes 45 Visit Number 17 Number of LIQUID HYDROGEN PLANT OPERATOR Visits 0 PT-OP-B Current Condition Start: 08/06/20 07:45 Freq: Status: Active Protocol: Document 08/06/20 14:16 AMB (Rec: 08/06/20 14:30 AMB [id number]) Current Condition History of Current Condition Onset Date May 30, 2020 Current Complaints reduced mobility s/p L humerus fracture History of Current Condition Hoang attends PT with decreased moblity s/p recent L humerus fracture due to fall, tripping over laundry 05/30. Fell out bed once since then. Currently walking inside 10 minutes a day, previously walking in the community 30 minutes/ day. Was wearing a sling until end of June when got repeat X-ray. Pt reports sitting in the recliner most of the day, it is a power lift chair, so it helps him move from sit to stand. Pt feels sleepy most of the day. Does walk around the room a little, but does get help with showering and with bed mobility. L arm is painful at rest, when moved overhead increases pain. R arm is more affected with parkinson's making using a walker very difficult. Prior Treatments and Tests X-ray:There is a left humeral head and neck fracture with superior migration of the distal fracture fragment. The alignment is stable compared to 06/11/2020. No suspicious bony lesions. 07/17 Treatment Goals Patient/Caregiver Goals Get back to walking, was previously walking 30 minutes a day outside. Prior Functional Status Baseline Function- ADL's Modified Independent Baseline Function- Mobility Modified Independent Current Functional Impairments (Reported) Functional Limitations- ADL's Requires physical assist to get into bed due to L shoulder pain, physical assist with showering. Describes what sounds like CGA with ambulation, although does ambulate short distances around his room independently. Personal Factors Other Personal Factors That May Effect Lives in assisted living, Therapy/Recovery feels limited to walking 10 minutes/day because that is what the aides have time to help with PT-OP-C Subjective Start: 08/06/20 07:45 Freq: Status: Active Protocol: Document 10/20/20 14:32 AMB (Rec: 10/20/20 14:52 AMB [id number]) OP-PT Subjective Patient Comments Patient Comments Pt states he slept on his left arm last night and it is a bit sore today from that. Getting out of bed is going better, but can be difficult if he is quite sleepy. PT-OP-E Functional Tests Start: 08/06/20 07:45 Freq: Status: Active Protocol: Document 09/22/20 14:15 AMB (Rec: 09/22/20 15:53 AMB [id number]) Functional Tests 10 Meter Walk Test Distance 7 seconds Device Used none Five Times Sit to Stand Test Score 19 sec Timed Up and Go (TUG) Score 14.5 PT-OP-G Mobility & Gait Start: 08/06/20 07:45 Freq: Status: Active Protocol: Document 08/06/20 14:15 AMB (Rec: 08/08/20 10:12 AMB [id number]) OP Mobility Evaluation Bed Mobility Supine to and from Sit Lul due to pain from L shoulder Transfers Sit to Stand Requires multiple attempts, poor form Bed to Chair Transfers multiple shuffling steps OP Gait Assessment Comments Gait Comments Once Hoang starts walking, he walks quite well in a straight line. His gait is much more precarious in small spaces and when he first starts, or with turns or when moving around obstacles. He is more of a fall risk when first starting out or when negotiating around obstacles, but when he can walk in a straight line has good step length and ami considering his advancing Parkinson's. PT-OP-J Posture/Palpation/Skin Start: 08/06/20 07:45 Freq: Status: Active Protocol: Document 08/06/20 14:15 AMB (Rec: 08/08/20 11:16 AMB [id number]) Posture Evaluation Comments Posture Comments Forward shoulders, forward head. Difficulty actively extending fingers in R hand but does have PROM available to do so. PT-OP-K Range of Motion Start: 08/06/20 07:45 Freq: Status: Active Protocol: Document 10/06/20 13:35 AMB (Rec: 10/06/20 14:30 AMB [id number]) Shoulder Goniometric Range of Motion Shoulder Right Active Testing Position Sitting Flexion 110 Abduction 110 Left Active Testing Position Sitting Flexion 110 Abduction 90 Comments painful 2-3/10 with movement. 0 degrees IR at 90 degrees abduction and painful PT-OP-M Strength Start: 08/06/20 07:45 Freq: Status: Active Protocol: Document 08/06/20 14:15 AMB (Rec: 08/08/20 11:16 AMB [id number]) Hip Strength Hip Manual Muscle Testing Right Flexion (L2) 4- Good- Extension (S1) 3+ Fair+ Abduction 4- Good- Left Flexion (L2) 4- Good- Extension (S1) 3+ Fair+ Abduction 4- Good- Knee Strength Knee Manual Muscle Testing Right Flexion (S2) 5 Normal Extension (L3) 5 Normal Left Flexion (S2) 5 Normal Extension (L3) 5 Normal PT-OP-Q Treatments Start: 08/06/20 07:45 Freq: Status: Active Protocol: Document 10/20/20 14:15 AMB (Rec: 10/20/20 15:20 AMB [id number]) Therapeutic Exercises Supine Exercises 3 Supine Exercise Name pec stretch in supine & standing doorway Reps/Minutes 30x2 2 Supine Exercise Name AAROM flexion/ abduction Reps/Minutes 10 Comments with wand Other Exercises Sit<>Stand Reps/Minutes 5x Comments working on not using back of legs against chair Gait Training Gait Activity Walking Description outdoor walking Device Used none Level of Assistance SBA Distance/Duration 400' Comments outside- stairs with one rail- pt felt nervous going down, but was able to do independently without LOB. Up /down curbstep x 2 without issue. PT-OP-T Assessment and Plan Start: 08/06/20 07:45 Freq: Status: Active Protocol: Document 10/20/20 14:15 AMB (Rec: 10/20/20 15:20 AMB [id number]) Physical Therapy Assessment Goals Four Impairment Shoulder Short Term Goal (STG) Hoang will improve his active L shoulder flexion to 130 degrees without an increase in pain. STG Duration 4 weeks Chcf Goal (LTG) Hoang will improve his active abduction to 100 degrees without an increase in pain. LTG Duration 8 weeks Three Impairment Gait Short Term Goal (STG) Hoang will show decreased fall risk by ambulating around obstacles without a shuffling gait pattern. PROGRESS MADE- intermittent STG Duration 5 weeks Electrical And Instrument Mechanic Goal (LTG) Hoang will ambulate at least 1,000 feet in 6 minutes without loss of balance or need for physical assistance. LTG Duration 10 weeks Two Impairment Bed mobility Electrical And Instrument Mechanic Goal (LTG) Hoang will perform all bed mobility without physical assistance. PROGRESS MADE- intermittent LTG Duration 10 weeks One Impairment Sit to stand Short Term Goal (STG) Hoang will move from sit to stand from a standard height chair without heavy use of the back of his knees pushing into the chair. PROGRESS MADE STG Duration 5 weeks Electrical And Instrument Mechanic Goal (LTG) Hoang will improve his 5x sit to stand time to 20 seconds or less. LTG Duration MET Assessment Summary Assessment Continued to cue form with pec stretches, but overall moving better, gait outdoors was good (better than indoors ( when navigating obstacles) but pt was not confident with descending stairs. Physical Therapy Plan Frequency and Duration Frequency of Treatment 2x/Week Duration of Treatment 10 weeks Plan of Care Start Date 10/06/20 Plan of Care End Date 12/15/20 Therapeutic Interventions Therapeutic Interventions Balance Training,Gait Training ,Home Exercise Program,Manual Therapy,Neuromuscular Re- education,Self-Care/Home Management,Therapeutic Activities,Therapeutic Exercises Modalities Cold Pack/Ice Massage,Electric Stimulation,Hot Packs Discharge Physical Therapy Discharge Reasons [place] in Progress Discharge Comments The patient came close to meeting many of his goals and has finished his [employer]SV[employer] BIG program. He will need to continue with his HEP. He does find it difficult to push himself to get his maximal range. Next Visit Focus/Plan Next Note Type Treatment Note Next Visit Plan Continue sabas MARCH. If weather permits, work on curb management outside and continue with STM of rhonda pecs.
--- NOTE | 2020-10-22 15:52 | PT.OTN ---
Current Diagnoses Parkinson's disease (10/22/20) Pain in left shoulder (10/22/20) Repeated falls (10/22/20) Physical Therapy Treatment Note PT-OP-A Visit Information Start: 08/06/20 07:45 Freq: Status: Active Protocol: Document 10/22/20 14:15 AMB (Rec: 10/22/20 14:38 AMB [id number]) Out-Patient Physical Therapy Visit Information Visit Information Visit Type Treatment Note Visit Start Time 14:15 Visit Stop Time 15:00 Total Visit Minutes 45 Visit Number 18 PT-OP-B Current Condition Start: 08/06/20 07:45 Freq: Status: Active Protocol: Document 08/06/20 14:16 AMB (Rec: 08/06/20 14:30 AMB [id number]) Current Condition History of Current Condition Onset Date May 30, 2020 Current Complaints reduced mobility s/p L humerus fracture History of Current Condition Hoang attends PT with decreased moblity s/p recent L humerus fracture due to fall, tripping over laundry 05/30. Fell out bed once since then. Currently walking inside 10 minutes a day, previously walking in the community 30 minutes/ day. Was wearing a sling until end of June when got repeat X-ray. Pt reports sitting in the recliner most of the day, it is a power lift chair, so it helps him move from sit to stand. Pt feels sleepy most of the day. Does walk around the room a little, but does get help with showering and with bed mobility. L arm is painful at rest, when moved overhead increases pain. R arm is more affected with parkinson's making using a walker very difficult. Prior Treatments and Tests X-ray:There is a left humeral head and neck fracture with superior migration of the distal fracture fragment. The alignment is stable compared to 06/11/2020. No suspicious bony lesions. 07/17 Treatment Goals Patient/Caregiver Goals Get back to walking, was previously walking 30 minutes a day outside. Prior Functional Status Baseline Function- ADL's Modified Independent Baseline Function- Mobility Modified Independent Current Functional Impairments (Reported) Functional Limitations- ADL's Requires physical assist to get into bed due to L shoulder pain, physical assist with showering. Describes what sounds like CGA with ambulation, although does ambulate short distances around his room independently. Personal Factors Other Personal Factors That May Effect Lives in assisted living, Therapy/Recovery feels limited to walking 10 minutes/day because that is what the aides have time to help with PT-OP-C Subjective Start: 08/06/20 07:45 Freq: Status: Active Protocol: Document 10/22/20 14:15 AMB (Rec: 10/22/20 14:38 AMB [id number]) OP-PT Subjective Patient Comments Patient Comments Pt states his arm was not sore after last PT treatment. Pt slept on the shoulder last night and did not wake up sore , which is an improvement. PT-OP-E Functional Tests Start: 08/06/20 07:45 Freq: Status: Active Protocol: Document 09/22/20 14:15 AMB (Rec: 09/22/20 15:53 AMB [email or web address]) Functional Tests 10 Meter Walk Test Distance 7 seconds Device Used none Five Times Sit to Stand Test Score 19 sec Timed Up and Go (TUG) Score 14.5 PT-OP-G Mobility & Gait Start: 08/06/20 07:45 Freq: Status: Active Protocol: Document 08/06/20 14:15 AMB (Rec: 08/08/20 10:12 AMB [id number]) OP Mobility Evaluation Bed Mobility Supine to and from Sit Lul due to pain from L shoulder Transfers Sit to Stand Requires multiple attempts, poor form Bed to Chair Transfers multiple shuffling steps OP Gait Assessment Comments Gait Comments Once Hoang starts walking, he walks quite well in a straight line. His gait is much more precarious in small spaces and when he first starts, or with turns or when moving around obstacles. He is more of a fall risk when first starting out or when negotiating around obstacles, but when he can walk in a straight line has good step length and ami considering his advancing Parkinson's. PT-OP-J Posture/Palpation/Skin Start: 08/06/20 07:45 Freq: Status: Active Protocol: Document 08/06/20 14:15 AMB (Rec: 08/08/20 11:16 AMB [id number]) Posture Evaluation Comments Posture Comments Forward shoulders, forward head. Difficulty actively extending fingers in R hand but does have PROM available to do so. PT-OP-K Range of Motion Start: 08/06/20 07:45 Freq: Status: Active Protocol: Document 10/06/20 13:35 AMB (Rec: 10/06/20 14:30 AMB [id number]) Shoulder Goniometric Range of Motion Shoulder Right Active Testing Position Sitting Flexion 110 Abduction 110 Left Active Testing Position Sitting Flexion 110 Abduction 90 Comments painful 2-3/10 with movement. 0 degrees IR at 90 degrees abduction and painful PT-OP-M Strength Start: 08/06/20 07:45 Freq: Status: Active Protocol: Document 08/06/20 14:15 AMB (Rec: 08/08/20 11:16 AMB [id number]) Hip Strength Hip Manual Muscle Testing Right Flexion (L2) 4- Good- Extension (S1) 3+ Fair+ Abduction 4- Good- Left Flexion (L2) 4- Good- Extension (S1) 3+ Fair+ Abduction 4- Good- Knee Strength Knee Manual Muscle Testing Right Flexion (S2) 5 Normal Extension (L3) 5 Normal Left Flexion (S2) 5 Normal Extension (L3) 5 Normal PT-OP-Q Treatments Start: 08/06/20 07:45 Freq: Status: Active Protocol: Document 10/22/20 14:15 AMB (Rec: 10/22/20 15:51 AMB [email or web address]) Therapeutic Exercises Supine Exercises 3 Supine Exercise Name pec stretch in supine & standing doorway Reps/Minutes 30x2 2 Supine Exercise Name AAROM flexion/ abduction Reps/Minutes 10 Comments with wand Sitting Exercises Smooth Sitting Exercise Name flexion & scaption Side bilateral Reps/Minutes 4' Standing Exercises Band work Standing Exercise Name shd ext, ER, rows Resistance TB#1 Reps/Minutes 2x10 Comments gave pt T band for home use Gait Training Gait Activity Walking Description outdoor walking Device Used none Level of Assistance SBA Distance/Duration 400' Comments outside- stairs with one rail- pt felt nervous going down, but was able to do independently without LOB. Up /down curbstep x 2 without issue. PT-OP-T Assessment and Plan Start: 08/06/20 07:45 Freq: Status: Active Protocol: Document 10/22/20 14:15 AMB (Rec: 10/22/20 15:51 AMB [email or web address]) Physical Therapy Assessment Goals Four Impairment Shoulder Short Term Goal (STG) Hoang will improve his active L shoulder flexion to 130 degrees without an increase in pain. STG Duration 4 weeks Senior Care Goal (LTG) Hoang will improve his active abduction to 100 degrees without an increase in pain. LTG Duration 8 weeks Three Impairment Gait Short Term Goal (STG) Hoang will show decreased fall risk by ambulating around obstacles without a shuffling gait pattern. PROGRESS MADE- intermittent STG Duration 5 weeks Senior Care Goal (LTG) Hoang will ambulate at least 1,000 feet in 6 minutes without loss of balance or need for physical assistance. LTG Duration 10 weeks Two Impairment Bed mobility Senior Care Goal (LTG) Hoang will perform all bed mobility without physical assistance. PROGRESS MADE- intermittent LTG Duration 10 weeks One Impairment Sit to stand Short Term Goal (STG) Hoang will move from sit to stand from a standard height chair without heavy use of the back of his knees pushing into the chair. PROGRESS MADE STG Duration 5 weeks Senior Care Goal (LTG) Hoang will improve his 5x sit to stand time to 20 seconds or less. LTG Duration MET Assessment Summary Assessment Pt was unsure about going up stairs at dentists (there are stairs with one rail to enter) . Encouraged that he did that today and with a caregiver and a gait belt he should be ok. Physical Therapy Plan Next Visit Focus/Plan Next Note Type Treatment Note Next Visit Plan Continue sabas MARCH. If weather permits, work on curb management outside and continue with STM of rhonda aguilera.
--- NOTE | 2020-10-27 15:57 | PT.OTN ---
Current Diagnoses Parkinson's disease (10/27/20) Pain in left shoulder (10/27/20) Repeated falls (10/27/20) Physical Therapy Treatment Note PT-OP-A Visit Information Start: 08/06/20 07:45 Freq: Status: Active Protocol: Document 10/27/20 14:30 AMB (Rec: 10/27/20 15:13 AMB [id number]) Out-Patient Physical Therapy Visit Information Visit Information Visit Type Treatment Note Visit Note 02/26 Visit Start Time 14:15 Visit Stop Time 15:00 Total Visit Minutes 45 Visit Number 19 Number of ELL TUTOR Visits 0 PT-OP-B Current Condition Start: 08/06/20 07:45 Freq: Status: Active Protocol: Document 08/06/20 14:16 AMB (Rec: 08/06/20 14:30 AMB [id number]) Current Condition History of Current Condition Onset Date May 30, 2020 Current Complaints reduced mobility s/p L humerus fracture History of Current Condition Hoang attends PT with decreased moblity s/p recent L humerus fracture due to fall, tripping over laundry 05/30. Fell out bed once since then. Currently walking inside 10 minutes a day, previously walking in the community 30 minutes/ day. Was wearing a sling until end of June when got repeat X-ray. Pt reports sitting in the recliner most of the day, it is a power lift chair, so it helps him move from sit to stand. Pt feels sleepy most of the day. Does walk around the room a little, but does get help with showering and with bed mobility. L arm is painful at rest, when moved overhead increases pain. R arm is more affected with parkinson's making using a walker very difficult. Prior Treatments and Tests X-ray:There is a left humeral head and neck fracture with superior migration of the distal fracture fragment. The alignment is stable compared to 06/11/2020. No suspicious bony lesions. 07/17 Treatment Goals Patient/Caregiver Goals Get back to walking, was previously walking 30 minutes a day outside. Prior Functional Status Baseline Function- ADL's Modified Independent Baseline Function- Mobility Modified Independent Current Functional Impairments (Reported) Functional Limitations- ADL's Requires physical assist to get into bed due to L shoulder pain, physical assist with showering. Describes what sounds like CGA with ambulation, although does ambulate short distances around his room independently. Personal Factors Other Personal Factors That May Effect Lives in assisted living, Therapy/Recovery feels limited to walking 10 minutes/day because that is what the aides have time to help with PT-OP-C Subjective Start: 08/06/20 07:45 Freq: Status: Active Protocol: Document 10/27/20 14:15 AMB (Rec: 10/27/20 15:56 AMB [id number]) OP-PT Subjective Patient Comments Patient Comments Pt states he had some sx after 2nd covid shot, so rescheduled dentist appt to tomorrow, so still worried abou the stairs. PT-OP-E Functional Tests Start: 08/06/20 07:45 Freq: Status: Active Protocol: Document 09/22/20 14:15 AMB (Rec: 09/22/20 15:53 AMB [email or web address]) Functional Tests 10 Meter Walk Test Distance 7 seconds Device Used none Five Times Sit to Stand Test Score 19 sec Timed Up and Go (TUG) Score 14.5 PT-OP-G Mobility & Gait Start: 08/06/20 07:45 Freq: Status: Active Protocol: Document 08/06/20 14:15 AMB (Rec: 08/08/20 10:12 AMB [id number]) OP Mobility Evaluation Bed Mobility Supine to and from Sit Lul due to pain from L shoulder Transfers Sit to Stand Requires multiple attempts, poor form Bed to Chair Transfers multiple shuffling steps OP Gait Assessment Comments Gait Comments Once Hoang starts walking, he walks quite well in a straight line. His gait is much more precarious in small spaces and when he first starts, or with turns or when moving around obstacles. He is more of a fall risk when first starting out or when negotiating around obstacles, but when he can walk in a straight line has good step length and ami considering his advancing Parkinson's. PT-OP-J Posture/Palpation/Skin Start: 08/06/20 07:45 Freq: Status: Active Protocol: Document 08/06/20 14:15 AMB (Rec: 08/08/20 11:16 AMB [id number]) Posture Evaluation Comments Posture Comments Forward shoulders, forward head. Difficulty actively extending fingers in R hand but does have PROM available to do so. PT-OP-K Range of Motion Start: 08/06/20 07:45 Freq: Status: Active Protocol: Document 10/06/20 13:35 AMB (Rec: 10/06/20 14:30 AMB [id number]) Shoulder Goniometric Range of Motion Shoulder Right Active Testing Position Sitting Flexion 110 Abduction 110 Left Active Testing Position Sitting Flexion 110 Abduction 90 Comments painful 2-3/10 with movement. 0 degrees IR at 90 degrees abduction and painful PT-OP-M Strength Start: 08/06/20 07:45 Freq: Status: Active Protocol: Document 08/06/20 14:15 AMB (Rec: 08/08/20 11:16 AMB [id number]) Hip Strength Hip Manual Muscle Testing Right Flexion (L2) 4- Good- Extension (S1) 3+ Fair+ Abduction 4- Good- Left Flexion (L2) 4- Good- Extension (S1) 3+ Fair+ Abduction 4- Good- Knee Strength Knee Manual Muscle Testing Right Flexion (S2) 5 Normal Extension (L3) 5 Normal Left Flexion (S2) 5 Normal Extension (L3) 5 Normal PT-OP-Q Treatments Start: 08/06/20 07:45 Freq: Status: Active Protocol: Document 10/27/20 14:15 AMB (Rec: 10/27/20 15:56 AMB [id number]) Therapeutic Exercises Sitting Exercises Smooth Sitting Exercise Name flexion & scaption Side bilateral Reps/Minutes 4' 3 Sitting Exercise Name flexion and scaption to 90 degrees Resistance 2# Reps/Minutes 2x8 Standing Exercises Band work Standing Exercise Name shd ext, ER, rows Resistance TB#2 Reps/Minutes 2x10 8 Standing Exercise Name wall slide Reps/Minutes 3x30 Comments flexion then window wash movement Gait Training Gait Activity 1 Description stairs Comments 2 full flights, vs 4 6 steps, practiced step to pattern for descent vs step over step- pt nervous with descending stairs, but safe as long as has 1 rail and takes his time PT-OP-T Assessment and Plan Start: 08/06/20 07:45 Freq: Status: Active Protocol: Document 10/27/20 14:15 AMB (Rec: 10/27/20 15:57 AMB [id number]) Physical Therapy Assessment Assessment Summary Assessment Hoang did well with stairs today, although is still nervous with descent. L shoulder continues to be weak, carla with any movement over 90 degrees flexion, but was able to tolerate stretching well. Forward flexed posture continues. Physical Therapy Plan Next Visit Focus/Plan Next Note Type Treatment Note Next Visit Plan Continue sabas MARCH. If weather permits, work on curb management outside and continue with STM of rhonda aguilera.
--- NOTE | 2020-11-03 12:42 | PT.OTN ---
Current Diagnoses Parkinson's disease (11/03/20) Pain in left shoulder (11/03/20) Repeated falls (11/03/20) Physical Therapy Treatment Note PT-OP-A Visit Information Start: 08/06/20 07:45 Freq: Status: Active Protocol: Document 11/03/20 11:15 AMB (Rec: 11/03/20 12:42 AMB [email or web address]) Out-Patient Physical Therapy Visit Information Visit Information Visit Type Treatment Note Visit Note 04/28 Visit Start Time 11:15 Visit Stop Time 12:00 Total Visit Minutes 45 Visit Number 21 Number of SHIRT FOLDING MACHINE OPERATOR Visits 0 PT-OP-B Current Condition Start: 08/06/20 07:45 Freq: Status: Active Protocol: Document 08/06/20 14:16 AMB (Rec: 08/06/20 14:30 AMB [id number]) Current Condition History of Current Condition Onset Date May 30, 2020 Current Complaints reduced mobility s/p L humerus fracture History of Current Condition Hoang attends PT with decreased moblity s/p recent L humerus fracture due to fall, tripping over laundry 05/30. Fell out bed once since then. Currently walking inside 10 minutes a day, previously walking in the community 30 minutes/ day. Was wearing a sling until end of June when got repeat X-ray. Pt reports sitting in the recliner most of the day, it is a power lift chair, so it helps him move from sit to stand. Pt feels sleepy most of the day. Does walk around the room a little, but does get help with showering and with bed mobility. L arm is painful at rest, when moved overhead increases pain. R arm is more affected with parkinson's making using a walker very difficult. Prior Treatments and Tests X-ray:There is a left humeral head and neck fracture with superior migration of the distal fracture fragment. The alignment is stable compared to 06/11/2020. No suspicious bony lesions. 07/17 Treatment Goals Patient/Caregiver Goals Get back to walking, was previously walking 30 minutes a day outside. Prior Functional Status Baseline Function- ADL's Modified Independent Baseline Function- Mobility Modified Independent Current Functional Impairments (Reported) Functional Limitations- ADL's Requires physical assist to get into bed due to L shoulder pain, physical assist with showering. Describes what sounds like CGA with ambulation, although does ambulate short distances around his room independently. Personal Factors Other Personal Factors That May Effect Lives in assisted living, Therapy/Recovery feels limited to walking 10 minutes/day because that is what the aides have time to help with PT-OP-C Subjective Start: 08/06/20 07:45 Freq: Status: Active Protocol: Document 11/03/20 11:15 AMB (Rec: 11/03/20 12:42 AMB [email or web address]) OP-PT Subjective Patient Comments Patient Comments Pt states he went out in the snow and it wasn't a problem for his balance, he does notice stiffness in L shoulder but thinks pain is decreasing PT-OP-E Functional Tests Start: 08/06/20 07:45 Freq: Status: Active Protocol: Document 09/22/20 14:15 AMB (Rec: 09/22/20 15:53 AMB [email or web address]) Functional Tests 10 Meter Walk Test Distance 7 seconds Device Used none Five Times Sit to Stand Test Score 19 sec Timed Up and Go (TUG) Score 14.5 PT-OP-G Mobility & Gait Start: 08/06/20 07:45 Freq: Status: Active Protocol: Document 08/06/20 14:15 AMB (Rec: 08/08/20 10:12 AMB [id number]) OP Mobility Evaluation Bed Mobility Supine to and from Sit Lul due to pain from L shoulder Transfers Sit to Stand Requires multiple attempts, poor form Bed to Chair Transfers multiple shuffling steps OP Gait Assessment Comments Gait Comments Once Hoang starts walking, he walks quite well in a straight line. His gait is much more precarious in small spaces and when he first starts, or with turns or when moving around obstacles. He is more of a fall risk when first starting out or when negotiating around obstacles, but when he can walk in a straight line has good step length and ami considering his advancing Parkinson's. PT-OP-J Posture/Palpation/Skin Start: 08/06/20 07:45 Freq: Status: Active Protocol: Document 08/06/20 14:15 AMB (Rec: 08/08/20 11:16 AMB [id number]) Posture Evaluation Comments Posture Comments Forward shoulders, forward head. Difficulty actively extending fingers in R hand but does have PROM available to do so. PT-OP-K Range of Motion Start: 08/06/20 07:45 Freq: Status: Active Protocol: Document 10/06/20 13:35 AMB (Rec: 10/06/20 14:30 AMB [id number]) Shoulder Goniometric Range of Motion Shoulder Right Active Testing Position Sitting Flexion 110 Abduction 110 Left Active Testing Position Sitting Flexion 110 Abduction 90 Comments painful 2-3/10 with movement. 0 degrees IR at 90 degrees abduction and painful PT-OP-M Strength Start: 08/06/20 07:45 Freq: Status: Active Protocol: Document 08/06/20 14:15 AMB (Rec: 08/08/20 11:16 AMB [id number]) Hip Strength Hip Manual Muscle Testing Right Flexion (L2) 4- Good- Extension (S1) 3+ Fair+ Abduction 4- Good- Left Flexion (L2) 4- Good- Extension (S1) 3+ Fair+ Abduction 4- Good- Knee Strength Knee Manual Muscle Testing Right Flexion (S2) 5 Normal Extension (L3) 5 Normal Left Flexion (S2) 5 Normal Extension (L3) 5 Normal PT-OP-Q Treatments Start: 08/06/20 07:45 Freq: Status: Active Protocol: Document 11/03/20 11:15 AMB (Rec: 11/03/20 12:42 AMB [email or web address]) Therapeutic Exercises Supine Exercises 2 Supine Exercise Name Standing today-AAROM flexion/ abduction Reps/Minutes 10 Comments with wand Sitting Exercises Smooth Sitting Exercise Name flexion & scaption, added IR in standing Side bilateral Reps/Minutes 4' 2 Sitting Exercise Name sit<>STand Reps/Minutes 15 Comments focus on not using backs of knees Standing Exercises Pec Stretch Standing Exercise Name doorway Side bilateral Reps/Minutes x60 sec Band work Standing Exercise Name shd ext, ER, rows Resistance TB#2 Reps/Minutes 2x10 Neuro Re-Education Treatment Balance Activities 1 Details hurdles Comments stepping over and around PT-OP-T Assessment and Plan Start: 08/06/20 07:45 Freq: Status: Active Protocol: Document 11/03/20 11:15 AMB (Rec: 11/03/20 12:42 AMB [email or web address]) Physical Therapy Assessment Goals Four Impairment Shoulder Short Term Goal (STG) Hoang will improve his active L shoulder flexion to 130 degrees without an increase in pain. STG Duration 4 weeks Detention Goal (LTG) Hoang will improve his active abduction to 100 degrees without an increase in pain. LTG Duration 8 weeks Three Impairment Gait Short Term Goal (STG) Hoang will show decreased fall risk by ambulating around obstacles without a shuffling gait pattern. PROGRESS MADE- intermittent STG Duration 5 weeks Food Service Specialist Goal (LTG) Hoang will ambulate at least 1,000 feet in 6 minutes without loss of balance or need for physical assistance. LTG Duration 10 weeks Two Impairment Bed mobility Food Service Specialist Goal (LTG) Hoang will perform all bed mobility without physical assistance. PROGRESS MADE- intermittent LTG Duration 10 weeks One Impairment Sit to stand Short Term Goal (STG) Hoang will move from sit to stand from a standard height chair without heavy use of the back of his knees pushing into the chair. PROGRESS MADE STG Duration 5 weeks Detention Goal (LTG) Hoang will improve his 5x sit to stand time to 20 seconds or less. LTG Duration MET Assessment Summary Assessment Encouraged pt that he is very much improved his sit to stand time and left shoulder pain is decreasing. Pt was fatigued today. Physical Therapy Plan Next Visit Focus/Plan Next Note Type Treatment Note Next Visit Plan Continue shandriy MARCH. If weather permits, work on curb management outside and continue with STM of rhonda aguilera.
--- NOTE | 2020-11-05 15:57 | PT.OTN ---
Current Diagnoses Parkinson's disease (11/05/20) Pain in left shoulder (11/05/20) Repeated falls (11/05/20) Physical Therapy Treatment Note PT-OP-A Visit Information Start: 08/06/20 07:45 Freq: Status: Active Protocol: Document 11/05/20 15:46 AMB (Rec: 11/05/20 15:56 AMB [email or web address]) Out-Patient Physical Therapy Visit Information Visit Information Visit Type Treatment Note Visit Number 22 PT-OP-B Current Condition Start: 08/06/20 07:45 Freq: Status: Active Protocol: Document 08/06/20 14:16 AMB (Rec: 08/06/20 14:30 AMB [id number]) Current Condition History of Current Condition Onset Date May 30, 2020 Current Complaints reduced mobility s/p L humerus fracture History of Current Condition Hoang attends PT with decreased moblity s/p recent L humerus fracture due to fall, tripping over laundry 05/30. Fell out bed once since then. Currently walking inside 10 minutes a day, previously walking in the community 30 minutes/ day. Was wearing a sling until end of June when got repeat X-ray. Pt reports sitting in the recliner most of the day, it is a power lift chair, so it helps him move from sit to stand. Pt feels sleepy most of the day. Does walk around the room a little, but does get help with showering and with bed mobility. L arm is painful at rest, when moved overhead increases pain. R arm is more affected with parkinson's making using a walker very difficult. Prior Treatments and Tests X-ray:There is a left humeral head and neck fracture with superior migration of the distal fracture fragment. The alignment is stable compared to 06/11/2020. No suspicious bony lesions. 07/17 Treatment Goals Patient/Caregiver Goals Get back to walking, was previously walking 30 minutes a day outside. Prior Functional Status Baseline Function- ADL's Modified Independent Baseline Function- Mobility Modified Independent Current Functional Impairments (Reported) Functional Limitations- ADL's Requires physical assist to get into bed due to L shoulder pain, physical assist with showering. Describes what sounds like CGA with ambulation, although does ambulate short distances around his room independently. Personal Factors Other Personal Factors That May Effect Lives in assisted living, Therapy/Recovery feels limited to walking 10 minutes/day because that is what the aides have time to help with PT-OP-C Subjective Start: 08/06/20 07:45 Freq: Status: Active Protocol: Document 11/03/20 11:15 AMB (Rec: 11/03/20 12:42 AMB [email or web address]) OP-PT Subjective Patient Comments Patient Comments Pt states he went out in the snow and it wasn't a problem for his balance, he does notice stiffness in L shoulder but thinks pain is decreasing PT-OP-E Functional Tests Start: 08/06/20 07:45 Freq: Status: Active Protocol: Document 09/22/20 14:15 AMB (Rec: 09/22/20 15:53 AMB [email or web address]) Functional Tests 10 Meter Walk Test Distance 7 seconds Device Used none Five Times Sit to Stand Test Score 19 sec Timed Up and Go (TUG) Score 14.5 PT-OP-G Mobility & Gait Start: 08/06/20 07:45 Freq: Status: Active Protocol: Document 08/06/20 14:15 AMB (Rec: 08/08/20 10:12 AMB [id number]) OP Mobility Evaluation Bed Mobility Supine to and from Sit Lul due to pain from L shoulder Transfers Sit to Stand Requires multiple attempts, poor form Bed to Chair Transfers multiple shuffling steps OP Gait Assessment Comments Gait Comments Once Hoang starts walking, he walks quite well in a straight line. His gait is much more precarious in small spaces and when he first starts, or with turns or when moving around obstacles. He is more of a fall risk when first starting out or when negotiating around obstacles, but when he can walk in a straight line has good step length and ami considering his advancing Parkinson's. PT-OP-J Posture/Palpation/Skin Start: 08/06/20 07:45 Freq: Status: Active Protocol: Document 08/06/20 14:15 AMB (Rec: 08/08/20 11:16 AMB [id number]) Posture Evaluation Comments Posture Comments Forward shoulders, forward head. Difficulty actively extending fingers in R hand but does have PROM available to do so. PT-OP-K Range of Motion Start: 08/06/20 07:45 Freq: Status: Active Protocol: Document 10/06/20 13:35 AMB (Rec: 10/06/20 14:30 AMB [id number]) Shoulder Goniometric Range of Motion Shoulder Right Active Testing Position Sitting Flexion 110 Abduction 110 Left Active Testing Position Sitting Flexion 110 Abduction 90 Comments painful 2-3/10 with movement. 0 degrees IR at 90 degrees abduction and painful PT-OP-M Strength Start: 08/06/20 07:45 Freq: Status: Active Protocol: Document 08/06/20 14:15 AMB (Rec: 08/08/20 11:16 AMB [id number]) Hip Strength Hip Manual Muscle Testing Right Flexion (L2) 4- Good- Extension (S1) 3+ Fair+ Abduction 4- Good- Left Flexion (L2) 4- Good- Extension (S1) 3+ Fair+ Abduction 4- Good- Knee Strength Knee Manual Muscle Testing Right Flexion (S2) 5 Normal Extension (L3) 5 Normal Left Flexion (S2) 5 Normal Extension (L3) 5 Normal PT-OP-Q Treatments Start: 08/06/20 07:45 Freq: Status: Active Protocol: Document 11/05/20 15:46 AMB (Rec: 11/05/20 15:56 AMB [email or web address]) Therapeutic Exercises Standing Exercises Pec Stretch Standing Exercise Name doorway Side bilateral Reps/Minutes x60 sec Band work Standing Exercise Name shd ext, ER, rows Resistance TB#2 Reps/Minutes 2x10 8 Standing Exercise Name shoulder AAROM With dowel Reps/Minutes 10 ea Comments flexion, extension ,abduction Other Exercises Sit<>Stand Reps/Minutes 15x Comments working on not using back of legs against chair Gait Training Gait Activity Walking Description outdoors Comments curbstep, 2 stairs without railing, 6 stair with railing ascending and descending, 400' with SBA PT-OP-T Assessment and Plan Start: 08/06/20 07:45 Freq: Status: Active Protocol: Document 11/05/20 15:46 AMB (Rec: 11/05/20 15:56 AMB [email or web address]) Physical Therapy Assessment Goals Four Impairment Shoulder Short Term Goal (STG) Hoang will improve his active L shoulder flexion to 130 degrees without an increase in pain. STG Duration 4 weeks Custom Shop Worker Goal (LTG) Hoang will improve his active abduction to 100 degrees without an increase in pain. LTG Duration 8 weeks Three Impairment Gait Short Term Goal (STG) Hoang will show decreased fall risk by ambulating around obstacles without a shuffling gait pattern. PROGRESS MADE- intermittent STG Duration 5 weeks Senior Living Goal (LTG) Hoang will ambulate at least 1,000 feet in 6 minutes without loss of balance or need for physical assistance. LTG Duration 10 weeks Two Impairment Bed mobility Senior Living Goal (LTG) Hoang will perform all bed mobility without physical assistance. PROGRESS MADE- intermittent LTG Duration 10 weeks One Impairment Sit to stand Short Term Goal (STG) Hoang will move from sit to stand from a standard height chair without heavy use of the back of his knees pushing into the chair. PROGRESS MADE STG Duration 5 weeks Custom Shop Worker Goal (LTG) Hoang will improve his 5x sit to stand time to 20 seconds or less. LTG Duration MET Assessment Summary Assessment Pt has difficulty with keeping toes up during swing phase of gait on the R. Was able to do well with balancing with doing standing arm exercises. Physical Therapy Plan Frequency and Duration Frequency of Treatment 2x/Week Duration of Treatment 10 weeks Plan of Care Start Date 10/06/20 Plan of Care End Date 12/15/20 Next Visit Focus/Plan Next Note Type Progress Note
--- NOTE | 2020-11-10 15:42 | PT.OTN ---
Current Diagnoses Parkinson's disease (11/10/20) Pain in left shoulder (11/10/20) Repeated falls (11/10/20) Physical Therapy Treatment Note PT-OP-A Visit Information Start: 08/06/20 07:45 Freq: Status: Active Protocol: Document 11/10/20 14:15 AMB (Rec: 11/10/20 14:33 AMB [id number]) Out-Patient Physical Therapy Visit Information Visit Information Visit Type Progress Note Visit Start Time 14:15 Visit Stop Time 15:00 Total Visit Minutes 45 Visit Number 23 PT-OP-B Current Condition Start: 08/06/20 07:45 Freq: Status: Active Protocol: Document 08/06/20 14:16 AMB (Rec: 08/06/20 14:30 AMB [id number]) Current Condition History of Current Condition Onset Date May 30, 2020 Current Complaints reduced mobility s/p L humerus fracture History of Current Condition Hoang attends PT with decreased moblity s/p recent L humerus fracture due to fall, tripping over laundry 05/30. Fell out bed once since then. Currently walking inside 10 minutes a day, previously walking in the community 30 minutes/ day. Was wearing a sling until end of June when got repeat X-ray. Pt reports sitting in the recliner most of the day, it is a power lift chair, so it helps him move from sit to stand. Pt feels sleepy most of the day. Does walk around the room a little, but does get help with showering and with bed mobility. L arm is painful at rest, when moved overhead increases pain. R arm is more affected with parkinson's making using a walker very difficult. Prior Treatments and Tests X-ray:There is a left humeral head and neck fracture with superior migration of the distal fracture fragment. The alignment is stable compared to 06/11/2020. No suspicious bony lesions. 07/17 Treatment Goals Patient/Caregiver Goals Get back to walking, was previously walking 30 minutes a day outside. Prior Functional Status Baseline Function- ADL's Modified Independent Baseline Function- Mobility Modified Independent Current Functional Impairments (Reported) Functional Limitations- ADL's Requires physical assist to get into bed due to L shoulder pain, physical assist with showering. Describes what sounds like CGA with ambulation, although does ambulate short distances around his room independently. Personal Factors Other Personal Factors That May Effect Lives in assisted living, Therapy/Recovery feels limited to walking 10 minutes/day because that is what the aides have time to help with PT-OP-C Subjective Start: 08/06/20 07:45 Freq: Status: Active Protocol: Document 11/10/20 14:15 AMB (Rec: 11/10/20 14:33 AMB [id number]) OP-PT Subjective Patient Comments Patient Comments Sleeping on the right shoulder , and doing exercises are the most painful (3/10). PT-OP-E Functional Tests Start: 08/06/20 07:45 Freq: Status: Active Protocol: Document 09/22/20 14:15 AMB (Rec: 09/22/20 15:53 AMB [email or web address]) Functional Tests 10 Meter Walk Test Distance 7 seconds Device Used none Five Times Sit to Stand Test Score 19 sec Timed Up and Go (TUG) Score 14.5 PT-OP-G Mobility & Gait Start: 08/06/20 07:45 Freq: Status: Active Protocol: Document 08/06/20 14:15 AMB (Rec: 08/08/20 10:12 AMB [id number]) OP Mobility Evaluation Bed Mobility Supine to and from Sit Lul due to pain from L shoulder Transfers Sit to Stand Requires multiple attempts, poor form Bed to Chair Transfers multiple shuffling steps OP Gait Assessment Comments Gait Comments Once Hoang starts walking, he walks quite well in a straight line. His gait is much more precarious in small spaces and when he first starts, or with turns or when moving around obstacles. He is more of a fall risk when first starting out or when negotiating around obstacles, but when he can walk in a straight line has good step length and ami considering his advancing Parkinson's. PT-OP-J Posture/Palpation/Skin Start: 08/06/20 07:45 Freq: Status: Active Protocol: Document 08/06/20 14:15 AMB (Rec: 08/08/20 11:16 AMB [id number]) Posture Evaluation Comments Posture Comments Forward shoulders, forward head. Difficulty actively extending fingers in R hand but does have PROM available to do so. PT-OP-K Range of Motion Start: 08/06/20 07:45 Freq: Status: Active Protocol: Document 10/06/20 13:35 AMB (Rec: 10/06/20 14:30 AMB [id number]) Shoulder Goniometric Range of Motion Shoulder Right Active Testing Position Sitting Flexion 110 Abduction 110 Left Active Testing Position Sitting Flexion 110 Abduction 90 Comments painful 2-3/10 with movement. 0 degrees IR at 90 degrees abduction and painful PT-OP-M Strength Start: 08/06/20 07:45 Freq: Status: Active Protocol: Document 08/06/20 14:15 AMB (Rec: 08/08/20 11:16 AMB [id number]) Hip Strength Hip Manual Muscle Testing Right Flexion (L2) 4- Good- Extension (S1) 3+ Fair+ Abduction 4- Good- Left Flexion (L2) 4- Good- Extension (S1) 3+ Fair+ Abduction 4- Good- Knee Strength Knee Manual Muscle Testing Right Flexion (S2) 5 Normal Extension (L3) 5 Normal Left Flexion (S2) 5 Normal Extension (L3) 5 Normal PT-OP-Q Treatments Start: 08/06/20 07:45 Freq: Status: Active Protocol: Document 11/10/20 14:15 AMB (Rec: 11/10/20 15:42 AMB [id number]) Therapeutic Exercises Sitting Exercises Smooth Sitting Exercise Name flexion & scaption, added IR in standing Side bilateral Reps/Minutes 4' Standing Exercises Pec Stretch Standing Exercise Name doorway Side bilateral Reps/Minutes x60 sec Band work Standing Exercise Name shd ext, ER, rows Resistance TB#2 Reps/Minutes 3x10 Gait Training Gait Activity 2 Description fwd/backward walking Comments Hoang shows more shuffling when walking backwards 1 Description lebron- step ant/post and laterally Level of Assistance SBA- Lul intermittent Comments difficult especially when stepping backwards PT-OP-T Assessment and Plan Start: 08/06/20 07:45 Freq: Status: Active Protocol: Document 11/10/20 14:15 AMB (Rec: 11/10/20 14:33 AMB [id number]) Physical Therapy Assessment Goals Four Impairment Shoulder Short Term Goal (STG) Hoang will improve his active L shoulder flexion to 130 degrees without an increase in pain. Not yet met : 118 STG Duration 4 weeks Systems Software Developer Goal (LTG) Hoang will improve his active abduction to 100 degrees without an increase in pain. Not yet met: 93 LTG Duration 8 weeks Three Impairment Gait Short Term Goal (STG) Hoang will show decreased fall risk by ambulating around obstacles without a shuffling gait pattern. PROGRESS MADE- intermittent STG Duration 5 weeks Prison Goal (LTG) Hoang will ambulate at least 1,000 feet in 6 minutes without loss of balance or need for physical assistance. LTG Duration 10 weeks Two Impairment Bed mobility Prison Goal (LTG) Hoang will perform all bed mobility without physical assistance. LTG Duration MET One Impairment Sit to stand Short Term Goal (STG) Hoang will move from sit to stand from a standard height chair without heavy use of the back of his knees pushing into the chair. PROGRESS MADE STG Duration 5 weeks Prison Goal (LTG) Hoang will improve his 5x sit to stand time to 20 seconds or less. LTG Duration MET Assessment Summary Assessment Hoang is continuing to improve, but shoulder ROM is slowly improving, pain has shown more significant of improvement. Gait and balance is improving- Hoang is walking 20 minutes inside without physical assistance ( improved from 10 minutes with an aid with a gait belt when first evaluated). He does still exhibit shuffling gait especially when first starting to walk, but is aware of this and tries to comepensate for it. Physical Therapy Plan Frequency and Duration Frequency of Treatment 2x/Week Duration of Treatment 10 weeks Plan of Care Start Date 10/06/20 Plan of Care End Date 12/15/20 Therapeutic Interventions Therapeutic Interventions Balance Training,Gait Training ,Home Exercise Program,Manual Therapy,Neuromuscular Re- education,Self-Care/Home Management,Therapeutic Activities,Therapeutic Exercises Modalities Cold Pack/Ice Massage,Electric Stimulation,Hot Packs Next Visit Focus/Plan Next Note Type Treatment Note Next Visit Plan Continue shd AAROM. If weather permits, work on curb management outside and continue shoulder stretching/ posture.
--- NOTE | 2020-11-12 16:03 | PT.OTN ---
Current Diagnoses Parkinson's disease (11/12/20) Pain in left shoulder (11/12/20) Repeated falls (11/12/20) Physical Therapy Treatment Note PT-OP-A Visit Information Start: 08/06/20 07:45 Freq: Status: Active Protocol: Document 11/12/20 15:25 MA (Rec: 11/12/20 16:03 MA [id number]) Out-Patient Physical Therapy Visit Information Visit Information Visit Type Treatment Note Visit Start Time 15:15 Visit Stop Time 15:58 Total Visit Minutes 43 Visit Number 24 Number of WOOD POLISHER Visits 1 PT-OP-B Current Condition Start: 08/06/20 07:45 Freq: Status: Active Protocol: Document 08/06/20 14:16 AMB (Rec: 08/06/20 14:30 AMB [id number]) Current Condition History of Current Condition Onset Date May 30, 2020 Current Complaints reduced mobility s/p L humerus fracture History of Current Condition Hoang attends PT with decreased moblity s/p recent L humerus fracture due to fall, tripping over laundry 05/30. Fell out bed once since then. Currently walking inside 10 minutes a day, previously walking in the community 30 minutes/ day. Was wearing a sling until end of June when got repeat X-ray. Pt reports sitting in the recliner most of the day, it is a power lift chair, so it helps him move from sit to stand. Pt feels sleepy most of the day. Does walk around the room a little, but does get help with showering and with bed mobility. L arm is painful at rest, when moved overhead increases pain. R arm is more affected with parkinson's making using a walker very difficult. Prior Treatments and Tests X-ray:There is a left humeral head and neck fracture with superior migration of the distal fracture fragment. The alignment is stable compared to 06/11/2020. No suspicious bony lesions. 07/17 Treatment Goals Patient/Caregiver Goals Get back to walking, was previously walking 30 minutes a day outside. Prior Functional Status Baseline Function- ADL's Modified Independent Baseline Function- Mobility Modified Independent Current Functional Impairments (Reported) Functional Limitations- ADL's Requires physical assist to get into bed due to L shoulder pain, physical assist with showering. Describes what sounds like CGA with ambulation, although does ambulate short distances around his room independently. Personal Factors Other Personal Factors That May Effect Lives in assisted living, Therapy/Recovery feels limited to walking 10 minutes/day because that is what the aides have time to help with PT-OP-C Subjective Start: 08/06/20 07:45 Freq: Status: Active Protocol: Document 11/12/20 15:25 MA (Rec: 11/12/20 16:03 MA [id number]) OP-PT Subjective Patient Comments Patient Comments Pt is doing some exercises every day and some every other day at home. PT-OP-E Functional Tests Start: 08/06/20 07:45 Freq: Status: Active Protocol: Document 09/22/20 14:15 AMB (Rec: 09/22/20 15:53 AMB [email or web address]) Functional Tests 10 Meter Walk Test Distance 7 seconds Device Used none Five Times Sit to Stand Test Score 19 sec Timed Up and Go (TUG) Score 14.5 PT-OP-G Mobility & Gait Start: 08/06/20 07:45 Freq: Status: Active Protocol: Document 08/06/20 14:15 AMB (Rec: 08/08/20 10:12 AMB [id number]) OP Mobility Evaluation Bed Mobility Supine to and from Sit Lul due to pain from L shoulder Transfers Sit to Stand Requires multiple attempts, poor form Bed to Chair Transfers multiple shuffling steps OP Gait Assessment Comments Gait Comments Once Hoang starts walking, he walks quite well in a straight line. His gait is much more precarious in small spaces and when he first starts, or with turns or when moving around obstacles. He is more of a fall risk when first starting out or when negotiating around obstacles, but when he can walk in a straight line has good step length and ami considering his advancing Parkinson's. PT-OP-J Posture/Palpation/Skin Start: 08/06/20 07:45 Freq: Status: Active Protocol: Document 08/06/20 14:15 AMB (Rec: 08/08/20 11:16 AMB [id number]) Posture Evaluation Comments Posture Comments Forward shoulders, forward head. Difficulty actively extending fingers in R hand but does have PROM available to do so. PT-OP-K Range of Motion Start: 08/06/20 07:45 Freq: Status: Active Protocol: Document 10/06/20 13:35 AMB (Rec: 10/06/20 14:30 AMB [id number]) Shoulder Goniometric Range of Motion Shoulder Right Active Testing Position Sitting Flexion 110 Abduction 110 Left Active Testing Position Sitting Flexion 110 Abduction 90 Comments painful 2-3/10 with movement. 0 degrees IR at 90 degrees abduction and painful PT-OP-M Strength Start: 08/06/20 07:45 Freq: Status: Active Protocol: Document 08/06/20 14:15 AMB (Rec: 08/08/20 11:16 AMB [id number]) Hip Strength Hip Manual Muscle Testing Right Flexion (L2) 4- Good- Extension (S1) 3+ Fair+ Abduction 4- Good- Left Flexion (L2) 4- Good- Extension (S1) 3+ Fair+ Abduction 4- Good- Knee Strength Knee Manual Muscle Testing Right Flexion (S2) 5 Normal Extension (L3) 5 Normal Left Flexion (S2) 5 Normal Extension (L3) 5 Normal PT-OP-Q Treatments Start: 08/06/20 07:45 Freq: Status: Active Protocol: Document 11/12/20 15:25 MA (Rec: 11/12/20 16:03 MA [id number]) Therapeutic Exercises Sitting Exercises Smooth Sitting Exercise Name flexion & scaption, added IR in standing Side bilateral Reps/Minutes 4' Standing Exercises Band work Standing Exercise Name shd ext, ER, rows Resistance TB#2 Reps/Minutes 3x10 Other Exercises Sit<>Stand Reps/Minutes 8x Gait Training Gait Activity Turns Treatment Focus turning without shuffling Comments Walking until therapist says turn, trying to turn quickly and walk the other direction Walking Description outdoors Comments curbstep, 2 stairs without railing, 6 stair with railing ascending and descending, 400' with SBA Step Ups Comments 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, working on stepping up fwd & laterally 1 Description lebron- step ant/post and laterally Level of Assistance SBA- Lul intermittent Comments difficult especially when stepping backwards Neuro Re-Education Treatment Balance Activities Balance Details SLS Comments 10 seconds, no UNEMPLOYMENT INSURANCE HEARING OFFICER- bilaterally PT-OP-T Assessment and Plan Start: 08/06/20 07:45 Freq: Status: Active Protocol: Document 11/12/20 15:25 MA (Rec: 11/12/20 16:03 MA [id number]) Physical Therapy Assessment Goals Four Impairment Shoulder Short Term Goal (STG) Hoang will improve his active L shoulder flexion to 130 degrees without an increase in pain. Not yet met : 118 STG Duration 4 weeks [facility] Goal (LTG) Hoang will improve his active abduction to 100 degrees without an increase in pain. Not yet met: 93 LTG Duration 8 weeks Three Impairment Gait Short Term Goal (STG) Hoang will show decreased fall risk by ambulating around obstacles without a shuffling gait pattern. PROGRESS MADE- intermittent STG Duration 5 weeks Senior Tax Analyst Goal (LTG) Hoang will ambulate at least 1,000 feet in 6 minutes without loss of balance or need for physical assistance. LTG Duration 10 weeks Two Impairment Bed mobility [facility] Goal (LTG) Hoang will perform all bed mobility without physical assistance. LTG Duration MET One Impairment Sit to stand Short Term Goal (STG) Hoang will move from sit to stand from a standard height chair without heavy use of the back of his knees pushing into the chair. PROGRESS MADE STG Duration 5 weeks Senior Tax Analyst Goal (LTG) Hoang will improve his 5x sit to stand time to 20 seconds or less. LTG Duration MET Assessment Summary Assessment Leonel is having almost no shd pain throughout session. His ROM into flexion has improved with pulleys. He was able to walk around outside SBA over curbs, up/down stairs , and on gravel with no LOB. If cued to scoot to the edge of chair before standing up, Hoang can avoid pushing into chair with back of legs. He only needed one break during session showing improved endurance. Physical Therapy Plan Frequency and Duration Frequency of Treatment 2x/Week Duration of Treatment 10 weeks Plan of Care Start Date 10/06/20 Plan of Care End Date 12/15/20 Therapeutic Interventions Therapeutic Interventions Balance Training,Gait Training ,Home Exercise Program,Manual Therapy,Neuromuscular Re- education,Self-Care/Home Management,Therapeutic Activities,Therapeutic Exercises Modalities Cold Pack/Ice Massage,Electric Stimulation,Hot Packs Next Visit Focus/Plan Next Note Type Treatment Note Next Visit Plan Continue shd AAROM. If weather permits, work on curb management outside and continue shoulder stretching/ posture.
--- NOTE | 2020-11-19 17:01 | PT.OTN ---
Current Diagnoses Parkinson's disease (11/19/20) Pain in left shoulder (11/19/20) Repeated falls (11/19/20) Physical Therapy Treatment Note PT-OP-A Visit Information Start: 08/06/20 07:45 Freq: Status: Active Protocol: Document 11/19/20 15:30 MA (Rec: 11/19/20 16:01 MA [id number]) Out-Patient Physical Therapy Visit Information Visit Information Visit Type Treatment Note Visit Start Time 15:15 Visit Stop Time 15:58 Total Visit Minutes 43 Visit Number 25 Number of MANAGER ERP Visits 2 PT-OP-B Current Condition Start: 08/06/20 07:45 Freq: Status: Active Protocol: Document 08/06/20 14:16 AMB (Rec: 08/06/20 14:30 AMB [id number]) Current Condition History of Current Condition Onset Date May 30, 2020 Current Complaints reduced mobility s/p L humerus fracture History of Current Condition Hoang attends PT with decreased moblity s/p recent L humerus fracture due to fall, tripping over laundry 05/30. Fell out bed once since then. Currently walking inside 10 minutes a day, previously walking in the community 30 minutes/ day. Was wearing a sling until end of June when got repeat X-ray. Pt reports sitting in the recliner most of the day, it is a power lift chair, so it helps him move from sit to stand. Pt feels sleepy most of the day. Does walk around the room a little, but does get help with showering and with bed mobility. L arm is painful at rest, when moved overhead increases pain. R arm is more affected with parkinson's making using a walker very difficult. Prior Treatments and Tests X-ray:There is a left humeral head and neck fracture with superior migration of the distal fracture fragment. The alignment is stable compared to 06/11/2020. No suspicious bony lesions. 07/17 Treatment Goals Patient/Caregiver Goals Get back to walking, was previously walking 30 minutes a day outside. Prior Functional Status Baseline Function- ADL's Modified Independent Baseline Function- Mobility Modified Independent Current Functional Impairments (Reported) Functional Limitations- ADL's Requires physical assist to get into bed due to L shoulder pain, physical assist with showering. Describes what sounds like CGA with ambulation, although does ambulate short distances around his room independently. Personal Factors Other Personal Factors That May Effect Lives in assisted living, Therapy/Recovery feels limited to walking 10 minutes/day because that is what the aides have time to help with PT-OP-C Subjective Start: 08/06/20 07:45 Freq: Status: Active Protocol: Document 11/19/20 15:30 MA (Rec: 11/19/20 16:01 MA [id number]) OP-PT Subjective Patient Comments Patient Comments Pt would like to walk outside today and have my shd massaged. He reports falling out of bed last night and having to call for help. PT-OP-E Functional Tests Start: 08/06/20 07:45 Freq: Status: Active Protocol: Document 09/22/20 14:15 AMB (Rec: 09/22/20 15:53 AMB [id number]) Functional Tests 10 Meter Walk Test Distance 7 seconds Device Used none Five Times Sit to Stand Test Score 19 sec Timed Up and Go (TUG) Score 14.5 PT-OP-G Mobility & Gait Start: 08/06/20 07:45 Freq: Status: Active Protocol: Document 08/06/20 14:15 AMB (Rec: 08/08/20 10:12 AMB [id number]) OP Mobility Evaluation Bed Mobility Supine to and from Sit Lul due to pain from L shoulder Transfers Sit to Stand Requires multiple attempts, poor form Bed to Chair Transfers multiple shuffling steps OP Gait Assessment Comments Gait Comments Once Hoang starts walking, he walks quite well in a straight line. His gait is much more precarious in small spaces and when he first starts, or with turns or when moving around obstacles. He is more of a fall risk when first starting out or when negotiating around obstacles, but when he can walk in a straight line has good step length and ami considering his advancing Parkinson's. PT-OP-J Posture/Palpation/Skin Start: 08/06/20 07:45 Freq: Status: Active Protocol: Document 08/06/20 14:15 AMB (Rec: 08/08/20 11:16 AMB [id number]) Posture Evaluation Comments Posture Comments Forward shoulders, forward head. Difficulty actively extending fingers in R hand but does have PROM available to do so. PT-OP-K Range of Motion Start: 08/06/20 07:45 Freq: Status: Active Protocol: Document 10/06/20 13:35 AMB (Rec: 10/06/20 14:30 AMB [id number]) Shoulder Goniometric Range of Motion Shoulder Right Active Testing Position Sitting Flexion 110 Abduction 110 Left Active Testing Position Sitting Flexion 110 Abduction 90 Comments painful 2-3/10 with movement. 0 degrees IR at 90 degrees abduction and painful PT-OP-M Strength Start: 08/06/20 07:45 Freq: Status: Active Protocol: Document 08/06/20 14:15 AMB (Rec: 08/08/20 11:16 AMB [id number]) Hip Strength Hip Manual Muscle Testing Right Flexion (L2) 4- Good- Extension (S1) 3+ Fair+ Abduction 4- Good- Left Flexion (L2) 4- Good- Extension (S1) 3+ Fair+ Abduction 4- Good- Knee Strength Knee Manual Muscle Testing Right Flexion (S2) 5 Normal Extension (L3) 5 Normal Left Flexion (S2) 5 Normal Extension (L3) 5 Normal PT-OP-Q Treatments Start: 08/06/20 07:45 Freq: Status: Active Protocol: Document 11/19/20 15:30 MA (Rec: 11/19/20 16:01 MA [id number]) Therapeutic Exercises Sitting Exercises Smooth Sitting Exercise Name flexion & scaption, added IR in standing Side bilateral Reps/Minutes 4' Standing Exercises Pec Stretch Standing Exercise Name doorway Side bilateral Reps/Minutes x60 sec Band work Standing Exercise Name shd ext, ER, rows Resistance TB#2 Reps/Minutes 2x10 Gait Training Gait Activity Walking Description outdoors Comments curbstep, 2 stairs without railing, 6 stair with railing ascending and descending, 400' with SBA Manual Therapy Treatment Soft Tissue Mobilization Shd Body Location Lasha Pecs, L RTC Mobilization Type Strumming,Sustained Pressure, Trigger Point Release,Other Intensity/Depth Moderate Body Position Supine Comments mm bending PT-OP-T Assessment and Plan Start: 08/06/20 07:45 Freq: Status: Active Protocol: Document 11/19/20 15:30 MA (Rec: 11/19/20 16:01 MA [id number]) Physical Therapy Assessment Goals Four Impairment Shoulder Short Term Goal (STG) Hoang will improve his active L shoulder flexion to 130 degrees without an increase in pain. Not yet met : 118 STG Duration 4 weeks [facility] Goal (LTG) Hoang will improve his active abduction to 100 degrees without an increase in pain. Not yet met: 93 LTG Duration 8 weeks Three Impairment Gait Short Term Goal (STG) Hoang will show decreased fall risk by ambulating around obstacles without a shuffling gait pattern. PROGRESS MADE- intermittent STG Duration 5 weeks [facility] Goal (LTG) Hoang will ambulate at least 1,000 feet in 6 minutes without loss of balance or need for physical assistance. LTG Duration 10 weeks Two Impairment Bed mobility [facility] Goal (LTG) Hoang will perform all bed mobility without physical assistance. LTG Duration MET One Impairment Sit to stand Short Term Goal (STG) Hoang will move from sit to stand from a standard height chair without heavy use of the back of his knees pushing into the chair. PROGRESS MADE STG Duration 5 weeks [employer] Clerk Goal (LTG) Hoang will improve his 5x sit to stand time to 20 seconds or less. LTG Duration MET Assessment Summary Assessment Hoang did well walking outside today and did not need any assistance on stairs or curbs. He has been using his pulleys at home but has not done IR yet because he did not think he could reach it himself. Practiced how to grab pulleys at home so he could perform IR properly. Physical Therapy Plan Frequency and Duration Frequency of Treatment 2x/Week Duration of Treatment 10 weeks Plan of Care Start Date 10/06/20 Plan of Care End Date 12/15/20 Therapeutic Interventions Therapeutic Interventions Balance Training,Gait Training ,Home Exercise Program,Manual Therapy,Neuromuscular Re- education,Self-Care/Home Management,Therapeutic Activities,Therapeutic Exercises Modalities Cold Pack/Ice Massage,Electric Stimulation,Hot Packs Next Visit Focus/Plan Next Note Type Treatment Note Next Visit Plan Continue shd AAROM. If weather permits, work on curb management outside and continue shoulder stretching/ posture.
--- NOTE | 2020-11-24 16:12 | PT.OTN ---
Current Diagnoses Parkinson's disease (11/24/20) Pain in left shoulder (11/24/20) Repeated falls (11/24/20) Physical Therapy Treatment Note PT-OP-A Visit Information Start: 08/06/20 07:45 Freq: Status: Active Protocol: Document 11/24/20 14:15 AMB (Rec: 11/24/20 16:00 AMB [id number]) Out-Patient Physical Therapy Visit Information Visit Information Visit Type Treatment Note Visit Note 11/26 Visit Start Time 14:15 Visit Stop Time 15:00 Total Visit Minutes 45 Visit Number 26 Number of BARN OPERATOR Visits 0 PT-OP-B Current Condition Start: 08/06/20 07:45 Freq: Status: Active Protocol: Document 08/06/20 14:16 AMB (Rec: 08/06/20 14:30 AMB [id number]) Current Condition History of Current Condition Onset Date May 30, 2020 Current Complaints reduced mobility s/p L humerus fracture History of Current Condition Hoang attends PT with decreased moblity s/p recent L humerus fracture due to fall, tripping over laundry 05/30. Fell out bed once since then. Currently walking inside 10 minutes a day, previously walking in the community 30 minutes/ day. Was wearing a sling until end of June when got repeat X-ray. Pt reports sitting in the recliner most of the day, it is a power lift chair, so it helps him move from sit to stand. Pt feels sleepy most of the day. Does walk around the room a little, but does get help with showering and with bed mobility. L arm is painful at rest, when moved overhead increases pain. R arm is more affected with parkinson's making using a walker very difficult. Prior Treatments and Tests X-ray:There is a left humeral head and neck fracture with superior migration of the distal fracture fragment. The alignment is stable compared to 06/11/2020. No suspicious bony lesions. 07/17 Treatment Goals Patient/Caregiver Goals Get back to walking, was previously walking 30 minutes a day outside. Prior Functional Status Baseline Function- ADL's Modified Independent Baseline Function- Mobility Modified Independent Current Functional Impairments (Reported) Functional Limitations- ADL's Requires physical assist to get into bed due to L shoulder pain, physical assist with showering. Describes what sounds like CGA with ambulation, although does ambulate short distances around his room independently. Personal Factors Other Personal Factors That May Effect Lives in assisted living, Therapy/Recovery feels limited to walking 10 minutes/day because that is what the aides have time to help with PT-OP-C Subjective Start: 08/06/20 07:45 Freq: Status: Active Protocol: Document 11/24/20 14:15 AMB (Rec: 11/24/20 16:00 AMB [id number]) OP-PT Subjective Patient Comments Patient Comments Pt states brother has asked assisted living facility if he can walk with the pt outside, but they have not heard back yet. PT-OP-E Functional Tests Start: 08/06/20 07:45 Freq: Status: Active Protocol: Document 09/22/20 14:15 AMB (Rec: 09/22/20 15:53 AMB [id number]) Functional Tests 10 Meter Walk Test Distance 7 seconds Device Used none Five Times Sit to Stand Test Score 19 sec Timed Up and Go (TUG) Score 14.5 PT-OP-G Mobility & Gait Start: 08/06/20 07:45 Freq: Status: Active Protocol: Document 08/06/20 14:15 AMB (Rec: 08/08/20 10:12 AMB [id number]) OP Mobility Evaluation Bed Mobility Supine to and from Sit Lul due to pain from L shoulder Transfers Sit to Stand Requires multiple attempts, poor form Bed to Chair Transfers multiple shuffling steps OP Gait Assessment Comments Gait Comments Once Hoang starts walking, he walks quite well in a straight line. His gait is much more precarious in small spaces and when he first starts, or with turns or when moving around obstacles. He is more of a fall risk when first starting out or when negotiating around obstacles, but when he can walk in a straight line has good step length and ami considering his advancing Parkinson's. PT-OP-J Posture/Palpation/Skin Start: 08/06/20 07:45 Freq: Status: Active Protocol: Document 08/06/20 14:15 AMB (Rec: 08/08/20 11:16 AMB [id number]) Posture Evaluation Comments Posture Comments Forward shoulders, forward head. Difficulty actively extending fingers in R hand but does have PROM available to do so. PT-OP-K Range of Motion Start: 08/06/20 07:45 Freq: Status: Active Protocol: Document 10/06/20 13:35 AMB (Rec: 10/06/20 14:30 AMB [id number]) Shoulder Goniometric Range of Motion Shoulder Right Active Testing Position Sitting Flexion 110 Abduction 110 Left Active Testing Position Sitting Flexion 110 Abduction 90 Comments painful 2-3/10 with movement. 0 degrees IR at 90 degrees abduction and painful PT-OP-M Strength Start: 08/06/20 07:45 Freq: Status: Active Protocol: Document 08/06/20 14:15 AMB (Rec: 08/08/20 11:16 AMB [id number]) Hip Strength Hip Manual Muscle Testing Right Flexion (L2) 4- Good- Extension (S1) 3+ Fair+ Abduction 4- Good- Left Flexion (L2) 4- Good- Extension (S1) 3+ Fair+ Abduction 4- Good- Knee Strength Knee Manual Muscle Testing Right Flexion (S2) 5 Normal Extension (L3) 5 Normal Left Flexion (S2) 5 Normal Extension (L3) 5 Normal PT-OP-Q Treatments Start: 08/06/20 07:45 Freq: Status: Active Protocol: Document 11/24/20 14:15 AMB (Rec: 11/24/20 16:11 AMB [id number]) Therapeutic Exercises Sitting Exercises Smooth Sitting Exercise Name flexion & scaption, added IR in standing Side bilateral Reps/Minutes 4' 3 Sitting Exercise Name shoulder AAROM Reps/Minutes with wand 2 Sitting Exercise Name lat stretch bending over on rail Reps/Minutes 30x2 1 Sitting Exercise Name ankle dorsiflexion AROM Reps/Minutes 10 Standing Exercises Pec Stretch Standing Exercise Name doorway Side bilateral Reps/Minutes x60 sec 1 Standing Exercise Name stepping backward and forward Reps/Minutes x10 Gait Training Gait Activity Walking Description outdoors Comments curbstep, 2 stairs without railing, 6 stair with railing ascending and descending, 400' with SBA PT-OP-T Assessment and Plan Start: 08/06/20 07:45 Freq: Status: Active Protocol: Document 11/24/20 14:15 AMB (Rec: 11/24/20 16:00 AMB [id number]) Physical Therapy Assessment Goals Four Impairment Shoulder Short Term Goal (STG) Hoang will improve his active L shoulder flexion to 130 degrees without an increase in pain. Not yet met : 118 STG Duration 4 weeks [facility] Goal (LTG) Hoang will improve his active abduction to 100 degrees without an increase in pain. Not yet met: 93 LTG Duration 8 weeks Three Impairment Gait Short Term Goal (STG) Hoang will show decreased fall risk by ambulating around obstacles without a shuffling gait pattern. PROGRESS MADE- intermittent STG Duration 5 weeks Shook Splicer Goal (LTG) Hoang will ambulate at least 1,000 feet in 6 minutes without loss of balance or need for physical assistance. LTG Duration 10 weeks Two Impairment Bed mobility Shook Splicer Goal (LTG) Hoang will perform all bed mobility without physical assistance. LTG Duration MET One Impairment Sit to stand Short Term Goal (STG) Hoang will move from sit to stand from a standard height chair without heavy use of the back of his knees pushing into the chair. PROGRESS MADE STG Duration 5 weeks Shook Splicer Goal (LTG) Hoang will improve his 5x sit to stand time to 20 seconds or less. LTG Duration MET Assessment Summary Assessment Gave Hoang written HEP of: fwd/backward stepping next to countertop, seated ankle dorsiflexion AROM, pec stretch in corner, shoulder flexion and abduction AAROM and standing lat stretch. Pt should be able to perform independently, although he was slightly nervous about stepping exercise. Faxed assisted living facility to see if they can walk outside with him 15 mintues/day. Physical Therapy Plan Frequency and Duration Frequency of Treatment 2x/Week Duration of Treatment 10 weeks Plan of Care Start Date 10/06/20 Plan of Care End Date 12/15/20 Therapeutic Interventions Therapeutic Interventions Balance Training,Gait Training ,Home Exercise Program,Manual Therapy,Neuromuscular Re- education,Self-Care/Home Management,Therapeutic Activities,Therapeutic Exercises Modalities Cold Pack/Ice Massage,Electric Stimulation,Hot Packs Discharge Physical Therapy Discharge Reasons [place] in Progress Discharge Comments The patient came close to meeting many of his goals and has finished his [employer] BIG program. He will need to continue with his HEP. He does find it difficult to push himself to get his maximal range. Next Visit Focus/Plan Next Note Type Treatment Note Next Visit Plan Continue shd AAROM. If weather permits, work on curb management outside and continue shoulder stretching/ posture.
--- NOTE | 2020-12-03 16:55 | PT.OTN ---
Current Diagnoses Parkinson's disease (12/03/20) Pain in left shoulder (12/03/20) Repeated falls (12/03/20) Physical Therapy Treatment Note PT-OP-A Visit Information Start: 08/06/20 07:45 Freq: Status: Active Protocol: Document 12/03/20 16:13 MA (Rec: 12/03/20 16:55 MA [id number]) Out-Patient Physical Therapy Visit Information Visit Information Visit Type Treatment Note Visit Note 12/27 Visit Start Time 16:00 Visit Stop Time 16:45 Total Visit Minutes 45 Visit Number 27 Number of SEWER BRICKLAYER Visits 1 PT-OP-B Current Condition Start: 08/06/20 07:45 Freq: Status: Active Protocol: Document 08/06/20 14:16 AMB (Rec: 08/06/20 14:30 AMB [id number]) Current Condition History of Current Condition Onset Date May 30, 2020 Current Complaints reduced mobility s/p L humerus fracture History of Current Condition Hoang attends PT with decreased moblity s/p recent L humerus fracture due to fall, tripping over laundry 05/30. Fell out bed once since then. Currently walking inside 10 minutes a day, previously walking in the community 30 minutes/ day. Was wearing a sling until end of June when got repeat X-ray. Pt reports sitting in the recliner most of the day, it is a power lift chair, so it helps him move from sit to stand. Pt feels sleepy most of the day. Does walk around the room a little, but does get help with showering and with bed mobility. L arm is painful at rest, when moved overhead increases pain. R arm is more affected with parkinson's making using a walker very difficult. Prior Treatments and Tests X-ray:There is a left humeral head and neck fracture with superior migration of the distal fracture fragment. The alignment is stable compared to 06/11/2020. No suspicious bony lesions. 07/17 Treatment Goals Patient/Caregiver Goals Get back to walking, was previously walking 30 minutes a day outside. Prior Functional Status Baseline Function- ADL's Modified Independent Baseline Function- Mobility Modified Independent Current Functional Impairments (Reported) Functional Limitations- ADL's Requires physical assist to get into bed due to L shoulder pain, physical assist with showering. Describes what sounds like CGA with ambulation, although does ambulate short distances around his room independently. Personal Factors Other Personal Factors That May Effect Lives in assisted living, Therapy/Recovery feels limited to walking 10 minutes/day because that is what the aides have time to help with PT-OP-C Subjective Start: 08/06/20 07:45 Freq: Status: Active Protocol: Document 12/03/20 16:13 MA (Rec: 12/03/20 16:55 MA [id number]) OP-PT Subjective Patient Comments Patient Comments Brother has been able to walk with pt. They go about 4 blocks when they walk PT-OP-E Functional Tests Start: 08/06/20 07:45 Freq: Status: Active Protocol: Document 09/22/20 14:15 AMB (Rec: 09/22/20 15:53 AMB [id number]) Functional Tests 10 Meter Walk Test Distance 7 seconds Device Used none Five Times Sit to Stand Test Score 19 sec Timed Up and Go (TUG) Score 14.5 PT-OP-G Mobility & Gait Start: 08/06/20 07:45 Freq: Status: Active Protocol: Document 08/06/20 14:15 AMB (Rec: 08/08/20 10:12 AMB [id number]) OP Mobility Evaluation Bed Mobility Supine to and from Sit Lul due to pain from L shoulder Transfers Sit to Stand Requires multiple attempts, poor form Bed to Chair Transfers multiple shuffling steps OP Gait Assessment Comments Gait Comments Once Hoang starts walking, he walks quite well in a straight line. His gait is much more precarious in small spaces and when he first starts, or with turns or when moving around obstacles. He is more of a fall risk when first starting out or when negotiating around obstacles, but when he can walk in a straight line has good step length and ami considering his advancing Parkinson's. PT-OP-J Posture/Palpation/Skin Start: 08/06/20 07:45 Freq: Status: Active Protocol: Document 08/06/20 14:15 AMB (Rec: 08/08/20 11:16 AMB [id number]) Posture Evaluation Comments Posture Comments Forward shoulders, forward head. Difficulty actively extending fingers in R hand but does have PROM available to do so. PT-OP-K Range of Motion Start: 08/06/20 07:45 Freq: Status: Active Protocol: Document 10/06/20 13:35 AMB (Rec: 10/06/20 14:30 AMB [id number]) Shoulder Goniometric Range of Motion Shoulder Right Active Testing Position Sitting Flexion 110 Abduction 110 Left Active Testing Position Sitting Flexion 110 Abduction 90 Comments painful 2-3/10 with movement. 0 degrees IR at 90 degrees abduction and painful PT-OP-M Strength Start: 08/06/20 07:45 Freq: Status: Active Protocol: Document 08/06/20 14:15 AMB (Rec: 08/08/20 11:16 AMB [id number]) Hip Strength Hip Manual Muscle Testing Right Flexion (L2) 4- Good- Extension (S1) 3+ Fair+ Abduction 4- Good- Left Flexion (L2) 4- Good- Extension (S1) 3+ Fair+ Abduction 4- Good- Knee Strength Knee Manual Muscle Testing Right Flexion (S2) 5 Normal Extension (L3) 5 Normal Left Flexion (S2) 5 Normal Extension (L3) 5 Normal PT-OP-Q Treatments Start: 08/06/20 07:45 Freq: Status: Active Protocol: Document 12/03/20 16:13 MA (Rec: 12/03/20 16:55 MA [id number]) Therapeutic Exercises Sitting Exercises Smooth Sitting Exercise Name flexion & scaption, added IR in standing Side bilateral Reps/Minutes 4' 3 Sitting Exercise Name shoulder AAROM Reps/Minutes with wand Comments ABD & flexion 2 Sitting Exercise Name lat stretch bending over on rail Reps/Minutes 30x2 1 Sitting Exercise Name ankle dorsiflexion AROM Reps/Minutes 10 Standing Exercises Band work Standing Exercise Name shd ext, IR, ER, rows Resistance TB#2 Reps/Minutes x10 ea 1 Standing Exercise Name stepping backward and forward Reps/Minutes x10 Other Exercises Sit<>Stand Reps/Minutes 10x2 Comments Took pt 25 sec Gait Training Gait Activity Walking Description outdoors Comments curbstep, 2 stairs without railing, 6 stair with railing ascending and descending, 400' with SBA PT-OP-T Assessment and Plan Start: 08/06/20 07:45 Freq: Status: Active Protocol: Document 12/03/20 16:13 MA (Rec: 12/03/20 16:55 MA [id number]) Physical Therapy Assessment Goals Four Impairment Shoulder Short Term Goal (STG) Hoang will improve his active L shoulder flexion to 130 degrees without an increase in pain. Not yet met : 118 STG Duration 4 weeks Alf Goal (LTG) Hoang will improve his active abduction to 100 degrees without an increase in pain. Not yet met: 93 LTG Duration 8 weeks Three Impairment Gait Short Term Goal (STG) Hoang will show decreased fall risk by ambulating around obstacles without a shuffling gait pattern. PROGRESS MADE- intermittent STG Duration 5 weeks Director Of Radio Services Goal (LTG) Hoang will ambulate at least 1,000 feet in 6 minutes without loss of balance or need for physical assistance. LTG Duration 10 weeks Two Impairment Bed mobility Director Of Radio Services Goal (LTG) Hoang will perform all bed mobility without physical assistance. LTG Duration MET One Impairment Sit to stand Short Term Goal (STG) Hoang will move from sit to stand from a standard height chair without heavy use of the back of his knees pushing into the chair. PROGRESS MADE STG Duration 5 weeks Director Of Radio Services Goal (LTG) Hoang will improve his 5x sit to stand time to 20 seconds or less. LTG Duration MET Assessment Summary Assessment Hoang was able to perform his new HEP exercises with minimal cues for posture. He had trouble at home doing his stepping at the counter but once cued to step forward with the outside leg (opposite hand holding counter) he was more balanced and felt more comfortable. Ended session with outside walking back to assisted living facility where pt was left in his room, staff notified. Physical Therapy Plan Frequency and Duration Frequency of Treatment 2x/Week Duration of Treatment 10 weeks Plan of Care Start Date 10/06/20 Plan of Care End Date 12/15/20 Therapeutic Interventions Therapeutic Interventions Balance Training,Gait Training ,Home Exercise Program,Manual Therapy,Neuromuscular Re- education,Self-Care/Home Management,Therapeutic Activities,Therapeutic Exercises Modalities Cold Pack/Ice Massage,Electric Stimulation,Hot Packs Next Visit Focus/Plan Next Note Type Treatment Note Next Visit Plan Pt requests shd STM next session. Review stepping HEP exercise to make sure pt is holding counter and stepping opposite leg forward for safety/balance. Continue shd AAROM. If weather permits, work on curb management outside and continue shoulder stretching/ posture.
--- NOTE | 2020-12-10 15:51 | PT.OTN ---
Current Diagnoses Parkinson's disease (12/10/20) Pain in left shoulder (12/10/20) Repeated falls (12/10/20) Physical Therapy Treatment Note PT-OP-A Visit Information Start: 08/06/20 07:45 Freq: Status: Active Protocol: Document 12/10/20 14:23 AMB (Rec: 12/10/20 14:55 AMB [id number]) Out-Patient Physical Therapy Visit Information Visit Information Visit Type Treatment Note Visit Note 01/26 Visit Start Time 14:15 Visit Stop Time 15:00 Total Visit Minutes 45 Visit Number 28 Number of REGIONAL CONSTRUCTION MANAGER Visits 0 PT-OP-B Current Condition Start: 08/06/20 07:45 Freq: Status: Active Protocol: Document 08/06/20 14:16 AMB (Rec: 08/06/20 14:30 AMB [id number]) Current Condition History of Current Condition Onset Date May 30, 2020 Current Complaints reduced mobility s/p L humerus fracture History of Current Condition Hoang attends PT with decreased moblity s/p recent L humerus fracture due to fall, tripping over laundry 05/30. Fell out bed once since then. Currently walking inside 10 minutes a day, previously walking in the community 30 minutes/ day. Was wearing a sling until end of June when got repeat X-ray. Pt reports sitting in the recliner most of the day, it is a power lift chair, so it helps him move from sit to stand. Pt feels sleepy most of the day. Does walk around the room a little, but does get help with showering and with bed mobility. L arm is painful at rest, when moved overhead increases pain. R arm is more affected with parkinson's making using a walker very difficult. Prior Treatments and Tests X-ray:There is a left humeral head and neck fracture with superior migration of the distal fracture fragment. The alignment is stable compared to 06/11/2020. No suspicious bony lesions. 07/17 Treatment Goals Patient/Caregiver Goals Get back to walking, was previously walking 30 minutes a day outside. Prior Functional Status Baseline Function- ADL's Modified Independent Baseline Function- Mobility Modified Independent Current Functional Impairments (Reported) Functional Limitations- ADL's Requires physical assist to get into bed due to L shoulder pain, physical assist with showering. Describes what sounds like CGA with ambulation, although does ambulate short distances around his room independently. Personal Factors Other Personal Factors That May Effect Lives in assisted living, Therapy/Recovery feels limited to walking 10 minutes/day because that is what the aides have time to help with PT-OP-C Subjective Start: 08/06/20 07:45 Freq: Status: Active Protocol: Document 12/10/20 14:23 AMB (Rec: 12/10/20 14:55 AMB [id number]) OP-PT Subjective Patient Comments Patient Comments Walks around [place] with brother, PT-OP-E Functional Tests Start: 08/06/20 07:45 Freq: Status: Active Protocol: Document 09/22/20 14:15 AMB (Rec: 09/22/20 15:53 AMB [email or web address]) Functional Tests 10 Meter Walk Test Distance 7 seconds Device Used none Five Times Sit to Stand Test Score 19 sec Timed Up and Go (TUG) Score 14.5 PT-OP-G Mobility & Gait Start: 08/06/20 07:45 Freq: Status: Active Protocol: Document 08/06/20 14:15 AMB (Rec: 08/08/20 10:12 AMB [id number]) OP Mobility Evaluation Bed Mobility Supine to and from Sit Lul due to pain from L shoulder Transfers Sit to Stand Requires multiple attempts, poor form Bed to Chair Transfers multiple shuffling steps OP Gait Assessment Comments Gait Comments Once Hoang starts walking, he walks quite well in a straight line. His gait is much more precarious in small spaces and when he first starts, or with turns or when moving around obstacles. He is more of a fall risk when first starting out or when negotiating around obstacles, but when he can walk in a straight line has good step length and ami considering his advancing Parkinson's. PT-OP-J Posture/Palpation/Skin Start: 08/06/20 07:45 Freq: Status: Active Protocol: Document 08/06/20 14:15 AMB (Rec: 08/08/20 11:16 AMB [id number]) Posture Evaluation Comments Posture Comments Forward shoulders, forward head. Difficulty actively extending fingers in R hand but does have PROM available to do so. PT-OP-K Range of Motion Start: 08/06/20 07:45 Freq: Status: Active Protocol: Document 10/06/20 13:35 AMB (Rec: 10/06/20 14:30 AMB [id number]) Shoulder Goniometric Range of Motion Shoulder Right Active Testing Position Sitting Flexion 110 Abduction 110 Left Active Testing Position Sitting Flexion 110 Abduction 90 Comments painful 2-3/10 with movement. 0 degrees IR at 90 degrees abduction and painful PT-OP-M Strength Start: 08/06/20 07:45 Freq: Status: Active Protocol: Document 08/06/20 14:15 AMB (Rec: 08/08/20 11:16 AMB [id number]) Hip Strength Hip Manual Muscle Testing Right Flexion (L2) 4- Good- Extension (S1) 3+ Fair+ Abduction 4- Good- Left Flexion (L2) 4- Good- Extension (S1) 3+ Fair+ Abduction 4- Good- Knee Strength Knee Manual Muscle Testing Right Flexion (S2) 5 Normal Extension (L3) 5 Normal Left Flexion (S2) 5 Normal Extension (L3) 5 Normal PT-OP-Q Treatments Start: 08/06/20 07:45 Freq: Status: Active Protocol: Document 12/10/20 14:15 AMB (Rec: 12/10/20 15:49 AMB [id number]) Therapeutic Exercises Sitting Exercises Smooth Sitting Exercise Name flexion & scaption, added IR in standing Side bilateral Reps/Minutes 4' 3 Sitting Exercise Name shoulder AAROM Reps/Minutes with wand Comments ABD & flexion 1 Sitting Exercise Name ankle dorsiflexion AROM Reps/Minutes 10 Standing Exercises Band work Standing Exercise Name shd ext, IR, ER, rows Resistance TB#2 Reps/Minutes x10 ea Gait Training Gait Activity 4 Description indoors Comments 200'x2 around clinic, then over hurdles x2 1 Description stairs- 2 flights Comments SBA 1 railing PT-OP-T Assessment and Plan Start: 08/06/20 07:45 Freq: Status: Active Protocol: Document 12/10/20 14:15 AMB (Rec: 12/10/20 15:49 AMB [email or web address]) Physical Therapy Assessment Goals Four Impairment Shoulder Short Term Goal (STG) Hoang will improve his active L shoulder flexion to 130 degrees without an increase in pain. Not yet met : 118 STG Duration 4 weeks Biological Scientist Goal (LTG) Hoang will improve his active abduction to 100 degrees without an increase in pain. Not yet met: 93 LTG Duration 8 weeks Three Impairment Gait Short Term Goal (STG) Hoang will show decreased fall risk by ambulating around obstacles without a shuffling gait pattern. PROGRESS MADE- intermittent STG Duration 5 weeks Biological Scientist Goal (LTG) Hoang will ambulate at least 1,000 feet in 6 minutes without loss of balance or need for physical assistance. LTG Duration 10 weeks Two Impairment Bed mobility Biological Scientist Goal (LTG) Hoang will perform all bed mobility without physical assistance. LTG Duration MET One Impairment Sit to stand Short Term Goal (STG) Hoang will move from sit to stand from a standard height chair without heavy use of the back of his knees pushing into the chair. PROGRESS MADE STG Duration 5 weeks Long-Term Goal (LTG) Hoang will improve his 5x sit to stand time to 20 seconds or less. LTG Duration MET Assessment Summary Assessment Encouraged Hoang to try standing theraband exercises as a HEP if able. Pt walked to and from therapy with a staff member today. Physical Therapy Plan Next Visit Focus/Plan Next Note Type Discharge Summary Next Visit Plan Pt requests shd STM next session. Review stepping HEP exercise to make sure pt is holding counter and stepping opposite leg forward for safety/balance. Continue shd AAROM. If weather permits, work on curb management outside and continue shoulder stretching/ posture.
--- NOTE | 2020-12-17 15:00 | PT.OPPOC ---
Physical, Occupational & Speech Therapy At [facility] Current Diagnoses Parkinson's disease (12/17/20) Pain in left shoulder (12/17/20) Repeated falls (12/17/20) Visit Care Team Role Provider Type Steff Jacobson DO Attending Provider Physician Primary Care Provider Referring Provider Specialty: [facility] Address: [address] [place] [address], [id number] Email: [email or web address] Plan Of Care PT-OP-T Assessment and Plan Start: 08/06/20 07:45 Freq: Status: Active Protocol: Document 12/17/20 14:21 AMB (Rec: 12/17/20 15:30 AMB [id number]) Physical Therapy Assessment Goals Four Impairment Shoulder Short Term Goal (STG) Hoang will improve his active L shoulder flexion to 130 degrees without an increase in pain. Not yet met : 118 STG Duration NOT MET Nursing Home Goal (LTG) Hoang will improve his active abduction to 100 degrees without an increase in pain. Not yet met: 93 LTG Duration NOT MET Three Impairment Gait Short Term Goal (STG) Hoang will show decreased fall risk by ambulating around obstacles without a shuffling gait pattern. PROGRESS MADE- intermittent STG Duration 5 weeks Medical Auditor Goal (LTG) Hoang will ambulate at least 1,000 feet in 6 minutes without loss of balance or need for physical assistance. LTG Duration MET Two Impairment Bed mobility Medical Auditor Goal (LTG) Hoang will perform all bed mobility without physical assistance. LTG Duration MET One Impairment Sit to stand Short Term Goal (STG) Hoang will move from sit to stand from a standard height chair without heavy use of the back of his knees pushing into the chair. PROGRESS MADE STG Duration 5 weeks Nursing Home Goal (LTG) Hoang will improve his 5x sit to stand time to 20 seconds or less. LTG Duration MET Assessment Summary Assessment Hoang has improved his shoulder ROM and gait stability. He continues to have stiffness in his shoulder that does make bed mobility and dressing more challenging. His gait stability is the most impaired when turning/ walking around obstacles in close quarters like in his room, he is much more balanced when walking out and about with fewer obstacles. Encouraged pt to work on his exericises/walking independently over the next 3- 6 months and if he continues to have impairments he is welcome to return to physical therapy in the future. Physical Therapy Plan Frequency and Duration Frequency of Treatment 2x/Week Duration of Treatment 1 week Plan of Care Start Date 12/15/20 Plan of Care End Date 12/22/20 Therapeutic Interventions Therapeutic Interventions Balance Training,Gait Training ,Home Exercise Program,Manual Therapy,Neuromuscular Re- education,Self-Care/Home Management,Therapeutic Activities,Therapeutic Exercises Modalities Cold Pack/Ice Massage,Electric Stimulation,Hot Packs Discharge Physical Therapy Discharge Reasons Goals Met Plan of Care Dates Plan of Care Start Date 12/15/20 Plan of Care End Date 12/22/20 Electronically Signed by: Marialuisa Culver, PT 12/30/20 1015 Please Sign and Return: I have reviewed this Plan of Care and certify that the skilled therapy services above are required to meet the patient?s needs. Physician Signature Date Printed Name and Credentials Clinical Instructor Signature Printed Name and Credentials
--- NOTE | 2020-12-17 15:00 | PT.OTN ---
Current Diagnoses Parkinson's disease (12/17/20) Pain in left shoulder (12/17/20) Repeated falls (12/17/20) Physical Therapy Treatment Note PT-OP-A Visit Information Start: 08/06/20 07:45 Freq: Status: Active Protocol: Document 12/17/20 14:15 AMB (Rec: 12/30/20 10:11 AMB [email or web address]) Out-Patient Physical Therapy Visit Information Visit Information Visit Type Discharge Summary Visit Start Time 14:15 Visit Stop Time 15:00 Total Visit Minutes 45 Visit Number 29 PT-OP-B Current Condition Start: 08/06/20 07:45 Freq: Status: Active Protocol: Document 08/06/20 14:16 AMB (Rec: 08/06/20 14:30 AMB [id number]) Current Condition History of Current Condition Onset Date May 30, 2020 Current Complaints reduced mobility s/p L humerus fracture History of Current Condition Hoang attends PT with decreased moblity s/p recent L humerus fracture due to fall, tripping over laundry 05/30. Fell out bed once since then. Currently walking inside 10 minutes a day, previously walking in the community 30 minutes/ day. Was wearing a sling until end of June when got repeat X-ray. Pt reports sitting in the recliner most of the day, it is a power lift chair, so it helps him move from sit to stand. Pt feels sleepy most of the day. Does walk around the room a little, but does get help with showering and with bed mobility. L arm is painful at rest, when moved overhead increases pain. R arm is more affected with parkinson's making using a walker very difficult. Prior Treatments and Tests X-ray:There is a left humeral head and neck fracture with superior migration of the distal fracture fragment. The alignment is stable compared to 06/11/2020. No suspicious bony lesions. 07/17 Treatment Goals Patient/Caregiver Goals Get back to walking, was previously walking 30 minutes a day outside. Prior Functional Status Baseline Function- ADL's Modified Independent Baseline Function- Mobility Modified Independent Current Functional Impairments (Reported) Functional Limitations- ADL's Requires physical assist to get into bed due to L shoulder pain, physical assist with showering. Describes what sounds like CGA with ambulation, although does ambulate short distances around his room independently. Personal Factors Other Personal Factors That May Effect Lives in assisted living, Therapy/Recovery feels limited to walking 10 minutes/day because that is what the aides have time to help with PT-OP-C Subjective Start: 08/06/20 07:45 Freq: Status: Active Protocol: Document 12/17/20 14:15 AMB (Rec: 12/30/20 10:11 AMB [email or web address]) OP-PT Subjective Patient Comments Patient Comments Hoang is continuing to go on 15 minute walks with his brother. Getting out of bed is better but the shoulder is still stiff. Hands are difficult because of Parkinsons. PT-OP-E Functional Tests Start: 08/06/20 07:45 Freq: Status: Active Protocol: Document 09/22/20 14:15 AMB (Rec: 09/22/20 15:53 AMB [email or web address]) Functional Tests 10 Meter Walk Test Distance 7 seconds Device Used none Five Times Sit to Stand Test Score 19 sec Timed Up and Go (TUG) Score 14.5 PT-OP-G Mobility & Gait Start: 08/06/20 07:45 Freq: Status: Active Protocol: Document 08/06/20 14:15 AMB (Rec: 08/08/20 10:12 AMB [id number]) OP Mobility Evaluation Bed Mobility Supine to and from Sit Lul due to pain from L shoulder Transfers Sit to Stand Requires multiple attempts, poor form Bed to Chair Transfers multiple shuffling steps OP Gait Assessment Comments Gait Comments Once Hoang starts walking, he walks quite well in a straight line. His gait is much more precarious in small spaces and when he first starts, or with turns or when moving around obstacles. He is more of a fall risk when first starting out or when negotiating around obstacles, but when he can walk in a straight line has good step length and ami considering his advancing Parkinson's. PT-OP-J Posture/Palpation/Skin Start: 08/06/20 07:45 Freq: Status: Active Protocol: Document 08/06/20 14:15 AMB (Rec: 08/08/20 11:16 AMB [id number]) Posture Evaluation Comments Posture Comments Forward shoulders, forward head. Difficulty actively extending fingers in R hand but does have PROM available to do so. PT-OP-K Range of Motion Start: 08/06/20 07:45 Freq: Status: Active Protocol: Document 10/06/20 13:35 AMB (Rec: 10/06/20 14:30 AMB [id number]) Shoulder Goniometric Range of Motion Shoulder Right Active Testing Position Sitting Flexion 110 Abduction 110 Left Active Testing Position Sitting Flexion 110 Abduction 90 Comments painful 2-3/10 with movement. 0 degrees IR at 90 degrees abduction and painful PT-OP-M Strength Start: 08/06/20 07:45 Freq: Status: Active Protocol: Document 08/06/20 14:15 AMB (Rec: 08/08/20 11:16 AMB [id number]) Hip Strength Hip Manual Muscle Testing Right Flexion (L2) 4- Good- Extension (S1) 3+ Fair+ Abduction 4- Good- Left Flexion (L2) 4- Good- Extension (S1) 3+ Fair+ Abduction 4- Good- Knee Strength Knee Manual Muscle Testing Right Flexion (S2) 5 Normal Extension (L3) 5 Normal Left Flexion (S2) 5 Normal Extension (L3) 5 Normal PT-OP-Q Treatments Start: 08/06/20 07:45 Freq: Status: Active Protocol: Document 12/17/20 14:15 AMB (Rec: 12/30/20 10:11 AMB [email or web address]) Therapeutic Exercises Sitting Exercises Smooth Sitting Exercise Name flexion & scaption, added IR in standing Side bilateral Reps/Minutes 4' 3 Sitting Exercise Name shoulder AAROM Reps/Minutes with wand Comments ABD & flexion Standing Exercises Band work Standing Exercise Name shd ext, IR, ER, rows Resistance TB#2 Reps/Minutes x10 ea Manual Therapy Treatment Joint Mobilizations 1 Joint inferior and posterior glides Comments with passive stretching all planes PT-OP-T Assessment and Plan Start: 08/06/20 07:45 Freq: Status: Active Protocol: Document 12/17/20 14:21 AMB (Rec: 12/17/20 15:30 AMB [id number]) Physical Therapy Assessment Goals Four Impairment Shoulder Short Term Goal (STG) Hoang will improve his active L shoulder flexion to 130 degrees without an increase in pain. Not yet met : 118 STG Duration NOT MET Home Staging Specialist Goal (LTG) Hoang will improve his active abduction to 100 degrees without an increase in pain. Not yet met: 93 LTG Duration NOT MET Three Impairment Gait Short Term Goal (STG) Hoang will show decreased fall risk by ambulating around obstacles without a shuffling gait pattern. PROGRESS MADE- intermittent STG Duration 5 weeks Home Staging Specialist Goal (LTG) Hoang will ambulate at least 1,000 feet in 6 minutes without loss of balance or need for physical assistance. LTG Duration MET Two Impairment Bed mobility Detention Goal (LTG) Hoang will perform all bed mobility without physical assistance. LTG Duration MET One Impairment Sit to stand Short Term Goal (STG) Hoang will move from sit to stand from a standard height chair without heavy use of the back of his knees pushing into the chair. PROGRESS MADE STG Duration 5 weeks Detention Goal (LTG) Hoang will improve his 5x sit to stand time to 20 seconds or less. LTG Duration MET Assessment Summary Assessment Hoang has improved his shoulder ROM and gait stability. He continues to have stiffness in his shoulder that does make bed mobility and dressing more challenging. His gait stability is the most impaired when turning/ walking around obstacles in close quarters like in his room, he is much more balanced when walking out and about with fewer obstacles. Encouraged pt to work on his exericises/walking independently over the next 3- 6 months and if he continues to have impairments he is welcome to return to physical therapy in the future. Physical Therapy Plan Frequency and Duration Frequency of Treatment 2x/Week Duration of Treatment 1 week Plan of Care Start Date 12/15/20 Plan of Care End Date 12/22/20 Therapeutic Interventions Therapeutic Interventions Balance Training,Gait Training ,Home Exercise Program,Manual Therapy,Neuromuscular Re- education,Self-Care/Home Management,Therapeutic Activities,Therapeutic Exercises Modalities Cold Pack/Ice Massage,Electric Stimulation,Hot Packs Discharge Physical Therapy Discharge Reasons Goals Met
== END 2020-12-30 11:27 | disposition home or self-care (01) ==
LOC: PHYS 14:15
PROVIDERS: PCP Family Medicine; Referring Provider Family Medicine; Visit Provider Family Medicine
DX: G20 Parkinson's disease (principal); R29.6 Repeated falls; M25.512 Pain in left shoulder
CPT/HCPCS: 97110; 97112; 97116; 97140; 97163; 97530

== ENCOUNTER → 2020-12-31 15:00 | Outpatient (CLI) | payer MEDICARE, SELFPAY ==
[2018-08-14 17:40] VITALS: BMI 21.9
[2020-12-31 15:26] LABS: Add Manual Diff / Slide Review NO; Basophils Absolute Auto 0 /uL (0-100); Basophils Percent Auto 0.6 % (0-2); Eosinophils Absolute Auto 100 /uL (0-450); Eosinophils Percent Auto 1.1 % (2-4); Hematocrit 41.4 % (41-53); Hemoglobin 13.8 g/dL (13.5-17.5); Lymphocytes Absolute Auto 1500 /uL (1100-4500); Lymphocytes Percent Auto 23.3 % (25-40); Mean Corpuscular HGB Conc 33.3 % (30-36); Mean Corpuscular Hemoglobin 30.6 PG (26-34); Mean Corpuscular Volume 91.8 fL (80-100); Monocytes Absolute Auto 700 /uL (0-900); Monocytes Percent Auto 11.4 % (3-14); Neutrophils Absolute Auto 4100 /uL (1500-7000); Neutrophils Percent Auto 63.6 % (50-75); Platelet Count 183 X10^3/uL (150-400); Red Blood Cell Count 4.51 X10^6/uL (4.5-5.9); Red Cell Distribution Width 14.4 % (11.6-14.8); White Blood Cell Count 6.4 X10^3/uL (4.5-11.0)
[2020-12-31 17:07] LABS: Alanine Aminotransferase 6 IU/L (<50); Albumin 4.3 g/dL (3.5-5.0); Albumin Globulin Ratio 1.4 (1.0-2.8); Alkaline Phosphatase 110 U/L (38-126); Aspartate Aminotransferase 33 IU/L (17-59); BUN Creatinine Ratio 23.1 (6-22); Bilirubin Total 0.6 mg/dL (0.2-1.3); Blood Urea Nitrogen 15 mg/dL (9-20); Calcium 9.6 mg/dL (8.4-10.2); Carbon Dioxide 31 mmol/L (22-32); Chloride 99 mmol/L (98-107); Estimated Glomerular Filt Rate > 60.0 mL/min (>60); Globulin 3.1 g/dL (1.7-4.1); Glucose 100 mg/dL (80-110); HEMOLYSIS < 15 (0-50); Sodium 137 mmol/L (137-145); Total Protein 7.4 g/dL (6.3-8.2)
[2020-12-31 17:23] LABS: Vitamin D 25 Hydroxy (D3) 81.6 ng/mL (30.0-100.0)
== END ==
PROVIDERS: PCP Family Medicine; Referring Provider Family Medicine; Visit Provider Family Medicine
DX: D64.9 Anemia, unspecified (principal); M81.0 Age-related osteoporosis without current pathological fracture; I10 Essential (primary) hypertension
CPT/HCPCS: 36415; 80053; 82306; 85025

== ENCOUNTER → 2021-11-17 16:22 | Outpatient (CLI) | payer MEDICARE, SELFPAY ==
[2018-08-14 17:40] VITALS: BMI 21.9
[2021-11-17 18:57] LABS: Alanine Aminotransferase 4 IU/L (<50); Albumin 4.2 g/dL (3.5-5.0); Albumin Globulin Ratio 1.3 (1.0-2.8); Alkaline Phosphatase 117 U/L (38-126); Aspartate Aminotransferase 33 IU/L (17-59); BUN Creatinine Ratio 23.7 (6-22); Bilirubin Total 0.6 mg/dL (0.2-1.3); Blood Urea Nitrogen 14 mg/dL (9-20); Calcium 9.1 mg/dL (8.4-10.2); Carbon Dioxide 31 mmol/L (22-32); Chloride 97 mmol/L (98-107); Estimated Glomerular Filt Rate > 60.0 mL/min (>60); Globulin 3.2 g/dL (1.7-4.1); Glucose 89 mg/dL (80-110); HEMOLYSIS < 15 (0-50); Potassium 4.4 mmol/L (3.4-5.1); Sodium 133 mmol/L (137-145); Total Protein 7.4 g/dL (6.3-8.2)
[2021-11-17 19:12] LABS: Vitamin D 25 Hydroxy (D3) 62.4 ng/mL (30.0-100.0)
[2021-11-17 19:27] LABS: Add Manual Diff / Slide Review NO; Basophils Absolute Auto 0 /uL (0-100); Basophils Percent Auto 0.7 % (0-2); Eosinophils Absolute Auto 100 /uL (0-450); Eosinophils Percent Auto 1.5 % (2-4); Hematocrit 39.7 % (41-53); Hemoglobin 13.2 g/dL (13.5-17.5); Lymphocytes Absolute Auto 1200 /uL (1100-4500); Lymphocytes Percent Auto 20.4 % (25-40); Mean Corpuscular HGB Conc 33.2 % (30-36); Mean Corpuscular Hemoglobin 30.6 PG (26-34); Mean Corpuscular Volume 92.1 fL (80-100); Monocytes Absolute Auto 800 /uL (0-900); Monocytes Percent Auto 13.4 % (3-14); Neutrophils Absolute Auto 3700 /uL (1500-7000); Platelet Count 183 X10^3/uL (150-400); Red Blood Cell Count 4.31 X10^6/uL (4.5-5.9); Red Cell Distribution Width 13.1 % (11.6-14.8); White Blood Cell Count 5.7 X10^3/uL (4.5-11.0)
== END ==
PROVIDERS: PCP Family Medicine; Referring Provider Family Medicine; Visit Provider Family Medicine
DX: G20 Parkinson's disease (principal); E55.9 Vitamin D deficiency, unspecified; I10 Essential (primary) hypertension
CPT/HCPCS: 36415; 80053; 82306; 85025

== ENCOUNTER 2022-02-14 22:37 | Emergency (ER) | payer MEDICARE, SELFPAY ==
[2018-08-14 17:40] VITALS: BMI 21.9
--- NOTE | 2022-02-14 | DI.RAD.S_ITS ---
PROCEDURE: XR ELBOW RT 2V INDICATIONS: TRAUMA TECHNIQUE: 2 views of the elbow were acquired. COMPARISON: None. FINDINGS: Bones: No fractures or dislocations. No suspicious bony lesions. Soft tissues: Elbow joint effusion elevates the anterior humeral fat pad. Soft tissue swelling noted over the olecranon IMPRESSION: 1. Elbow joint effusion without radiographic evidence of fracture. Consider follow-up radiograph in 7-10 days to assess for occult fracture 2. Soft tissue swelling over the olecranon may be traumatic or bursitis Approved by: Marc Lange M.D. on 02/14/2022 at 22:32
[2022-02-14 22:40] VITALS: BP 176/74; PULSE 66; RESP 20; TEMP 36.8; O2SAT 100
--- NOTE | 2022-02-14 22:42 | DI.CT.S_ITS ---
PROCEDURE: CT FACIAL BONES WO CON INDICATIONS: fall with nose injury TECHNIQUE: Noncontrast 2.5 mm thick axial images acquired from the mandible through the frontal sinuses, with coronal and sagittal reformatting. For radiation dose reduction, the following was used: automated exposure control, adjustment of mA and/or kV according to patient size. COMPARISON: None. FINDINGS: Image quality: Excellent. Bones and teeth: A comminuted nasal bone fracture with associated soft tissue swelling noted. Orbital antonio are intact. Sinus antonio show no fracture or deformity. Visualized portions of the mandible demonstrate no fractures or subluxation. Zygomatic arches are intact. Pterygoid plates are intact. Incidental osteoma projects into the left external auditory canal Sinuses: Left maxillary sinus retention cyst. No air-fluid levels. Soft tissues: No edema, masses, or fluid collections. No enlarged lymph nodes. No soft tissue lacerations or debris. Vascular: Visualized vascular structures appear normal in the absence of contrast. Bony vascular foramina and canals are intact. IMPRESSION: 1. Nasal bone fracture 2. Incidental left external auditory canal osteoma Approved by: Marc Lange M.D. on 02/14/2022 at 22:35
--- NOTE | 2022-02-14 22:42 | DI.RAD.S_ITS ---
PROCEDURE: XR HUMERUS RT 2V INDICATIONS: fall with arm pain TECHNIQUE: 2 views of the humerus were acquired. COMPARISON: [facility], CR, XR SHOULDER RT MIN 2V, 02/14/2022, 22:43. [facility], BRODY, XR HUMERUS LT 2V, 07/17/2020, 16:14. FINDINGS: Bones: Generalized decrease in osseous mineralization noted. There is an impacted fracture of the proximal humerus, uncertain age, but appears old. Right lung apex is clear. Soft tissues: No suspicious soft tissue calcifications. IMPRESSION: Impacted osteopenic right proximal humeral fracture, uncertain age Approved by: Marc Lange M.D. on 02/14/2022 at 22:28
--- NOTE | 2022-02-14 22:42 | DI.CT.S_ITS ---
PROCEDURE: CT HEAD/BRAIN WO CON INDICATIONS: fall with head injury TECHNIQUE: Noncontrast 4.5 mm thick angled axial sections acquired from the foramen magnum to the vertex, with coronal and sagittal reformats. For radiation dose reduction, the following was used: automated exposure control, adjustment of mA and/or kV according to patient size. COMPARISON: [facility], CT, CT HEAD/BRAIN WO CON, 08/14/2018, 15:27. FINDINGS: Image quality: Excellent. CSF spaces: Basal cisterns are patent. No extra-axial fluid collections. Ventricles are normal in size and shape. Brain: No midline shift. No intracranial masses or hemorrhage. Mata-white matter interface is normal. Moderate cerebral and cerebellar volume loss with multifocal white matter chronic ischemic change noted. Skull and face: Calvarium and visualized facial bones are intact, without suspicious lesions. Incidental 6 mm osteoma projects into the left external auditory canal Sinuses: Visualized sinuses and mastoids are clear other than small left maxillary sinus retention cyst. IMPRESSION: Para moderate atrophy and chronic ischemic change without acute hemorrhage or mass effect. Approved by: Marc Lange M.D. on 02/14/2022 at 22:37
--- NOTE | 2022-02-14 22:42 | ED.GENADULT ---
HPI - General Adult General Chief complaint: Trauma Stated complaint: Fall Time Seen by Provider: 02/14/22 22:37 Source: patient and EMS Mode of arrival: EMS Limitations: no limitations History of Present Illness HPI narrative: 81-year-old male. Has a history of Parkinson's disease. Not on anticoagulation. Here for evaluation of injuries that he sustained when he fell. He was at his living facility when he was involved an unwitnessed fall. Patient reports that he tripped and fell. He complains of right arm pain and an abrasion on his nose. No neck pain. No lower extremity pain. There was no loss of consciousness. He thought that he did hit his head. No interventions prior to arrival. Related Data Home Medications Medication Instructions Recorded Confirmed docusate sodium 100 mg capsule 100 mg PO DAILY PRN 08/14/18 07/01/20 triamcinolone acetonide 0.025 % 1 applictn TOP QID 09/26/18 07/01/20 lotion artificial EYE-BOTH PRN 05/17/19 07/01/20 tears([id number]) 0.1 %-0.3 %-0.2 % eye drops magnesium hydroxide 400 mg/5 mL 30 ml PO BEDTIME PRN ml 05/17/19 07/01/20 oral suspension (Milk of Magnesia) melatonin 5 mg tablet 5 mg PO BEDTIME PRN 05/17/19 07/01/20 amantadine HCl 100 mg capsule 100 mg PO DAILY #0 cap 01/06/21 01/06/21 carbidopa 25 mg-levodopa 100 mg 1 tab PO 5XD #0 tab 01/06/21 01/06/21 tablet Previous Rx's Medication Instructions Recorded acetaminophen 325 mg tablet 650 mg PO Q6HR PRN #30 tab 08/15/18 ibuprofen 600 mg tablet 600 mg PO Q6HR PRN #30 tab 08/15/18 hydrocortisone 2.5 % topical cream 1 applictn TOP BID #30 gram 04/17/19 nystatin 100,000 unit/gram topical 1 applictn TOP BID #30 gram 05/17/19 powder betamethasone valerate 0.12 % 1 applic TOPICAL DAILY #50 g 01/16/21 topical foam finasteride 5 mg tablet 5 mg PO DAILY #90 tab 10/08/21 ketoconazole 2 % shampoo 1 applic TOPICAL 3XW #120 ml 03/01/22 doxazosin 4 mg tablet (Cardura) 4 mg PO DAILY #90 tab 02/11/22 Allergies Allergy/AdvReac Type Severity Reaction Status Date / Time No Known Drug Allergies Allergy Verified 07/01/20 16:31 Review of Systems Constitutional Constitutional: Reports system reviewed and no additional complaints, except as documented ENT Ears, Nose, Mouth, and Throat: Reports system reviewed and no additional complaints, except as documented and Reports as per HPI Comments: No dental complaints Cardiovascular Comments: No chest pain Respiratory Comments: No shortness of breath Gastrointestinal Comments: No abdominal pain Musculoskeletal Comments: Right arm pain but no other musculoskeletal complaints Integumentary/Breasts Comments: Abrasion over the nose Neurologic Comments: History Parkinson's disease but no change in neurologic status Hematologic/Lymphatic On Anticoagulants: No Patient History Medical History Benign prostatic hyperplasia (~2003) BPH w urinary obs/LUTS Chicken pox Hepatitis A (~1985) Hypertension (~1989) Measles Migraines (~2011) Mumps Osteoarthritis (~2004) Osteopenia (~2004) Osteoporosis (~2009) Parkinson's disease (~2012) Peripheral neuropathy (~2011) Scoliosis (~2004) Surgical History Anesthesia History of tonsillectomy (~1945) Family History Father Alzheimer's disease Hypertension Mother History of acquired heart valve infection Hypertension Mitral valve disease Grandmother Stroke Social History marital status: unmarried,single household members: none housing: assisted living facility ([facility]) Previous occupational history: Flight attendent Smoking Status: Never smoker alcohol intake: current substance use type: does not use Smoking Status: Never smoker alcohol intake frequency: a few times a week Substance Use Type: does not use Exam Initial Vital Signs Initial Vital Signs: Vital Signs Temperature 98.2 F 02/14/22 22:40 Pulse Rate 66 02/14/22 22:40 Respiratory Rate 20 02/14/22 22:40 Blood Pressure 176/74 H 02/14/22 22:40 Pulse Oximetry 100 02/14/22 22:40 Const General: cooperative and comfortable HENMT Head: normal to inspection and normocephalic Other HENMT:: Abrasion over bridge of nose. No septal hematoma noted. Extraocular muscles intact, dentition intact Chest Chest: No tenderness Resp Effort & Inspection: normal respiratory effort Auscultation: clear to auscultation bilaterally Cardio Rate: regular rate GI Inspection: normal to inspection Back/Spine/Pelvis Cervical Spine: No collar present and No cervical spinal tenderness Thoracic/Lumbar Spine: No thoracic spinal tenderness and No lumbar spinal tenderness Skin Other: Abrasion over bridge in nose and over lateral aspect of right elbow. Neuro General: patient alert and patient awake Extrem Other: Bilateral lower extremities and pelvis are stable. Left upper extremity is unremarkable. His right wrist is unremarkable. Has discomfort from his right shoulder to his right elbow. Psych Appearance: grossly normal and well kempt Procedures Orthopedic Splinting/Casting Injury #1: Side: right Upper Extremity Injury Location: upper arm Upper Extremity Immobilizer: sling/shoulder immobilizer Post splinting neuro exam: intact Post splinting vascular exam: intact Placed by: Nursing Course Orders Ordered: ED Orders 02/14/22 22:42 CT facial bones wo con Stat CT head/brain wo con Stat XR humerus RT 2V Stat 02/14/22 22:59 XR shoulder RT min 2V Stat 02/14/22 23:33 EKG-12 Lead Stat Discontinued Medications Bacitracin (Bacitracin Oint 0.9 Gm Pckt) 1 applic TOP NOW ONE Stop: 02/15/22 00:02 Vital Signs Vital signs: Vital Signs - 8 hr 02/14/22 22:40 02/14/22 23:16 Temperature 98.2 F Pulse Rate 66 55 L Respiratory Rate 20 18 Blood Pressure 176/74 H Pulse Oximetry 100 99 Medical Decision Making Imaging Data Extremity x-ray #1: Radiologist's Impression: [address] [address] XRay Report Signed Patient: Hoang Yañez MR#: [id number] : 1940 Acct:[id number] Age/Sex: 81 / M Date of Service: 02/14/22 Loc: ED Accession Number: [id number] ?? Procedure: XR humerus RT 2V Ordering Provider: Dank Sears D.O. PROCEDURE:? XR HUMERUS RT 2V ? INDICATIONS:? fall with arm pain ? TECHNIQUE:? 2 views of the humerus were acquired.? ? COMPARISON:? [facility], CR, XR SHOULDER RT MIN 2V, 02/14/2022, 22:43.? [facility], CR, XR HUMERUS LT 2V, 07/17/2020, 16:14. ? FINDINGS:? ? Bones:? Generalized decrease in osseous mineralization noted.? There is an impacted fracture of the proximal humerus, uncertain age, but appears old.? Right lung apex is clear. ? Soft tissues:? No suspicious soft tissue calcifications.? ? IMPRESSION:? ? Impacted osteopenic right proximal humeral fracture, uncertain age ? ? Approved by: Marc Lange M.D. on 02/14/2022 at 22:28? Extremity x-ray #2: Radiologist's Impression: [address] [address] XRay Report Signed Patient: Hoang Yañez MR#: [id number] : 1940 Acct:[id number] Age/Sex: 81 / M Date of Service: 02/14/22 Loc: ED Accession Number: [id number] ?? Procedure: XR shoulder RT min 2V Ordering Provider: Dank Sears D.O. PROCEDURE:? XR SHOULDER RT MIN 2V ? INDICATIONS:? trauma ? TECHNIQUE:? 3 views of the shoulder were acquired.? ? COMPARISON:? [facility], CR, XR SHOULDER RT MIN 2V, 08/14/2018, 10:41.? [facility], CR, XR SHOULDER LT MIN 2V, 06/11/2020, 11:45. ? FINDINGS:? ? Bones:? Generalized decrease in osseous mineralization noted.? Impacted right proximal humeral fracture noted, uncertain age.? No dislocation present.? There is there is an old healed clavicular fracture present. ? Soft tissues:? No suspicious soft tissue calcifications.? ? IMPRESSION:? ? Proximal humeral impacted fracture, uncertain age, is nevertheless new from 2018 ? Old healed clavicular fracture. ? ? ? Approved by: Marc Lange M.D. on 02/14/2022 at 22:30 CT scan - head: Radiologist's Impression: [address] [address] [address] Scan Report Signed Patient: Hoang Yañez MR#: [id number] : 1940 Acct:[id number] Age/Sex: 81 / M Date of Service: 02/14/22 Loc: ED Accession Number: [id number] ?? Procedure: CT head/brain wo con Ordering Provider: Dank Sears D.O. PROCEDURE:? CT HEAD/BRAIN WO CON ? INDICATIONS:? fall with head injury ? TECHNIQUE:? Noncontrast 4.5 mm thick angled axial sections acquired from the foramen magnum to the vertex, with coronal and sagittal reformats.? For radiation dose reduction, the following was used:? automated exposure control, adjustment of mA and/or kV according to patient size.? ? COMPARISON:? [facility], CT, CT HEAD/BRAIN WO CON, 08/14/2018, 15:27. ? FINDINGS:? Image quality:? Excellent.? ? CSF spaces:? Basal cisterns are patent.? No extra-axial fluid collections.? Ventricles are normal in size and shape.? ? Brain:? No midline shift.? No intracranial masses or hemorrhage.? Mata-white matter interface is normal.? Moderate cerebral and cerebellar volume loss with multifocal white matter chronic ischemic change noted. ? Skull and face:? Calvarium and visualized facial bones are intact, without suspicious lesions.? Incidental 6 mm osteoma projects into the left external auditory canal ? Sinuses:? Visualized sinuses and mastoids are clear other than small left maxillary sinus retention cyst.? ? IMPRESSION:? Para moderate atrophy and chronic ischemic change without acute hemorrhage or mass effect. ? ? ? Approved by: Marc Lange M.D. on 02/14/2022 at 22:37? CT face: Radiologist's Impression: [place] [address] CT Scan Report Signed Patient: Hoang Yañez MR#: [id number] : 1940 Acct:[id number] Age/Sex: 81 / M Date of Service: 02/14/22 Loc: ED Accession Number: [id number] ?? Procedure: CT facial bones wo con Ordering Provider: Dank Sears D.O. PROCEDURE:? CT FACIAL BONES WO CON ? INDICATIONS:? fall with nose injury ? TECHNIQUE:? Noncontrast 2.5 mm thick axial images acquired from the mandible through the frontal sinuses, with coronal and sagittal reformatting.? For radiation dose reduction, the following was used:? automated exposure control, adjustment of mA and/or kV according to patient size.? ? COMPARISON:? None. ? FINDINGS:? Image quality:? Excellent.? ? Bones and teeth:? A comminuted nasal bone fracture with associated soft tissue swelling noted.? Orbital antonio are intact.? Sinus antonio show no fracture or deformity.? Visualized portions of the mandible demonstrate no fractures or subluxation.? Zygomatic arches are intact.? Pterygoid plates are intact.? ? Incidental osteoma projects into the left external auditory canal ? Sinuses:? Left maxillary sinus retention cyst.? No air-fluid levels. ? Soft tissues:? No edema, masses, or fluid collections.? No enlarged lymph nodes.? No soft tissue lacerations or debris.? ? Vascular:? Visualized vascular structures appear normal in the absence of contrast.? Bony vascular foramina and canals are intact.? ? IMPRESSION:? ? 1. Nasal bone fracture ? 2. Incidental left external auditory canal osteoma ? ? ? Approved by: Marc Lange M.D. on 02/14/2022 at 22:35? Extremity x-ray #3: Radiologist's Impression: [place] [address] XRay Report Signed Patient: Hoang Yañez MR#: [id number] : 1940 Acct:[id number] Age/Sex: 81 / M Date of Service: 02/14/22 Loc: ED Accession Number: [id number] ?? Procedure: XR elbow RT 2V Ordering Provider: Dank Sears D.O. PROCEDURE:? XR ELBOW RT 2V ? INDICATIONS:? TRAUMA ? TECHNIQUE:? 2 views of the elbow were acquired.? ? COMPARISON:? None. ? FINDINGS:? ? Bones:? No fractures or dislocations.? No suspicious bony lesions.? ? Soft tissues:? Elbow joint effusion elevates the anterior humeral fat pad.? Soft tissue swelling noted over the olecranon ? ? IMPRESSION:? ? 1. Elbow joint effusion without radiographic evidence of fracture.? Consider follow-up radiograph in 7-10 days to assess for occult fracture ? 2. Soft tissue swelling over the olecranon may be traumatic or bursitis ? ? Approved by: Marc Lange M.D. on 02/14/2022 at 22:32? ECG Data Interpretation: Sinus bradycardia Ventricular rate of 58 Occasional PVC Artifact noted Nonspecific ST T wave changes MDM Narrative Medical decision making narrative: The abrasions over the bridge of his nose and over his right elbow were cleaned and covered with antibiotic ointment. His nose is aligned despite the fracture. He has no septal hematoma. No epistaxis. He does have an abrasion and some swelling over his elbow but he can flex and extend and supinate with only minimal discomfort. Most of his discomfort is in his upper arm/shoulder. He does have a proximal humerus fracture. He is vascularly intact in his right upper extremity. He is placed in a sling for comfort. He has fractured his left shoulder in the past so he understands that he is most likely going to have bruising over the area. Patient declined the offer for pain medication. He was given follow-up information for orthopedics and an e-mail was sent to his primary doctor for follow-up. He was given care instructions and return precautions. He expressed understanding and agreement. Discharge Plan Departure Patient Disposition: Home Clinical Impression: Fracture of proximal end of right humerus, Fracture of nasal bone, Abrasion of skin Instructions: How to Use a Sling, DI for Nose Fracture, Humeral Shaft Fracture Activity Restrictions/Additional Instructions: The skin abrasions should heal on their own over the next couple days. You can put topical antibiotic ointment over the area to include either Neosporin or bacitracin. You do have a fracture of your right arm up near the shoulder. I would not be surprised if you get significant bruising around this area potentially even bruising over your right-sided chest wall. I do recommend using the sling for your comfort however if you are more comfortable out of the sling especially with sleeping this is okay. You also have a broken nose that was noted on the CT scan. This should heal on its own. An e-mail was sent to your primary provider and you should be receiving a call sometime next week about follow-up and physical therapy. I also recommend that you contact the orthopedic doctors at the number provided below for follow-up. Return to the emergency department for any new or worsening symptoms. Prescriptions: No Action amantadine HCl 100 mg capsule 100 mg PO DAILY Qty: 0 0RF carbidopa-levodopa 25-100 mg tablet 1 tab PO 5XD Qty: 0 0RF Rx Instructions: 2 tabs at 1030, then 1 tab at noon, 1730 and 2200 ketoconazole 2 % shampoo 1 applic topical 3XW Qty: 120 3RF hydrocortisone 2.5 % cream 1 applictn TOP BID Qty: 30 1RF Rx Instructions: Apply topically to affected area twice daily until healed. Important to wash and pat dry area before every application. betamethasone valerate 0.12 % foam 1 applic topical DAILY Qty: 50 0RF Rx Instructions: Do not use more than 2 weeks finasteride 5 mg tablet 5 mg PO DAILY Qty: 90 3RF doxazosin [Cardura] 4 mg tablet 4 mg PO DAILY Qty: 90 3RF artificial tear(czojc-csw-qkm) 0.1-0.3-0.2 % drops EYE-BOTH PRN0RF melatonin 5 mg tablet 5 mg PO BEDTIME PRN0RF magnesium hydroxide [Milk of Magnesia] 400 mg/5 mL suspension 30 ml PO BEDTIME PRN0RF nystatin 100,000 unit/gram powder 1 applictn TOP BID Qty: 30 0RF triamcinolone acetonide 0.025 % lotion 1 applictn TOP QID 0RF docusate sodium 100 mg capsule 100 mg PO DAILY PRN (Reason: Constipation) 0RF acetaminophen 325 mg Tablet 650 mg PO Q6HR PRN (Reason: As Needed For Fever/Mild Pain) Qty: 30 0RF ibuprofen 600 mg Tablet 600 mg PO Q6HR PRN (Reason: As Needed For Fever/Mild Pain) Qty: 30 0RF Referrals: Steff Jacobson DO [Primary Care Provider] - Chelsea Purvis MD [Physician] -
--- NOTE | 2022-02-14 22:59 | DI.RAD.S_ITS ---
PROCEDURE: XR SHOULDER RT MIN 2V INDICATIONS: trauma TECHNIQUE: 3 views of the shoulder were acquired. COMPARISON: [facility], CR, XR SHOULDER RT MIN 2V, 08/14/2018, 10:41. [facility], CR, XR SHOULDER LT MIN 2V, 06/11/2020, 11:45. FINDINGS: Bones: Generalized decrease in osseous mineralization noted. Impacted right proximal humeral fracture noted, uncertain age. No dislocation present. There is there is an old healed clavicular fracture present. Soft tissues: No suspicious soft tissue calcifications. IMPRESSION: Proximal humeral impacted fracture, uncertain age, is nevertheless new from 2018 Old healed clavicular fracture. Approved by: Marc Lange M.D. on 02/14/2022 at 22:30
[2022-02-14 23:16] VITALS: PULSE 55; RESP 18; O2SAT 99
[2022-02-14 23:30] VITALS: PULSE 52; O2SAT 99
[2022-02-15] VITALS: PULSE 57; O2SAT 99
[2022-02-15 00:11] VITALS: BP 134/63; PULSE 50; RESP 16; O2SAT 98
[2022-02-15] MEDS: BACITRACIN OINT 0.9 GM PCKT 1 APPLIC TOP (00:16)
--- NOTE | 2022-02-15 00:18 | PC.NURSE ---
bridge of nose cleaned and bacitracin applied, abrasion to right elbow cleaned with NS and bandaid applied, sling applied to right arm
[2022-02-15 00:30] VITALS: BP 134/63; PULSE 54; O2SAT 98
[2022-02-15] MEDS: TRAMADOL 50 MG TABLET PO (00:40)
== END 2022-02-15 00:44 | disposition home or self-care (01) ==
PROVIDERS: Emergency Provider Emergency Medicine; PCP Family Medicine
DX: S42.201A Unspecified fracture of upper end of right humerus, initial encounter for closed fracture (principal); S02.2XXA Fracture of nasal bones, initial encounter for closed fracture; S00.31XA Abrasion of nose, initial encounter; S09.90XA Unspecified injury of head, initial encounter; W19.XXXA Unspecified fall, initial encounter; G20 Parkinson's disease; R07.9 Chest pain, unspecified
CPT/HCPCS: 70450; 70486; 73030; 73060; 73070; 93005; 99284

== ENCOUNTER → 2022-07-08 15:00 | Outpatient (CLI) | payer MEDICARE, SELFPAY ==
[2022-07-08 14:31] VITALS: BMI 21.9
[2022-07-08 15:49] LABS: Add Manual Diff / Slide Review NO; Basophils Absolute Auto 0 /uL (0-100); Basophils Percent Auto 0.6 % (0-2); Eosinophils Absolute Auto 100 /uL (0-450); Eosinophils Percent Auto 1.1 % (2-4); Hematocrit 38.8 % (41-53); Lymphocytes Absolute Auto 1200 /uL (1100-4500); Lymphocytes Percent Auto 17.8 % (25-40); Mean Corpuscular HGB Conc 33.5 % (30-36); Mean Corpuscular Hemoglobin 30.4 PG (26-34); Mean Corpuscular Volume 90.8 fL (80-100); Monocytes Absolute Auto 800 /uL (0-900); Monocytes Percent Auto 11.6 % (3-14); Neutrophils Absolute Auto 4700 /uL (1500-7000); Neutrophils Percent Auto 68.9 % (50-75); Platelet Count 201 X10^3/uL (150-400); Red Blood Cell Count 4.28 X10^6/uL (4.5-5.9); Red Cell Distribution Width 13.8 % (11.6-14.8); White Blood Cell Count 6.9 X10^3/uL (4.5-11.0)
[2022-07-08 16:32] LABS: Alanine Aminotransferase 13 IU/L (<50); Albumin 4.1 g/dL (3.5-5.0); Albumin Globulin Ratio 1.3 (1.0-2.8); Alkaline Phosphatase 142 U/L (38-126); Aspartate Aminotransferase 27 IU/L (17-59); BUN Creatinine Ratio 23.3 (6-22); Bilirubin Total 0.6 mg/dL (0.2-1.3); Blood Urea Nitrogen 14 mg/dL (9-20); Carbon Dioxide 28 mmol/L (22-32); Chloride 94 mmol/L (98-107); Estimated Glomerular Filt Rate > 60 mL/min (>60); Globulin 3.2 g/dL (1.7-4.1); Glucose 94 mg/dL (80-110); HEMOLYSIS < 15 (0-50); Potassium 4.1 mmol/L (3.4-5.1); Sodium 131 mmol/L (137-145); Total Protein 7.3 g/dL (6.3-8.2)
[2022-07-08 17:25] LABS: Vitamin D 25 Hydroxy (D3) 63.5 ng/mL (30.0-100.0)
== END ==
PROVIDERS: PCP Family Medicine; Referring Provider Family Medicine; Visit Provider Family Medicine
DX: G20 Parkinson's disease (principal); M81.0 Age-related osteoporosis without current pathological fracture
CPT/HCPCS: 36415; 80053; 82306; 85025

== ENCOUNTER → 2022-11-11 15:34 | Outpatient (CLI) | payer MEDICARE, SELFPAY ==
[2022-07-08 14:31] VITALS: BMI 21.9
[2022-11-11 17:03] LABS: Add Manual Diff / Slide Review NO; Basophils Absolute Auto 0 /uL (0-100); Basophils Percent Auto 0.8 % (0-2); Eosinophils Absolute Auto 100 /uL (0-450); Eosinophils Percent Auto 1.8 % (2-4); Hematocrit 42.2 % (41-53); Hemoglobin 13.9 g/dL (13.5-17.5); Lymphocytes Absolute Auto 1300 /uL (1100-4500); Lymphocytes Percent Auto 21.5 % (25-40); Mean Corpuscular Hemoglobin 30.4 PG (26-34); Mean Corpuscular Volume 92.3 fL (80-100); Monocytes Absolute Auto 900 /uL (0-900); Monocytes Percent Auto 14.3 % (3-14); Neutrophils Absolute Auto 3800 /uL (1500-7000); Neutrophils Percent Auto 61.6 % (50-75); Platelet Count 199 X10^3/uL (150-400); Red Blood Cell Count 4.57 X10^6/uL (4.5-5.9); Red Cell Distribution Width 13.2 % (11.6-14.8); White Blood Cell Count 6.1 X10^3/uL (4.5-11.0)
[2022-11-11 17:53] LABS: Alanine Aminotransferase 11 IU/L (<50); Albumin 4.2 g/dL (3.5-5.0); Albumin Globulin Ratio 1.3 (1.0-2.8); Alkaline Phosphatase 120 U/L (38-126); Aspartate Aminotransferase 32 IU/L (17-59); BUN Creatinine Ratio 23.8 (6-22); Bilirubin Total 0.8 mg/dL (0.2-1.3); Blood Urea Nitrogen 15 mg/dL (9-20); Calcium 9.1 mg/dL (8.4-10.2); Carbon Dioxide 29 mmol/L (22-32); Chloride 93 mmol/L (98-107); Estimated Glomerular Filt Rate > 60 mL/min (>60); Globulin 3.3 g/dL (1.7-4.1); Glucose 90 mg/dL (80-110); HEMOLYSIS < 15 (0-50); Potassium 4.4 mmol/L (3.4-5.1); Sodium 132 mmol/L (137-145); Total Protein 7.5 g/dL (6.3-8.2)
[2022-11-11 18:08] LABS: Vitamin D 25 Hydroxy (D3) 62.2 ng/mL (30.0-100.0)
== END ==
PROVIDERS: PCP Family Medicine; Referring Provider Family Medicine; Visit Provider Family Medicine
DX: G20 Parkinson's disease (principal); M81.0 Age-related osteoporosis without current pathological fracture; I10 Essential (primary) hypertension
CPT/HCPCS: 36415; 80053; 82306; 85025

== ENCOUNTER → 2023-01-20 11:00 | Outpatient (CLI) | payer MEDICARE, SELFPAY ==
[2022-07-08 14:31] VITALS: BMI 21.9
[2023-01-20 12:20] LABS: Appearance Urine UA CLEAR; Bilirubin Urine UA NEGATIVE (NEGATIVE); Color Urine UA YELLOW; Glucose Urine UA NEGATIVE (Negative); Ketones Urine UA NEGATIVE (NEGATIVE); Leukocyte Esterase Urine UA NEGATIVE (NEGATIVE); Nitrite Urine UA NEGATIVE (Negative); Occult Blood Urine UA 3+ (Negative); Protein Urine UA NEGATIVE (Negative); Urobilinogen Urine UA 0.2 E.U./dL (0.2); pH Urine UA 7.5 (4.5-8.0)
[2023-01-20 12:33] LABS: Bacteria Urine None Seen; Culture Indicated Urine Cult Not Indicated; RBC Urine 10-30/HPF (0-5/HPF); WBC Urine None Seen (0-5/HPF)
== END ==
PROVIDERS: PCP Family Medicine; Referring Provider Family Medicine; Visit Provider Family Medicine
DX: R31.9 Hematuria, unspecified (principal)
CPT/HCPCS: 81001

== ENCOUNTER → 2023-01-22 11:15 | Outpatient (CLI) | payer MEDICARE, SELFPAY ==
[2022-07-08 14:31] VITALS: BMI 21.9
[2023-01-22 12:52] LABS: Add Manual Diff / Slide Review NO; Basophils Absolute Auto 100 /uL (0-100); Basophils Percent Auto 0.8 % (0-2); Eosinophils Absolute Auto 100 /uL (0-450); Eosinophils Percent Auto 1.8 % (2-4); Hematocrit 39.2 % (41-53); Hemoglobin 13.2 g/dL (13.5-17.5); Lymphocytes Absolute Auto 1100 /uL (1100-4500); Mean Corpuscular HGB Conc 33.6 % (30-36); Mean Corpuscular Hemoglobin 30.6 PG (26-34); Monocytes Absolute Auto 700 /uL (0-900); Monocytes Percent Auto 11.7 % (3-14); Neutrophils Absolute Auto 4200 /uL (1500-7000); Neutrophils Percent Auto 67.7 % (50-75); Platelet Count 187 X10^3/uL (150-400); Red Blood Cell Count 4.31 X10^6/uL (4.5-5.9); White Blood Cell Count 6.2 X10^3/uL (4.5-11.0)
[2023-01-22 13:19] LABS: BUN Creatinine Ratio 23.3 (6-22); Blood Urea Nitrogen 14 mg/dL (9-20); Calcium 8.9 mg/dL (8.4-10.2); Carbon Dioxide 28 mmol/L (22-32); Chloride 96 mmol/L (98-107); Estimated Glomerular Filt Rate > 60 mL/min (>60); Glucose 97 mg/dL (80-110); HEMOLYSIS < 15 (0-50); Sodium 132 mmol/L (137-145)
== END ==
PROVIDERS: PCP Family Medicine; Referring Provider Family Medicine; Visit Provider Family Medicine
DX: R31.9 Hematuria, unspecified (principal)
CPT/HCPCS: 36415; 80048; 85025

== ENCOUNTER → 2023-01-28 13:45 | Outpatient (CLI) | payer MEDICARE, SELFPAY ==
[2022-07-08 14:31] VITALS: BMI 21.9
--- NOTE | 2023-01-28 | DI.CT.S_ITS ---
PROCEDURE: CT ABDOMEN PELVIS WO CON INDICATIONS: HEMATURIA TECHNIQUE: Noncontrast 5 mm thick sections acquired from the diaphragms to the symphysis. 5 mm coronal and sagittal reformats were then performed. For radiation dose reduction, the following was used: automated exposure control, adjustment of mA and/or kV according to patient size. COMPARISON: None. FINDINGS: Image quality: Excellent. ABDOMEN: Lung bases: Lung bases are clear. Heart size is normal. Solid organs: Liver is normal in size and contains several scattered hepatic cysts. Gallbladder appears partially contracted . Pancreas is normal in contours. Spleen is normal in size. No adrenal nodules. Kidneys are normal in size, without hydronephrosis or nephrolithiasis and there is an exophytic lower pole 6.4 cm right renal cyst. Peritoneum and bowel: Unenhanced bowel loops demonstrate normal wall thickness and caliber except for the presence of generalized colonic obstipation that is relatively prominent. No free fluid or air. Nodes and vessels: No retroperitoneal or mesenteric adenopathy by size criteria. Aorta and inferior vena cava are normal in caliber. Miscellaneous: No ventral hernias. PELVIS: Genitourinary: Bladder wall thickness is normal. Miscellaneous: No inguinal hernias or adenopathy. Prominent generalized colonic obstipation. Bones: No suspicious bony lesions. No vertebral body compression fractures. IMPRESSION: A urinary tract stone is not identified. There is a dominant exophytic right lower renal cortical cyst measuring up to 6.4 cm. A solid mass lesion is not found either within the bladder lumen or the kidneys but the study is performed without contrast and therefore accurate detection mass would be somewhat limited. Generalized relatively prominent colonic obstipation within the abdomen and pelvis on the right and left. Dictated by: Carter Silvestre M.D. on 01/28/2023 at 15:58 Approved by: Carter Silvestre M.D. on 01/28/2023 at 16:01
== END ==
PROVIDERS: PCP Family Medicine; Referring Provider Family Medicine; Visit Provider Family Medicine
DX: R31.9 Hematuria, unspecified (principal); N28.1 Cyst of kidney, acquired; K59.00 Constipation, unspecified
CPT/HCPCS: 74176

== ENCOUNTER 2023-09-02 14:52 | Inpatient (IN) | payer MEDICARE, SELFPAY ==
[2022-07-08 14:31] VITALS: BMI 21.9
[2023-09-02] VITALS (24 sets, daily range): BP systolic 132–165; BP diastolic 76–126; PULSE 77–116; RESP 13–28; TEMP 36.7–37; O2SAT 95–100; BMI 21.9; BMI 22.9
--- NOTE | 2023-09-02 15:05 | DI.RAD.S_ITS ---
PROCEDURE: XR CHEST 1V INDICATIONS: chest pain TECHNIQUE: One view of the chest was acquired. COMPARISON: [facility], CR, XR CHEST 2V, 09/05/2018, 11:53. [facility], CR, XR CHEST 1V, 08/01/2018, 17:44. FINDINGS: Surgical changes and devices: None. Lungs and pleura: Lungs are mildly edematous. No pleural effusions or pneumothorax. Mediastinum: Mediastinal contours appear normal. Heart size is globally moderately enlarged. Bones and chest wall: No suspicious bony lesions. Overlying soft tissues appear unremarkable. Chronic distortion of the humeral head/neck area at the right shoulder, indicating old trauma. IMPRESSION: Apparent acute exacerbation of chronic CHF. Large lung volumes, possible COPD. Dictated by: Carter Silvestre M.D. on 09/02/2023 at 16:08 Approved by: Carter Silvestre M.D. on 09/02/2023 at 16:09
[2023-09-02 15:20] LABS: Add Manual Diff / Slide Review NO; Basophils Absolute Auto 0 /uL (0-100); Basophils Percent Auto 0.7 % (0-2); Eosinophils Absolute Auto 100 /uL (0-450); Eosinophils Percent Auto 1.2 % (2-4); Hematocrit 32.8 % (41-53); Hemoglobin 11.5 g/dL (13.5-17.5); Lymphocytes Absolute Auto 700 /uL (1100-4500); Lymphocytes Percent Auto 9.5 % (25-40); Mean Corpuscular Hemoglobin 31.3 PG (26-34); Mean Corpuscular Volume 89.5 fL (80-100); Monocytes Absolute Auto 800 /uL (0-900); Monocytes Percent Auto 11.4 % (3-14); Neutrophils Absolute Auto 5300 /uL (1500-7000); Neutrophils Percent Auto 77.2 % (50-75); Platelet Count 270 X10^3/uL (150-400); Red Blood Cell Count 3.66 X10^6/uL (4.5-5.9); Red Cell Distribution Width 13.5 % (11.6-14.8); White Blood Cell Count 6.9 X10^3/uL (4.5-11.0)
[2023-09-02 15:32] LABS: INR 1.6 (0.9-1.3); Prothrombin Time 18.6 SECONDS (9.4-12.5)
[2023-09-02 15:34] LABS: PTT Partial Thromboplastin Tim 34 SECONDS (25.1-36.5)
[2023-09-02 15:36] LABS: Alanine Aminotransferase 18 IU/L (<50); Albumin 3.4 g/dL (3.5-5.0); Albumin Globulin Ratio 1.1 (1.0-2.8); Alkaline Phosphatase 101 U/L (38-126); Aspartate Aminotransferase 87 IU/L (17-59); Bilirubin Total 1.1 mg/dL (0.2-1.3); Blood Urea Nitrogen 9 mg/dL (9-20); Calcium 8.8 mg/dL (8.4-10.2); Carbon Dioxide 26 mmol/L (22-32); Chloride 81 mmol/L (98-107); Creatine Kinase 615 U/L (55-170); Estimated Glomerular Filt Rate > 60 mL/min (>60); Glucose 114 mg/dL (80-110); HEMOLYSIS < 15 (0-50); Lipase 90 U/L (23-300); Potassium 3.8 mmol/L (3.4-5.1); Total Protein 6.4 g/dL (6.3-8.2)
[2023-09-02 15:47] LABS: Sodium 114 mmol/L (137-145); Troponin I 0.046 ng/mL (0.01-0.034)
--- NOTE | 2023-09-02 15:52 | ED.ARRPALP ---
HPI - Arrhythmia/Palpitations General Chief Complaint: Arrhythmia/Palpitations Stated Complaint: states atrial fib/sent by [facility] Time Seen by Provider: 09/02/23 15:05 Source: patient Mode of arrival: Ambulatory History of Present Illness HPI narrative: Patient 82-year-old male history of Parkinson's resides at [facility] presents today after 3 weeks of a code it infection. Brother at bedside reports he got COVID which was challenging for him but he really has not recovered. He is had significant weakness decreased appetite. They tried to get some water down him but really not eating or drinking much. Initially went to the walk-in clinic thought there was concern for irregular heart rate. He is noted to be in AFib on the monitor with rate in the 90s. He denies any chest pain or palpitations. No shortness of breath. Complains that it is very difficult for him to move any part of his body. No fever or chills. No prior history atrial fibrillation Related Data Home Medications Medication Instructions Recorded Confirmed artificial EYE-BOTH PRN 05/17/19 04/01/23 tears([id number]) 0.1 %-0.3 %-0.2 % eye drops amantadine HCl 100 mg capsule 100 mg PO DAILY #0 caps 01/06/21 04/01/23 carbidopa 25 mg-levodopa 100 mg 1 tab PO 5XD #0 tabs 01/06/21 04/01/23 tablet docusate sodium 100 mg capsule 100 mg PO BEDTIME Constipation 11/11/22 04/01/23 Previous Rx's Medication Instructions Recorded acetaminophen 325 mg tablet 650 mg (2 x 325 mg) PO Q6HR PRN As 08/15/18 Needed For Fever/Mild Pain #30 tabs hydrocortisone 2.5 % topical cream 1 applictn topical BID #30 grams 04/17/19 ketoconazole 2 % shampoo 1 applic topical 3XW #120 mL 11/11/22 finasteride 5 mg tablet 5 mg PO DAILY #90 tabs 11/16/22 doxazosin 4 mg tablet See Rx Instructions .Route 02/02/23 .COMPLEX #90 tabs magnesium hydroxide 400 mg/5 mL 5 ml PO DAILY PRN constipation 04/14/23 oral suspension (Reeves Milk of #355 mL Magnesia) Allergies Allergy/AdvReac Type Severity Reaction Status Date / Time No Known Drug Allergies Allergy Verified 09/02/23 15:09 Patient History Medical History Secondhand smoke exposure Gross hematuria BPH w urinary obs/LUTS Osteoarthritis (~2004) Peripheral neuropathy (~2011) Parkinson's disease (~2012) Migraines (~2011) Scoliosis (~2004) Osteoporosis (~2009) Osteopenia (~2004) Mumps Measles Hepatitis A (~1985) Chicken pox Benign prostatic hyperplasia (~2003) Hypertension (~1989) Surgical History Anesthesia History of tonsillectomy (~194) Family History Father Alzheimer's disease Hypertension Mother History of acquired heart valve infection Hypertension Mitral valve disease Grandmother Stroke Social History marital status: unmarried,single household members: none housing: assisted living facility Previous occupational history: Flight attendent Smoking Status: Never smoker alcohol intake: current substance use type: does not use Smoking Status: Never smoker alcohol intake frequency: a few times a week Substance Use Type: does not use Exam Initial Vital Signs Initial Vital Signs: Vital Signs Pulse Rate 95 H 09/02/23 15:02 Pulse Oximetry 98 09/02/23 15:02 GENERAL: Alert weak chronically ill male HEENT: Head atraumatic,EOMI, pupils reactive, face symmetric, dry mucous membranes CARDIOVASCULAR: Irregularly irregular without murmur RESPIRATORY: Breath sounds equal bilaterally, no wheezes rales or rhonchi. ABDOMEN: Soft, nontender. Normoactive bowel sounds all 4 quadrants. No guarding or rebound. : No CVA tenderness EXTREMITIES: Normal range of motion, no clubbing or edema. Neurovascularly intact NEUROLOGICAL: Alert and oriented x4.Normal gait and speech. Assembly Inspector strength equal bilaterally SKIN: Warm, dry, no laceration, no petechiae, no rashes or lesions. Course Orders Ordered: ED Orders 09/02/23 15:05 XR chest 1V Stat 09/02/23 15:07 EKG-12 Lead Stat 09/02/23 15:10 Complete Blood Count AUTO DIFF Stat Comprehensive Metabolic Panel Stat Lipase Stat Magnesium Stat PTT Partial Thromboplastin Walter Stat Prothrombin Time INR Stat Troponin & CK Cardiac Panel Stat 09/02/23 16:14 Osmolality Urine Stat Sodium Urine Random Stat TSH [Thyroid Stimulating Hormone] Stat 09/02/23 16:20 Covid-19 + FLU A/B + RSV - PCR Stat 09/02/23 17:00 BMP [Basic Metabolic Panel] Stat Trop I [Troponin I] Stat Acetaminophen (Acetaminophen 325 Mg Tablet) 650 mg PO Q6H PRN PRN Reason: Fever/Mild Pain (1-3) Enoxaparin Sodium (Enoxaparin 40 Mg/0.4 Ml Syringe) 40 mg SUBCUT DAILY [facility] Sodium Chloride (Hypertonic Saline 3%) 100 mls @ 20 mls/hr IV NOW ONE Stop: 09/02/23 22:35 Last Admin: 09/02/23 17:55 Dose: 20 mls/hr Documented By: POOJA Naloxone HCl (Naloxone 0.4 Mg/Ml Vial) 0.2 mg IV Q2MIN PRN PRN Reason: Opiate Reversal Ondansetron HCl (Ondansetron 4 Mg/2 Ml Inj) 4 mg IV Q8HR PRN PRN Reason: Nausea And Vomiting Discontinued Medications Sodium Chloride (Normal Saline 0.9%) 1,000 mls @ 84 mls/hr IV CONT FÉLIX Last Infusion: 09/02/23 18:05 Dose: Infused Documented By: Admin: 09/02/23 16:17 Dose: 84 mls/hr Documented By: POOJA Sodium Chloride (Hypertonic Saline 3%) 100 mls @ 20 mls/hr IV NOW ONE Stop: 09/02/23 22:32 Last Admin: 09/02/23 17:50 Dose: Not Given Documented By: BHUPINDER Vital Signs Vital signs: Vital Signs - 8 hr 09/02/23 15:02 09/02/23 15:04 09/02/23 15:04 Temperature Pulse Rate 95 H 102 H Respiratory Rate 28 H Blood Pressure 150/90 H Pulse Oximetry 98 100 Oxygen Delivery Method 09/02/23 15:09 09/02/23 15:30 09/02/23 15:30 Temperature 98.0 F Pulse Rate 109 H 81 Respiratory Rate 18 18 Blood Pressure 150/90 H 132/85 Pulse Oximetry 97 100 Oxygen Delivery Method Room Air 09/02/23 16:00 09/02/23 16:01 09/02/23 16:01 Temperature Pulse Rate 86 89 Respiratory Rate 18 19 Blood Pressure 157/101 H Pulse Oximetry 97 98 Oxygen Delivery Method 09/02/23 16:30 09/02/23 16:31 09/02/23 16:31 Temperature Pulse Rate 97 H 85 Respiratory Rate 17 18 Blood Pressure 149/126 H Pulse Oximetry 98 98 Oxygen Delivery Method 09/02/23 17:00 09/02/23 17:00 09/02/23 17:30 Temperature Pulse Rate 96 H Respiratory Rate 18 Blood Pressure 157/89 H 165/76 H Pulse Oximetry 98 Oxygen Delivery Method 09/02/23 17:30 Temperature Pulse Rate 101 H Respiratory Rate 16 Blood Pressure Pulse Oximetry 97 Oxygen Delivery Method Room Air MDM - Arrhythmia/Palpitations Lab Data 09/02/23 15:10 09/02/23 17:00 Labs: Lab Results 09/02/23 09/02/23 09/02/23 Range/Units 15:10 16:14 16:20 WBC 6.9 (4.5-11.0) X10^3/uL RBC 3.66 L (4.5-5.9) X10^6/uL Hgb 11.5 L (13.5-17.5) g/dL Hct 32.8 L (41-53) % MCV 89.5 (80-100) fL MCH 31.3 (26-34) PG MCHC 35.0 (30-36) % RDW 13.5 (11.6-14.8) % Plt Count 270 (150-400) X10^3/uL Neut % (Auto) 77.2 H (50-75) % Lymph % (Auto) 9.5 L (25-40) % [place] % (Auto) 11.4 (3-14) % Eos % (Auto) 1.2 L (2-4) % Baso % (Auto) 0.7 (0-2) % Neut # (Auto) 5300 (6459-5951) /uL Lymph # (Auto) 700 L (8515-7706) /uL [place] # (Auto) 800 (0-900) /uL Eos # (Auto) 100 (0-450) /uL Baso # (Auto) 0 (0-100) /uL PT 18.6 H (9.4-12.5) SECONDS INR 1.6 H (0.9-1.3) APTT 34 (25.1-36.5) SECONDS Sodium 114 L* (137-145) mmol/L Potassium 3.8 (3.4-5.1) mmol/L Chloride 81 L (98-107) mmol/L Carbon Dioxide 26 (22-32) mmol/L BUN 9 (9-20) mg/dL Creatinine 0.41 L (0.66-1.25) mg/dL Estimated GFR > 60 (>60) mL/min BUN/Creatinine Ratio 22.0 (6-22) Glucose 114 H (80-110) mg/dL Calcium 8.8 (8.4-10.2) mg/dL Magnesium 2.0 (1.6-2.3) mg/dL Total Bilirubin 1.1 (0.2-1.3) mg/dL AST 87 H (17-59) IU/L ALT 18 (<50) IU/L Alkaline Phosphatase 101 (38-126) U/L Total Creatine Kinase 615 H (55-170) U/L Troponin I 0.046 H (0.01-0.034) ng/mL Total Protein 6.4 (6.3-8.2) g/dL Albumin 3.4 L (3.5-5.0) g/dL Globulin 3.0 (1.7-4.1) g/dL Albumin/Globulin Ratio 1.1 (1.0-2.8) Lipase 90 (23-300) U/L TSH 1.51 (0.47-4.68) uIU/mL Ur Random Sodium 6 L (30-90) mmol/L SARS-CoV-2 (PCR) Positive H (Negative) Influenza A (RT-PCR) Flu a negative (NEGATIVE) Influenza B (RT-PCR) Flu b negative (NEGATIVE) RSV (PCR) Negative (Negative) 09/02/23 09/02/23 Range/Units 16:27 17:00 WBC (4.5-11.0) X10^3/uL RBC (4.5-5.9) X10^6/uL Hgb (13.5-17.5) g/dL Hct (41-53) % MCV (80-100) fL MCH (26-34) PG MCHC (30-36) % RDW (11.6-14.8) % Plt Count (150-400) X10^3/uL Neut % (Auto) (50-75) % Lymph % (Auto) (25-40) % [place] % (Auto) (3-14) % Eos % (Auto) (2-4) % Baso % (Auto) (0-2) % Neut # (Auto) (2119-8916) /uL Lymph # (Auto) (9677-5079) /uL [place] # (Auto) (0-900) /uL Eos # (Auto) (0-450) /uL Baso # (Auto) (0-100) /uL PT (9.4-12.5) SECONDS INR (0.9-1.3) APTT (25.1-36.5) SECONDS Sodium Cancelled 114 L* (137-145) mmol/L Potassium 3.7 (3.4-5.1) mmol/L Chloride 82 L (98-107) mmol/L Carbon Dioxide 25 (22-32) mmol/L BUN 8 L (9-20) mg/dL Creatinine 0.40 L (0.66-1.25) mg/dL Estimated GFR > 60 (>60) mL/min BUN/Creatinine Ratio 20.0 (6-22) Glucose 98 (80-110) mg/dL Calcium 8.4 (8.4-10.2) mg/dL Magnesium (1.6-2.3) mg/dL Total Bilirubin (0.2-1.3) mg/dL AST (17-59) IU/L ALT (<50) IU/L Alkaline Phosphatase (38-126) U/L Total Creatine Kinase (55-170) U/L Troponin I Cancelled 0.046 H (0.01-0.034) ng/mL Total Protein (6.3-8.2) g/dL Albumin (3.5-5.0) g/dL Globulin (1.7-4.1) g/dL Albumin/Globulin Ratio (1.0-2.8) Lipase (23-300) U/L TSH (0.47-4.68) uIU/mL Ur Random Sodium (30-90) mmol/L SARS-CoV-2 (PCR) (Negative) Influenza A (RT-PCR) (NEGATIVE) Influenza B (RT-PCR) (NEGATIVE) RSV (PCR) (Negative) Imaging Data Chest x-ray: Radiologist's Impresson: PROCEDURE: XR CHEST 1V INDICATIONS: chest pain TECHNIQUE: One view of the chest was acquired. COMPARISON: [facility], CR, XR CHEST 2V, 09/05/2018, 11:53. [facility], CR, XR CHEST 1V, 08/01/2018, 17:44. FINDINGS: Surgical changes and devices: None. Lungs and pleura: Lungs are mildly edematous. No pleural effusions or pneumothorax. Mediastinum: Mediastinal contours appear normal. Heart size is globally moderately enlarged. Bones and chest wall: No suspicious bony lesions. Overlying soft tissues appear unremarkable. Chronic distortion of the humeral head/neck area at the right shoulder, indicating old trauma. IMPRESSION: Apparent acute exacerbation of chronic CHF. Large lung volumes, possible COPD. Dictated by: Carter Silvestre M.D. on 09/02/2023 at 16:08 Approved by: Carter Silvestre M.D. on 09/02/2023 at 16:09 ECG Data Interpretation: Atrial fibrillation rate 90 PVC noted previous EKGs shows a sinus rhythm with PVC no ischemia MDM Narrative Medical decision making narrative: Patient 82-year-old male history of Parkinson's recent COVID infection still positive for COVID presents today with ongoing weakness. He is had significant decreased intake. He is found to have hyponatremia with a sodium of 114 confirmed x2. Concern for SIADH associated with COVID. He is a new onset atrial fibrillation rate controlled. Troponin is stable 0.046 x 2. No evidence of congestive heart failure. Suspect troponin is secondary to atrial fibrillation. Patient generally weak hyponatremia still positive for COVID but not hypoxic. Patient started on hypertonic saline started Dr. Ignacio updated on symptoms and accepts patient. Discharge Plan Departure Patient Disposition: Admitted As Inpatient Clinical Impression: COVID-19, Acute hyponatremia, Atrial fibrillation, new onset Admit Date/Time: 09/02/23 17:34 Admit Provider: Milind Ignacio
[2023-09-02] MEDS: SODIUM CHLORIDE 0.9% 1,000 ML 84 ML IV (16:17)
[2023-09-02 17:22] LABS: Influenza A - CEPHEID Flu A NEGATIVE (NEGATIVE); Influenza B - CEPHEID Flu B NEGATIVE (NEGATIVE); Respiratory Syncytial Virus Negative (Negative)
[2023-09-02 17:25] LABS: COVID-19 CEPHEID 4-PLEX PCR POSITIVE (Negative)
[2023-09-02 17:26] LABS: Blood Urea Nitrogen 8 mg/dL (9-20); Calcium 8.4 mg/dL (8.4-10.2); Carbon Dioxide 25 mmol/L (22-32); Chloride 82 mmol/L (98-107); Estimated Glomerular Filt Rate > 60 mL/min (>60); Glucose 98 mg/dL (80-110); HEMOLYSIS 15 (0-50); Potassium 3.7 mmol/L (3.4-5.1)
[2023-09-02 17:29] LABS: Sodium 114 mmol/L (137-145)
[2023-09-02 17:30] LABS: Thyroid Stimulating Hormone 1.51 uIU/mL (0.47-4.68)
[2023-09-02 17:37] LABS: Troponin I 0.046 ng/mL (0.01-0.034)
[2023-09-02 17:39] LABS: Sodium Urine Random 6 mmol/L (30-90)
--- NOTE | 2023-09-02 17:49 | P.HP_ITS ---
History of Present Illness History of Present Illness Date Patient Seen: 09/02/23 Time Patient Seen: 18:20 Chief complaint: states atrial fib/sent by [facility] Narrative: 77-year-old male with Parkinson's disease, HTN, BPH who lives at [facility] who initially presented to the walk in clinic with persistent cough, weakness. He was diagnosed with COVID nearly 4 weeks ago approximately. He denies shortness of breath, wheezing. He complains of profound weakness since his COVID diagnosis. He has had LE edema but cannot recall how long that has been present. In the walk in clinic he was noted to have an irregular rhythm, and was sent to the ER. EKG did show atrial fibrillation with frequent PVCs but no acute ischemia. Labs done in the ER showed a sodium of 114. This was repeated and was again 114. Troponin was stable x2 at 0.046. Urine sodium was 6. COVID testing was positive. [facility] Medical History Secondhand smoke exposure Gross hematuria BPH w urinary obs/LUTS Osteoarthritis (~2004) Peripheral neuropathy (~2011) Parkinson's disease (~2012) Migraines (~2011) Scoliosis (~2004) Osteoporosis (~2009) Osteopenia (~2004) Mumps Measles Hepatitis A (~1985) Chicken pox Benign prostatic hyperplasia (~2003) Hypertension (~1989) Surgical History Anesthesia History of tonsillectomy (~1945) Family History Father Alzheimer's disease Hypertension Mother History of acquired heart valve infection Hypertension Mitral valve disease Grandmother Stroke Social History marital status: unmarried,single household members: none housing: assisted living facility Previous occupational history: Flight attendent Smoking Status: Never smoker alcohol intake: current substance use type: does not use Meds Home Medications and Allergies Home Medications Medication Instructions Recorded Confirmed Type acetaminophen 325 mg tablet 650 mg (2 x 325 mg) PO Q6HR PRN As 08/15/18 04/01/23 Rx Needed For Fever/Mild Pain #30 tabs hydrocortisone 2.5 % topical cream 1 applictn topical BID #30 grams 04/17/19 04/01/23 Rx artificial EYE-BOTH PRN 05/17/19 04/01/23 History tears(scmbela-[id number]-jinicvm) 0.1 %-0.3 %-0.2 % eye drops amantadine HCl 100 mg capsule 100 mg PO DAILY #0 caps 01/06/21 04/01/23 History carbidopa 25 mg-levodopa 100 mg 1 tab PO 5XD #0 tabs 01/06/21 04/01/23 History tablet docusate sodium 100 mg capsule 100 mg PO BEDTIME Constipation 11/11/22 04/01/23 History ketoconazole 2 % shampoo 1 applic topical 3XW #120 mL 11/11/22 04/01/23 Rx finasteride 5 mg tablet 5 mg PO DAILY #90 tabs 11/16/22 04/01/23 Rx doxazosin 4 mg tablet See Rx Instructions .Route 02/02/23 04/01/23 Rx .COMPLEX #90 tabs magnesium hydroxide 400 mg/5 mL 5 ml PO DAILY PRN constipation 04/14/23 Rx oral suspension (Reeves Milk of #355 mL Magnesia) Allergies Allergy/AdvReac Type Severity Reaction Status Date / Time No Known Drug Allergies Allergy Verified 09/02/23 15:09 Review of Systems Review of Systems Narrative: All other systems reviewed with the patient and are negative unless otherwise stated. Exam Vital Signs (past 8 hours): - 09/02/23 15:02 09/02/23 15:04 09/02/23 15:04 Temperature Pulse Rate 95 H 102 H Respiratory Rate 28 H Blood Pressure 150/90 H Pulse Oximetry 98 100 Oxygen Delivery Method 09/02/23 15:09 09/02/23 15:30 09/02/23 15:30 Temperature 98.0 F Pulse Rate 109 H 81 Respiratory Rate 18 18 Blood Pressure 150/90 H 132/85 Pulse Oximetry 97 100 Oxygen Delivery Method Room Air 09/02/23 16:00 09/02/23 16:01 09/02/23 16:01 Temperature Pulse Rate 86 89 Respiratory Rate 18 19 Blood Pressure 157/101 H Pulse Oximetry 97 98 Oxygen Delivery Method 09/02/23 16:30 09/02/23 16:31 09/02/23 16:31 Temperature Pulse Rate 97 H 85 Respiratory Rate 17 18 Blood Pressure 149/126 H Pulse Oximetry 98 98 Oxygen Delivery Method 09/02/23 17:00 09/02/23 17:00 09/02/23 17:30 Temperature Pulse Rate 96 H Respiratory Rate 18 Blood Pressure 157/89 H 165/76 H Pulse Oximetry 98 Oxygen Delivery Method 09/02/23 17:30 Temperature Pulse Rate 101 H Respiratory Rate 16 Blood Pressure Pulse Oximetry 97 Oxygen Delivery Method Room Air Oxygen Delivery Method Room Air Narrative Exam Narrative: General:?Acute on chronically ill appearing elderly male, pale, weak HEENT:? Normocephalic, atraumatic, extraocular muscles intact, oral pharynx is clear and mucous membranes are dry Lungs:? CTA b/l no wheezing rhonchi or rales but poor inspiratory effort Cardio:?irregularly irregular rhythm with normal rate Abdomen: S NT ND. Musculoskeletal:? Muscle strength and tone are equal within normal limits, no deformity. Extremities: Bilateral LE edema to mid chi, L > R with RLE trace to 1+, and LLE 1-2 +. Neuro:? Alert and orientated x4,? sensation diminished to light touch b/l LE (reports chronic), no gross deficits noted of cranial nerves but he has slowed responses. Objective ECG Impression: atrial fibrillation with controlled rate with multiple PVCs. Labs 09/02/23 15:10 09/02/23 17:00 Labs: Laboratory Results - last 24 hr 09/02/23 09/02/23 09/02/23 15:10 16:14 16:20 WBC 6.9 RBC 3.66 L Hgb 11.5 L Hct 32.8 L MCV 89.5 MCH 31.3 MCHC 35.0 RDW 13.5 Plt Count 270 Neut % (Auto) 77.2 H Lymph % (Auto) 9.5 L [place] % (Auto) 11.4 Eos % (Auto) 1.2 L Baso % (Auto) 0.7 Neut # (Auto) 5300 Lymph # (Auto) 700 L [place] # (Auto) 800 Eos # (Auto) 100 Baso # (Auto) 0 PT 18.6 H INR 1.6 H APTT 34 Sodium 114 L* Potassium 3.8 Chloride 81 L Carbon Dioxide 26 BUN 9 Creatinine 0.41 L Estimated GFR > 60 BUN/Creatinine Ratio 22.0 Glucose 114 H Calcium 8.8 Magnesium 2.0 Total Bilirubin 1.1 AST 87 H ALT 18 Alkaline Phosphatase 101 Total Creatine Kinase 615 H Troponin I 0.046 H Total Protein 6.4 Albumin 3.4 L Globulin 3.0 Albumin/Globulin Ratio 1.1 Lipase 90 TSH 1.51 Ur Random Sodium 6 L SARS-CoV-2 (PCR) Positive H Influenza A (RT-PCR) Flu a negative Influenza B (RT-PCR) Flu b negative RSV (PCR) Negative 09/02/23 09/02/23 16:27 17:00 WBC RBC Hgb Hct MCV MCH MCHC RDW Plt Count Neut % (Auto) Lymph % (Auto) [place] % (Auto) Eos % (Auto) Baso % (Auto) Neut # (Auto) Lymph # (Auto) [place] # (Auto) Eos # (Auto) Baso # (Auto) PT INR APTT Sodium Cancelled 114 L* Potassium 3.7 Chloride 82 L Carbon Dioxide 25 BUN 8 L Creatinine 0.40 L Estimated GFR > 60 BUN/Creatinine Ratio 20.0 Glucose 98 Calcium 8.4 Magnesium Total Bilirubin AST ALT Alkaline Phosphatase Total Creatine Kinase Troponin I Cancelled 0.046 H Total Protein Albumin Globulin Albumin/Globulin Ratio Lipase TSH Ur Random Sodium SARS-CoV-2 (PCR) Influenza A (RT-PCR) Influenza B (RT-PCR) RSV (PCR) Assessment & Plan Assessment & Plan narrative: 1. Hyponatremia - Initial Na 114. Repeated given mild symptoms in the ER and was again 114. start 3% at 20 cc per hour for 5 hours, repeat BMP q 4 hours at least, will likely need adjustments - teleICU consulted, discussed with tele-hospice social worker above plan - urine sodium is 6, consistent with dehydration, continue 3% for now, likely transition to NS after sufficient improvement in sodium - urine osm pending. - continue tele monitoring - volume status is complicated, appears dry but also vascular congestion on imaging with asymmetric LE edema bilaterally. 2. New diagnosis atrial fibrillation, rate controlled. - suspect due to electrolyte abnormalities / hyponatremia - currently rate controlled - echocardiogram ordered. - continue telemetry - CXR with congestive appearance, could be ? residual disease from COVID or volume overload. - B/L DVT study ordered for asymmetric LE edema, possible VTE contributing after COVID? 3. Parkinson's disease - continue home sinemet, amantadine. 4. BPH - continue home finasteride, doxazosin. 5. Myocardial injury - no further evaluation necessary troponin stable at 0.046 with no symptoms. - will check echo with new dx of afib as noted above 6. COVID- - patient is asymptomatic from a respiratory standpoint. He tested positive almost 4 weeks ago initially per report. 7. Mild rhabdomyolysis - consistent with dehydration studies noted above. CK 615 on admission. For now 3% NS until sodium improved then likely NS after. Code: Full, surrogate is patient's brother Dispo: Admit ICU, anticipated stay is expected to be beyond two midnights. Will likely need PT/OT evaluations after improvement in sodium before either SNF or return to [facility]. DVT: Lovenox daily, unless DVT positive. Additional history obtained via patient's brother, and ER provider. Discussed with bedside staff, ER provider, hospice social worker to formulate the above assessment and plan. I spent 45 minutes providing critical care management this patient. This excludes time spent in performing separately billed procedures. I have utilized all available immediate resources to obtain, update, or review the patient's current medications. COVID-19 COVID-19 status: Positive
[2023-09-02] MEDS: SODIUM CHLORIDE 3 % 100 ML 20 ML IV (17:55)
--- NOTE | 2023-09-02 18:14 | DI.ECHO.S_ITS ---
[place] [facility] +---------+ : : [address] : : : : [id number] : : : : Phone: [phone]+ Echocardiogram Report + + :Name: LEOLA BLANCO Study Date: 09/03/2023 Height: 67 in : :[facility] ReadingLocation: Weight: 140 lb : : Gender: Male BSA: 1.7 m2 : :: 1940 Age: 82 yrs BP: 110/57 mmHg: :Reason For Study: ATRIAL FIBRILLATION : :Ordering Physician: ROB, : :FLO NICHOLS Performed By: Jesi Herrera : :Referring: FLO RIVAS : + + Interpretation Summary The left ventricle is mildly dilated. The ejection fraction is estimated to be 35-40%. Diastolic function could not be accurately assessed due to atrial fibrillation. The right ventricle is mildly dilated. Right ventricular systolic function is mildly reduced. There is severe biatrial enlargement. 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 There is mild mitral regurgitation. There is mild to moderate aortic regurgitation. There is moderate tricuspid regurgitation. The right ventricular systolic pressure is estimated to be at least 43 mmHg based on an estimated right atrial pressure of 15 mm Hg. The aortic root is mildly dilated, 4.1 cm. Procedure: A two-dimensional transthoracic echocardiogram with color flow and Doppler was performed. The study quality was technically adequate. There is no prior echocardiogram noted for this patient. The patient was in atrial fibrillation with heart rates between 68-83 bpm during the exam. Left Ventricle: Left ventricular wall thickness is borderline increased. The left ventricle is mildly dilated. The ejection fraction is estimated to be 35- 40%. Diastolic function could not be accurately assessed due to atrial fibrillation. Right Ventricle: The right ventricle is mildly dilated. Right ventricular systolic function is mildly reduced. Atria: There is severe biatrial enlargement. There is no Doppler evidence for an interatrial shunt. Mitral Valve: The mitral valve leaflets appear mildly thickened, but open well. 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 There is mild mitral regurgitation. Aortic Valve: The aortic valve is trileaflet. The aortic valve opens well. There is no aortic valve stenosis. There is mild to moderate aortic regurgitation. Tricuspid Valve: The tricuspid valve leaflets are thickened and/or calcified, but open well. There is moderate tricuspid regurgitation. The right ventricular systolic pressure is estimated to be at least 43 mmHg based on an estimated right atrial pressure of 15 mm Hg. Pulmonic Valve: The pulmonic valve is not well visualized. There is a trace or physiologic amount of pulmonic regurgitation. Great Vessels: The aortic root is mildly dilated. The ascending aorta is at the upper limits of normal in size. The IVC is dilated (diameter is greater than 2.1 cm) and it collapses less than 50% with a sniff. This suggests a high right atrial pressure of 15 mm Hg. Pericardium/ Pleura There is no pericardial effusion. There is no pleural effusion. MMode/2D Measurements & Calculations LVIDd: 6.0 cm LVOT diam: 2.2 cm LVIDs: 4.7 cm Ao root diam: 4.1 cm FS: 22.1 % asc Aorta Diam: 4.0 cm EPSS: 1.1 cm IVSd: 1.0 cm LVPWd: 1.1 cm LV collins. diameter/BSA (cm/m^2): 3.5 LV sys. diameter/BSA (cm/m^2): 2.7 LA A2 area: 32.4 cm2 RA long axis: 6.0 cm LA A4 area: 27.3 cm2 RA area: 26.1 cm2 LA length (vol): 6.3 cm RA vol: 95.8 ml LA vol: 118.7 ml RA : 55.2 ml/m2 LA vol index: 68.3 ml/m2 IVC diam: 2.5 cm RVD1 (basal): 4.2 cm RVD2 (mid): 2.5 cm TAPSE: 1.5 cm Doppler Measurements & Calculations Ao V2 max: 146.4 cm/sec LVOT Max Michel: 106.2 cm/sec Ao V2 mean: 96.6 cm/sec LV V1 max P.5 mmHg Ao max P.6 mmHg LV V1 VTI: 17.8 cm Ao mean P.1 mmHg JERRICA(I,D): 3.1 cm2 Ao V2 VTI: 21.7 cm JERRICA(V,D): 2.7 cm2 sev ratio: 0.82 JERRICA indexed to BSA (cm^2/m^2): 1.8 MV E max michel: 73.6 cm/sec TR max michel: 264.8 cm/sec MV A max michel: 1.7 cm/sec TR max P.1 mmHg MV E/A: 43.5 PA V2 max: 91.7 cm/sec Med Peak E' Michel: 4.3 cm/sec PA V2 mean: 66.7 cm/sec E/E' med: 17.2 PA mean P.0 mmHg Lat Peak E' Michel: 8.7 cm/sec PA pr(Accel): 51.6 mmHg E/E' lat: 8.4 E/e' average: 12.8 MV dec time: 0.20 sec SV(LVOT): 67.1 ml AV P1/2t-pr_phl: 540.1 msec Reading Physician:02:33 PM
--- NOTE | 2023-09-02 18:45 | DI.US.S_ITS ---
PROCEDURE: US PERIPH VENOUS LOW EXTREM BI INDICATIONS: BILATERAL LEG EDEMA TECHNIQUE: Real-time imaging, as well as color and pulse Doppler interrogation, were performed of the deep veins of both legs from the inguinal ligament to the popliteal fossa, with documentation of the visualized calf veins. COMPARISON: None. FINDINGS: Right: The common femoral, femoral, popliteal, and the visualized calf veins are normally compressible, and free of intraluminal thrombus. Color and pulse Doppler demonstrate normal phasic intravascular flow. There is normal augmentation response to distal compression maneuver. Left: The common femoral, femoral, popliteal, and the visualized calf veins are normally compressible, and free of intraluminal thrombus. Color and pulse Doppler demonstrate normal phasic intravascular flow. There is normal augmentation response to distal compression maneuver. IMPRESSION: No findings of deep venous thrombosis in either lower extremity. Dictated by: Devyn Soto M.D. on 09/03/2023 at 19:36 Approved by: Devyn Soto M.D. on 09/03/2023 at 19:37
[2023-09-02 19:43] LABS: MRSA (Nasal) PCR Not Detected (Not Detect)
--- NOTE | 2023-09-02 20:04 | P.TELICUCN_ITS ---
History of Present Illness Consult details IF CAMERA ACTIVATED, patient seen via real-time interactive audiovisual communication: Camera activated Chief complaint: states atrial fib/sent by [facility] Consent obtained for tele-research geneticist care: Yes Patient Location: ICU Provider location (State): [place] Other participants/roles: N/A [facility] Medical History Secondhand smoke exposure Gross hematuria BPH w urinary obs/LUTS Osteoarthritis (~2004) Peripheral neuropathy (~2011) Parkinson's disease (~2012) Migraines (~2011) Scoliosis (~2004) Osteoporosis (~2009) Osteopenia (~2004) Mumps Measles Hepatitis A (~1985) Chicken pox Benign prostatic hyperplasia (~2003) Hypertension (~1989) Surgical History Anesthesia History of tonsillectomy (~1944) Family History Father Alzheimer's disease Hypertension Mother History of acquired heart valve infection Hypertension Mitral valve disease Grandmother Stroke Social History marital status: unmarried,single household members: none housing: assisted living facility Previous occupational history: Flight attendent Smoking Status: Never smoker alcohol intake: current substance use type: does not use Current Medications Current Medications Medications: Home Medications acetaminophen 325 mg tablet 650 mg (2 x 325 mg) PO Q6HR PRN As Needed For Fever/Mild Pain #30 tabs 08/15/18 [Rx Confirmed 04/01/23] hydrocortisone 2.5 % topical cream 1 applictn topical BID #30 grams 04/17/19 [Rx Confirmed 04/01/23] artificial tears(deqjrur-hlddqyjg-nscrxyk) 0.1 %-0.3 %-0.2 % eye drops EYE-BOTH PRN 05/17/19 [History Confirmed 04/01/23] amantadine HCl 100 mg capsule 100 mg PO DAILY #0 caps 01/06/21 [History Confirmed 04/01/23] carbidopa 25 mg-levodopa 100 mg tablet 1 tab PO 5XD #0 tabs 01/06/21 [History Confirmed 04/01/23] docusate sodium 100 mg capsule 100 mg PO BEDTIME Constipation 11/11/22 [History Confirmed 04/01/23] ketoconazole 2 % shampoo 1 applic topical 3XW #120 mL 11/11/22 [Rx Confirmed 04/01/23] finasteride 5 mg tablet 5 mg PO DAILY #90 tabs 11/16/22 [Rx Confirmed 04/01/23] doxazosin 4 mg tablet See Rx Instructions .Route .COMPLEX #90 tabs 02/02/23 [Rx Confirmed 04/01/23] magnesium hydroxide 400 mg/5 mL oral suspension (Reeves Milk of Magnesia) 5 ml PO DAILY PRN constipation #355 mL 04/14/23 [Rx] Visit Medications (administered) Generic Name Dose Route Start Last Admin Trade Name Freq PRN Reason Stop Dose Admin Sodium Chloride 100 mls @ 20 mls/hr 09/02/23 17:36 09/02/23 17:55 Hypertonic Saline 3% IV 09/02/23 22:35 20 mls/hr NOW ONE Administration Review of Systems Musculoskeletal Comments: generalized weakness Exam Vital Signs (past 8 hours): - 09/02/23 15:02 09/02/23 15:04 09/02/23 15:04 Temperature Pulse Rate 95 H 102 H Respiratory Rate 28 H Blood Pressure 150/90 H Pulse Oximetry 98 100 Oxygen Delivery Method 09/02/23 15:09 09/02/23 15:30 09/02/23 15:30 Temperature 98.0 F Pulse Rate 109 H 81 Respiratory Rate 18 18 Blood Pressure 150/90 H 132/85 Pulse Oximetry 97 100 Oxygen Delivery Method Room Air 09/02/23 16:00 09/02/23 16:01 09/02/23 16:01 Temperature Pulse Rate 86 89 Respiratory Rate 18 19 Blood Pressure 157/101 H Pulse Oximetry 97 98 Oxygen Delivery Method 09/02/23 16:30 09/02/23 16:31 09/02/23 16:31 Temperature Pulse Rate 97 H 85 Respiratory Rate 17 18 Blood Pressure 149/126 H Pulse Oximetry 98 98 Oxygen Delivery Method 09/02/23 17:00 09/02/23 17:00 09/02/23 17:30 Temperature Pulse Rate 96 H Respiratory Rate 18 Blood Pressure 157/89 H 165/76 H Pulse Oximetry 98 Oxygen Delivery Method 09/02/23 17:30 09/02/23 18:01 09/02/23 18:11 Temperature 98.0 F 98.0 F Pulse Rate 101 H 77 77 Respiratory Rate 16 13 16 Blood Pressure 154/93 H 154/93 H Pulse Oximetry 97 98 97 Oxygen Delivery Method Room Air Room Air Oxygen Delivery Method Room Air Const Other: no acute distress Resp Other: normal respiratory rate, on RA Cardio Other: afib, HR 110s Extrem Other: trace to 1+ edema Objective Imaging Chest x-ray: My impression: no pleural effusion, pneumos, mild pulm vascular congestion Labs 09/02/23 15:10 09/02/23 17:00 Labs: Laboratory Results - last 24 hr 09/02/23 09/02/23 09/02/23 15:10 16:14 16:20 WBC 6.9 RBC 3.66 L Hgb 11.5 L Hct 32.8 L MCV 89.5 MCH 31.3 MCHC 35.0 RDW 13.5 Plt Count 270 Neut % (Auto) 77.2 H Lymph % (Auto) 9.5 L [place] % (Auto) 11.4 Eos % (Auto) 1.2 L Baso % (Auto) 0.7 Neut # (Auto) 5300 Lymph # (Auto) 700 L [place] # (Auto) 800 Eos # (Auto) 100 Baso # (Auto) 0 PT 18.6 H INR 1.6 H APTT 34 Sodium 114 L* Potassium 3.8 Chloride 81 L Carbon Dioxide 26 BUN 9 Creatinine 0.41 L Estimated GFR > 60 BUN/Creatinine Ratio 22.0 Glucose 114 H Calcium 8.8 Magnesium 2.0 Total Bilirubin 1.1 AST 87 H ALT 18 Alkaline Phosphatase 101 Total Creatine Kinase 615 H Troponin I 0.046 H Total Protein 6.4 Albumin 3.4 L Globulin 3.0 Albumin/Globulin Ratio 1.1 Lipase 90 TSH 1.51 Ur Random Sodium 6 L Nasal Screen MRSA (PCR) SARS-CoV-2 (PCR) Positive H Influenza A (RT-PCR) Flu a negative Influenza B (RT-PCR) Flu b negative RSV (PCR) Negative 09/02/23 09/02/23 09/02/23 16:27 17:00 18:30 WBC RBC Hgb Hct MCV MCH MCHC RDW Plt Count Neut % (Auto) Lymph % (Auto) [place] % (Auto) Eos % (Auto) Baso % (Auto) Neut # (Auto) Lymph # (Auto) [place] # (Auto) Eos # (Auto) Baso # (Auto) PT INR APTT Sodium Cancelled 114 L* Potassium 3.7 Chloride 82 L Carbon Dioxide 25 BUN 8 L Creatinine 0.40 L Estimated GFR > 60 BUN/Creatinine Ratio 20.0 Glucose 98 Calcium 8.4 Magnesium Total Bilirubin AST ALT Alkaline Phosphatase Total Creatine Kinase Troponin I Cancelled 0.046 H Total Protein Albumin Globulin Albumin/Globulin Ratio Lipase TSH Ur Random Sodium Nasal Screen MRSA (PCR) Not detected SARS-CoV-2 (PCR) Influenza A (RT-PCR) Influenza B (RT-PCR) RSV (PCR) Assessment & Plan Assessment & Plan narrative: 82yo M with recent covid diagnosis who presents to the ICU with hyponatremia. Pt reports of 1 weeks of decreased appetite and water intake. He reports that the only food he has eaten has been breakfast. He denies having any cardiac issues other then afib. Hyponatremia - likely due to hypovolemia, only has mild symptoms of generalized weakness - Na 114 on repeat, 3% at 20 started, Na ordered Q4, will raise sodium to < 120 in 24 hours, monitor for symptoms - start maintenance fluids with LR at 75 - monitor UOP - follow up urine lytes - monitor Q2 neurochecks - echo ordered Afib - now on home AC, HR 110s, will start IVF, monitor for improvement - replace K and Mg - follow up AM labs Parkinsons - home meds PPx: lovenox This patient was assessed via two way video conferencing along with his bedside nurse. I spent a total of 40 minutes of noncontinuous time caring for this patient not including procedures. Time Spent With Patient Time with patient: 30 to 49 minutes with 50% spent counseling/coordinating care
[2023-09-02] MEDS: CARBIDOPA-LEVODOPA 25/100 TABLET 2 EACH PO (20:33)
[2023-09-02] MEDS: POTASSIUM CHLORIDE 20 MEQ/15 ML UDC PO (20:51)
[2023-09-02] MEDS: LACTATED RINGERS 1,000 ML 75 ML IV (21:28)
[2023-09-02] MEDS: MAGNESIUM SULFATE 2 GM/50 ML PIGGYBACK IV (21:28)
[2023-09-02 21:34] LABS: Blood Urea Nitrogen 8 mg/dL (9-20); Calcium 8.2 mg/dL (8.4-10.2); Carbon Dioxide 26 mmol/L (22-32); Chloride 83 mmol/L (98-107); Estimated Glomerular Filt Rate > 60 mL/min (>60); Glucose 98 mg/dL (80-110); HEMOLYSIS < 15 (0-50); Potassium 4.1 mmol/L (3.4-5.1)
[2023-09-02 21:35] LABS: Sodium 115 mmol/L (137-145)
[2023-09-03] VITALS (57 sets, daily range): BP systolic 110–166; BP diastolic 57–110; PULSE 74–118; RESP 7–36; TEMP 36.1–36.3; O2SAT 81–100
[2023-09-03] MEDS: CARBIDOPA-LEVODOPA 25/100 TABLET 2 EACH PO ×5 (00:10→22:59)
[2023-09-03 01:19] LABS: BUN Creatinine Ratio 16.3 (6-22); Blood Urea Nitrogen 7 mg/dL (9-20); Carbon Dioxide 25 mmol/L (22-32); Chloride 85 mmol/L (98-107); Estimated Glomerular Filt Rate > 60 mL/min (>60); Glucose 90 mg/dL (80-110); HEMOLYSIS < 15 (0-50)
[2023-09-03 01:23] LABS: Sodium 116 mmol/L (137-145)
--- NOTE | 2023-09-03 04:44 | PM.EICU.INT ---
Teleintensivist Intervention Date/Time Was camera activated?: No Issue(s) Addressed Issue(s): Abnormal labs (Serum sodium of 116 @ 01:03) Intervention(s) :: Discontinued LR @ 75 mL/hr and started 0.9% NaCl at 50 mL/hr
[2023-09-03 04:59] LABS: Add Manual Diff / Slide Review NO; Basophils Absolute Auto 0 /uL (0-100); Basophils Percent Auto 0.6 % (0-2); Eosinophils Absolute Auto 100 /uL (0-450); Eosinophils Percent Auto 1.6 % (2-4); Hematocrit 30.7 % (41-53); Hemoglobin 10.8 g/dL (13.5-17.5); Lymphocytes Absolute Auto 900 /uL (1100-4500); Lymphocytes Percent Auto 14.3 % (25-40); Mean Corpuscular HGB Conc 35.2 % (30-36); Mean Corpuscular Hemoglobin 31.7 PG (26-34); Monocytes Absolute Auto 800 /uL (0-900); Monocytes Percent Auto 12.9 % (3-14); Neutrophils Absolute Auto 4300 /uL (1500-7000); Neutrophils Percent Auto 70.6 % (50-75); Platelet Count 250 X10^3/uL (150-400); Red Blood Cell Count 3.41 X10^6/uL (4.5-5.9); Red Cell Distribution Width 13.3 % (11.6-14.8); White Blood Cell Count 6.1 X10^3/uL (4.5-11.0)
[2023-09-03 05:05] LABS: Alanine Aminotransferase 11 IU/L (<50); Albumin 2.9 g/dL (3.5-5.0); Albumin Globulin Ratio 1.1 (1.0-2.8); Alkaline Phosphatase 87 U/L (38-126); Aspartate Aminotransferase 71 IU/L (17-59); BUN Creatinine Ratio 14.6 (6-22); Blood Urea Nitrogen 7 mg/dL (9-20); Carbon Dioxide 28 mmol/L (22-32); Chloride 86 mmol/L (98-107); Estimated Glomerular Filt Rate > 60 mL/min (>60); Globulin 2.6 g/dL (1.7-4.1); Glucose 104 mg/dL (80-110); HEMOLYSIS < 15 (0-50); Magnesium 2.4 mg/dL (1.6-2.3); Total Protein 5.5 g/dL (6.3-8.2)
[2023-09-03] MEDS: SODIUM CHLORIDE 0.9% 1,000 ML 50 ML IV ×2 (05:22→20:34)
[2023-09-03 05:24] LABS: Sodium 119 mmol/L (137-145)
[2023-09-03] MEDS: DEXTROSE 5% WATER 1,000 ML 50 ML IV (06:10)
--- NOTE | 2023-09-03 06:15 | PC.NURSE ---
Blood Bank Technologist Note-Patient admitted with hyponatremia 114, 3% Na+Cl- at 20ml/hr infusing at beginning of shift for total of 100ml. Patient is oriented x4, has Parkinsons with decreased mobility and slow garbled speech, but can use 'soft touch' call light and make his needs known. Has mild anxiety, asks many appropriate questions. BMP Q4h, Na+ slowly increasing, notified Tele-Molding Supervisor with each value-see documentations. IVF changed with each notification, currently has D5W at 50ml/hr-see Emar. Also received PO liquid potassium and 2gm IV Mg+ rider. Takes PO meds in applesauce, states I'm getting my appetite back drinking water and smoothie brought by family, and ate crackers, has some dysphagia, sitting 90 degrees while taking PO. Assist with urinal, voided total 1550ml clear yellow. VSS, A-fib CVR/RVR up to 115. SpO2 >94% on RA, has weak loose cough. In Droplet Precautions for Covid-19.
[2023-09-03 08:50] LABS: BUN Creatinine Ratio 12.8 (6-22); Blood Urea Nitrogen 6 mg/dL (9-20); Calcium 8.3 mg/dL (8.4-10.2); Carbon Dioxide 27 mmol/L (22-32); Chloride 87 mmol/L (98-107); Estimated Glomerular Filt Rate > 60 mL/min (>60); Glucose 99 mg/dL (80-110); HEMOLYSIS < 15 (0-50); Potassium 3.8 mmol/L (3.4-5.1)
[2023-09-03 08:55] LABS: Sodium 119 mmol/L (137-145)
[2023-09-03] MEDS: ENOXAPARIN 40 MG/0.4 ML SYRINGE SUBCUT (09:50)
--- NOTE | 2023-09-03 10:17 | P.TELICUPN_ITS ---
Subjective Subjective IF CAMERA ACTIVATED, patient seen via real-time interactive audiovisual communication: Camera activated Consent obtained for tele-internet and e business project manager care: Yes Patient Location: ICU Provider location (State): [place] Other participants/roles: Bedside RN Interval history: Mission Analyst acute issues overnight. Off NS infusion. On D5W given concern for rapid correction. No complaints this morning. Current Medications Current Medications Medications: Home Medications acetaminophen 325 mg tablet 650 mg (2 x 325 mg) PO Q6HR PRN As Needed For Fever/Mild Pain #30 tabs 08/15/18 [Rx Confirmed 09/02/23] artificial tears(bnlkond-afabromf-mipaxbb) 0.1 %-0.3 %-0.2 % eye drops 1 drp EYE-BOTH PRN PRN Dry Eyes 05/17/19 [History Confirmed 09/02/23] amantadine HCl 100 mg capsule 100 mg PO DAILY #0 caps 01/06/21 [History Confirmed 09/02/23] carbidopa 25 mg-levodopa 100 mg tablet 1 tab PO 5XD #0 tabs 01/06/21 [History Confirmed 09/02/23] docusate sodium 100 mg capsule 100 mg PO BEDTIME Constipation 11/11/22 [History Confirmed 09/02/23] ketoconazole 2 % shampoo 1 applic topical 3XW #120 mL 11/11/22 [Rx Confirmed 09/02/23] finasteride 5 mg tablet 5 mg PO DAILY #90 tabs 11/16/22 [Rx Confirmed 09/02/23] doxazosin 4 mg tablet See Rx Instructions .Route .COMPLEX #90 tabs 02/02/23 [Rx Confirmed 09/02/23] magnesium hydroxide 400 mg/5 mL oral suspension (Reeves Milk of Magnesia) 5 ml PO DAILY PRN constipation #355 mL 04/14/23 [Rx Confirmed 09/02/23] Visit Medications (administered) Generic Name Dose Route Start Last Admin Trade Name Freq PRN Reason Stop Dose Admin Carbidopa/Levodopa 2 each 09/02/23 18:55 09/03/23 09:50 Carbidopa-Levodopa 25/100 Tablet PO 2 each 5XD FÉLIX Administration Enoxaparin Sodium 40 mg 09/03/23 09:00 09/03/23 09:50 Enoxaparin 40 Mg/0.4 Ml Syringe SUBCUT 40 mg DAILY FÉLIX Administration Dextrose 1,000 mls @ 50 mls/hr 09/03/23 06:00 09/03/23 06:10 Dextrose 5% Water IV 50 mls/hr CONT FÉLIX Administration Objective Labs 09/03/23 04:13 09/03/23 08:25 Labs: Laboratory Results - last 24 hr 09/02/23 09/02/23 09/02/23 15:10 16:14 16:20 WBC 6.9 RBC 3.66 L Hgb 11.5 L Hct 32.8 L MCV 89.5 MCH 31.3 MCHC 35.0 RDW 13.5 Plt Count 270 Neut % (Auto) 77.2 H Lymph % (Auto) 9.5 L [place] % (Auto) 11.4 Eos % (Auto) 1.2 L Baso % (Auto) 0.7 Neut # (Auto) 5300 Lymph # (Auto) 700 L [place] # (Auto) 800 Eos # (Auto) 100 Baso # (Auto) 0 PT 18.6 H INR 1.6 H APTT 34 Sodium 114 L* Potassium 3.8 Chloride 81 L Carbon Dioxide 26 BUN 9 Creatinine 0.41 L Estimated GFR > 60 BUN/Creatinine Ratio 22.0 Glucose 114 H Calcium 8.8 Magnesium 2.0 Total Bilirubin 1.1 AST 87 H ALT 18 Alkaline Phosphatase 101 Total Creatine Kinase 615 H Troponin I 0.046 H Total Protein 6.4 Albumin 3.4 L Globulin 3.0 Albumin/Globulin Ratio 1.1 Lipase 90 TSH 1.51 Ur Random Sodium 6 L Nasal Screen MRSA (PCR) SARS-CoV-2 (PCR) Positive H Influenza A (RT-PCR) Flu a negative Influenza B (RT-PCR) Flu b negative RSV (PCR) Negative 09/02/23 09/02/23 09/02/23 16:27 17:00 18:30 WBC RBC Hgb Hct MCV MCH MCHC RDW Plt Count Neut % (Auto) Lymph % (Auto) [place] % (Auto) Eos % (Auto) Baso % (Auto) Neut # (Auto) Lymph # (Auto) [place] # (Auto) Eos # (Auto) Baso # (Auto) PT INR APTT Sodium Cancelled 114 L* Potassium 3.7 Chloride 82 L Carbon Dioxide 25 BUN 8 L Creatinine 0.40 L Estimated GFR > 60 BUN/Creatinine Ratio 20.0 Glucose 98 Calcium 8.4 Magnesium Total Bilirubin AST ALT Alkaline Phosphatase Total Creatine Kinase Troponin I Cancelled 0.046 H Total Protein Albumin Globulin Albumin/Globulin Ratio Lipase TSH Ur Random Sodium Nasal Screen MRSA (PCR) Not detected SARS-CoV-2 (PCR) Influenza A (RT-PCR) Influenza B (RT-PCR) RSV (PCR) 09/02/23 09/03/23 09/03/23 21:13 01:03 04:13 WBC 6.1 RBC 3.41 L Hgb 10.8 L Hct 30.7 L MCV 90.0 MCH 31.7 MCHC 35.2 RDW 13.3 Plt Count 250 Neut % (Auto) 70.6 Lymph % (Auto) 14.3 L [place] % (Auto) 12.9 Eos % (Auto) 1.6 L Baso % (Auto) 0.6 Neut # (Auto) 4300 Lymph # (Auto) 900 L [place] # (Auto) 800 Eos # (Auto) 100 Baso # (Auto) 0 PT INR APTT Sodium 115 L* 116 L* 119 L* Potassium 4.1 4.0 4.0 Chloride 83 L 85 L 86 L Carbon Dioxide 26 25 28 BUN 8 L 7 L 7 L Creatinine 0.42 L 0.43 L 0.48 L Estimated GFR > 60 > 60 > 60 BUN/Creatinine Ratio 19.0 16.3 14.6 Glucose 98 90 104 Calcium 8.2 L 8.0 L 8.0 L Magnesium 2.4 H Total Bilirubin 1.0 AST 71 H ALT 11 Alkaline Phosphatase 87 Total Creatine Kinase Troponin I Total Protein 5.5 L Albumin 2.9 L Globulin 2.6 Albumin/Globulin Ratio 1.1 Lipase TSH Ur Random Sodium Nasal Screen MRSA (PCR) SARS-CoV-2 (PCR) Influenza A (RT-PCR) Influenza B (RT-PCR) RSV (PCR) 09/03/23 08:25 WBC RBC Hgb Hct MCV MCH MCHC RDW Plt Count Neut % (Auto) Lymph % (Auto) [place] % (Auto) Eos % (Auto) Baso % (Auto) Neut # (Auto) Lymph # (Auto) [place] # (Auto) Eos # (Auto) Baso # (Auto) PT INR APTT Sodium 119 L* Potassium 3.8 Chloride 87 L Carbon Dioxide 27 BUN 6 L Creatinine 0.47 L Estimated GFR > 60 BUN/Creatinine Ratio 12.8 Glucose 99 Calcium 8.3 L Magnesium Total Bilirubin AST ALT Alkaline Phosphatase Total Creatine Kinase Troponin I Total Protein Albumin Globulin Albumin/Globulin Ratio Lipase TSH Ur Random Sodium Nasal Screen MRSA (PCR) SARS-CoV-2 (PCR) Influenza A (RT-PCR) Influenza B (RT-PCR) RSV (PCR) Exam Vital Signs (past 8 hours): - 09/03/23 02:30 09/03/23 03:00 09/03/23 03:30 Temperature Pulse Rate 83 90 86 Respiratory Rate 25 H 28 H 18 Blood Pressure Pulse Oximetry 98 96 96 Oxygen Delivery Method 09/03/23 04:00 09/03/23 04:00 09/03/23 04:00 Temperature 97.0 F L Pulse Rate 80 Respiratory Rate 18 Blood Pressure 111/70 Pulse Oximetry 97 98 Oxygen Delivery Method Room Air Room Air 09/03/23 04:00 09/03/23 04:11 09/03/23 04:11 Temperature Pulse Rate 82 80 Respiratory Rate 15 18 Blood Pressure 111/70 Pulse Oximetry 92 98 Oxygen Delivery Method 09/03/23 04:30 09/03/23 05:00 09/03/23 05:30 Temperature Pulse Rate 82 87 89 Respiratory Rate 14 15 14 Blood Pressure Pulse Oximetry 91 99 98 Oxygen Delivery Method 09/03/23 06:00 09/03/23 06:30 09/03/23 07:00 Temperature Pulse Rate 89 102 H 100 H Respiratory Rate 24 17 17 Blood Pressure Pulse Oximetry 98 95 95 Oxygen Delivery Method 09/03/23 07:30 09/03/23 08:00 09/03/23 08:00 Temperature Pulse Rate 101 H Respiratory Rate 16 Blood Pressure Pulse Oximetry 96 94 Oxygen Delivery Method Room Air Room Air 09/03/23 08:00 09/03/23 08:30 Temperature Pulse Rate 106 H 104 H Respiratory Rate 20 18 Blood Pressure Pulse Oximetry 95 94 Oxygen Delivery Method Oxygen Delivery Method Room Air Quality TeleICU VTE Deep Vein Thrombosis/Pulmonary Embolism Present on Admission: No Assessment & Plan Assessment & Plan narrative: NEURO: # Parkinson's disease -- Resume home meds -- PT/OT and OOB as tolerated -- Fall precaution RESP: -- On room air -- Encourage IS -- Seek early mobility CVS: -- Goal SBP < 140 : # Hyponatremia -- Secondary to hypovolemia hyponatremia -- Increased UOP w/ volume expansion suggestive of loss of ADH -- Started on D5W given concern for over correction -- Trend BMP every 4 hours -- Goal Na 120-122 by 4 pm -- Monitor UOP; if output is >300 then will need stat BMP ENDO: -- Goal BS < 180 D/w Dr. Gonzalez and RN Margareth. Time Spent With Patient Time with patient: 30 to 49 minutes with 50% spent counseling/coordinating care
--- NOTE | 2023-09-03 11:51 | CM.DANOTE ---
DCP: Case received, EMR reviewed. Unable to meet with patient, secondary to being in isolation for COVID, and has been sleeping. Noticed that patient came from [facility]. Called the [facility], was able to obtain information regarding patient's baseline activity status prior to hospitalization. DCP assessment completed with information currently available. Patient was admitted yesterday afternoon to the care of the hospitalist team. PCP: [facility] (was Dr. Jacobson, most likely is seeing [facility] provider). Payer: confirmed: [employer] Medicare. Patient came to the hospital via private vehicle from [facility] secondary to having weakness and decreased appetite. Patient was COVID positive prior to hospitalization at [facility]. Patient has history of Parkinsons, recent COVID. Patient was diagnosed with A-fib and hyponatremia. Patient sitting up in his chair sleeping. Was able to call over at [facility], spoke to [facility]. Confirmed that patient resides in the [facility]. Stated that each day is different, sometimes he needs more help than others. He does have a FWW as well as wheelchair. Confirmed that patient has had COVID in their facility, meals brought up for patient. P: DCP to continue to follow. Patient should be able to return to [facility] when stable, may need an assessment prior to returning. [facility] is the main contact for nursing coordinator. Zoey Mcintosh RN/Office Messenger Helper Discharge Planning/Care Management Discharge Assessment Start: 09/03/23 11:47 Freq: Status: Active Protocol: Document 09/03/23 11:47 (Rec: 09/03/23 11:51 [id number]) Discharge Planning Assessment Assigned Manufacturing Engineering Technician Zoey Mcintosh RN/Office Messenger Helper Advance Directives? Yes Advance Directives on File No History Provided By Patient,Family Member,Medical Record Prior Living Arrangements Assisted Living Household Members none Type of transporation used prior to Relies on Others admit Independent with ADL's Yes Is patient alert and oriented? Yes Needs Assistance With Bathing,Meal Prep,Toileting, Managing Medications,Home Chores / Shopping Caregiver for Another No DME Already Rented / Owned Wheelchair,FWW / Walker Barriers to Discharge No Comment Patient resides at [facility] Discharge Plan Assisted Living Facility Referrals Initiated Other Additional Comment Will see how he progressed here in the hospital so he can return to [facility]. Whiteboard Updated in Patient Room with Yes name and ext. # of Manufacturing Engineering Technician Review Status In Process Next Review Type Continued Stay Review
--- NOTE | 2023-09-03 14:38 | PC.NURSE ---
1000 used kacie lift to move pt from bed to chair at the bedside. Stayed in the chair until 1400, returned to bed. Tolerated being out of bed well, had good appetite for lunch. Denies pain or shortness of breath.
[2023-09-03 15:31] LABS: BUN Creatinine Ratio 11.8 (6-22); Blood Urea Nitrogen 6 mg/dL (9-20); Calcium 8.2 mg/dL (8.4-10.2); Carbon Dioxide 27 mmol/L (22-32); Chloride 87 mmol/L (98-107); Estimated Glomerular Filt Rate > 60 mL/min (>60); Glucose 117 mg/dL (80-110); HEMOLYSIS < 15 (0-50); Sodium 120 mmol/L (137-145)
[2023-09-03] MEDS: SODIUM CHLORIDE 1,000 MG TABLET 1000 MG PO ×2 (16:00→20:28)
--- NOTE | 2023-09-03 16:43 | PM.PN.1 ---
Subjective Subjective Date Patient Seen: 09/03/23 Time Patient Seen: 08:00 Interval history: He feels weak. But otherwise he does not have significant symptoms. No confusion. Exam Vital Signs (past 8 hours): - 09/03/23 09:00 09/03/23 09:30 09/03/23 10:00 Pulse Rate 92 H 83 85 Respiratory Rate 14 21 27 H Blood Pressure Pulse Oximetry 95 97 98 Oxygen Delivery Method 09/03/23 10:30 09/03/23 10:31 09/03/23 10:31 Pulse Rate 79 78 Respiratory Rate 19 22 Blood Pressure 110/57 L Pulse Oximetry Oxygen Delivery Method 09/03/23 11:00 09/03/23 11:00 09/03/23 11:30 Pulse Rate 75 82 Respiratory Rate 20 20 Blood Pressure 112/65 Pulse Oximetry 96 96 Oxygen Delivery Method 09/03/23 11:45 09/03/23 11:45 Pulse Rate Respiratory Rate Blood Pressure Pulse Oximetry 95 Oxygen Delivery Method Room Air Room Air Oxygen Delivery Method Room Air Narrative Exam Narrative: General:?chronically ill appearing, weak voice HEENT:? dry mucous membranes Lungs:? clear bilaterally Cardio:?irregularly irregular rhythm, normal rate NEURO: awake, alert, oriented, slow responses Objective Labs 09/03/23 04:13 09/03/23 15:05 Labs: Laboratory Results - last 24 hr 09/02/23 09/02/23 09/02/23 16:14 16:20 17:00 WBC RBC Hgb Hct MCV MCH MCHC RDW Plt Count Neut % (Auto) Lymph % (Auto) [place] % (Auto) Eos % (Auto) Baso % (Auto) Neut # (Auto) Lymph # (Auto) [place] # (Auto) Eos # (Auto) Baso # (Auto) Sodium 114 L* Potassium 3.7 Chloride 82 L Carbon Dioxide 25 BUN 8 L Creatinine 0.40 L Estimated GFR > 60 BUN/Creatinine Ratio 20.0 Glucose 98 Calcium 8.4 Magnesium Total Bilirubin AST ALT Alkaline Phosphatase Troponin I 0.046 H Total Protein Albumin Globulin Albumin/Globulin Ratio TSH 1.51 Ur Random Sodium 6 L Nasal Screen MRSA (PCR) SARS-CoV-2 (PCR) Positive H Influenza A (RT-PCR) Flu a negative Influenza B (RT-PCR) Flu b negative RSV (PCR) Negative 09/02/23 09/02/23 09/03/23 18:30 21:13 01:03 WBC RBC Hgb Hct MCV MCH MCHC RDW Plt Count Neut % (Auto) Lymph % (Auto) [place] % (Auto) Eos % (Auto) Baso % (Auto) Neut # (Auto) Lymph # (Auto) [place] # (Auto) Eos # (Auto) Baso # (Auto) Sodium 115 L* 116 L* Potassium 4.1 4.0 Chloride 83 L 85 L Carbon Dioxide 26 25 BUN 8 L 7 L Creatinine 0.42 L 0.43 L Estimated GFR > 60 > 60 BUN/Creatinine Ratio 19.0 16.3 Glucose 98 90 Calcium 8.2 L 8.0 L Magnesium Total Bilirubin AST ALT Alkaline Phosphatase Troponin I Total Protein Albumin Globulin Albumin/Globulin Ratio TSH Ur Random Sodium Nasal Screen MRSA (PCR) Not detected SARS-CoV-2 (PCR) Influenza A (RT-PCR) Influenza B (RT-PCR) RSV (PCR) 09/03/23 09/03/23 09/03/23 04:13 08:25 15:05 WBC 6.1 RBC 3.41 L Hgb 10.8 L Hct 30.7 L MCV 90.0 MCH 31.7 MCHC 35.2 RDW 13.3 Plt Count 250 Neut % (Auto) 70.6 Lymph % (Auto) 14.3 L [place] % (Auto) 12.9 Eos % (Auto) 1.6 L Baso % (Auto) 0.6 Neut # (Auto) 4300 Lymph # (Auto) 900 L [place] # (Auto) 800 Eos # (Auto) 100 Baso # (Auto) 0 Sodium 119 L* 119 L* 120 L Potassium 4.0 3.8 4.0 Chloride 86 L 87 L 87 L Carbon Dioxide 28 27 27 BUN 7 L 6 L 6 L Creatinine 0.48 L 0.47 L 0.51 L Estimated GFR > 60 > 60 > 60 BUN/Creatinine Ratio 14.6 12.8 11.8 Glucose 104 99 117 H Calcium 8.0 L 8.3 L 8.2 L Magnesium 2.4 H Total Bilirubin 1.0 AST 71 H ALT 11 Alkaline Phosphatase 87 Troponin I Total Protein 5.5 L Albumin 2.9 L Globulin 2.6 Albumin/Globulin Ratio 1.1 TSH Ur Random Sodium Nasal Screen MRSA (PCR) SARS-CoV-2 (PCR) Influenza A (RT-PCR) Influenza B (RT-PCR) RSV (PCR) [facility] Medical History Secondhand smoke exposure Gross hematuria BPH w urinary obs/LUTS Osteoarthritis (~2004) Peripheral neuropathy (~2011) Parkinson's disease (~2012) Migraines (~2011) Scoliosis (~2004) Osteoporosis (~2009) Osteopenia (~2004) Mumps Measles Hepatitis A (~1985) Chicken pox Benign prostatic hyperplasia (~2003) Hypertension (~1989) Surgical History Anesthesia History of tonsillectomy (~194) Family History Father Alzheimer's disease Hypertension Mother History of acquired heart valve infection Hypertension Mitral valve disease Grandmother Stroke Social History marital status: unmarried,single household members: none housing: assisted living facility Previous occupational history: Flight attendent Smoking Status: Never smoker alcohol intake: current substance use type: does not use Assessment & Plan Assessment & Plan narrative: 1. Hyponatremia, severe - Initial Na 114. - teleICU consulted - urine sodium is 6, initially given 3% saline - sodium improved to 120 from 114 in 24 hours, fluids stopped - urine osm pending. - continue tele monitoring - volume status is complicated, appeared dry mucous membranes per admit note but also vascular congestion on imaging with asymmetric LE edema bilaterally. 2. New diagnosis atrial fibrillation, rate controlled. - suspect due to electrolyte abnormalities / hyponatremia - currently rate controlled - echocardiogram ordered showed EF of 35-40% - continue telemetry - CXR with congestive appearance, could be ? residual disease from COVID or volume overload. - B/L DVT study ordered for asymmetric LE edema, possible VTE contributing after COVID? 3. Cardiomyopathy - EF onted on ECHO to be 35-40% - patient noted to have lower extremity edema so may have CHF component of presentation 3. Parkinson's disease - continue home sinemet, amantadine. 4. BPH - continue home finasteride, doxazosin. 5. Myocardial injury - no further evaluation necessary troponin stable at 0.046 with no symptoms. - will check echo with new dx of afib as noted above 6. COVID- - patient is asymptomatic from a respiratory standpoint. He tested positive almost 4 weeks ago initially per report. 7. Mild rhabdomyolysis - consistent with dehydration studies noted above. CK 615 on admission COVID-19 COVID-19 status: Positive Quality VTE Deep Vein Thrombosis/Pulmonary Embolism Present on Admission: No
[2023-09-03 20:01] LABS: Blood Urea Nitrogen 6 mg/dL (9-20); Calcium 8.3 mg/dL (8.4-10.2); Carbon Dioxide 29 mmol/L (22-32); Chloride 88 mmol/L (98-107); Estimated Glomerular Filt Rate > 60 mL/min (>60); Glucose 107 mg/dL (80-110); Potassium 4.1 mmol/L (3.4-5.1); Sodium 118 mmol/L (137-145)
[2023-09-03 20:02] LABS: HEMOLYSIS < 15 (0-50)
--- NOTE | 2023-09-03 20:13 | PM.ICURNDS ---
- Date Patient Seen: 09/03/23 Time Patient Seen: 20:13 :: This patient was seen via real time interactive two-way audiovisual telecommunication. Note: Repeat Na 118 from 120. Start NS infusion at 50cc/hr and repeat BMP in 4 hours. D/w patient and RN at bedside.
[2023-09-03] MEDS: SODIUM CHLORIDE 0.9% FLUSH 10 ML IV (20:28)
[2023-09-04] VITALS (55 sets, daily range): BP systolic 133–168; BP diastolic 68–99; PULSE 82–122; RESP 12–40; TEMP 36.1–37.1; O2SAT 83–100
[2023-09-04 00:45] LABS: BUN Creatinine Ratio 11.6 (6-22); Blood Urea Nitrogen 5 mg/dL (9-20); Carbon Dioxide 25 mmol/L (22-32); Chloride 89 mmol/L (98-107); Estimated Glomerular Filt Rate > 60 mL/min (>60); Glucose 104 mg/dL (80-110); HEMOLYSIS < 15 (0-50); Sodium 120 mmol/L (137-145)
[2023-09-04 06:38] LABS: Add Manual Diff / Slide Review NO; Basophils Absolute Auto 0 /uL (0-100); Basophils Percent Auto 0.6 % (0-2); Eosinophils Absolute Auto 100 /uL (0-450); Eosinophils Percent Auto 1.1 % (2-4); Hematocrit 32.7 % (41-53); Hemoglobin 11.3 g/dL (13.5-17.5); Lymphocytes Absolute Auto 800 /uL (1100-4500); Lymphocytes Percent Auto 11.6 % (25-40); Mean Corpuscular HGB Conc 34.5 % (30-36); Mean Corpuscular Hemoglobin 31.3 PG (26-34); Mean Corpuscular Volume 90.8 fL (80-100); Monocytes Absolute Auto 800 /uL (0-900); Monocytes Percent Auto 11.1 % (3-14); Neutrophils Absolute Auto 5400 /uL (1500-7000); Neutrophils Percent Auto 75.6 % (50-75); Platelet Count 241 X10^3/uL (150-400); Red Cell Distribution Width 13.7 % (11.6-14.8); White Blood Cell Count 7.2 X10^3/uL (4.5-11.0)
--- NOTE | 2023-09-04 06:38 | PC.NURSE ---
Stringed Instrument Tuner Note-Patient remains oriented x3 but was fatigued and had more of a flat affect. Sometimes he has mild anxiety with HR increasing up to 120, < 100 at rest. Na+ at 2009 118 reported to T-Medical Assistant Per Diem, NS @ 50ml/hr restarted, Na+ at 0100 120, no new orders, currently waiting for am values to result. Patient placed on bedpan with no BM. Caregiver from [facility] brought over 'Smooth Move' tea.
[2023-09-04 06:44] LABS: Alanine Aminotransferase 12 IU/L (<50); Albumin Globulin Ratio 1.1 (1.0-2.8); Alkaline Phosphatase 97 U/L (38-126); Aspartate Aminotransferase 58 IU/L (17-59); BUN Creatinine Ratio 12.2 (6-22); Blood Urea Nitrogen 5 mg/dL (9-20); Calcium 8.1 mg/dL (8.4-10.2); Carbon Dioxide 25 mmol/L (22-32); Chloride 90 mmol/L (98-107); Estimated Glomerular Filt Rate > 60 mL/min (>60); Globulin 2.8 g/dL (1.7-4.1); Glucose 95 mg/dL (80-110); HEMOLYSIS < 15 (0-50); Sodium 120 mmol/L (137-145); Total Protein 5.8 g/dL (6.3-8.2)
[2023-09-04 07:05] LABS: NT-proBNP (BNP-Adult 18+) 11100 pg/mL (<450)
[2023-09-04] MEDS: ENOXAPARIN 40 MG/0.4 ML SYRINGE SUBCUT (08:45)
[2023-09-04] MEDS: FUROSEMIDE 40 MG/4 ML VIAL IV (08:45)
[2023-09-04] MEDS: SODIUM CHLORIDE 1,000 MG TABLET 1000 MG PO ×2 (08:45→15:45)
[2023-09-04] MEDS: SODIUM CHLORIDE 0.9% FLUSH 10 ML IV ×2 (08:51→22:21)
--- NOTE | 2023-09-04 09:35 | P.TELICUPN_ITS ---
Subjective Subjective IF CAMERA ACTIVATED, patient seen via real-time interactive audiovisual communication: Camera activated Consent obtained for tele-it network engineer care: Yes Patient Location: ICU Provider location (State): [place] Other participants/roles: Bedside RN and primary hospitalist Interval history: No acute issues overnight Na 120 and NS infusion increased to cc/hr Noted to have crackles on exam per d/w primary bedside team. NS stopped and plan to initiate diuretic. Current Medications Current Medications Medications: Home Medications acetaminophen 325 mg tablet 650 mg (2 x 325 mg) PO Q6HR PRN As Needed For Fever/Mild Pain #30 tabs 08/15/18 [Rx Confirmed 09/02/23] artificial tears(llnylbs-dwiegmph-txruczy) 0.1 %-0.3 %-0.2 % eye drops 1 drp EYE-BOTH PRN PRN Dry Eyes 05/17/19 [History Confirmed 09/02/23] amantadine HCl 100 mg capsule 100 mg PO DAILY #0 caps 01/06/21 [History Confirmed 09/02/23] carbidopa 25 mg-levodopa 100 mg tablet 1 tab PO 5XD #0 tabs 01/06/21 [History Confirmed 09/02/23] docusate sodium 100 mg capsule 100 mg PO BEDTIME Constipation 11/11/22 [History Confirmed 09/02/23] ketoconazole 2 % shampoo 1 applic topical 3XW #120 mL 11/11/22 [Rx Confirmed 09/02/23] finasteride 5 mg tablet 5 mg PO DAILY #90 tabs 11/16/22 [Rx Confirmed 09/02/23] doxazosin 4 mg tablet See Rx Instructions .Route .COMPLEX #90 tabs 02/02/23 [Rx Confirmed 09/02/23] magnesium hydroxide 400 mg/5 mL oral suspension (Reeves Milk of Magnesia) 5 ml PO DAILY PRN constipation #355 mL 04/14/23 [Rx Confirmed 09/02/23] Visit Medications (administered) Generic Name Dose Route Start Last Admin Trade Name Freq PRN Reason Stop Dose Admin Carbidopa/Levodopa 2 each 09/02/23 18:55 09/03/23 22:59 Carbidopa-Levodopa 25/100 Tablet PO 2 each 5XD FÉLIX Administration Enoxaparin Sodium 40 mg 09/03/23 09:00 09/04/23 08:45 Enoxaparin 40 Mg/0.4 Ml Syringe SUBCUT 40 mg DAILY FÉLIX Administration Sodium Chloride 1,000 mg 09/03/23 15:45 09/04/23 08:45 Sodium Chloride 1,000 Mg Tablet PO 1,000 mg TID FÉLIX Administration Sodium Chloride 10 ml 09/03/23 21:00 09/04/23 08:51 Sodium Chloride 0.9% Flush IV 10 ml BID FÉLIX Administration Objective Labs 09/04/23 06:19 09/04/23 06:19 Labs: Laboratory Results - last 24 hr 09/03/23 09/03/23 09/04/23 15:05 19:35 00:25 WBC RBC Hgb Hct MCV MCH MCHC RDW Plt Count Neut % (Auto) Lymph % (Auto) [place] % (Auto) Eos % (Auto) Baso % (Auto) Neut # (Auto) Lymph # (Auto) [place] # (Auto) Eos # (Auto) Baso # (Auto) Sodium 120 L 118 L* 120 L Potassium 4.0 4.1 4.0 Chloride 87 L 88 L 89 L Carbon Dioxide 27 29 25 BUN 6 L 6 L 5 L Creatinine 0.51 L 0.43 L 0.43 L Estimated GFR > 60 > 60 > 60 BUN/Creatinine Ratio 11.8 14.0 11.6 Glucose 117 H 107 104 Calcium 8.2 L 8.3 L 8.0 L Magnesium Total Bilirubin AST ALT Alkaline Phosphatase NT-Pro-B Natriuret Pep Total Protein Albumin Globulin Albumin/Globulin Ratio 09/04/23 06:19 WBC 7.2 RBC 3.60 L Hgb 11.3 L Hct 32.7 L MCV 90.8 MCH 31.3 MCHC 34.5 RDW 13.7 Plt Count 241 Neut % (Auto) 75.6 H Lymph % (Auto) 11.6 L [place] % (Auto) 11.1 Eos % (Auto) 1.1 L Baso % (Auto) 0.6 Neut # (Auto) 5400 Lymph # (Auto) 800 L [place] # (Auto) 800 Eos # (Auto) 100 Baso # (Auto) 0 Sodium 120 L Potassium 4.0 Chloride 90 L Carbon Dioxide 25 BUN 5 L Creatinine 0.41 L Estimated GFR > 60 BUN/Creatinine Ratio 12.2 Glucose 95 Calcium 8.1 L Magnesium 2.0 Total Bilirubin 1.0 AST 58 ALT 12 Alkaline Phosphatase 97 NT-Pro-B Natriuret Pep 70258 H Total Protein 5.8 L Albumin 3.0 L Globulin 2.8 Albumin/Globulin Ratio 1.1 Exam Vital Signs (past 8 hours): - 09/04/23 02:00 09/04/23 02:30 09/04/23 03:00 Temperature Pulse Rate 95 H 92 H 98 H Respiratory Rate 16 16 25 H Blood Pressure Pulse Oximetry 95 100 96 Oxygen Delivery Method 09/04/23 03:30 09/04/23 03:44 09/04/23 03:44 Temperature Pulse Rate 92 H 93 H Respiratory Rate 18 20 Blood Pressure 168/83 H Pulse Oximetry 100 98 Oxygen Delivery Method 09/04/23 04:00 09/04/23 04:00 09/04/23 04:00 Temperature 98.2 F Pulse Rate 93 H 104 H Respiratory Rate 20 21 Blood Pressure 168/83 H Pulse Oximetry 98 94 98 Oxygen Delivery Method Room Air 09/04/23 04:30 09/04/23 05:00 09/04/23 05:30 Temperature Pulse Rate 99 H 108 H 109 H Respiratory Rate 17 16 24 Blood Pressure Pulse Oximetry 100 97 99 Oxygen Delivery Method 09/04/23 05:44 09/04/23 06:00 09/04/23 06:30 Temperature Pulse Rate 106 H 110 H Respiratory Rate 18 18 Blood Pressure Pulse Oximetry 100 100 Oxygen Delivery Method Room Air 09/04/23 07:00 09/04/23 07:30 09/04/23 08:00 Temperature Pulse Rate 109 H 114 H 108 H Respiratory Rate 16 22 15 Blood Pressure Pulse Oximetry 98 98 99 Oxygen Delivery Method 09/04/23 08:30 09/04/23 08:37 09/04/23 08:37 Temperature Pulse Rate 115 H 117 H Respiratory Rate 20 20 Blood Pressure 163/81 H Pulse Oximetry 98 89 L Oxygen Delivery Method 09/04/23 09:00 Temperature 97.2 F L Pulse Rate 107 H Respiratory Rate 20 Blood Pressure Pulse Oximetry 83 L Oxygen Delivery Method Oxygen Delivery Method Room Air Quality TeleICU VTE Deep Vein Thrombosis/Pulmonary Embolism Present on Admission: No Assessment & Plan Assessment & Plan narrative: NEURO: # Parkinson's disease -- Cont carbidopa -- PT/OT and OOB as tolerated -- Fall precaution RESP: -- On room air -- Encourage IS -- Seek early mobility CVS: -- Goal SBP < 140 : # Hyponatremia -- Concern for hypervolemia hyponatremia -- TTE showed reduced LV function -- Will stop NS infusion -- Start lasix to seek net negative fluid balance -- Trend BMP every 4 hours -- Trend BMP every 4 hours -- Goal Na 126 by 4 pm ENDO: -- Goal BS < 180 Time Spent With Patient Time with patient: 30 to 49 minutes with 50% spent counseling/coordinating care
--- NOTE | 2023-09-04 11:32 | P.PN_ITS ---
Subjective Subjective Interval history: Serum Na still 120. Sounds wet on exam. D/w Dr Hernández and stopped NS drip and gave Lasix 40 mg IV x 1. Repeat Na at noon. Pt has Parkinson's and feels weak. No c/o dyspnea. Also has been in afib with mild elev HR, not currently on anticoagulant other than Lovenox for DVT prevention. EF was 25-30% on ECHO. Started pt on apixaban, metoprolol and losartan (see A/P). Exam Vital Signs (past 8 hours): - 09/04/23 03:44 09/04/23 03:44 09/04/23 04:00 Temperature 98.2 F Pulse Rate 93 H 93 H Respiratory Rate 20 20 Blood Pressure 168/83 H 168/83 H Pulse Oximetry 98 98 Oxygen Delivery Method 09/04/23 04:00 09/04/23 04:00 09/04/23 04:30 Temperature Pulse Rate 104 H 99 H Respiratory Rate 21 17 Blood Pressure Pulse Oximetry 94 98 100 Oxygen Delivery Method Room Air 09/04/23 05:00 09/04/23 05:30 09/04/23 05:44 Temperature Pulse Rate 108 H 109 H Respiratory Rate 16 24 Blood Pressure Pulse Oximetry 97 99 Oxygen Delivery Method Room Air 09/04/23 06:00 09/04/23 06:30 09/04/23 07:00 Temperature Pulse Rate 106 H 110 H 109 H Respiratory Rate 18 18 16 Blood Pressure Pulse Oximetry 100 100 98 Oxygen Delivery Method 09/04/23 07:30 09/04/23 08:00 09/04/23 08:00 Temperature Pulse Rate 114 H 108 H Respiratory Rate 22 15 Blood Pressure Pulse Oximetry 98 99 98 Oxygen Delivery Method Room Air 09/04/23 08:30 09/04/23 08:37 09/04/23 08:37 Temperature Pulse Rate 115 H 117 H Respiratory Rate 20 20 Blood Pressure 163/81 H Pulse Oximetry 98 89 L Oxygen Delivery Method 09/04/23 09:00 Temperature 97.2 F L Pulse Rate 107 H Respiratory Rate 20 Blood Pressure Pulse Oximetry 83 L Oxygen Delivery Method Oxygen Delivery Method Room Air Narrative Exam Narrative: Gen: alert, cooperative Lungs: bilat crackles CV: irregular Ext: no edema Neuro: oriented, nl affect Objective Labs 09/04/23 06:19 09/04/23 06:19 Labs: Laboratory Results - last 24 hr 12/16/23 12/16/23 12/17/23 15:05 19:35 00:25 WBC RBC Hgb Hct MCV MCH MCHC RDW Plt Count Neut % (Auto) Lymph % (Auto) [place] % (Auto) Eos % (Auto) Baso % (Auto) Neut # (Auto) Lymph # (Auto) [place] # (Auto) Eos # (Auto) Baso # (Auto) Sodium 120 L 118 L* 120 L Potassium 4.0 4.1 4.0 Chloride 87 L 88 L 89 L Carbon Dioxide 27 29 25 BUN 6 L 6 L 5 L Creatinine 0.51 L 0.43 L 0.43 L Estimated GFR > 60 > 60 > 60 BUN/Creatinine Ratio 11.8 14.0 11.6 Glucose 117 H 107 104 Calcium 8.2 L 8.3 L 8.0 L Magnesium Total Bilirubin AST ALT Alkaline Phosphatase NT-Pro-B Natriuret Pep Total Protein Albumin Globulin Albumin/Globulin Ratio 09/04/23 06:19 WBC 7.2 RBC 3.60 L Hgb 11.3 L Hct 32.7 L MCV 90.8 MCH 31.3 MCHC 34.5 RDW 13.7 Plt Count 241 Neut % (Auto) 75.6 H Lymph % (Auto) 11.6 L [place] % (Auto) 11.1 Eos % (Auto) 1.1 L Baso % (Auto) 0.6 Neut # (Auto) 5400 Lymph # (Auto) 800 L [place] # (Auto) 800 Eos # (Auto) 100 Baso # (Auto) 0 Sodium 120 L Potassium 4.0 Chloride 90 L Carbon Dioxide 25 BUN 5 L Creatinine 0.41 L Estimated GFR > 60 BUN/Creatinine Ratio 12.2 Glucose 95 Calcium 8.1 L Magnesium 2.0 Total Bilirubin 1.0 AST 58 ALT 12 Alkaline Phosphatase 97 NT-Pro-B Natriuret Pep 85937 H Total Protein 5.8 L Albumin 3.0 L Globulin 2.8 Albumin/Globulin Ratio 1.1 [facility] Medical History Secondhand smoke exposure Gross hematuria BPH w urinary obs/LUTS Osteoarthritis (~2004) Peripheral neuropathy (~2011) Parkinson's disease (~2012) Migraines (~2011) Scoliosis (~2004) Osteoporosis (~2009) Osteopenia (~2004) Mumps Measles Hepatitis A (~1985) Chicken pox Benign prostatic hyperplasia (~2003) Hypertension (~1989) Surgical History Anesthesia History of tonsillectomy (~1945) Family History Father Alzheimer's disease Hypertension Mother History of acquired heart valve infection Hypertension Mitral valve disease Grandmother Stroke Social History marital status: unmarried,single household members: none housing: assisted living facility Previous occupational history: Flight attendent Smoking Status: Never smoker alcohol intake: current substance use type: does not use Assessment & Plan Assessment & Plan narrative: 1. Hyponatremia, severe - Initial Na 114. - teleICU consulted - urine sodium is 6, initially given 3% saline - sodium improved to 120 from 114 in 24 hours - urine osm pending. - continue tele monitoring - volume status is complicated, appeared dry mucous membranes per admit note but also vascular congestion on imaging with asymmetric LE edema bilaterally. - on 09/04 noted crackles on exam, NS stopped, Lasix 40 mg IV given follow up Na pending 2. New diagnosis atrial fibrillation with RVR - suspect due to electrolyte abnormalities / hyponatremia / recent COVID - echocardiogram ordered showed EF of 35-40% - continue telemetry - CXR with congestive appearance, could be ? residual disease from COVID or volume overload. - B/L US negative for DVT - 09/04 started apixaban 5 mg bid 3. Cardiomyopathy, acute vs chronic systolic heart failure - EF noted on ECHO to be 35-40% - moderately hypertensive as well - 09/04 started metoprolol 25 mg bid and losartan 25 mg daily 4. Parkinson's disease - continue home sinemet, amantadine. 5. BPH - continue home finasteride, doxazosin. 6. Myocardial injury - no further evaluation necessary troponin stable at 0.046 with no symptoms. 7. COVID- - patient is asymptomatic from a respiratory standpoint. He tested positive almost 4 weeks ago initially per report. 8. Mild rhabdomyolysis - consistent with dehydration studies noted above. CK 615 on admission COVID-19 COVID-19 status: Positive Quality VTE Deep Vein Thrombosis/Pulmonary Embolism Present on Admission: No
[2023-09-04] MEDS: LOSARTAN 25 MG TABLET PO (12:18)
[2023-09-04] MEDS: CARBIDOPA-LEVODOPA 25/100 TABLET 2 EACH PO ×3 (12:19→21:33)
[2023-09-04 12:32] LABS: Carbon Dioxide 29 mmol/L (22-32); Chloride 87 mmol/L (98-107); HEMOLYSIS < 15 (0-50); Potassium 3.9 mmol/L (3.4-5.1); Sodium 121 mmol/L (137-145)
--- NOTE | 2023-09-04 14:13 | PT.IIE ---
Current Diagnoses Hypo-osmolality and hyponatremia (09/02/23) Parkinson's disease (09/02/23) Essential (primary) hypertension (09/02/23) Surgical History (Last Reviewed 09/02/23 @ 19:09 by Milind Ignacio DO) Anesthesia History of tonsillectomy (~1945) Medical History Benign prostatic hyperplasia (~2003) BPH w urinary obs/LUTS Chicken pox Gross hematuria Hepatitis A (~1985) Hypertension (~1989) Measles Migraines (~2011) Mumps Osteoarthritis (~2004) Osteopenia (~2004) Osteoporosis (~2009) Parkinson's disease (~2012) Peripheral neuropathy (~2011) Scoliosis (~2004) Secondhand smoke exposure Physical Therapy Inpatient Evaluation/Re-Eval M1 PT/OT-IP Prior Functional Status Start: 09/04/23 14:11 Freq: NEEDED Status: Active Protocol: Document 09/04/23 14:12 KJ (Rec: 09/04/23 14:32 KJ [id number]) Medical Review Prior Functional Status Medical History Reviewed Yes Communication Pt w/Parkinsons, speech is difficult to understand Mobility and Gait Pt reports ambulating with a fww in the past, but he has not ambulated since having Covid over 4 weeks ago. He has been using a wheelchair for mobility. Activities of Daily Living and IADL's Pt lives at [facility] and requires assistance for all ADLs Social History Household Members none Living Arrangements Assisted Living Home Equipment Front Wheel Walker,Manual Wheelchair Employment Status Retired Additional Social History Comment single M2 PT-IP Current Condition Start: 09/04/23 14:11 Freq: NEEDED Status: Active Protocol: Document 09/04/23 14:12 KJ (Rec: 09/04/23 14:32 KJ [id number]) Physical Therapy Current Condition Current Condition Evaluation Date 09/04/23 Treatment Diagnosis Impaired mobility Onset Date July 2023 M3 PT-IP Subjective Start: 09/04/23 14:11 Freq: NEEDED Status: Active Protocol: Document 09/04/23 14:12 KJ (Rec: 09/04/23 14:32 KJ [id number]) Subjective Physical Therapy Visit Type Type Initial Evaluation Visit Start Time 13:32 Visit Stop Time 14:13 Total Visit Minutes 41 M4 PT-IP Mobility and Gait Start: 09/04/23 14:11 Freq: NEEDED Status: Active Protocol: Document 09/04/23 14:12 KJ (Rec: 09/04/23 14:32 KJ [id number]) PT-Bed Mobility Assessment Scooting Scooting to Edge of Bed Maximum Assistance Scooting Up and Down in Bed Maximum Assistance PT-Transfer Assessment Equipment Transfer Assistive Device Mechanical Lift Transfers Transfer Destination Bed Transfer Technique Mechanical Lift Transfer Ability Level of Assist Total Assistance Comments Mobility Comments Pt is unable to stand due to lack of full knee extension bilaterally and lack of ankle dorsiflex to neutral bilaterally PT-Balance Assessment Sitting Balance and Reactions Static Sitting Balance Ability Good Dynamic Sitting Balance Ability Fair M5 PT-IP Objective Assessments Start: 09/04/23 14:11 Freq: NEEDED Status: Active Protocol: Document 09/04/23 14:12 KJ (Rec: 09/04/23 14:32 KJ [id number]) Orientation Orientation/Cognition Level of Alertness Alert Orientation Name,Age,Birthday Language Function Ability Garbled Speech Comments Pt presents with Parkinsons symptoms Gross Range of Motion Upper Extremity ROM Assessment Right Impaired Impairments shoulder Lower Extremity ROM Assessment Bilaterally Impaired Impairments Decreased knee ext both actively and passively Decreased ankle dorsiflex both actively and passively Strength Upper Extremity Strength Assessment Right Impaired Shoulder Shoulder ext 4/5, flex 1/5 Elbow 4/5 Wrist 4/5 Hand 3+/5 Comments Strength Comments Unable to adequately test LEs due to contractures. Within available ROM knee ext is 3+/5 , hip abd 4/5, hip add 3/5 Coordination Assessment Gross Coordination Gross Coordination Impaired Muscle Tone Muscle Tone WNL No M6 PT-IP Treatment Start: 09/04/23 14:11 Freq: NEEDED Status: Active Protocol: Document 09/04/23 14:12 KJ (Rec: 09/04/23 14:32 KJ [id number]) Physical Therapy Treatment Exercises Exercises Ankle Pumps,Heel Slides, Straight Leg Raises,Short Arc Quads,Passive Knee Extension Hang,Seated Knee Flexion/ Extension,Shoulder Flexion, Elbow Flexion/Extension Education Education Provided Safety Other Treatments Other Treatment Performed Ther ex: instructed on exercises while sitting on eob . Ther act: balance exercises in sitting at eob M7 PT-IP Assessment and Plan Start: 09/04/23 14:11 Freq: NEEDED Status: Active Protocol: Document 09/04/23 14:12 KJ (Rec: 09/04/23 14:32 KJ [id number]) PT Summary Assessment and Plan Potential Rehabilitation Potential Fair Status of Condition at Evaluation Stable Summary Impairments ROM,Strength,Bed Mobility, Transfers,Gait Progress Towards Goals Slow Progress due to Medical Issues Assessment Summary Pt with progression of Parkinson's which may be due to Covid, limited mobility due to contractures in knees and feet. Goals Bed Mobility Goal Minimal Assistance Transfer Goal Maximal Assistance Days to Meet Goals 10 Frequency of Treatment Frequency Of Treatment Once a Day Treatment Plan Physical Therapy Treatment Plan Bed Mobility Training,Transfer Training,Therapeutic Exercise ,Balance Retraining Other Recommendations and Next Treatment Continue ther ex sitting at [employer] eob including balance ex. Gentle passive stretching into knee ext and ankle dorsiflex progressing to active stretchin. Recommendations To Nursing Amount of Assist Needed Mechanical Lift Discharge Recommendations Other Discharge Recommendations Pt may benefit from SNF for skilled PT to work on his ability to extend his knees and stand for pivot transfers. Transportation Needs at Discharge Wheelchair/Cabulance
--- NOTE | 2023-09-04 15:13 | CM.DPC ---
Addendum entered by MIGUEL Grajeda 09/04/23 15:55: ADD: Return call from Ada confirming she will review clinical in the AM and will likely do bedside assessment around 1000 Mon. BF Original Note: DCP Cont SNF vs [facility] Per MD, pt still having sodium issues but respirations have improved but not on COVID precautions as pt a couple weeks past the initial 10 days of isolation requirement. Per PT, pt full assist at this time and unable to do knee flexion due to Parkinsons at baseline and was not able to ambulate but transfer. PT unsure if pt would benefit from SNF at this time or return to [facility] with assist. Per RN, pt has needed increased assist since his COVID dx about 3 weeks ago and currently cannot feed himself or void in the urinal independently but has had a CG at [facility] assisting him since his COVID dx. Pt had family bedside earlier today per RN but now at an event the rest of the day. Pt speaks softly due to Parkinsons but RN does not note any cognitive impairment. CONOR left detailed msg with NICHOLAS Caballero at [facility] and faxed clinicals to review requesting call tomorrow Tuesday to discuss pt's care needs and if they can accept him back at d/c and challenges to SNF. CONOR faxed clinicals to [facility] to review as backup as pt has [employer] M[employer] for insurance. No PASRR done yet at this time. CONOR met bedside with pt and explained role and pt A&Ox3 and able to answer questions and provide information but soft spoken and speaks slowly. Pt denies hx of SNF recently and CONOR discussed potential recommendation of SNF and pt inquired about SNF location. CONOR discussed SNF would need to be contracted with [employer] insurance and potential for one time auth at [facility] but that [facility] is contracted with [employer]. CONOR discussed need for NICHOLAS Caballeor to assess pt to determine if he could return and pt acknowledges understanding and states his preference really is to return to [facility] at d/c and not go to SNF if at all possible. Plan: SW to follow closely for discussion with NICHOLAS Caballero at [facility] to express pt's desire to return to his apt at [facility] vs possible SNF stay. MIGUEL Grajeda
[2023-09-04 16:41] LABS: BUN Creatinine Ratio 12.2 (6-22); Blood Urea Nitrogen 6 mg/dL (9-20); Calcium 8.4 mg/dL (8.4-10.2); Carbon Dioxide 30 mmol/L (22-32); Chloride 87 mmol/L (98-107); Estimated Glomerular Filt Rate > 60 mL/min (>60); Glucose 102 mg/dL (80-110); HEMOLYSIS < 15 (0-50); Potassium 3.8 mmol/L (3.4-5.1); Sodium 121 mmol/L (137-145)
--- NOTE | 2023-09-04 17:14 | PC.NURSE ---
[id number] - Labs called to [facility], orders received for 3%NS @ 20cchr x 3 hrs then repeat BMP.
--- NOTE | 2023-09-04 20:22 | P.ICUMDRN_ITS ---
- Date Patient Seen: 09/04/23 :: This patient was seen via real time interactive two-way audiovisual telecommunic ation. Note: Repeat 121 despite being diuresed and negative ~1.1 liters. Completed hypertonic saline 20 cc/hr X 3 hours. BMP pending. Further recommendation pending BMP results. D/w bedside RN.
[2023-09-04 21:10] LABS: BUN Creatinine Ratio 13.5 (6-22); Blood Urea Nitrogen 7 mg/dL (9-20); Calcium 8.5 mg/dL (8.4-10.2); Carbon Dioxide 30 mmol/L (22-32); Chloride 88 mmol/L (98-107); Estimated Glomerular Filt Rate > 60 mL/min (>60); Glucose 105 mg/dL (80-110); HEMOLYSIS < 15 (0-50); Potassium 3.2 mmol/L (3.4-5.1); Sodium 122 mmol/L (137-145)
[2023-09-04] MEDS: METOPROLOL IR 25 MG TABLET PO (21:33)
[2023-09-04] MEDS: APIXABAN 5 MG TABLET PO (21:33)
[2023-09-04] MEDS: SODIUM CHLORIDE 3 % 100 ML 25 ML IV (22:21)
[2023-09-05] VITALS (34 sets, daily range): BP systolic 131–149; BP diastolic 63–82; PULSE 77–121; RESP 12–37; TEMP 36.3–37.1; O2SAT 90–99
[2023-09-05 03:16] LABS: BUN Creatinine Ratio 14.6 (6-22); Blood Urea Nitrogen 7 mg/dL (9-20); Calcium 8.4 mg/dL (8.4-10.2); Carbon Dioxide 28 mmol/L (22-32); Chloride 89 mmol/L (98-107); Estimated Glomerular Filt Rate > 60 mL/min (>60); Glucose 92 mg/dL (80-110); HEMOLYSIS 18 (0-50); Potassium 3.7 mmol/L (3.4-5.1); Sodium 123 mmol/L (137-145)
[2023-09-05] MEDS: SODIUM CHLORIDE 3 % 200 ML 50 ML IV (04:00)
[2023-09-05 08:04] LABS: Alanine Aminotransferase 22 IU/L (<50); Albumin 3.1 g/dL (3.5-5.0); Alkaline Phosphatase 98 U/L (38-126); Aspartate Aminotransferase 51 IU/L (17-59); Bilirubin Total 1.1 mg/dL (0.2-1.3); Blood Urea Nitrogen 7 mg/dL (9-20); Calcium 8.5 mg/dL (8.4-10.2); Carbon Dioxide 26 mmol/L (22-32); Chloride 93 mmol/L (98-107); Estimated Glomerular Filt Rate > 60 mL/min (>60); Globulin 3.1 g/dL (1.7-4.1); Glucose 101 mg/dL (80-110); HEMOLYSIS < 15 (0-50); Magnesium 1.9 mg/dL (1.6-2.3); Potassium 3.7 mmol/L (3.4-5.1); Sodium 126 mmol/L (137-145); Total Protein 6.2 g/dL (6.3-8.2)
[2023-09-05 08:44] LABS: Add Manual Diff / Slide Review NO; Basophils Absolute Auto 0 /uL (0-100); Basophils Percent Auto 0.5 % (0-2); Eosinophils Absolute Auto 0 /uL (0-450); Eosinophils Percent Auto 0.6 % (2-4); Hematocrit 35.7 % (41-53); Hemoglobin 12.2 g/dL (13.5-17.5); Lymphocytes Absolute Auto 700 /uL (1100-4500); Lymphocytes Percent Auto 10.1 % (25-40); Mean Corpuscular HGB Conc 34.1 % (30-36); Mean Corpuscular Hemoglobin 31.1 PG (26-34); Mean Corpuscular Volume 91.1 fL (80-100); Monocytes Absolute Auto 800 /uL (0-900); Monocytes Percent Auto 11.4 % (3-14); Neutrophils Absolute Auto 5600 /uL (1500-7000); Neutrophils Percent Auto 77.4 % (50-75); Platelet Count 272 X10^3/uL (150-400); Red Blood Cell Count 3.91 X10^6/uL (4.5-5.9); Red Cell Distribution Width 14.3 % (11.6-14.8); White Blood Cell Count 7.2 X10^3/uL (4.5-11.0)
[2023-09-05] MEDS: LOSARTAN 25 MG TABLET PO (08:56)
[2023-09-05] MEDS: METOPROLOL IR 25 MG TABLET PO ×2 (08:56→21:03)
[2023-09-05] MEDS: APIXABAN 5 MG TABLET PO ×2 (08:56→21:03)
[2023-09-05] MEDS: SODIUM CHLORIDE 1,000 MG TABLET 1000 MG PO ×3 (08:56→21:03)
[2023-09-05] MEDS: CARBIDOPA-LEVODOPA 25/100 TABLET 2 EACH PO ×4 (08:57→21:03)
[2023-09-05] MEDS: SODIUM CHLORIDE 0.9% FLUSH 10 ML IV ×2 (08:57→21:03)
--- NOTE | 2023-09-05 08:58 | P.TELICUPN_ITS ---
Subjective Subjective IF CAMERA ACTIVATED, patient seen via real-time interactive audiovisual communication: Camera activated Consent obtained for tele-cocoa room operator care: Yes Patient Location: ICU Provider location (State): [place] Other participants/roles: Bedside RN and primary hospitalist Interval history: Patient was evaluated via tele-ICU remote end unit. No acute issues reported per bedside RN. Serum Na improving as expected, now to 126 which is at goal. Off 3% saline. Hemodynamically stable. Comfortably resting in bed. Denies any fever, chils, chest pain, SOB. Tolerating PO diet. Current Medications Current Medications Medications: Home Medications acetaminophen 325 mg tablet 650 mg (2 x 325 mg) PO Q6HR PRN As Needed For Fever/Mild Pain #30 tabs 08/15/18 [Rx Confirmed 09/02/23] artificial tears(ceazqzc-[id number]) 0.1 %-0.3 %-0.2 % eye drops 1 drp EYE-BOTH PRN PRN Dry Eyes 05/17/19 [History Confirmed 09/02/23] amantadine HCl 100 mg capsule 100 mg PO DAILY #0 caps 01/06/21 [History Confirmed 09/02/23] carbidopa 25 mg-levodopa 100 mg tablet 1 tab PO 5XD #0 tabs 01/06/21 [History Confirmed 09/02/23] docusate sodium 100 mg capsule 100 mg PO BEDTIME Constipation 11/11/22 [History Confirmed 09/02/23] ketoconazole 2 % shampoo 1 applic topical 3XW #120 mL 11/11/22 [Rx Confirmed 09/02/23] finasteride 5 mg tablet 5 mg PO DAILY #90 tabs 11/16/22 [Rx Confirmed 09/02/23] doxazosin 4 mg tablet See Rx Instructions .Route .COMPLEX #90 tabs 02/02/23 [Rx Confirmed 09/02/23] magnesium hydroxide 400 mg/5 mL oral suspension (Reeves Milk of Magnesia) 5 ml PO DAILY PRN constipation #355 mL 04/14/23 [Rx Confirmed 09/02/23] Visit Medications (administered) Generic Name Dose Route Start Last Admin Trade Name Freq PRN Reason Stop Dose Admin Apixaban 5 mg 09/04/23 21:00 09/05/23 08:56 Apixaban 5 Mg Tablet PO 5 mg BID FÉLIX Administration Carbidopa/Levodopa 2 each 09/04/23 13:00 09/05/23 08:57 Carbidopa-Levodopa 25/100 Tablet PO 2 each QID FÉLIX Administration Losartan Potassium 25 mg 09/05/23 09:00 09/05/23 08:56 Losartan 25 Mg Tablet PO 25 mg DAILY FÉLIX Administration Metoprolol Tartrate 25 mg 09/04/23 21:00 09/05/23 08:56 Metoprolol Ir 25 Mg Tablet PO 25 mg BID FÉLIX Administration Sodium Chloride 1,000 mg 09/03/23 15:45 09/05/23 08:56 Sodium Chloride 1,000 Mg Tablet PO 1,000 mg TID FÉLIX Administration Sodium Chloride 10 ml 09/03/23 21:00 09/05/23 08:57 Sodium Chloride 0.9% Flush IV 10 ml BID FÉLIX Administration Objective Labs 09/05/23 07:38 09/05/23 07:38 Labs: Laboratory Results - last 24 hr 09/04/23 09/04/23 09/04/23 12:05 16:25 20:43 WBC RBC Hgb Hct MCV MCH MCHC RDW Plt Count Neut % (Auto) Lymph % (Auto) [place] % (Auto) Eos % (Auto) Baso % (Auto) Neut # (Auto) Lymph # (Auto) [place] # (Auto) Eos # (Auto) Baso # (Auto) Sodium 121 L 121 L 122 L Potassium 3.9 3.8 3.2 L Chloride 87 L 87 L 88 L Carbon Dioxide 29 30 30 BUN 6 L 7 L Creatinine 0.49 L 0.52 L Estimated GFR > 60 > 60 BUN/Creatinine Ratio 12.2 13.5 Glucose 102 105 Calcium 8.4 8.5 Magnesium Total Bilirubin AST ALT Alkaline Phosphatase Total Protein Albumin Globulin Albumin/Globulin Ratio 09/05/23 09/05/23 02:57 07:38 WBC 7.2 RBC 3.91 L Hgb 12.2 L Hct 35.7 L MCV 91.1 MCH 31.1 MCHC 34.1 RDW 14.3 Plt Count 272 Neut % (Auto) 77.4 H Lymph % (Auto) 10.1 L [place] % (Auto) 11.4 Eos % (Auto) 0.6 L Baso % (Auto) 0.5 Neut # (Auto) 5600 Lymph # (Auto) 700 L [place] # (Auto) 800 Eos # (Auto) 0 Baso # (Auto) 0 Sodium 123 L 126 L Potassium 3.7 3.7 Chloride 89 L 93 L Carbon Dioxide 28 26 BUN 7 L 7 L Creatinine 0.48 L 0.50 L Estimated GFR > 60 > 60 BUN/Creatinine Ratio 14.6 14.0 Glucose 92 101 Calcium 8.4 8.5 Magnesium 1.9 Total Bilirubin 1.1 AST 51 ALT 22 Alkaline Phosphatase 98 Total Protein 6.2 L Albumin 3.1 L Globulin 3.1 Albumin/Globulin Ratio 1.0 Exam Vital Signs (past 8 hours): - 09/05/23 01:00 09/05/23 01:00 09/05/23 01:30 Temperature Pulse Rate 85 87 Respiratory Rate 26 H 31 H Blood Pressure Pulse Oximetry 96 95 Oxygen Delivery Method Room Air 09/05/23 02:00 09/05/23 02:30 09/05/23 03:00 Temperature Pulse Rate 93 H 99 H 90 Respiratory Rate 20 18 20 Blood Pressure Pulse Oximetry 93 96 96 Oxygen Delivery Method 09/05/23 03:30 09/05/23 04:00 09/05/23 04:00 Temperature 98.2 F Pulse Rate 82 88 Respiratory Rate 15 16 Blood Pressure 134/79 134/79 Pulse Oximetry 94 94 Oxygen Delivery Method 09/05/23 04:00 09/05/23 04:30 09/05/23 05:00 Temperature Pulse Rate 88 97 H Respiratory Rate 16 12 Blood Pressure Pulse Oximetry 90 L 91 Oxygen Delivery Method Room Air 09/05/23 05:00 09/05/23 05:30 09/05/23 06:00 Temperature Pulse Rate 99 H 102 H 105 H Respiratory Rate 20 19 16 Blood Pressure Pulse Oximetry 95 94 96 Oxygen Delivery Method 09/05/23 06:30 09/05/23 07:00 09/05/23 07:30 Temperature Pulse Rate 118 H 115 H 119 H Respiratory Rate 19 18 20 Blood Pressure Pulse Oximetry 94 94 93 Oxygen Delivery Method 09/05/23 08:00 09/05/23 08:00 09/05/23 08:00 Temperature 97.6 F Pulse Rate 121 H Respiratory Rate 20 Blood Pressure 149/82 H Pulse Oximetry 95 Oxygen Delivery Method 09/05/23 08:56 Temperature Pulse Rate 120 H Respiratory Rate Blood Pressure 149/82 H Pulse Oximetry Oxygen Delivery Method Oxygen Delivery Method Room Air Narrative Exam Narrative: Resting comfortably in bed. On RA. In no distress. Moving all 4 extremities. Quality TeleICU VTE Deep Vein Thrombosis/Pulmonary Embolism Present on Admission: No Assessment & Plan Assessment & Plan narrative: # Hyponatremia, hypovolemic - Initial Na 114, received 3% saline on admission. - Serum sodium now improved to 126, which is at appropriate rate and goal. - Attempt to keep patient euvolemic now. Diurese as needed. Tolerating PO diet. # Atrial fibrillation with RVR - Likely in the setting of electrolyte abnormalities / hyponatremia / recent COVID - TTE showed EF of 35-40%. - HR now controlled. C/w metoprolol. - C/w apixaban 5 mg bid # Cardiomyopathy, acute vs chronic systolic heart failure - LVEF noted on ECHO to be 35-40% - Moderately hypertensive as well. - Diurese as needed. - C/w metoprolol 25 mg bid and losartan 25 mg daily # Parkinson's disease - continue home meds sinemet, amantadine. # COVID+ - Currently asymptomatic from a respiratory standpoint. FEN: Cardiac Diet. Glucose: Fairly controlled. BG goal <180. DVT Prophylaxis - Epixaban GI Prophylaxis - Not indicated Code Status: Full Code
--- NOTE | 2023-09-05 09:19 | PM.PN.1 ---
Subjective Subjective Interval history: 3% given overnight again, Na now up to 126 this morning. He feels a bit better, but still markedly weak. Also with constipation he is worried about. No nausea/vomiting, no dyspnea, no chest pain this morning. Exam Vital Signs (past 8 hours): - 09/05/23 01:30 09/05/23 02:00 09/05/23 02:30 Temperature Pulse Rate 87 93 H 99 H Respiratory Rate 31 H 20 18 Blood Pressure Pulse Oximetry 95 93 96 Oxygen Delivery Method 09/05/23 03:00 09/05/23 03:30 09/05/23 04:00 Temperature 98.2 F Pulse Rate 90 82 88 Respiratory Rate 20 15 16 Blood Pressure 134/79 Pulse Oximetry 96 94 94 Oxygen Delivery Method 09/05/23 04:00 09/05/23 04:00 09/05/23 04:30 Temperature Pulse Rate 88 97 H Respiratory Rate 16 12 Blood Pressure 134/79 Pulse Oximetry 90 L 91 Oxygen Delivery Method 09/05/23 05:00 09/05/23 05:00 09/05/23 05:30 Temperature Pulse Rate 99 H 102 H Respiratory Rate 20 19 Blood Pressure Pulse Oximetry 95 94 Oxygen Delivery Method Room Air 09/05/23 06:00 09/05/23 06:30 09/05/23 07:00 Temperature Pulse Rate 105 H 118 H 115 H Respiratory Rate 16 19 18 Blood Pressure Pulse Oximetry 96 94 94 Oxygen Delivery Method 09/05/23 07:30 09/05/23 08:00 09/05/23 08:00 Temperature 97.6 F Pulse Rate 119 H Respiratory Rate 20 Blood Pressure 149/82 H Pulse Oximetry 93 Oxygen Delivery Method 09/05/23 08:00 09/05/23 08:56 Temperature Pulse Rate 121 H 120 H Respiratory Rate 20 Blood Pressure 149/82 H Pulse Oximetry 95 Oxygen Delivery Method Oxygen Delivery Method Room Air Narrative Exam Narrative: General:?Acute on chronically ill appearing elderly male, pale, weak HEENT:? Normocephalic, atraumatic, extraocular muscles intact, oral pharynx is clear and mucous membranes are moist Lungs:? CTA b/l no wheezing rhonchi or rales but poor inspiratory effort Cardio:?irregularly irregular rhythm, tachycardic, Abdomen: soft, mild distension LQ b/l, no tenderness. Musculoskeletal:? Muscle strength and tone are equal within normal limits, no deformity. Extremities: LLE trace edema, RLE no edema. Neuro:? Alert and orientated x4,? sensation diminished to light touch b/l LE (reports chronic), no gross deficits noted of cranial nerves but he has slowed responses. Objective Labs 09/05/23 07:38 09/05/23 07:38 Labs: Laboratory Results - last 24 hr 09/04/23 09/04/23 09/04/23 12:05 16:25 20:43 WBC RBC Hgb Hct MCV MCH MCHC RDW Plt Count Neut % (Auto) Lymph % (Auto) [place] % (Auto) Eos % (Auto) Baso % (Auto) Neut # (Auto) Lymph # (Auto) [place] # (Auto) Eos # (Auto) Baso # (Auto) Sodium 121 L 121 L 122 L Potassium 3.9 3.8 3.2 L Chloride 87 L 87 L 88 L Carbon Dioxide 29 30 30 BUN 6 L 7 L Creatinine 0.49 L 0.52 L Estimated GFR > 60 > 60 BUN/Creatinine Ratio 12.2 13.5 Glucose 102 105 Calcium 8.4 8.5 Magnesium Total Bilirubin AST ALT Alkaline Phosphatase Total Protein Albumin Globulin Albumin/Globulin Ratio 09/05/23 09/05/23 02:57 07:38 WBC 7.2 RBC 3.91 L Hgb 12.2 L Hct 35.7 L MCV 91.1 MCH 31.1 MCHC 34.1 RDW 14.3 Plt Count 272 Neut % (Auto) 77.4 H Lymph % (Auto) 10.1 L [place] % (Auto) 11.4 Eos % (Auto) 0.6 L Baso % (Auto) 0.5 Neut # (Auto) 5600 Lymph # (Auto) 700 L [place] # (Auto) 800 Eos # (Auto) 0 Baso # (Auto) 0 Sodium 123 L 126 L Potassium 3.7 3.7 Chloride 89 L 93 L Carbon Dioxide 28 26 BUN 7 L 7 L Creatinine 0.48 L 0.50 L Estimated GFR > 60 > 60 BUN/Creatinine Ratio 14.6 14.0 Glucose 92 101 Calcium 8.4 8.5 Magnesium 1.9 Total Bilirubin 1.1 AST 51 ALT 22 Alkaline Phosphatase 98 Total Protein 6.2 L Albumin 3.1 L Globulin 3.1 Albumin/Globulin Ratio 1.0 [facility] Medical History Secondhand smoke exposure Gross hematuria BPH w urinary obs/LUTS Osteoarthritis (~2004) Peripheral neuropathy (~2011) Parkinson's disease (~2012) Migraines (~2011) Scoliosis (~2004) Osteoporosis (~2009) Osteopenia (~2004) Mumps Measles Hepatitis A (~1985) Chicken pox Benign prostatic hyperplasia (~2003) Hypertension (~1989) Surgical History Anesthesia History of tonsillectomy (~1945) Family History Father Alzheimer's disease Hypertension Mother History of acquired heart valve infection Hypertension Mitral valve disease Grandmother Stroke Social History marital status: unmarried,single household members: none housing: assisted living facility Previous occupational history: Flight attendent Smoking Status: Never smoker alcohol intake: current substance use type: does not use Assessment & Plan Assessment & Plan narrative: 1. Hyponatremia, severe - Initial Na 114, initial urine sodium 6 consistent with hypovolemia, given 3% then on NS Na dropped again so restarted on 3%. Now Na up to 126, will continue to trend. Repeat Urine Na today is elevated at 80. Did receive lasix but was 24 hours prior to checking. 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 Will repeat Na twice more today after stopping 3%. - currently on 1g TID of salt tabs, can increase to 2g. If no further improvement, consider transfer for -vaptan. - teleICU consulted - urine osm still pending from admission. - continue tele monitoring - volume status is complicated, appeared dry mucous membranes per admit note but also vascular congestion on imaging with asymmetric LE edema bilaterally. 2. New diagnosis atrial fibrillation with RVR - suspect due to electrolyte abnormalities / hyponatremia / recent COVID - echocardiogram ordered showed EF of 35-40% - continue telemetry - CXR with congestive appearance, could be ? residual disease from COVID or volume overload. - B/L US negative for DVT - 09/04 started apixaban 5 mg bid - started on metoprolol with reduced EF noted below. 3. Cardiomyopathy, acute vs chronic systolic heart failure - EF noted on ECHO to be 35-40% - moderately hypertensive as well, continue to adjust medications as needed. Improved today with antihypertensives. - 09/04 started metoprolol 25 mg bid and losartan 25 mg daily 4. Parkinson's disease - continue home sinemet, amantadine. 5. BPH - continue home finasteride, doxazosin. 6. Myocardial injury - no further evaluation necessary troponin stable at 0.046 with no symptoms. 7. COVID- - patient is asymptomatic from a respiratory standpoint. He tested positive almost 4 weeks ago initially per report. 8. Mild rhabdomyolysis, resolved - consistent with dehydration studies noted above. CK 615 on admission COVID-19 COVID-19 status: Positive Quality VTE Deep Vein Thrombosis/Pulmonary Embolism Present on Admission: No
[2023-09-05 09:48] LABS: Sodium Urine Random 84 mmol/L (30-90)
[2023-09-05] MEDS: MAGNESIUM HYDROXIDE 30 ML UDC PO (11:22)
--- NOTE | 2023-09-05 13:42 | PT.IPTN ---
Current Diagnoses Hypo-osmolality and hyponatremia (09/02/23) Parkinson's disease (09/02/23) Essential (primary) hypertension (09/02/23) Physical Therapy Treatment Note M2 PT-IP Current Condition Start: 09/04/23 14:11 Freq: NEEDED Status: Active Protocol: Document 09/04/23 14:12 KJ (Rec: 09/04/23 14:32 KJ [id number]) Physical Therapy Current Condition Current Condition Evaluation Date 09/04/23 Treatment Diagnosis Impaired mobility Onset Date July 2023 M3 PT-IP Subjective Start: 09/04/23 14:11 Freq: NEEDED Status: Active Protocol: Document 09/05/23 13:00 MB (Rec: 09/05/23 13:42 MB [id number]) Subjective Physical Therapy Visit Type Type Treatment Note Visit Start Time 13:00 Visit Stop Time 13:30 Total Visit Minutes 30 Physical Therapy Visit Comments Patient Comments Pt does not answer questions well. When asked if he has pain, he does report pain in his right knee. M4 PT-IP Mobility and Gait Start: 09/04/23 14:11 Freq: NEEDED Status: Active Protocol: Document 09/05/23 13:00 MB (Rec: 09/05/23 13:42 MB [id number]) PT-Bed Mobility Assessment Supine to Sit Supine to Sit Total Assistance,1 Person Assistance,Head of Bed Elevated Sit to Supine Sit to Supine Total Assistance,1 Person Assistance,Head of Bed Elevated PT-Transfer Assessment Comments Mobility Comments Pt is not able to demonstrate any AROM exercises in his legs and he is unable to participate with any part of bed mobility: reaching, rolling, etc. When PT moves him to sitting, he falls back x2, he is able to use his abdominal muscles to pull up to sittingx1. PT-Balance Assessment Sitting Balance and Reactions Static Sitting Balance Ability Poor Dynamic Sitting Balance Ability Poor M5 PT-IP Objective Assessments Start: 09/04/23 14:11 Freq: NEEDED Status: Active Protocol: Document 09/04/23 14:12 KJ (Rec: 09/04/23 14:32 KJ [id number]) Orientation Orientation/Cognition Level of Alertness Alert Orientation Name,Age,Birthday Language Function Ability Garbled Speech Comments Pt presents with Parkinsons symptoms Gross Range of Motion Upper Extremity ROM Assessment Right Impaired Impairments shoulder Lower Extremity ROM Assessment Bilaterally Impaired Impairments Decreased knee ext both actively and passively Decreased ankle dorsiflex both actively and passively Strength Upper Extremity Strength Assessment Right Impaired Shoulder Shoulder ext 4/5, flex 1/5 Elbow 4/5 Wrist 4/5 Hand 3+/5 Comments Strength Comments Unable to adequately test LEs due to contractures. Within available ROM knee ext is 3+/5 , hip abd 4/5, hip add 3/5 Coordination Assessment Gross Coordination Gross Coordination Impaired Muscle Tone Muscle Tone WNL No M6 PT-IP Treatment Start: 09/04/23 14:11 Freq: NEEDED Status: Active Protocol: Document 09/04/23 14:12 KJ (Rec: 09/04/23 14:32 KJ [id number]) Physical Therapy Treatment Exercises Exercises Ankle Pumps,Heel Slides, Straight Leg Raises,Short Arc Quads,Passive Knee Extension Hang,Seated Knee Flexion/ Extension,Shoulder Flexion, Elbow Flexion/Extension Education Education Provided Safety Other Treatments Other Treatment Performed Ther ex: instructed on exercises while sitting on eob . Ther act: balance exercises in sitting at eob M7 PT-IP Assessment and Plan Start: 09/04/23 14:11 Freq: NEEDED Status: Active Protocol: Document 09/05/23 13:00 MB (Rec: 09/05/23 13:42 MB [id number]) PT Summary Assessment and Plan Potential Rehabilitation Potential Poor Status of Condition at Evaluation Unstable Summary Impairments ROM,Strength,Bed Mobility, Transfers,Gait Progress Towards Goals Slow Progress due to Activity Tolerance Assessment Summary Pt does not participate with PT and he requires total assistance for bed mobility and he does not tolerate static sitting. Will try one more PT attempt next date and if he is unable to participate with PT, will d/c PT. He will require ongoing heavy assistance at d/c at his [facility]. Goals Bed Mobility Goal Moderate Assistance Transfer Goal Moderate Assistance Days to Meet Goals 1 Frequency of Treatment Frequency Of Treatment Once a Day Treatment Plan Physical Therapy Treatment Plan Bed Mobility Training,Transfer Training,Therapeutic Exercise ,Balance Retraining Recommendations To Nursing Amount of Assist Needed Mechanical Lift Discharge Recommendations Other Discharge Recommendations [facility] with heavy assist likely Transportation Needs at Discharge Wheelchair/Cabulance
[2023-09-05 14:08] LABS: BUN Creatinine Ratio 18.4 (6-22); Blood Urea Nitrogen 9 mg/dL (9-20); Calcium 8.8 mg/dL (8.4-10.2); Carbon Dioxide 33 mmol/L (22-32); Chloride 91 mmol/L (98-107); Estimated Glomerular Filt Rate > 60 mL/min (>60); Glucose 134 mg/dL (80-110); HEMOLYSIS < 15 (0-50); Potassium 3.6 mmol/L (3.4-5.1); Sodium 126 mmol/L (137-145)
--- NOTE | 2023-09-05 17:13 | PM.ICURNDS ---
- :: This patient was seen via real time interactive two-way audiovisual telecommunication. Note: Reviewed the labs and imaging, pt urine sodium on presentation was very low consistent with etiology of hypervolemic hyponatremia and same findings on imaging CX& and 2 E cho, stopped salt tab , though it can cause osmotic diuresis but no recommended in HF, started lasix 40 mg bid, may increase to TID / adjust dose as needed for euvolemia/ eunatremia. Discussed with RN at bedside.
--- NOTE | 2023-09-05 17:24 | PM.ICURNDS ---
- :: This patient was seen via real time interactive two-way audiovisual telecommunication. Note: Pt got extubated , on 2 L NC, complain of back pain, will start Po meds and diet.
[2023-09-05] MEDS: FUROSEMIDE 40 MG/4 ML VIAL IV ×2 (17:36→21:02)
--- NOTE | 2023-09-05 17:39 | CM.DPNOTE ---
DCP Note WARP KNIT OPERATOR reviewed EMR. Per provider in morning rounds, may need to transfer pt to higher level of care. Per PT, believes pt is not rehabilitatable at this time. Suggests increased assistance from [facility]. WARP KNIT OPERATOR spoke with NICHOLAS Caballero at [facility], frequently throughout the day. Ada reports need to do bedside assessment prior to accepting pt back. WARP KNIT OPERATOR unable to meet with pt or family today due to triaging needs. CM team will need to follow closely to coordinate dc to return to [facility]. May need pt and family to consider increasing PP caregiver support at [facility]? Plan: return to [facility] when stable. may need to transfer. CM team will follow closely. MIGUEL Shaw
[2023-09-05 19:53] LABS: BUN Creatinine Ratio 19.6 (6-22); Blood Urea Nitrogen 9 mg/dL (9-20); Calcium 8.3 mg/dL (8.4-10.2); Carbon Dioxide 28 mmol/L (22-32); Chloride 93 mmol/L (98-107); Estimated Glomerular Filt Rate > 60 mL/min (>60); Glucose 111 mg/dL (80-110); HEMOLYSIS < 15 (0-50); Potassium 3.8 mmol/L (3.4-5.1); Sodium 126 mmol/L (137-145)
[2023-09-06] VITALS (45 sets, daily range): BP systolic 136–168; BP diastolic 74–108; PULSE 84–126; RESP 11–39; TEMP 36.6–37.1; O2SAT 92–100
[2023-09-06 05:01] LABS: Blood Urea Nitrogen 8 mg/dL (9-20); Calcium 8.4 mg/dL (8.4-10.2); Carbon Dioxide 26 mmol/L (22-32); Chloride 91 mmol/L (98-107); Estimated Glomerular Filt Rate > 60 mL/min (>60); Glucose 103 mg/dL (80-110); HEMOLYSIS < 15 (0-50); Magnesium 1.8 mg/dL (1.6-2.3); Potassium 3.2 mmol/L (3.4-5.1); Sodium 126 mmol/L (137-145)
--- NOTE | 2023-09-06 06:49 | PC.NURSE ---
Net Programmer Analyst Note-Patient only dozed intermittently, had no c/o pain or other discomfort, uses 'soft call light' to make needs known. IV Lasix given per order, 3075ml pale yellow UOP. Na+ 126 at 2000 and 0500.
--- NOTE | 2023-09-06 08:23 | PM.PN.EICU ---
Subjective Subjective IF CAMERA ACTIVATED, patient seen via real-time interactive audiovisual communication: Camera activated Consent obtained for tele-non destructive testing technician care: Yes Patient Location: ICU Provider location (State): [place] Other participants/roles: Bedside RN and primary hospitalist Interval history: Patient was evaluated via tele-ICU remote end unit. Remained stable overnight. No acute issues reported per RN. C/w constipation and requesting enema. Denies any fever, chills, chest pain, SOB. Per RN, patient has been NPO and on diuretics but minimal response now and appears to be somewhat dehydrated now with no obvious leg edema. Discontinued lasix now and started on NS at 75 cc/hr. Serum sodium remains stable at 126 per most recent BMP. Awaiting speech therapy eval to start PO diet. Current Medications Current Medications Medications: Home Medications acetaminophen 325 mg tablet 650 mg (2 x 325 mg) PO Q6HR PRN As Needed For Fever/Mild Pain #30 tabs 08/15/18 [Rx Confirmed 09/02/23] artificial tears([id number]) 0.1 %-0.3 %-0.2 % eye drops 1 drp EYE-BOTH PRN PRN Dry Eyes 05/17/19 [History Confirmed 09/02/23] amantadine HCl 100 mg capsule 100 mg PO DAILY #0 caps 01/06/21 [History Confirmed 09/02/23] carbidopa 25 mg-levodopa 100 mg tablet 1 tab PO 5XD #0 tabs 01/06/21 [History Confirmed 09/02/23] docusate sodium 100 mg capsule 100 mg PO BEDTIME Constipation 11/11/22 [History Confirmed 09/02/23] ketoconazole 2 % shampoo 1 applic topical 3XW #120 mL 11/11/22 [Rx Confirmed 09/02/23] finasteride 5 mg tablet 5 mg PO DAILY #90 tabs 11/16/22 [Rx Confirmed 09/02/23] doxazosin 4 mg tablet See Rx Instructions .Route .COMPLEX #90 tabs 02/02/23 [Rx Confirmed 09/02/23] magnesium hydroxide 400 mg/5 mL oral suspension (Reeves Milk of Magnesia) 5 ml PO DAILY PRN constipation #355 mL 04/14/23 [Rx Confirmed 09/02/23] Visit Medications (administered) Generic Name Dose Route Start Last Admin Trade Name Freq PRN Reason Stop Dose Admin Apixaban 5 mg 09/04/23 21:00 09/05/23 21:03 Apixaban 5 Mg Tablet PO 5 mg BID FÉLIX Administration Carbidopa/Levodopa 2 each 09/04/23 13:00 09/05/23 21:03 Carbidopa-Levodopa 25/100 Tablet PO 2 each QID FÉLIX Administration Losartan Potassium 25 mg 09/05/23 09:00 09/05/23 08:56 Losartan 25 Mg Tablet PO 25 mg DAILY FÉLIX Administration Magnesium Hydroxide 30 ml 09/05/23 09:46 09/05/23 11:22 Magnesium Hydroxide 30 Ml Udc PO 30 ml DAILY PRN Administration Constipation Sodium Chloride 10 ml 09/03/23 21:00 09/05/23 21:03 Sodium Chloride 0.9% Flush IV 10 ml BID FÉLIX Administration Objective Labs 09/05/23 07:38 09/06/23 04:20 Labs: Laboratory Results - last 24 hr 09/05/23 09/05/23 09/05/23 07:38 09:30 13:45 WBC 7.2 RBC 3.91 L Hgb 12.2 L Hct 35.7 L MCV 91.1 MCH 31.1 MCHC 34.1 RDW 14.3 Plt Count 272 Neut % (Auto) 77.4 H Lymph % (Auto) 10.1 L [place] % (Auto) 11.4 Eos % (Auto) 0.6 L Baso % (Auto) 0.5 Neut # (Auto) 5600 Lymph # (Auto) 700 L [place] # (Auto) 800 Eos # (Auto) 0 Baso # (Auto) 0 Sodium 126 L Potassium 3.6 Chloride 91 L Carbon Dioxide 33 H BUN 9 Creatinine 0.49 L Estimated GFR > 60 BUN/Creatinine Ratio 18.4 Glucose 134 H Calcium 8.8 Magnesium Ur Random Sodium 84 09/05/23 09/06/23 19:30 04:20 WBC RBC Hgb Hct MCV MCH MCHC RDW Plt Count Neut % (Auto) Lymph % (Auto) [place] % (Auto) Eos % (Auto) Baso % (Auto) Neut # (Auto) Lymph # (Auto) [place] # (Auto) Eos # (Auto) Baso # (Auto) Sodium 126 L 126 L Potassium 3.8 3.2 L Chloride 93 L 91 L Carbon Dioxide 28 26 BUN 9 8 L Creatinine 0.46 L 0.47 L Estimated GFR > 60 > 60 BUN/Creatinine Ratio 19.6 17.0 Glucose 111 H 103 Calcium 8.3 L 8.4 Magnesium 1.8 Ur Random Sodium Exam Vital Signs (past 8 hours): - 09/06/23 01:00 09/06/23 04:00 09/06/23 05:00 Temperature 98.2 F Pulse Rate 114 H Respiratory Rate 16 Blood Pressure 158/99 H Pulse Oximetry 97 97 Oxygen Delivery Method Room Air Room Air 09/06/23 05:35 Temperature Pulse Rate Respiratory Rate Blood Pressure Pulse Oximetry Oxygen Delivery Method Room Air Oxygen Delivery Method Room Air Narrative Exam Narrative: Resting comfortably in bed. On RA. In no distress. Moving all 4 extremities. Quality TeleICU VTE Deep Vein Thrombosis/Pulmonary Embolism Present on Admission: No Assessment & Plan Assessment & Plan narrative: # Hyponatremia, hypovolemic - Initial Na 114, received 3% saline on admission. - Serum sodium now improved to 126, which is at appropriate rate and goal. - Appears to be hypovolemic hyponatremia per initial work up and clinical presentation. - Treated with 3 % saline but now discontinued. Serum sodium 126 which has been unchanged over the past 24 hours. - Patient has been started on Lasix 40 mg BID as well as 1200 cc daily fluid restriction. [place], per RN, minimal response to lasix, has no obvious signs of fluid overload on clinical exam, and has been NPO. The nursing staff concerned about patient now on the dryer side. Reasonable to stop diuretics now, start gental IVF with NS at 75cc/hr while cautiously monitoring serum sodium levels Q4 hours. - Order speech therapy consult for swallow eval and if passed, start PO diet. # Atrial fibrillation with RVR - Likely in the setting of electrolyte abnormalities / hyponatremia / recent COVID - TTE showed EF of 35-40%. - HR now controlled. C/w metoprolol. - C/w apixaban 5 mg bid # Cardiomyopathy, acute vs chronic systolic heart failure - LVEF noted on ECHO to be 35-40% - Moderately hypertensive as well. - Diurese as needed. - C/w metoprolol 25 mg bid and losartan 25 mg daily # Parkinson's disease - continue home meds sinemet, amantadine. # COVID+ - Currently asymptomatic from a respiratory standpoint. FEN: NPO awaiting speech therapy consult. Glucose: Fairly controlled. BG goal <180. DVT Prophylaxis - Epixaban GI Prophylaxis - Not indicated Code Status: Full Code
[2023-09-06] MEDS: POTASSIUM CHLORIDE 20 MEQ TAB 40 MEQ PO ×2 (09:01→13:00)
[2023-09-06] MEDS: SODIUM CHLORIDE 0.9% 1,000 ML 75 ML IV (09:02)
[2023-09-06] MEDS: CARBIDOPA-LEVODOPA 25/100 TABLET 2 EACH PO ×4 (09:02→20:17)
[2023-09-06] MEDS: SODIUM CHLORIDE 1,000 MG TABLET 2000 MG PO ×3 (09:02→20:17)
[2023-09-06] MEDS: MAGNESIUM HYDROXIDE 30 ML UDC PO (09:02)
[2023-09-06] MEDS: LOSARTAN 25 MG TABLET PO (09:02)
[2023-09-06] MEDS: METOPROLOL IR 25 MG TABLET 50 MG PO ×2 (09:02→20:17)
[2023-09-06] MEDS: APIXABAN 5 MG TABLET PO ×2 (09:03→20:17)
[2023-09-06] MEDS: SODIUM CHLORIDE 0.9% FLUSH 10 ML IV ×2 (09:03→20:18)
[2023-09-06 09:19] LABS: Sodium 126 mmol/L (137-145)
--- NOTE | 2023-09-06 12:00 | PT.IPTN ---
Current Diagnoses Hypo-osmolality and hyponatremia (09/02/23) Parkinson's disease (09/02/23) Essential (primary) hypertension (09/02/23) Physical Therapy Treatment Note M2 PT-IP Current Condition Start: 09/04/23 14:11 Freq: NEEDED Status: Active Protocol: Document 09/04/23 14:12 KJ (Rec: 09/04/23 14:32 KJ [id number]) Physical Therapy Current Condition Current Condition Evaluation Date 09/04/23 Treatment Diagnosis Impaired mobility Onset Date July 2023 M3 PT-IP Subjective Start: 09/04/23 14:11 Freq: NEEDED Status: Active Protocol: Document 09/06/23 14:01 TS (Rec: 09/06/23 14:14 TS [id number]) Subjective Physical Therapy Visit Type Type Treatment Note Visit Start Time 12:00 Visit Stop Time 12:30 Total Visit Minutes 30 Number of FLAT BED KNITTER Visits 1 Physical Therapy Visit Comments Patient Comments Pt found resting in bed, pt is agreeable to OOB mobility. M4 PT-IP Mobility and Gait Start: 09/04/23 14:11 Freq: NEEDED Status: Active Protocol: Document 09/06/23 14:01 TS (Rec: 09/06/23 14:14 TS [email or web address]) PT-Bed Mobility Assessment Supine to Sit Supine to Sit Maximum Assistance,1 Person Assistance,Head of Bed Elevated Scooting Scooting to Edge of Bed Dependent PT-Transfer Assessment Sit to and From Stand Sit to and from Stand Maximum Assistance,1 Person Assistance,Use of Upper Extremities Equipment Transfer Assistive Device Gait Belt,Front Wheeled Walker Transfers Transfer Destination Chair Transfer Technique Stand Pivot Transfer Ability Level of Assist Maximum Assistance,Total Assistance,1 Person Assistance ,Use of Upper Extremities Comments Mobility Comments Pt's resting HR low 100's, Spo2 96% on RA prior to mobility. Supine to sit HOB elevated MaxA with handheld assist to upright trunk. Pt sat EOB ModA intially, progressed at times to SBA/CGA , pt has x2 posterior LOB requiring ModA to maintain balance. He performed sit to stand x1 with FWW MaxA, pt has a posterior lean and braces back of LEs against bed to maintain balance. Pt attempted to transfer to chair with stand pivot and use of FWW, pt took a few shuffle steps toward chair but could not complete transfer. Pt required total assist to finish stand pivot with no AD. Pt's HR increased to 130's during transfer. Pt was left in chair , all needs met, RN notified. Gait Assessment Comments Gait Comments Stand pivot with no AD. PT-Balance Assessment Sitting Balance and Reactions Static Sitting Balance Ability Poor Dynamic Sitting Balance Ability Poor Standing Balance and Reactions Static Standing Balance Ability Poor Dynamic Standing Balance Ability Poor Device Used FWW M5 PT-IP Objective Assessments Start: 09/04/23 14:11 Freq: NEEDED Status: Active Protocol: Document 09/04/23 14:12 KJ (Rec: 09/04/23 14:32 KJ [id number]) Orientation Orientation/Cognition Level of Alertness Alert Orientation Name,Age,Birthday Language Function Ability Garbled Speech Comments Pt presents with Parkinsons symptoms Gross Range of Motion Upper Extremity ROM Assessment Right Impaired Impairments shoulder Lower Extremity ROM Assessment Bilaterally Impaired Impairments Decreased knee ext both actively and passively Decreased ankle dorsiflex both actively and passively Strength Upper Extremity Strength Assessment Right Impaired Shoulder Shoulder ext 4/5, flex 1/5 Elbow 4/5 Wrist 4/5 Hand 3+/5 Comments Strength Comments Unable to adequately test LEs due to contractures. Within available ROM knee ext is 3+/5 , hip abd 4/5, hip add 3/5 Coordination Assessment Gross Coordination Gross Coordination Impaired Muscle Tone Muscle Tone WNL No M6 PT-IP Treatment Start: 09/04/23 14:11 Freq: NEEDED Status: Active Protocol: Document 09/06/23 14:01 TS (Rec: 09/06/23 14:14 TS [email or web address]) Physical Therapy Treatment Education Education Provided Safety M7 PT-IP Assessment and Plan Start: 09/04/23 14:11 Freq: NEEDED Status: Active Protocol: Document 09/06/23 14:01 TS (Rec: 09/06/23 14:14 TS [email or web address]) PT Summary Assessment and Plan Potential Rehabilitation Potential Poor Summary Impairments ROM,Strength,Bed Mobility, Transfers,Gait Progress Towards Goals Slow Progress due to Activity Tolerance Assessment Summary Hoang is making slow progress with his mobility. He is MaxA to sit up to EOB with max cueing for use of rails. He sat EOB with ModA and progressed to CGA/SBA at times , he does have x2 posterior LOB in sitting. He performed sit to stand with FWW MaxA, attempted stand pivot transfer to chair but complete with use of FWW. PT is recommending SNF rehab at this time to improve strength and functional mobility. If pt were to go home would require 1-2 PA heavy assist. Goals Bed Mobility Goal Moderate Assistance Transfer Goal Moderate Assistance Days to Meet Goals 1 Frequency of Treatment Frequency Of Treatment Once a Day Treatment Plan Physical Therapy Treatment Plan Bed Mobility Training,Transfer Training,Therapeutic Exercise ,Balance Retraining Other Recommendations and Next Treatment Continue ther ex sitting at Focus eob including balance ex. Gentle passive stretching into knee ext and ankle dorsiflex progressing to active stretchin. Recommendations To Nursing Amount of Assist Needed Mechanical Lift Discharge Recommendations PT Discharge Recommendations SNF Rehab Other Discharge Recommendations HALFWAY with heavy assist likely Transportation Needs at Discharge Wheelchair/Cabulance
--- NOTE | 2023-09-06 12:59 | ST.IPCSEOM ---
Visit Care Team Role Provider Type Steff Jacobson DO Primary Care Provider Physician Specialty: Family Practice Address: [address] [place] [address], [id number] Email: [email or web address] Kortney Guzman MD Other Providers Physician Specialty: Medical Address: Phone: Fax: Email: Jenae Patel MD Other Providers Physician Specialty: Medical Address: Phone: Fax: Email: Darian Duncan MD Other Providers Physician Specialty: Medical Address: [address] [place], [address] Phone: Fax: Email: Olayinka Arreguin MD Other Providers Physician Specialty: Internal Medicine Address: Phone: Fax: Email: Dank Ram MD Other Providers Physician Specialty: Medical Address: Phone: Fax: Email: Twila Terry MD Other Providers Physician Specialty: Anesthesiology Internal Medicine Address: [address] [place] [address], [address] Fax: Email: [email or web address] Greer MD Other Providers Physician Specialty: Internal Medicine Address: [address] [place], [address] Phone: Fax: Email: @[employer] Orlando Bishop MD Other Providers Physician Specialty: Internal Medicine Address: Phone: Fax: Email: Darius Michael MD Other Providers Physician Specialty: Medical Address: Phone: Fax: Email: Arnold Espana MD Other Providers Physician Specialty: Internal Medicine Address: [address] [place], [address] Phone: Fax: Email: Evan Avila MD Other Providers Physician Specialty: Medical Address: [address], [address] Phone: Fax: Email: Opal Hernández MD Other Providers Physician Specialty: Medical Address: Phone: Fax: Email: Yarelis Chappell Other Providers Physician Specialty: Medical Address: Phone: Fax: Email: Deena Morrison MD Other Providers Physician Specialty: Internal Medicine Address: Phone: Fax: Email: Cecelia Kiran DO Emergency Provider Physician Referring Provider Specialty: Emergency Medicine Address: [address] [place] [address], [address] Email: [email or web address] DO Admit Provider Physician Attending Provider Specialty: Internal Medicine Address: [address] [place] [address], [address] Email: [email or web address] Diagnoses Hypo-osmolality and hyponatremia (09/02/23) Parkinson's disease (09/02/23) Essential (primary) hypertension (09/02/23) Past Medical History Benign prostatic hyperplasia (Medical ~2003) BPH w urinary obs/LUTS (Medical) Chicken pox (Medical) Child Gross hematuria (Medical) Hepatitis A (Medical ~1985) Hypertension (Medical ~1989) Measles (Medical) Child Migraines (Medical ~2011) Mumps (Medical) Child Osteoarthritis (Medical ~2004) Osteopenia (Medical ~2004) Osteoporosis (Medical ~2009) Parkinson's disease (Medical ~2012) Peripheral neuropathy (Medical ~2011) Scoliosis (Medical ~2004) Secondhand smoke exposure (Social Hx) Speech-Language Pathology Swallow Evaluation HAND PRESSER Clinical Swallow Evaluation Start: 09/06/23 12:19 Freq: Status: Active Protocol: Document 09/06/23 12:19 MA (Rec: 09/06/23 12:58 MA [id number]) Clinical Swallow Evaluation Session Time Visit Start Time 09:45 Visit Stop Time 10:20 Total Visit Minutes 35 Visit Information Visit Number 1 Referral Referring Provider Milind Ignacio Reason for Referral Trouble swallowing Setting Assessment Location Acute Care Visit Type Note Type Initial evaluation Next Note Type Next Note Type Treatment Note Patient Information Identification Type Name History Per H&P: 77-year-old male with Parkinson's disease, HTN, BPH who lives at [facility] who initially presented to the walk in clinic with persistent cough, weakness. He was diagnosed with COVID nearly 4 weeks ago approximately. He denies shortness of breath, wheezing. He complains of profound weakness since his COVID diagnosis. He has had LE edema but cannot recall how long that has been present. In the walk in clinic he was noted to have an irregular rhythm, and was sent to the ER . EKG did show atrial fibrillation with frequent PVCs but no acute ischemia. Labs done in the ER showed a sodium of 114. This was repeated and was again 114. Troponin was stable x2 at 0. 046. Urine sodium was 6. COVID testing was positive. PMHx significant for: Secondhand smoke exposure Gross hematuria BPH w urinary obs/LUTS Osteoarthritis (~2004) Peripheral neuropathy (~2011) Parkinson's disease (~2012) Migraines (~2011) Scoliosis (~2004) Osteoporosis (~2009) Osteopenia (~2004) Mumps Measles Hepatitis A (~1985) Chicken pox Benign prostatic hyperplasia ( ~2003) Hypertension (~1989) Pt referred for ST evaluation d/t nursing reporting night staff reported Pt with swallowing difficulties, not eating/drinking enough, wet cough. Subjective Observations Pt sitting upright in bed. Pt reports he consumes soft foods at home and denies any coughing or choking. He states he has been coughing d/t COVID. Pt resides in [facility]. He reports they don't soften his food for him but most of the food is already soft that they provide. Pt also reports he is a vegetarian. Reported by Patient/Caregiver Current Diet Regular (IDDSI 7) Baseline Feeding Method Needs some assistance The IDDSI Framework Protocol: IDDSI.1 Objective Assessment Mental Status Alert,Responsive,Cooperative Oral Integrity WFL Comment Oral motor exam completed during time of evaluation. Pt with overall reduced lingual strength and ROM, reduced labial strength and protrusion . Food and Liquid Trials Position During Assessment Upright (90 degrees) Liquids Trialed Thin (IDDSI 0) Solid Trials Soft & Bite-sized (IDDSI 6) Administration Type Straw,Needs some assistance Oral Impairment Mildly impaired Oral Phase Comments Pt consumed 1 chewy bar and about 8 oz of thin liquids via straw. Pt able to hold cup for drinking, however slow movements secondary to PD and Pt reporting difficulties with his hands. Pt required assistance eating chewy bar. For soft solids, pt demonstrated prolonged mastication however adequate bolus formation and control, extended ap transport. Pt benefited from alternating liquids/solids to assist with clearance. For thin liquids via straw Pt demonstrated consecutive sips, adequate suction, good oral acceptance and containment, timely ap transport. Pharyngeal Impairment Mildly impaired Pharyngeal Phase Comments Pt with wet cough prior to PO trials. Pt also reported he had phelgm in his throat he wanted cough out before initating PO trials, which Pt successfully expelled. For chewy bar Pt demonstrated suspected delay in swallow, no overt s/s of aspiration. For thin liquids Pt demonstrated consecutive sips/swallows, suspected delay in swallow, throat clear x1, cough reflex x1. The IDDSI Framework Protocol: IDDSI.1 Findings Swallowing Function Oropharyngeal phase dysphagia Severity of Swallow Impairment Mildly impaired Prognosis Good Recommendations Instrumental Assessment No Swallowing Treatment Yes Frequency Daily while inpatient Recommended Solids Soft & Bite-sized (IDDSI 6) Recommended Liquids Thin (IDDSI 0) Other Recommendations ST recommends IDDSI 6 solids with thin liquids with the below mentioned safe swallowing strategies in place . Feeding assistance, sitting upright during all meals and 30 minutes after meals, strict oral care after intake, 1 sip at a time, small bites, alternating liquids/solids. Safety Precautions/Swallowing Remain upright (90 degrees) Recommendations during all oral intake,Upright position at least 30 minutes after meals,Small bites and sips when eating,Slow rate; swallow between bites, Alternate liquids and solids,1 to 1 feeding assistance Medication Recommendations As Tolerated Goals Short-term Goals STG 1: Patient will utilize safe swallowing strategies 90% of the time with minimal verbal cues in order to consume safest and most efficient least restrictive diet. STG 2: Patient will tolerate PO trials of IDDSI 6 with no clinical s/s of dysphagia 100% of the time in order to consume least restrictive diet . STG 3: Patient will tolerate thin liquids with no clinical s/s of aspiration 100% of the time in order to consume least restrictive diet. Long-term Goals LTG: Patient will tolerate safest and most efficient diet with no clinical s/s of aspiration or dysphagia 100% of the time in order to consume least restrictive diet .
--- NOTE | 2023-09-06 13:39 | PM.PN.1 ---
Subjective Subjective Interval history: Sodium stable at 126. Diuretics stopped today, appears euvolemic. Increased salt tabs. Patient is beginning to feel improved. Changed to soft diet today after speech evaluation given an overnight mild choking event reported by nursing staff. Rate is also increased today, increased his beta mariah this AM. Exam Vital Signs (past 8 hours): - 09/06/23 09:00 09/06/23 09:00 09/06/23 09:02 Temperature Pulse Rate 122 H Respiratory Rate Blood Pressure 151/104 H Pulse Oximetry 95 Oxygen Delivery Method Room Air Room Air Oxygen Flow Rate 09/06/23 10:01 09/06/23 13:00 Temperature 98.8 F Pulse Rate 113 H Respiratory Rate 20 Blood Pressure 151/104 H Pulse Oximetry 93 95 Oxygen Delivery Method Room Air Oxygen Flow Rate 0 Oxygen Delivery Method Room Air Oxygen Flow Rate 0 Narrative Exam Narrative: General:?Acute on chronically ill appearing elderly male, pale, weak HEENT:? Normocephalic, atraumatic, extraocular muscles intact, oral pharynx is clear and mucous membranes are moist Lungs:? CTA b/l no wheezing rhonchi or rales but poor inspiratory effort Cardio:?irregularly irregular rhythm, tachycardic, Abdomen: soft, mild distension LQ b/l, no tenderness. Musculoskeletal:? Muscle strength and tone are equal within normal limits, no deformity. Extremities: LLE trace edema, RLE no edema. Neuro:? Alert and orientated x4,? sensation diminished to light touch b/l LE (reports chronic), no gross deficits noted of cranial nerves but he has slowed responses. Objective Labs 09/05/23 07:38 09/06/23 08:57 Labs: Laboratory Results - last 24 hr 09/05/23 09/05/23 09/06/23 13:45 19:30 04:20 Sodium 126 L 126 L 126 L Potassium 3.6 3.8 3.2 L Chloride 91 L 93 L 91 L Carbon Dioxide 33 H 28 26 BUN 9 9 8 L Creatinine 0.49 L 0.46 L 0.47 L Estimated GFR > 60 > 60 > 60 BUN/Creatinine Ratio 18.4 19.6 17.0 Glucose 134 H 111 H 103 Calcium 8.8 8.3 L 8.4 Magnesium 1.8 09/06/23 08:57 Sodium 126 L Potassium Chloride Carbon Dioxide BUN Creatinine Estimated GFR BUN/Creatinine Ratio Glucose Calcium Magnesium PFSH Medical History Secondhand smoke exposure Gross hematuria BPH w urinary obs/LUTS Osteoarthritis (~2004) Peripheral neuropathy (~2011) Parkinson's disease (~2012) Migraines (~2011) Scoliosis (~2004) Osteoporosis (~2009) Osteopenia (~2004) Mumps Measles Hepatitis A (~1985) Chicken pox Benign prostatic hyperplasia (~2003) Hypertension (~1989) Surgical History Anesthesia History of tonsillectomy (~194) Family History Father Alzheimer's disease Hypertension Mother History of acquired heart valve infection Hypertension Mitral valve disease Grandmother Stroke Social History marital status: unmarried,single household members: none housing: assisted living facility Previous occupational history: Flight attendent Smoking Status: Never smoker alcohol intake: current substance use type: does not use Assessment & Plan Assessment & Plan narrative: 1. Hyponatremia, severe - Initial Na 114, initial urine sodium 6 consistent with hypovolemia, given 3% then on NS Na dropped again so restarted on 3%. Now Na up to 126 and stable here for 24 hours. Repeat Urine Na yesterday is elevated at 80. Did receive lasix but was 24 hours prior to checking. 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 Continue to follow daily. 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 - currently on 1g TID of salt tabs, increased to 2g today. - now downgraded to floor care. - urine osm still pending from admission... - continue tele monitoring - volume status is complicated, appeared dry mucous membranes per admit note but also vascular congestion on imaging with asymmetric LE edema bilaterally. Suspect euvolemia now. 2. New diagnosis atrial fibrillation with RVR - suspect due to electrolyte abnormalities / hyponatremia / recent COVID - echocardiogram ordered showed EF of 35-40% - continue telemetry - CXR with congestive appearance, could be ? residual disease from COVID or volume overload. - B/L US negative for DVT - 09/04 started apixaban 5 mg bid - started on metoprolol with reduced EF noted below. Increased today with continued RVR, now at 50 mg BID. 3. Cardiomyopathy, acute vs chronic systolic heart failure - EF noted on ECHO to be 35-40% - moderately hypertensive as well, continue to adjust medications as needed. Improved today with antihypertensives. - 09/04 started metoprolol 25 mg bid and losartan 25 mg daily. Increase metoprolol 09/06 to 50 mg BID. -stopped diuresis today with euvolemia. 4. Parkinson's disease - continue home sinemet, amantadine. - s/p speech evaluation, ordered for a soft diet. 5. BPH - continue home finasteride, doxazosin. 6. Myocardial injury - no further evaluation necessary troponin stable at 0.046 with no symptoms. 7. COVID- - patient is asymptomatic from a respiratory standpoint. He tested positive almost 4 weeks ago initially per report. 8. Mild rhabdomyolysis, resolved - consistent with dehydration studies noted above. CK 615 on admission COVID-19 COVID-19 status: Positive Quality VTE Deep Vein Thrombosis/Pulmonary Embolism Present on Admission: No
--- NOTE | 2023-09-06 14:00 | CM.DPC ---
DCP Cont. Reviewed EMR and team rounds for status updates. Pt continues to improve, however had new dx Afib and RVR, Hospitalist increased salt tabs. Anticipate possibility of maybe needing [facility] rather than d/c'ing back to [facility], initially. Anticipated inpt stay 2-more days. Continue to monitor for final recommendations for d/c disposition.
[2023-09-06 15:09] LABS: Osmolality Urine 373 mOsmol/kg (.)
--- NOTE | 2023-09-06 15:37 | PT.IPTN ---
Current Diagnoses Hypo-osmolality and hyponatremia (09/02/23) Parkinson's disease (09/02/23) Essential (primary) hypertension (09/02/23) Physical Therapy Treatment Note M2 PT-IP Current Condition Start: 09/04/23 14:11 Freq: NEEDED Status: Active Protocol: Document 09/04/23 14:12 KJ (Rec: 09/04/23 14:32 KJ [id number]) Physical Therapy Current Condition Current Condition Evaluation Date 09/04/23 Treatment Diagnosis Impaired mobility Onset Date July 2023 M3 PT-IP Subjective Start: 09/04/23 14:11 Freq: NEEDED Status: Active Protocol: Document 09/06/23 14:01 TS (Rec: 09/06/23 14:14 TS [id number]) Subjective Physical Therapy Visit Type Type Treatment Note Visit Start Time 12:00 Visit Stop Time 12:30 Total Visit Minutes 30 Number of WINDOW FRAMER Visits 1 Physical Therapy Visit Comments Patient Comments Pt found resting in bed, pt is agreeable to OOB mobility. M4 PT-IP Mobility and Gait Start: 09/04/23 14:11 Freq: NEEDED Status: Active Protocol: Document 09/06/23 14:01 TS (Rec: 09/06/23 14:14 TS [id number]) PT-Bed Mobility Assessment Supine to Sit Supine to Sit Maximum Assistance,1 Person Assistance,Head of Bed Elevated Scooting Scooting to Edge of Bed Dependent PT-Transfer Assessment Sit to and From Stand Sit to and from Stand Maximum Assistance,1 Person Assistance,Use of Upper Extremities Equipment Transfer Assistive Device Gait Belt,Front Wheeled Walker Transfers Transfer Destination Chair Transfer Technique Stand Pivot Transfer Ability Level of Assist Maximum Assistance,Total Assistance,1 Person Assistance ,Use of Upper Extremities Comments Mobility Comments Pt's resting HR low 100's, Spo2 96% on RA prior to mobility. Supine to sit HOB elevated MaxA with handheld assist to upright trunk. Pt sat EOB ModA intially, progressed at times to SBA/CGA , pt has x2 posterior LOB requiring ModA to maintain balance. He performed sit to stand x1 with FWW MaxA, pt has a posterior lean and braces back of LEs against bed to maintain balance. Pt attempted to transfer to chair with stand pivot and use of FWW, pt took a few shuffle steps toward chair but could not complete transfer. Pt required total assist to finish stand pivot with no AD. Pt's HR increased to 130's during transfer. Pt was left in chair , all needs met, RN notified. Gait Assessment Comments Gait Comments Stand pivot with no AD. PT-Balance Assessment Sitting Balance and Reactions Static Sitting Balance Ability Poor Dynamic Sitting Balance Ability Poor Standing Balance and Reactions Static Standing Balance Ability Poor Dynamic Standing Balance Ability Poor Device Used FWW M5 PT-IP Objective Assessments Start: 09/04/23 14:11 Freq: NEEDED Status: Active Protocol: Document 09/04/23 14:12 KJ (Rec: 09/04/23 14:32 KJ [id number]) Orientation Orientation/Cognition Level of Alertness Alert Orientation Name,Age,Birthday Language Function Ability Garbled Speech Comments Pt presents with Parkinsons symptoms Gross Range of Motion Upper Extremity ROM Assessment Right Impaired Impairments shoulder Lower Extremity ROM Assessment Bilaterally Impaired Impairments Decreased knee ext both actively and passively Decreased ankle dorsiflex both actively and passively Strength Upper Extremity Strength Assessment Right Impaired Shoulder Shoulder ext 4/5, flex 1/5 Elbow 4/5 Wrist 4/5 Hand 3+/5 Comments Strength Comments Unable to adequately test LEs due to contractures. Within available ROM knee ext is 3+/5 , hip abd 4/5, hip add 3/5 Coordination Assessment Gross Coordination Gross Coordination Impaired Muscle Tone Muscle Tone WNL No M6 PT-IP Treatment Start: 09/04/23 14:11 Freq: NEEDED Status: Active Protocol: Document 09/06/23 14:01 TS (Rec: 09/06/23 14:14 TS [id number]) Physical Therapy Treatment Education Education Provided Safety M7 PT-IP Assessment and Plan Start: 09/04/23 14:11 Freq: NEEDED Status: Active Protocol: Document 09/06/23 15:35 MB (Rec: 09/06/23 15:37 MB [id number]) PT Summary Assessment and Plan Potential Rehabilitation Potential Fair Status of Condition at Evaluation Evolving Summary Impairments ROM,Strength,Bed Mobility, Transfers,Gait Progress Towards Goals Slow Progress due to Activity Tolerance Assessment Summary PT speaks with WINDOW FRAMER who states that pt was able to do more with therapy today than last date. PT writing note to update goals and POC. Goals Bed Mobility Goal Moderate Assistance Transfer Goal Moderate Assistance Days to Meet Goals 5 Frequency of Treatment Frequency Of Treatment Once a Day Treatment Plan Physical Therapy Treatment Plan Bed Mobility Training,Transfer Training,Therapeutic Exercise ,Balance Retraining Recommendations To Nursing Amount of Assist Needed Mechanical Lift Discharge Recommendations PT Discharge Recommendations Home with 24/7 Assist Available,SNF Rehab Other Discharge Recommendations Pt is from [facility] Transportation Needs at Discharge Wheelchair/Cabulance
--- NOTE | 2023-09-06 17:52 | PC.NURSE ---
Pt in Afib rate 80s - 120s thoughout the day. VSS. Both am Na readings 126, provider ordered next draw 12 am. Provider notified about pts constipation in am, provider continuing fluid restriction, PURCHASING ADMINISTRATIVE ASSISTANT evaled - dysphagia diet/pills crushed in applesauce recommended. Pharmacy contacted regarding pills - okayed all meds to be crushed.
[2023-09-06] MEDS: ACETAMINOPHEN 325 MG TABLET 650 MG PO (20:16)
[2023-09-07] VITALS (26 sets, daily range): BP systolic 102–169; BP diastolic 50–99; PULSE 77–123; RESP 13–36; TEMP 35.7–36.8; O2SAT 92–98
[2023-09-07 05:11] LABS: BUN Creatinine Ratio 30.9 (6-22); Blood Urea Nitrogen 17 mg/dL (9-20); Calcium 8.9 mg/dL (8.4-10.2); Carbon Dioxide 26 mmol/L (22-32); Chloride 95 mmol/L (98-107); Estimated Glomerular Filt Rate > 60 mL/min (>60); Glucose 100 mg/dL (80-110); HEMOLYSIS < 15 (0-50); Magnesium 2.1 mg/dL (1.6-2.3); Potassium 4.8 mmol/L (3.4-5.1); Sodium 128 mmol/L (137-145)
--- NOTE | 2023-09-07 06:43 | PC.NURSE ---
Financial Reserve Clerk Note-Patient only sleeps around 1-2 hours at a time, is being turned side to side frequently. A-fib 80s-90s at rest, increases to 120 when anxious. Incontinent one small stool and one medium.
[2023-09-07] MEDS: LOSARTAN 25 MG TABLET PO (08:44)
[2023-09-07] MEDS: CARBIDOPA-LEVODOPA 25/100 TABLET 2 EACH PO ×4 (08:44→21:20)
[2023-09-07] MEDS: SODIUM CHLORIDE 1,000 MG TABLET 2000 MG PO ×3 (08:44→21:22)
[2023-09-07] MEDS: APIXABAN 5 MG TABLET PO ×2 (08:44→21:20)
[2023-09-07] MEDS: SODIUM CHLORIDE 0.9% FLUSH 10 ML IV ×2 (08:45→21:20)
[2023-09-07] MEDS: METOPROLOL ER 50 MG TABLET PO (08:50)
--- NOTE | 2023-09-07 10:08 | SLP.IPNOTE ---
WEBSPHERE ADMINISTRATOR recommends MBSS d/t difficulties determining if Pt coughing on liquids vs. baseline cough from COVID. Dr. Lauren notified on recommendation.
--- NOTE | 2023-09-07 10:37 | PM.PN.1 ---
Subjective Subjective Date Patient Seen: 09/07/23 Time Patient Seen: 08:00 Interval history: He denies shortness of breath. He feels a little thirsty. He feels quite weak. Discussed with speech therapy about concerns of him aspirating. Exam Vital Signs (past 8 hours): - 09/07/23 04:00 09/07/23 05:00 09/07/23 09:25 Temperature 97.5 F L 98.3 F Pulse Rate 94 H 114 H Respiratory Rate 16 20 Blood Pressure 141/90 H 153/91 H Pulse Oximetry 98 98 94 Oxygen Delivery Method Room Air Oxygen Flow Rate 0 0 09/07/23 09:43 Temperature Pulse Rate Respiratory Rate Blood Pressure Pulse Oximetry Oxygen Delivery Method Room Air Oxygen Flow Rate Oxygen Delivery Method Room Air Oxygen Flow Rate 0 Narrative Exam Narrative: General:?Acute on chronically ill appearing elderly male, weak Lungs:? CTA withpoor inspiratory effort Cardio:?irregularly irregular rhythm, tachycardic, Abdomen: soft, nontender Neuro:? rest tremor, awake, alert, oriented Objective Labs 09/05/23 07:38 09/07/23 04:19 Labs: Laboratory Results - last 24 hr 09/02/23 09/07/23 16:14 04:19 Sodium 128 L Potassium 4.8 D Chloride 95 L Carbon Dioxide 26 BUN 17 Creatinine 0.55 L Estimated GFR > 60 BUN/Creatinine Ratio 30.9 H Glucose 100 Calcium 8.9 Magnesium 2.1 Urine Osmolality 373 PFSH Medical History Secondhand smoke exposure Gross hematuria BPH w urinary obs/LUTS Osteoarthritis (~2004) Peripheral neuropathy (~2011) Parkinson's disease (~2012) Migraines (~2011) Scoliosis (~2004) Osteoporosis (~2009) Osteopenia (~2004) Mumps Measles Hepatitis A (~1985) Chicken pox Benign prostatic hyperplasia (~2003) Hypertension (~1989) Surgical History Anesthesia History of tonsillectomy (~1945) Family History Father Alzheimer's disease Hypertension Mother History of acquired heart valve infection Hypertension Mitral valve disease Grandmother Stroke Social History marital status: unmarried,single household members: none housing: assisted living facility Previous occupational history: Flight attendent Smoking Status: Never smoker alcohol intake: current substance use type: does not use Assessment & Plan Assessment & Plan narrative: 1. Hyponatremia, severe - Initial Na 114, initial urine sodium 6 consistent with hypovolemia, given 3% then on NS Na dropped again so restarted on 3%. Now Na up to 128 and stable here for 24 hours. Repeat Urine Na is elevated at 80. May have had a mixed picture causing hyponatremia - initially on 1g TID of salt tabs, increased to 2g on 09/06 - urine osm pending - continue tele monitoring - volume status is complicated, appeared dry mucous membranes per admit note but also vascular congestion on imaging with asymmetric LE edema bilaterally. Suspect near euvolemia -has received both fluids and lasix this admission, as well as hypertonic saline and salt tabs at this point, for now continue with salt tabs, no fluids, no lasix 2. New diagnosis atrial fibrillation with RVR - suspect due to electrolyte abnormalities / hyponatremia / recent COVID - echocardiogram ordered showed EF of 35-40% - continue telemetry - CXR with congestive appearance, could be ? residual disease from COVID or volume overload. - B/L US negative for DVT - 09/04 started apixaban 5 mg bid - started on metoprolol with reduced EF noted 3. Cardiomyopathy, acute vs chronic systolic heart failure - EF noted on ECHO to be 35-40% - moderately hypertensive as well, continue to adjust medications as needed. Improved today with antihypertensives. - 09/04 started metoprolol 25 mg bid and losartan 25 mg daily. Increase metoprolol 09/06 to 50 mg BID. -stopped diuresis today with euvolemia. 4. Parkinson's disease - continue home sinemet, amantadine. - s/p speech evaluation, ordered for a soft diet. 5. BPH - continue home finasteride, doxazosin. 6. Myocardial injury - no further evaluation necessary troponin stable at 0.046 with no symptoms. 7. COVID- - patient is asymptomatic from a respiratory standpoint. He tested positive almost 4 weeks ago initially per report. 8. Mild rhabdomyolysis, resolved - consistent with dehydration studies noted above. CK 615 on admission Quality VTE Deep Vein Thrombosis/Pulmonary Embolism Present on Admission: No
--- NOTE | 2023-09-07 11:15 | DI.RAD.S_ITS ---
PROCEDURE: FL BARIUM SWALLOW W SPEECH INDICATIONS: aspiration? COMPARISON: None. TECHNIQUE: Examination was conducted in conjunction with speech pathology per standard protocol. In the lateral projection, filming was performed of the patient swallowing. AP projection filming may also be performed with patient swallowing. COMPARISON: FINDINGS: Function: Laryngotracheal penetration and aspiration were visualized within liquids. Please see a detailed description of the findings on the speech pathologist report. Morphology: No cricopharyngeal bar is identified. No cervical esophageal webs. No Zenker's diverticulum. No strictures. IMPRESSION: Laryngotracheal penetration and aspiration with thin liquids. Please see detailed description of the findings on the report by the speech pathologist. Dictated by: Kristy Paulino M.D. on 09/07/2023 at 14:30 Approved by: Kristy Paulino M.D. on 09/07/2023 at 14:31
--- NOTE | 2023-09-07 12:10 | CM.DPC ---
DCP Cont. Reviewed EMR and team rounds for pt's status. Pt continues to be quite weak, still not able to tolerate anything other than liquids, and would benefit from SNF rehab prior to returning to his [facility] apartment at [facility]. Called [facility], they are reviewing him for acceptance for d/c. Will continue to monitor and update team/family once we have a confirmation of acceptance.
--- NOTE | 2023-09-07 14:40 | PT-IP ANOTE ---
Pt reports he would like to rest this afternoon, PT will check back with pt tomorrow.
--- NOTE | 2023-09-07 15:54 | ST.SWALLOW ---
Visit Care Team Role Provider Type Steff Jacobson DO Primary Care Provider Physician Specialty: Family Practice Address: [address] [place] [address], [address] Email: [email or web address] Kortney Guzman MD Other Providers Physician Specialty: Medical Address: Phone: Fax: Email: Jenae Patel MD Other Providers Physician Specialty: Medical Address: Phone: Fax: Email: Darian Duncan MD Other Providers Physician Specialty: Medical Address: [address] [place], [address] Phone: Fax: Email: Olayinka Arreguin MD Other Providers Physician Specialty: Internal Medicine Address: Phone: Fax: Email: Dank Ram MD Other Providers Physician Specialty: Medical Address: Phone: Fax: Email: Twila Terry MD Other Providers Physician Specialty: Anesthesiology Internal Medicine Address: [address] [place] [address], [address] Fax: Email: [email or web address] [email or web address] Greer MD Other Providers Physician Specialty: Internal Medicine Address: [address] [place], [address] Phone: Fax: Email: @[email or web address] Orlando Bishop MD Other Providers Physician Specialty: Internal Medicine Address: Phone: Fax: Email: Darius Michael MD Other Providers Physician Specialty: Medical Address: Phone: Fax: Email: Arnold Espana MD Other Providers Physician Specialty: Internal Medicine Address: [address] [place], [address] Phone: Fax: Email: Evan Avila MD Other Providers Physician Specialty: Medical Address: [address], [address] Phone: Fax: Email: Opal Hernández MD Other Providers Physician Specialty: Medical Address: Phone: Fax: Email: Yarelis Chappell Other Providers Physician Specialty: Medical Address: Phone: Fax: Email: Deena Morrison MD Other Providers Physician Specialty: Internal Medicine Address: Phone: Fax: Email: Cecelia Kiran DO Emergency Provider Physician Referring Provider Specialty: Emergency Medicine Address: [address] [place] [address], [address] Email: [email or web address] Admit Provider Physician Attending Provider Specialty: Internal Medicine Address: [address] [place] [address], [address] Email: [email or web address] Modified Barium Swallow Study AUTO DAMAGE APPRAISER Modified Barium Swallow Study Start: 09/07/23 14:35 Freq: Status: Active Protocol: Document 09/07/23 14:36 LNK (Rec: 09/07/23 15:53 LNK [id number]) Modified Barium Swallow Study Total Time Visit Start Time 13:00 Visit Stop Time 14:00 Total Visit Minutes [address] Lauren Reason for Referral dysphagia Setting Setting Acute Care Patient Information Identification Type Name,Date of Patient History Per H&P: 77-year-old male with Parkinson's disease, HTN, BPH who lives at [facility] who initially presented to the walk in clinic with persistent cough, weakness. He was diagnosed with COVID nearly 4 weeks ago approximately. He denies shortness of breath, wheezing. He complains of profound weakness since his COVID diagnosis. Pt has been observed coughing after meals. MBSS ordered to determine the pt's aspiration risk and determine POC. Subjective Observations Pt was transferred to the fluoroscopy chair via kacie lift. Instructions and procedures were described for him. he indicated he understood and agreed to proceed. Patient Positioning Position View Lateral Imaging Lateral View Textures Administered Trials Presented Thin Liquid via Spoon (IDDSI 0 ),Thin Liquid via Cup (IDDSI 0 ),Thin Liquid via Straw (IDDSI 0),Mildly Thick Liquid via Cup (IDDSI 2),Mildly Thick Liquid via Straw (IDDSI 2), Soft & Bite-sized (IDDSI Barium Tablet No The IDDSI Framework Protocol: IDDSI.1 Oral Impairment Source: The Modified Barium Swallow Impairment Profile (MBSImP??) Lip Closure Interlabial escape; no progression to anterior lip Tongue Control During Bolus Hold Cohesive bolus between tongue to palatal seal Bolus Preparation/Mastication Slow prolonged chewing/mashing with complete re-collection Bolus Transport/Lingual Motion Slowed tongue motion Oral Residue Residue collection on oral structures Location Floor of mouth,Tongue Initiation of Pharyngeal Swallow Bolus head at pyriforms Additional Oral Impairment Observations OME indicated with overall reduced lingual strength and ROM, reduced labial strength and ROM. Mastication was slow with good bolus control, formation and AP transition. Swallow initiation was delayed with premature spillage to the pyriforms pre swallow. Pharyngeal Impairment Source: The Modified Barium Swallow Impairment Profile (MBSImP??) Soft Palate Elevation Escape to nasopharynx Laryngeal Elevation Part.sup.move.thyroid cart/ part.approx.arytenoids to epiglot.petiole Anterior Hyoid Excursion Partial anterior movement Epiglottic Movement Partial inversion Laryngeal Vestibular Closure Incomplete; narrow column air/ contrast in laryngeal vestibule Pharyngeal Stripping Wave Present - diminished Pharyngoesophageal Segment Opening Complete distention & complete duration; no obstruction of flow Tongue Base Retraction Narrow column of contrast/air betwn tongue base & post. pharyngeal wall Pharyngeal Residue Majority of contrast within/on pharyngeal structures Location Diffuse (>3 areas) Additional Pharyngeal Impairment Overall pharyngeal weakness Observations resulted in premature spillage to the pyriforms pre-swallow. Hyolaryngeal elevation and epiglottic inversion were diminished. The epiglottis was horizontal for all swallows. Stripping of the posterior pharyngeal wall was also weak resulting in reduced bolus control through the bolus . Laryngeal penetration and tracheal aspiration were observed through out the MBSS. Thin liquids and pharyngeal residual contributed to aspiration. Penetration and aspiration were silent. Significantly delayed throat clear observed. Cue to growl was somewhat effective in clearing laryngeal vestibule. Chin tuck and head turn strategy when swallowing with nectar thick liquids was effective in reducing penetration/aspiration. A/P View The IDDSI Framework Protocol: IDDSI.1 Clinical Impressions Dysphagia Type Oral,Pharyngeal Findings PLEASE REVIEW ORAL AND PHARYNGEAL SUMMARIES FOR MORE DETAIL Mild oral and severe pharyngeal dysphagia with laryngeal penetration/ aspiration observed with thin liquids and pharyngeal residue. . [place] thick liquids recommended with soft and bite size texture recommended. Craig Free Water Protocol recommended Cont ST while inpt Rehabilitation Potential Poor Patient Appropriate for Therapy Yes Recommendations Diet Liquids Order Mildly Thick (IDDSI 2) Diet Order Soft & Bite-sized (IDDSI 6) Medication Recommendation Whole in Carrier,Crushed in Carrier Additional Dietary Needs 1:1 Assistance,Reminders to Use Strategies Aspiration Precautions Recommended Precautions Upright at 90 Degrees,Frequent Rest Periods,Small Bites/Sips ,Chin Tuck,Left Head Turn Additional Precautions Small straws ok Treatment Plan Therapy Strategy Recommendations Turn Head Left,Chin Tuck, Liquids from Cup,Liquids from Straw,Small Bites and Sips Placement Recommendation After Discharge Halfway Facility
--- NOTE | 2023-09-07 18:34 | PC.NURSE ---
Addendum entered by Estella Sparrow R.N. 09/07/23 18:45: Fluid restriction discontinued at this time. Original Note: Day Shift Note Patient to [facility] today at 1300, Marshall used to transfer into chair and back. Pt diet changed to nectar/mildly thick liquids per Teresa BODY BUILDER APPRENTICE, pt also ok to do free water protocol (sips of thin water after mouth is cleaned). Pt is fatigued today with flat affect. Denies pain. Afib in the 80-120s, increasing metoprolol PO doses per MD order. Pt able to take pills whole in applesauce followed by water without issue. Incontinent BM x1, skin intact, no erythema noted. Condom cath in place, draining clear ciro urine, approx 100 ml out this shift, MD notified. Fluid restriction of 1.2L/day remains in place at this time. Call light within reach, using appropriately to make needs known.
[2023-09-07] MEDS: METOPROLOL ER 50 MG TABLET 75 MG PO (21:18)
[2023-09-08] VITALS (41 sets, daily range): BP systolic 122–162; BP diastolic 76–107; PULSE 80–115; RESP 11–37; TEMP 35.9–36.4; O2SAT 82–99
[2023-09-08 03:44] LABS: Hematocrit 37.4 % (41-53); Hemoglobin 12.6 g/dL (13.5-17.5); Mean Corpuscular HGB Conc 33.6 % (30-36); Mean Corpuscular Hemoglobin 30.6 PG (26-34); Mean Corpuscular Volume 90.9 fL (80-100); Platelet Count 217 X10^3/uL (150-400); Red Blood Cell Count 4.11 X10^6/uL (4.5-5.9); Red Cell Distribution Width 14.8 % (11.6-14.8); White Blood Cell Count 7.2 X10^3/uL (4.5-11.0)
[2023-09-08 03:55] LABS: BUN Creatinine Ratio 36.1 (6-22); Blood Urea Nitrogen 22 mg/dL (9-20); Carbon Dioxide 25 mmol/L (22-32); Chloride 97 mmol/L (98-107); Estimated Glomerular Filt Rate > 60 mL/min (>60); Glucose 103 mg/dL (80-110); HEMOLYSIS < 15 (0-50); Magnesium 2.1 mg/dL (1.6-2.3); Potassium 4.7 mmol/L (3.4-5.1); Sodium 129 mmol/L (137-145)
[2023-09-08] MEDS: CARBIDOPA-LEVODOPA 25/100 TABLET 2 EACH PO ×4 (08:43→20:32)
[2023-09-08] MEDS: APIXABAN 5 MG TABLET PO ×2 (08:43→20:32)
[2023-09-08] MEDS: SODIUM CHLORIDE 1,000 MG TABLET 2000 MG PO (08:43)
[2023-09-08] MEDS: METOPROLOL ER 50 MG TABLET 75 MG PO ×2 (08:44→20:31)
[2023-09-08] MEDS: LOSARTAN 25 MG TABLET PO (08:45)
[2023-09-08] MEDS: polyethylene glycoL 3350 17 GM POWD.PACK PO (08:48)
--- NOTE | 2023-09-08 11:35 | PT.IPTN ---
Current Diagnoses Hypo-osmolality and hyponatremia (09/02/23) Parkinson's disease (09/02/23) Essential (primary) hypertension (09/02/23) Physical Therapy Treatment Note M2 PT-IP Current Condition Start: 09/04/23 14:11 Freq: NEEDED Status: Active Protocol: Document 09/04/23 14:12 KJ (Rec: 09/04/23 14:32 KJ [id number]) Physical Therapy Current Condition Current Condition Evaluation Date 09/04/23 Treatment Diagnosis Impaired mobility Onset Date July 2023 M3 PT-IP Subjective Start: 09/04/23 14:11 Freq: NEEDED Status: Active Protocol: Document 09/08/23 12:22 TS (Rec: 09/08/23 12:33 TS [id number]) Subjective Physical Therapy Visit Type Type Treatment Note Visit Start Time 11:35 Visit Stop Time 12:08 Total Visit Minutes 33 Number of DIRECTOR CUSTOM Visits 2 Physical Therapy Visit Comments Patient Comments Pt found resting in chair, just transferred to chair via kacie, is agreeable to ex in chair. M4 PT-IP Mobility and Gait Start: 09/04/23 14:11 Freq: NEEDED Status: Active Protocol: Document 09/08/23 12:22 TS (Rec: 09/08/23 12:33 TS [id number]) PT-Transfer Assessment Comments Mobility Comments Performed calf/hamstring stretch x3 on each LE, pt reports feeling stretch. He performed SLR with AAROM x5 on ea LE, heel slides, ankle pumps and ROM of UEs. Family entered room during session and was educated on ex and ROM for pt. Pt was left in chair, all needs met, family in room . PT-Balance Assessment Sitting Balance and Reactions Static Sitting Balance Ability Poor Dynamic Sitting Balance Ability Poor M5 PT-IP Objective Assessments Start: 09/04/23 14:11 Freq: NEEDED Status: Active Protocol: Document 09/04/23 14:12 KJ (Rec: 09/04/23 14:32 KJ [id number]) Orientation Orientation/Cognition Level of Alertness Alert Orientation Name,Age,Birthday Language Function Ability Garbled Speech Comments Pt presents with Parkinsons symptoms Gross Range of Motion Upper Extremity ROM Assessment Right Impaired Impairments shoulder Lower Extremity ROM Assessment Bilaterally Impaired Impairments Decreased knee ext both actively and passively Decreased ankle dorsiflex both actively and passively Strength Upper Extremity Strength Assessment Right Impaired Shoulder Shoulder ext 4/5, flex 1/5 Elbow 4/5 Wrist 4/5 Hand 3+/5 Comments Strength Comments Unable to adequately test LEs due to contractures. Within available ROM knee ext is 3+/5 , hip abd 4/5, hip add 3/5 Coordination Assessment Gross Coordination Gross Coordination Impaired Muscle Tone Muscle Tone WNL No M6 PT-IP Treatment Start: 09/04/23 14:11 Freq: NEEDED Status: Active Protocol: Document 09/08/23 12:22 TS (Rec: 09/08/23 12:33 TS [id number]) Physical Therapy Treatment Education Education Provided Safety M7 PT-IP Assessment and Plan Start: 09/04/23 14:11 Freq: NEEDED Status: Active Protocol: Document 09/08/23 12:22 TS (Rec: 09/08/23 12:33 TS [id number]) PT Summary Assessment and Plan Potential Rehabilitation Potential Fair Summary Impairments ROM,Strength,Bed Mobility, Transfers,Gait Progress Towards Goals Slow Progress due to Activity Tolerance Assessment Summary Hoang is making slow progress with his mobility. Pt had transferred to chair via kacie with nursing, was agreeable to some stretching and ex(see above for details). He continues to have poor tolerance to activity and will require SNF rehab to progress strength and functional mobility before safe d/c home. Goals Bed Mobility Goal Moderate Assistance Transfer Goal Moderate Assistance Days to Meet Goals 5 Frequency of Treatment Frequency Of Treatment Once a Day Treatment Plan Physical Therapy Treatment Plan Bed Mobility Training,Transfer Training,Therapeutic Exercise ,Balance Retraining Other Recommendations and Next Treatment Continue ther ex sitting at Focus eob including balance ex. Gentle passive stretching into knee ext and ankle dorsiflex progressing to active stretchin. Recommendations To Nursing Amount of Assist Needed Mechanical Lift Discharge Recommendations PT Discharge Recommendations SNF Rehab Other Discharge Recommendations Pt is from [facility] Transportation Needs at Discharge Wheelchair/Cabulance
[2023-09-08] MEDS: SODIUM CHLORIDE 0.9% FLUSH 10 ML IV ×2 (13:00→20:32)
--- NOTE | 2023-09-08 13:16 | ST.IPDYTX ---
Visit Care Team Role Provider Type Steff Jacobson DO Primary Care Provider Physician Specialty: Family Practice Address: [address] [place] [address], [address] Email: [email or web address] Kortney Guzman MD Other Providers Physician Specialty: Medical Address: Phone: Fax: Email: Jenae Patel MD Other Providers Physician Specialty: Medical Address: Phone: Fax: Email: Darian Duncan MD Other Providers Physician Specialty: Medical Address: [address] [place], [address] Phone: Fax: Email: Olayinka Arreguin MD Other Providers Physician Specialty: Internal Medicine Address: Phone: Fax: Email: Dank Ram MD Other Providers Physician Specialty: Medical Address: Phone: Fax: Email: Twila Terry MD Other Providers Physician Specialty: Anesthesiology Internal Medicine Address: [address] [place] [address], [address] Fax: Email: [email or web address] Greer MD Other Providers Physician Specialty: Internal Medicine Address: [address] [place], [address] Phone: Fax: Email: [email or web address] Orlando Bishop MD Other Providers Physician Specialty: Internal Medicine Address: Phone: Fax: Email: Darius Michael MD Other Providers Physician Specialty: Medical Address: Phone: Fax: Email: Arnold Espana MD Other Providers Physician Specialty: Internal Medicine Address: [address] [place], [address] Phone: Fax: Email: Evan Avila MD Other Providers Physician Specialty: Medical Address: [address], [address] Phone: Fax: Email: Opal Hernández MD Other Providers Physician Specialty: Medical Address: Phone: Fax: Email: Yarelis Chappell Other Providers Physician Specialty: Medical Address: Phone: Fax: Email: Deena Morrison MD Other Providers Physician Specialty: Internal Medicine Address: Phone: Fax: Email: Cecelia Kiran DO Emergency Provider Physician Referring Provider Specialty: Emergency Medicine Address: [address] [place] [address], [address] Email: [email or web address] Admit Provider Physician Attending Provider Specialty: Internal Medicine Address: [address] [place] [address], [address] Email: [email or web address] ROLL TENDER Dysphagia Treatment WE[employer] PRESS ROLL TENDER Dysphagia Treatment Start: 09/07/23 14:35 Freq: Status: Active Protocol: Document 09/08/23 13:08 MA (Rec: 09/08/23 13:16 MA [id number]) Dysphagia Treatment Session Time Visit Start Time 12:15 Visit Stop Time 12:45 Total Visit Minutes 30 Visit Information Visit Number 2 Setting Assessment Location Acute Care Patient Information Subjective Observations Pt sitting upright in chair. Pt brother and sister in law present. They reported what they learned from MBSS yesterday, which included modified diet and chin tuck/ turning head to the left. They had questions in regards to what foods Pt can eat. ST educated Pt and Pt family on soft bite sized diet options for home, and that the kitchen will modify food to match his diet. Treatment Liquids Trialed Thin (IDDSI 0) Solids Trialed Soft & Bite-sized (IDDSI 6) Treatment Activities PO trials, safe swallowing strategies The IDDSI Framework Protocol: IDDSI.[address] assessed swallow function with PO trial of soft solids and nectar thick liquids via cup and use of safe swallowing strategies, such as small sips, 1 sip at a time, chin tuck with head turn slightly to the left. Pt consumed a few bites of a peanut butter sandwich and then reported felt like sandwich was stuck in throat. Pt able to feed self sandwich, requiring set up assistance and food handed to him. For sandwich Pt demonstrated adequate bite size, prolonged mastication, extended ap transport, piecemeal deglutition, suspected delay in swallow, 1x delayed cough reflex. For nectar thick juice via cup, Pt required hand over hand assistance, demonstrating adequate sip size, prolonged ap transport, no overt s/s of aspiration. Pt required mild verbal cues to utilize chin tuck/head turn left. ST educated Pt and Pt family on safe swallowing strategies to cue Pt on, such as small bites /sips, slow rate, chin tuck/ head turn left, alternating liquids/solids. ST also educated Pt and family on importance of consistent oral hygiene after meals. Pt and Pt family verbalized understanding. Recommendations Recommendations Downgrade Diet Order Liquids Order Mildly Thick (IDDSI 2) Diet Order Soft & Bite-sized (IDDSI 6) Medication Recommendations Whole in Carrier,Crushed in Carrier Additional Dietary Needs 1:1 Assistance,Reminders to Use Strategies
--- NOTE | 2023-09-08 14:23 | CM.DPNOTE ---
DCP Cont Patient not discharging today, Jasmin at [facility] waiting on insurance auth. Soonest will be tomorrow. NICHOLAS Mix updated. JW
--- NOTE | 2023-09-08 18:07 | PM.PN.1 ---
Subjective Subjective Interval history: Patient still very weak. SNF pending auth. Na up to 129 so salt tabs stopped. Code status discussed with by his son but patient wants to remain full code. Exam Vital Signs (past 8 hours): - 09/08/23 10:22 09/08/23 10:22 09/08/23 13:00 Pulse Rate 106 H Respiratory Rate Blood Pressure 154/105 H Pulse Oximetry 92 99 Oxygen Delivery Method Room Air 09/08/23 13:05 09/08/23 13:07 09/08/23 16:00 Pulse Rate 99 H 88 Respiratory Rate 18 Blood Pressure 122/76 122/77 Pulse Oximetry 98 98 Oxygen Delivery Method 09/08/23 16:35 09/08/23 16:35 09/08/23 17:00 Pulse Rate 94 H Respiratory Rate Blood Pressure 132/77 Pulse Oximetry 89 L 94 Oxygen Delivery Method Room Air Oxygen Delivery Method Room Air Oxygen Flow Rate 0 Narrative Exam Narrative: General:?Acute on chronically ill appearing elderly male, weak Lungs:? CTA with poor inspiratory effort Cardio:?irregularly irregular rhythm, tachycardic, Abdomen: soft, nontender Neuro:? resting tremor R>L, awake, alert, oriented Objective Labs 09/08/23 03:19 09/08/23 03:19 Labs: Laboratory Results - last 24 hr 09/08/23 03:19 WBC 7.2 RBC 4.11 L Hgb 12.6 L Hct 37.4 L MCV 90.9 MCH 30.6 MCHC 33.6 RDW 14.8 Plt Count 217 Sodium 129 L Potassium 4.7 Chloride 97 L Carbon Dioxide 25 BUN 22 H Creatinine 0.61 L Estimated GFR > 60 BUN/Creatinine Ratio 36.1 H Glucose 103 Calcium 9.0 Magnesium 2.1 PFSH Medical History Secondhand smoke exposure Gross hematuria BPH w urinary obs/LUTS Osteoarthritis (~2004) Peripheral neuropathy (~2011) Parkinson's disease (~2012) Migraines (~2011) Scoliosis (~2004) Osteoporosis (~2009) Osteopenia (~2004) Mumps Measles Hepatitis A (~1985) Chicken pox Benign prostatic hyperplasia (~2003) Hypertension (~1989) Surgical History Anesthesia History of tonsillectomy (~1945) Family History Father Alzheimer's disease Hypertension Mother History of acquired heart valve infection Hypertension Mitral valve disease Grandmother Stroke Social History marital status: unmarried,single household members: none housing: assisted living facility Previous occupational history: Flight attendent Smoking Status: Never smoker alcohol intake: current substance use type: does not use Assessment & Plan Assessment & Plan narrative: 1. Hyponatremia, severe and improving - Initial Na 114, initial urine sodium 6 consistent with hypovolemia, given 3% then on NS Na dropped again so restarted on 3%. Now Na up to 128 and stable here for 24 hours. Repeat Urine Na is elevated at 80. May have had a mixed picture causing hyponatremia - initially on 1g TID of salt tabs, increased to 2g on 09/06 - urine osm pending - continue tele monitoring - volume status is complicated, appeared dry mucous membranes per admit note but also vascular congestion on imaging with asymmetric LE edema bilaterally. Suspect near euvolemia - has received both fluids and lasix this admission, as well as hypertonic saline and salt tabs at this point, for now continue with salt tabs, no fluids, no lasix - Na now up to 129, salt tabs stopped and patient relieved 2. New diagnosis atrial fibrillation with RVR - suspect due to electrolyte abnormalities / hyponatremia / recent COVID - echocardiogram ordered showed EF of 35-40% - continue telemetry - CXR with congestive appearance, could be ? residual disease from COVID or volume overload. - B/L US negative for DVT - 09/04 started apixaban 5 mg bid - started on metoprolol with reduced EF noted - uptitrated metop XL to 75mg BID due to continued HR >100 3. Cardiomyopathy, acute vs chronic systolic heart failure - EF noted on ECHO to be 35-40% - moderately hypertensive as well, continue to adjust medications as needed. Improved today with antihypertensives. - 09/04 started metoprolol 25 mg bid and losartan 25 mg daily. Increase metoprolol 09/06 to 50 mg BID. -stopped diuresis with euvolemia. 4. Parkinson's disease - continue home sinemet, amantadine. - s/p speech evaluation, ordered for a soft diet. 5. BPH - continue home finasteride, doxazosin. 6. Myocardial injury - no further evaluation necessary troponin stable at 0.046 with no symptoms. 7. COVID- - patient is asymptomatic from a respiratory standpoint. He tested positive almost 4 weeks ago initially per report. 8. Mild rhabdomyolysis, resolved - consistent with dehydration studies noted above. CK 615 on admission Dispo: Likely dc to [facility] on 09/09. Quality VTE Deep Vein Thrombosis/Pulmonary Embolism Present on Admission: No
[2023-09-09] VITALS (18 sets, daily range): BP systolic 118–159; BP diastolic 70–94; PULSE 70–112; RESP 16–17; TEMP 36.2–37.2; O2SAT 72–100
[2023-09-09] MEDS: METOPROLOL ER 50 MG TABLET 75 MG PO ×2 (08:40→20:51)
[2023-09-09] MEDS: CARBIDOPA-LEVODOPA 25/100 TABLET 2 EACH PO ×4 (08:42→20:21)
[2023-09-09] MEDS: APIXABAN 5 MG TABLET PO ×2 (08:42→20:22)
[2023-09-09] MEDS: LOSARTAN 25 MG TABLET PO (08:42)
[2023-09-09] MEDS: polyethylene glycoL 3350 17 GM POWD.PACK PO (08:42)
[2023-09-09] MEDS: SODIUM CHLORIDE 0.9% FLUSH 10 ML IV ×2 (08:43→20:55)
[2023-09-09 09:53] LABS: Sodium 131 mmol/L (137-145)
--- NOTE | 2023-09-09 11:37 | PT.IPTN ---
Current Diagnoses Hypo-osmolality and hyponatremia (09/02/23) Parkinson's disease (09/02/23) Essential (primary) hypertension (09/02/23) Physical Therapy Treatment Note M2 PT-IP Current Condition Start: 09/04/23 14:11 Freq: NEEDED Status: Active Protocol: Document 09/04/23 14:12 KJ (Rec: 09/04/23 14:32 KJ [id number]) Physical Therapy Current Condition Current Condition Evaluation Date 09/04/23 Treatment Diagnosis Impaired mobility Onset Date July 2023 M3 PT-IP Subjective Start: 09/04/23 14:11 Freq: NEEDED Status: Active Protocol: Document 09/09/23 12:19 TS (Rec: 09/09/23 12:27 TS [id number]) Subjective Physical Therapy Visit Type Type Treatment Note Visit Start Time 11:37 Visit Stop Time 12:15 Total Visit Minutes 38 Number of ANIMAL STUNNER Visits 3 Physical Therapy Visit Comments Patient Comments Pt found resting in bed, would like therapist to call brother Vidal, pt reports feeling terrible today, is agreeable to PT. M4 PT-IP Mobility and Gait Start: 09/04/23 14:11 Freq: NEEDED Status: Active Protocol: Document 09/09/23 12:19 TS (Rec: 09/09/23 12:27 TS [id number]) PT-Bed Mobility Assessment Supine to Sit Supine to Sit Total Assistance,1 Person Assistance,Head of Bed Elevated Sit to Supine Sit to Supine Total Assistance,1 Person Assistance,Head of Bed Elevated Scooting Scooting to Edge of Bed Dependent PT-Transfer Assessment Sit to and From Stand Sit to and from Stand Maximum Assistance,1 Person Assistance,Use of Upper Extremities Equipment Transfer Assistive Device Gait Belt,Front Wheeled Walker Comments Mobility Comments Pt performed calf/hamstring stretch 3x30 on each LE, ankle pumps and heel slides. Supine to sit total assist for sitting up to EOB. He sat EOB with poor balance, required ModA to CGA at times with use of handrails. He performed sit to stand x1 MaxA with use of FWW, pt fatigued quickly requesting back to bed. Sit to supine into bed total assist, required total assist for scooting to HOB x2PA. Pt was left in bed, all needs met. Gait Assessment Comments Gait Comments Unable at this time PT-Balance Assessment Sitting Balance and Reactions Static Sitting Balance Ability Poor Dynamic Sitting Balance Ability Poor Comments Other Balance Tests/Deviations/Treatment Pt sat EOB CGA with use of : handrails, required ModA at times for psoterior LOB. M5 PT-IP Objective Assessments Start: 09/04/23 14:11 Freq: NEEDED Status: Active Protocol: Document 09/04/23 14:12 KJ (Rec: 09/04/23 14:32 KJ [id number]) Orientation Orientation/Cognition Level of Alertness Alert Orientation Name,Age,Birthday Language Function Ability Garbled Speech Comments Pt presents with Parkinsons symptoms Gross Range of Motion Upper Extremity ROM Assessment Right Impaired Impairments shoulder Lower Extremity ROM Assessment Bilaterally Impaired Impairments Decreased knee ext both actively and passively Decreased ankle dorsiflex both actively and passively Strength Upper Extremity Strength Assessment Right Impaired Shoulder Shoulder ext 4/5, flex 1/5 Elbow 4/5 Wrist 4/5 Hand 3+/5 Comments Strength Comments Unable to adequately test LEs due to contractures. Within available ROM knee ext is 3+/5 , hip abd 4/5, hip add 3/5 Coordination Assessment Gross Coordination Gross Coordination Impaired Muscle Tone Muscle Tone WNL No M6 PT-IP Treatment Start: 09/04/23 14:11 Freq: NEEDED Status: Active Protocol: Document 09/09/23 12:19 TS (Rec: 09/09/23 12:27 TS [id number]) Physical Therapy Treatment Education Education Provided Safety M7 PT-IP Assessment and Plan Start: 09/04/23 14:11 Freq: NEEDED Status: Active Protocol: Document 09/09/23 12:19 TS (Rec: 09/09/23 12:27 TS [id number]) PT Summary Assessment and Plan Potential Rehabilitation Potential Fair Summary Impairments ROM,Strength,Bed Mobility, Transfers,Gait Progress Towards Goals Slow Progress due to Activity Tolerance Assessment Summary Hoang continues to make slow progress with his mobility. He is total assist for all bed mobility and requires MaxA for sit to stands. He performed calf/hamstring stretch, ankle pumps and heel slides. He is motivated to work with PT. PT is recommending SNF rehab. Goals Bed Mobility Goal Moderate Assistance Transfer Goal Moderate Assistance Days to Meet Goals 5 Frequency of Treatment Frequency Of Treatment Once a Day Treatment Plan Physical Therapy Treatment Plan Bed Mobility Training,Transfer Training,Therapeutic Exercise ,Balance Retraining Other Recommendations and Next Treatment Continue ther ex sitting at Focus eob including balance ex. Gentle passive stretching into knee ext and ankle dorsiflex progressing to active stretchin. Recommendations To Nursing Amount of Assist Needed 2 Person Assist Discharge Recommendations PT Discharge Recommendations SNF Rehab Other Discharge Recommendations Pt is from [facility] Transportation Needs at Discharge Wheelchair/Cabulance
--- NOTE | 2023-09-09 15:03 | CM.DPNOTE ---
DCP Note LEACH RUNNER reviewed EMR. LEACH RUNNER spoke with Bonnie at multiple times throughout the day. [employer] auth still pending. LEACH RUNNER and DEEPAK Grijalva attempted to contact a rep from [facility] to expedite auth with no success. LEACH RUNNER spoke with brother via phone and at bedside with pt brother/POPaty Drake. Pt and POA debating on if their preference is to [facility] or return to [facility] with hospice support. Brother reported history of pt working with visiting angeldori and is working on getting that restarted for him at [facility]. If hospice, report their only equip need would be a bedside table at this time. Brother and pt requested to think about it overnight and decide tomorrow. DEEPAK Grijalva kindly agreed to fax initial referral to [facility]. LEACH RUNNER spoke with intake at [facility], agreed to review. Earliest they could open with RN is Tuesday. LEACH RUNNER lvmx2 with Ada at [facility] to inquire about coordinating pt returning home with [facility] and visiting angels support, no response as of 1499. Plan: 1) for rehabilitation, pending aetna auth. 2) return to [facility] with visiting angels and [facility] support. CM team will follow closely. MIGUEL Shaw
--- NOTE | 2023-09-09 17:02 | P.PN_ITS ---
Subjective Subjective Interval history: Sodium up to 131 today. The patient, brother Vidal who is POA and I had a 17 min discussion again about goals of care. Vidal thinks rehab will be difficult for Hoang to handle. He is suggesting hospice and I agreed that Hoang would likely most benefit from hospice, given his rehab potential is poor. Hoang agreed as well and NURSES' AIDE now arranging hospice at [facility]. Exam Vital Signs (past 8 hours): - 09/09/23 09:10 09/09/23 10:15 09/09/23 13:00 Temperature 98.9 F Pulse Rate 80 Respiratory Rate 17 Blood Pressure 159/94 H 159/94 H Pulse Oximetry 92 96 Oxygen Delivery Method Room Air Oxygen Flow Rate 0 Oxygen Delivery Method Room Air Oxygen Flow Rate 0 Narrative Exam Narrative: General:?Acute on chronically ill appearing elderly male, weak, flat facies Lungs:? CTA with poor inspiratory effort Cardio:?irregularly irregular rhythm, tachycardic, Abdomen: soft, nontender Neuro:? resting tremor R>L, awake, alert, oriented Objective Labs 09/08/23 03:19 09/09/23 09:38 Labs: Laboratory Results - last 24 hr 09/09/23 09:38 Sodium 131 L PFSH Medical History Secondhand smoke exposure Gross hematuria BPH w urinary obs/LUTS Osteoarthritis (~2004) Peripheral neuropathy (~2011) Parkinson's disease (~2012) Migraines (~2011) Scoliosis (~2004) Osteoporosis (~2009) Osteopenia (~2004) Mumps Measles Hepatitis A (~1985) Chicken pox Benign prostatic hyperplasia (~2003) Hypertension (~1989) Surgical History Anesthesia History of tonsillectomy (~1945) Family History Father Alzheimer's disease Hypertension Mother History of acquired heart valve infection Hypertension Mitral valve disease Grandmother Stroke Social History marital status: unmarried,single household members: none housing: assisted living facility Previous occupational history: Flight attendent Smoking Status: Never smoker alcohol intake: current substance use type: does not use Assessment & Plan Assessment & Plan narrative: 1. Hyponatremia, severe and improving - Initial Na 114, initial urine sodium 6 consistent with hypovolemia, given 3% then on NS Na dropped again so restarted on 3%. Now Na up to 128 and stable here for 24 hours. Repeat Urine Na is elevated at 80. May have had a mixed picture causing hyponatremia - initially on 1g TID of salt tabs, increased to 2g on 09/06 - urine osm pending - continue tele monitoring - volume status is complicated, appeared dry mucous membranes per admit note but also vascular congestion on imaging with asymmetric LE edema bilaterally. Suspect near euvolemia - has received both fluids and lasix this admission, as well as hypertonic saline and salt tabs at this point, for now continue with salt tabs, no fluids, no lasix - Na now up to 131 2. New diagnosis atrial fibrillation with RVR - suspect due to electrolyte abnormalities / hyponatremia / recent COVID - echocardiogram ordered showed EF of 35-40% - continue telemetry - CXR with congestive appearance, could be ? residual disease from COVID or volume overload. - B/L US negative for DVT - 09/04 started apixaban 5 mg bid - started on metoprolol with reduced EF noted - uptitrated metop XL to 75mg BID due to continued HR >100 -HR now in 80's 3. Cardiomyopathy, acute vs chronic systolic heart failure - EF noted on ECHO to be 35-40% - moderately hypertensive as well, continue to adjust medications as needed. Improved today with antihypertensives. - 09/04 started metoprolol 25 mg bid and losartan 25 mg daily. Increase metoprolol 09/06 to 50 mg BID. -stopped diuresis with euvolemia. 4. Parkinson's disease - continue home sinemet, amantadine. - s/p speech evaluation, ordered for a soft diet. 5. BPH - continue home finasteride, doxazosin. 6. Myocardial injury - no further evaluation necessary troponin stable at 0.046 with no symptoms. 7. COVID- - patient is asymptomatic from a respiratory standpoint. He tested positive almost 4 weeks ago initially per report. 8. Mild rhabdomyolysis, resolved - consistent with dehydration studies noted above. CK 615 on admission Dispo: NURSES' AIDE arranging hospice at [facility]. 1-2 days. Quality VTE Deep Vein Thrombosis/Pulmonary Embolism Present on Admission: No
[2023-09-10] VITALS (12 sets, daily range): BP systolic 112–140; BP diastolic 70–89; PULSE 60–89; RESP 16–18; TEMP 36.3–36.5; O2SAT 84–100
[2023-09-10] MEDS: polyethylene glycoL 3350 17 GM POWD.PACK PO (09:19)
[2023-09-10] MEDS: METOPROLOL ER 50 MG TABLET 75 MG PO ×2 (09:19→20:16)
[2023-09-10] MEDS: CARBIDOPA-LEVODOPA 25/100 TABLET 2 EACH PO ×4 (09:19→20:15)
[2023-09-10] MEDS: LOSARTAN 25 MG TABLET PO (09:19)
[2023-09-10] MEDS: APIXABAN 5 MG TABLET PO ×2 (09:20→20:15)
[2023-09-10] MEDS: SODIUM CHLORIDE 0.9% FLUSH 10 ML IV ×2 (09:20→20:38)
--- NOTE | 2023-09-10 11:28 | CM.DPC ---
Addendum entered by Zoey Mcintosh R.N. 09/10/23 15:30: Updated February at [facility] that plan most likely will be for patient to return to [facility] with hospice services Original Note: DCP Cont: It is noted that now patient wants to go home on comfort care, brother had spoken to patient. Had spoken to February earlier, at [facility], for the plan was originally for him to go to [facility] under his [employer] Medicare, and she has been working on auth. Called over at [facility], attempted to reach Ada, who is the main nursing executive, attempted her on her cell phone. In the message, asked her if she can accept patient back, since it is his home, and patient wants to go home. It is noted that [facility] can't open until Tuesday. Called over at [facility] and spoke to Loree, they can open Tuesday, no time as of yet. Was able to get in touch with DOUG CaballeroS. Confirmed that she can accept patient on Tuesday, since hospice will be on board. Stated, they can't accept admissions on weekends, need to be stable and predictable, and pharmacies may not be open. Patient most likely will be an avoidable day. P: DCP to continue to follow. Plan as this time is back to [facility] on hospice services, but not until Tuesday. Zoey Mcintosh RN/Speech And Language Clinician
--- NOTE | 2023-09-10 12:05 | PT.IPTN ---
Current Diagnoses Hypo-osmolality and hyponatremia (09/02/23) Parkinson's disease (09/02/23) Essential (primary) hypertension (09/02/23) Physical Therapy Treatment Note M3 PT-IP Subjective Start: 09/04/23 14:11 Freq: NEEDED Status: Active Protocol: Document 09/10/23 12:04 AB (Rec: 09/10/23 12:05 AB [id number]) Subjective Physical Therapy Visit Type Type Administrative Note Notes per rounds meeting: pt is going on comfort care. will d /c PT. M7 PT-IP Assessment and Plan Start: 09/04/23 14:11 Freq: NEEDED Status: Active Protocol: Document 09/10/23 12:04 AB (Rec: 09/10/23 12:05 AB [id number]) PT Summary Assessment and Plan Frequency of Treatment Frequency Of Treatment Discharge
--- NOTE | 2023-09-10 13:55 | P.PN_ITS ---
Subjective Subjective Interval history: Patient feeling better today. Up sitting in the chair. Still is very weak however. MANUFACTURING ENGINEER PAINT arranging back to [facility] with hospice. Exam Vital Signs (past 8 hours): - 09/10/23 06:00 09/10/23 09:00 09/10/23 09:19 Temperature 97.3 F L Pulse Rate 80 Respiratory Rate 18 Blood Pressure 140/70 140/70 Pulse Oximetry 100 Oxygen Delivery Method Room Air 09/10/23 09:19 09/10/23 13:08 Temperature 97.7 F Pulse Rate 77 Respiratory Rate 16 Blood Pressure 140/70 112/79 Pulse Oximetry 95 Oxygen Delivery Method Oxygen Delivery Method Room Air Oxygen Flow Rate 0 Narrative Exam Narrative: General:?Acute on chronically ill appearing elderly male, weak, flat facies Lungs:? CTA with poor inspiratory effort Cardio:?irregularly irregular rhythm, tachycardic, Abdomen: soft, nontender Neuro:? resting tremor R>L, awake, alert, oriented Objective Labs 09/08/23 03:19 09/09/23 09:38 [facility] Medical History Secondhand smoke exposure Gross hematuria BPH w urinary obs/LUTS Osteoarthritis (~2004) Peripheral neuropathy (~2011) Parkinson's disease (~2012) Migraines (~2011) Scoliosis (~2004) Osteoporosis (~2009) Osteopenia (~2004) Mumps Measles Hepatitis A (~1985) Chicken pox Benign prostatic hyperplasia (~2003) Hypertension (~1989) Surgical History Anesthesia History of tonsillectomy (~1945) Family History Father Alzheimer's disease Hypertension Mother History of acquired heart valve infection Hypertension Mitral valve disease Grandmother Stroke Social History marital status: unmarried,single household members: none housing: assisted living facility Previous occupational history: Flight attendent Smoking Status: Never smoker alcohol intake: current substance use type: does not use Assessment & Plan Assessment & Plan narrative: 1. Hyponatremia, severe and nearly resolved - Initial Na 114, initial urine sodium 6 consistent with hypovolemia, given 3% then on NS Na dropped again so restarted on 3%. Now Na up to 128 and stable here for 24 hours. Repeat Urine Na is elevated at 80. May have had a mixed picture causing hyponatremia - initially on 1g TID of salt tabs, increased to 2g on 09/06 - urine osm pending - continue tele monitoring - volume status is complicated, appeared dry mucous membranes per admit note but also vascular congestion on imaging with asymmetric LE edema bilaterally. Suspect near euvolemia - has received both fluids and lasix this admission, as well as hypertonic saline and salt tabs at this point, for now continue with salt tabs, no fluids, no lasix - Na now up to 131 2. New diagnosis atrial fibrillation with RVR - suspect due to electrolyte abnormalities / hyponatremia / recent COVID - echocardiogram ordered showed EF of 35-40% - continue telemetry - CXR with congestive appearance, could be ? residual disease from COVID or volume overload. - B/L US negative for DVT - 09/04 started apixaban 5 mg bid - started on metoprolol with reduced EF noted - uptitrated metop XL to 75mg BID due to continued HR >100 -HR now in 80's 3. Cardiomyopathy, acute vs chronic systolic heart failure - EF noted on ECHO to be 35-40% - moderately hypertensive as well, continue to adjust medications as needed. Improved today with antihypertensives. - 09/04 started metoprolol 25 mg bid and losartan 25 mg daily. Increase metoprolol 09/06 to 50 mg BID. -stopped diuresis with euvolemia. 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 - s/p speech evaluation, ordered for a soft diet. - extremely weak 5. BPH - continue home finasteride, doxazosin. 6. Myocardial injury - no further evaluation necessary troponin stable at 0.046 with no symptoms. 7. COVID- - patient is asymptomatic from a respiratory standpoint. He tested positive almost 4 weeks ago initially per report. 8. Mild rhabdomyolysis, resolved - consistent with dehydration studies noted above. CK 615 on admission Code status: Full code (despite multiple attempts by physician and brother to convince him otherwise. Hospice will need to having [facility] discussions going forward). Dispo: MANUFACTURING ENGINEER PAINT arranging hospice at [facility]. 1-2 days. Quality VTE Deep Vein Thrombosis/Pulmonary Embolism Present on Admission: No
[2023-09-11] VITALS (11 sets, daily range): BP systolic 122–139; BP diastolic 68–86; PULSE 62–116; RESP 16–28; TEMP 35.9–37; O2SAT 69–100
[2023-09-11] MEDS: CARBIDOPA-LEVODOPA 25/100 TABLET 2 EACH PO ×4 (08:39→20:21)
[2023-09-11] MEDS: LOSARTAN 25 MG TABLET PO (08:39)
[2023-09-11] MEDS: APIXABAN 5 MG TABLET PO ×2 (08:40→20:20)
[2023-09-11] MEDS: METOPROLOL ER 50 MG TABLET 75 MG PO ×2 (08:40→20:20)
[2023-09-11] MEDS: polyethylene glycoL 3350 17 GM POWD.PACK PO (08:41)
[2023-09-11] MEDS: SODIUM CHLORIDE 0.9% FLUSH 10 ML IV (08:41)
[2023-09-11] MEDS: FINASTERIDE 5 MG TABLET PO (10:50)
[2023-09-11] MEDS: AMANTADINE 100 MG CAPSULE PO (10:50)
--- NOTE | 2023-09-11 11:25 | CM.DPC ---
Addendum entered by MIGUEL Grajeda 09/11/23 11:37: ADD: SW spoke to Loree with intake at [facility] and she confirms their RN can open pt to service on 09/13 between 1897-2013. BF Original Note: DCP Cont: SW spoke to MD and RN and the attempts to have Goals of Care discussion with pt and change from Full Code to DNR as pt's plan is to return to [facility] with Hospice at discharge but pt has continued to request Full Code. MD discussed if pt has increased medical needs with life resuscitating measures then MD and medical staff can look at medical futility. MD will still continue to discuss this further with pt bedside. Per RN, pt was able to sit upright in bedside chair most of yesterday but has used kacie for transfers and seems to have some increased confusion at times. CONOR left NICHOLAS Caballero from [facility] a detailed msg stating that currently pt does not need BLS transport and wanting to confirm they can accept pt in w/c with need for either kacie or sling in/out of the chair at d/c if pt remains stable without need for BLS transport. CONOR also updated Ada that pt remains on room air at this time and no need for oxygen. Plan: SW to follow closely for plan of d/c back to [facility] the day after Lu[facility] in two days 09/13/23 and to confirm they can accept him with their w/c van with kacie/sling. Med list will need to be signed and faxed with d/c summ to Ada at [facility] and also to [facility] once confirmed what time they can start on 09/13. MIGUEL Grajeda
--- NOTE | 2023-09-11 11:34 | PM.PN.1 ---
Subjective Subjective Date Patient Seen: 09/11/23 Interval history: Patient states feeling same. No new complaints. HOME HEALTH AIDE arranging back to [facility] on 09/13 on hospice. Exam Vital Signs (past 8 hours): - 09/11/23 09:00 Oxygen Delivery Method Room Air Oxygen Delivery Method Room Air Oxygen Flow Rate 0 Narrative Exam Narrative: Gen: alert, NAD, weak Lungs: clear CV: irregular Ext: no edema Neuro: unchanged with Parkinson's Objective Labs 09/08/23 03:19 09/09/23 09:38 [facility] Medical History Secondhand smoke exposure Gross hematuria BPH w urinary obs/LUTS Osteoarthritis (~2004) Peripheral neuropathy (~2011) Parkinson's disease (~2012) Migraines (~2011) Scoliosis (~2004) Osteoporosis (~2009) Osteopenia (~2004) Mumps Measles Hepatitis A (~1985) Chicken pox Benign prostatic hyperplasia (~2003) Hypertension (~1989) Surgical History Anesthesia History of tonsillectomy (~1945) Family History Father Alzheimer's disease Hypertension Mother History of acquired heart valve infection Hypertension Mitral valve disease Grandmother Stroke Social History marital status: unmarried,single household members: none housing: assisted living facility Previous occupational history: Flight attendent Smoking Status: Never smoker alcohol intake: current substance use type: does not use Assessment & Plan Assessment & Plan narrative: 1. Hyponatremia, severe and nearly resolved - Initial Na 114, initial urine sodium 6 consistent with hypovolemia, given 3% then on NS Na dropped again so restarted on 3%. Now Na up to 128 and stable here for 24 hours. Repeat Urine Na is elevated at 80. May have had a mixed picture causing hyponatremia - initially on 1g TID of salt tabs, increased to 2g on 09/06 - urine osm pending - continue tele monitoring - volume status is complicated, appeared dry mucous membranes per admit note but also vascular congestion on imaging with asymmetric LE edema bilaterally. Suspect near euvolemia - has received both fluids and lasix this admission, as well as hypertonic saline and salt tabs at this point, for now continue with salt tabs, no fluids, no lasix - Na now up to 131 as of 09/09 2. New diagnosis atrial fibrillation with RVR - suspect due to electrolyte abnormalities / hyponatremia / recent COVID - echocardiogram ordered showed EF of 35-40% - continue telemetry - CXR with congestive appearance, could be ? residual disease from COVID or volume overload. - B/L US negative for DVT - 09/04 started apixaban 5 mg bid - started on metoprolol with reduced EF noted - uptitrated metop XL to 75mg BID due to continued HR >100 -HR now in 80's 3. Cardiomyopathy, acute vs chronic systolic heart failure - EF noted on ECHO to be 35-40% - moderately hypertensive as well, continue to adjust medications as needed. Improved today with antihypertensives. - 09/04 started metoprolol 25 mg bid and losartan 25 mg daily. Increase metoprolol 75 mg BID. -stopped diuresis with euvolemia. 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 - s/p speech evaluation, ordered for a soft diet. - extremely weak 5. BPH - continue home finasteride, doxazosin. 6. Myocardial injury - no further evaluation necessary troponin stable at 0.046 with no symptoms. 7. COVID- - patient is asymptomatic from a respiratory standpoint. He tested positive almost 4 weeks ago initially per report. 8. Mild rhabdomyolysis, resolved - consistent with dehydration studies noted above. CK 615 on admission Code status: Full code (despite multiple attempts by physician and brother to convince him otherwise. Hospice will need to having [facility] discussions going forward). Dispo: HOME HEALTH AIDE arranging hospice at [facility]. 1-2 days. Quality VTE Deep Vein Thrombosis/Pulmonary Embolism Present on Admission: No
--- NOTE | 2023-09-11 16:15 | PC.NURSE ---
Noted this morning during brief change for loose stool, pt had a small abrasion/skin tear on his penis due to condom cath use. Discontinued condom cath, place barrier cream on area, no further needs
[2023-09-12] VITALS (9 sets, daily range): BP systolic 130–147; BP diastolic 86–101; PULSE 75–90; RESP 16–17; TEMP 36.1–37; O2SAT 93–100
[2023-09-12] MEDS: SODIUM CHLORIDE 0.9% FLUSH 10 ML IV ×3 (00:43→21:48)
[2023-09-12] MEDS: FINASTERIDE 5 MG TABLET PO (09:07)
[2023-09-12] MEDS: AMANTADINE 100 MG CAPSULE PO (09:07)
[2023-09-12] MEDS: APIXABAN 5 MG TABLET PO ×2 (09:07→21:47)
[2023-09-12] MEDS: LOSARTAN 25 MG TABLET PO (09:07)
[2023-09-12] MEDS: METOPROLOL ER 50 MG TABLET 75 MG PO ×2 (09:09→21:47)
[2023-09-12] MEDS: CARBIDOPA-LEVODOPA 25/100 TABLET 2 EACH PO ×4 (09:10→21:47)
[2023-09-12] MEDS: polyethylene glycoL 3350 17 GM POWD.PACK PO (09:10)
--- NOTE | 2023-09-12 12:11 | PM.PN.1 ---
Subjective Subjective Date Patient Seen: 09/11/23 Interval history: Patient states feeling same. No new complaints. MICROSOFT OFFICE INSTRUCTOR arranging back to [facility] on 09/13 on hospice. Exam Vital Signs (past 8 hours): - 09/12/23 08:00 09/12/23 09:07 09/12/23 09:09 Temperature 98.1 F Pulse Rate 89 75 75 Respiratory Rate 16 Blood Pressure 135/99 H 135/99 H 135/99 H Pulse Oximetry 93 Oxygen Flow Rate 0 09/12/23 09:45 Temperature Pulse Rate 75 Respiratory Rate Blood Pressure 130/90 Pulse Oximetry Oxygen Flow Rate Oxygen Delivery Method Room Air Oxygen Flow Rate 0 Narrative Exam Narrative: Gen: alert, NAD, weak Lungs: clear CV: irregular Ext: no edema Neuro: unchanged with Parkinson's Objective Labs 09/08/23 03:19 09/09/23 09:38 PFS Medical History Secondhand smoke exposure Gross hematuria BPH w urinary obs/LUTS Osteoarthritis (~2004) Peripheral neuropathy (~2011) Parkinson's disease (~2012) Migraines (~2011) Scoliosis (~2004) Osteoporosis (~2009) Osteopenia (~2004) Mumps Measles Hepatitis A (~1985) Chicken pox Benign prostatic hyperplasia (~2003) Hypertension (~1989) Surgical History Anesthesia History of tonsillectomy (~1945) Family History Father Alzheimer's disease Hypertension Mother History of acquired heart valve infection Hypertension Mitral valve disease Grandmother Stroke Social History marital status: unmarried,single household members: none housing: assisted living facility Previous occupational history: Flight attendent Smoking Status: Never smoker alcohol intake: current substance use type: does not use Assessment & Plan Assessment & Plan narrative: 1. Hyponatremia, severe and nearly resolved - Initial Na 114, initial urine sodium 6 consistent with hypovolemia, given 3% then on NS Na dropped again so restarted on 3%. Now Na up to 128 and stable here for 24 hours. Repeat Urine Na is elevated at 80. May have had a mixed picture causing hyponatremia - initially on 1g TID of salt tabs, increased to 2g on 09/06 - urine osm 373 - continue tele monitoring - has received both fluids and lasix this admission, as well as hypertonic saline and salt tabs at this point, for now continue with salt tabs, no fluids, no lasix - Na now up to 131 as of 09/09 2. New diagnosis atrial fibrillation with RVR - suspect due to electrolyte abnormalities / hyponatremia / recent COVID - echocardiogram ordered showed EF of 35-40% - CXR with congestive appearance, could be ? residual disease from COVID or volume overload. - B/L US negative for DVT - 09/04 started apixaban 5 mg bid - started on metoprolol with reduced EF noted - uptitrated metop XL to 75mg BID due to continued HR >100 -HR now in 80's 3. Cardiomyopathy, acute vs chronic systolic heart failure - EF noted on ECHO to be 35-40% - moderately hypertensive as well, continue to adjust medications as needed. Improved today with antihypertensives. - 09/04 started metoprolol 25 mg bid and losartan 25 mg daily. Increased metoprolol to 75 mg BID thus far. -stopped diuresis with euvolemia. 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 - s/p speech evaluation, ordered for a soft diet. - extremely weak 5. BPH - continue home finasteride, doxazosin. 6. Myocardial injury - no further evaluation necessary troponin stable at 0.046 with no symptoms. 7. COVID- - patient is asymptomatic from a respiratory standpoint. He tested positive almost 4 weeks ago initially per report. 8. Mild rhabdomyolysis, resolved - consistent with dehydration studies noted above. CK 615 on admission Code status: Full code (despite multiple attempts by physician and brother to convince him otherwise). Hospice will need to having [facility] discussions going forward. Dispo: MICROSOFT OFFICE INSTRUCTOR arranging hospice at [facility], likely tomorrow. Quality VTE Deep Vein Thrombosis/Pulmonary Embolism Present on Admission: No
--- NOTE | 2023-09-12 14:49 | CM.DPNOTE ---
DCP Note SOLAR SYSTEM INSTALLER reviewed EMR. SOLAR SYSTEM INSTALLER spoke with Loree at [facility], confirms set to open with pt and family tomorrow at [facility] between [phone]. Confirms only equipt ordered was a bedside table. Loree reported she would attempt to get in touch with Ada at [facility] to coordinate plan as well. Per previous CM note, no need for BLS transport at this time. Per nursing team today, pt able to sit up and would be appropriate for wc transfer with kacie lift to [facility]. SOLAR SYSTEM INSTALLER lvmx2 for Ada, wellness ambassador at [facility]. No response as of 1499. Plan: follow closely with [facility] to coordinate dc tomorrow with [facility]. [facility] to open at 1400. Will need to fax signed med list, any scripts, and dc sum to [facility] and DC summary to [facility]. CM team will follow closely. MIGUEL Shaw
[2023-09-13 05:22] VITALS: BP 147/101; PULSE 100; RESP 20; TEMP 36.6; O2SAT 96
[2023-09-13 08:00] VITALS: BP 144/95; PULSE 73; RESP 14; TEMP 36.6; O2SAT 98
[2023-09-13 08:38] VITALS: BP 147/101
[2023-09-13] MEDS: METOPROLOL ER 50 MG TABLET 75 MG PO (08:38)
[2023-09-13 08:39] VITALS: BP 147/101
[2023-09-13] MEDS: APIXABAN 5 MG TABLET PO (08:39)
[2023-09-13] MEDS: AMANTADINE 100 MG CAPSULE PO (08:39)
[2023-09-13] MEDS: CARBIDOPA-LEVODOPA 25/100 TABLET 2 EACH PO (08:39)
[2023-09-13] MEDS: SODIUM CHLORIDE 0.9% FLUSH 10 ML IV (08:39)
[2023-09-13] MEDS: FINASTERIDE 5 MG TABLET PO (08:39)
[2023-09-13] MEDS: LOSARTAN 25 MG TABLET PO (08:39)
--- NOTE | 2023-09-13 08:56 | PM.DS.1 ---
History of Present Illness History of Present Illness Date Patient Seen: 09/13/23 Chief complaint: states atrial fib/sent by hospital for special care Narrative: Per admitting provider, 77-year-old male with Parkinson's disease, HTN, BPH who lives at [facility] who initially presented to the walk in clinic with persistent cough, weakness. He was diagnosed with COVID nearly 4 weeks ago approximately. He denies shortness of breath, wheezing. He complains of profound weakness since his COVID diagnosis. He has had LE edema but cannot recall how long that has been present. In the walk in clinic he was noted to have an irregular rhythm, and was sent to the ER. EKG did show atrial fibrillation with frequent PVCs but no acute ischemia. Labs done in the ER showed a sodium of 114. This was repeated and was again 114. Troponin was stable x2 at 0.046. Urine sodium was 6. COVID testing was positive. Discharge Providers Provider Date of admission: 09/02/23 17:34 Discharge Date: 09/13/23 Primary care physician: Steff Jacobson DO Consults: 09/02/23 18:10 Consult to Tele-sexual assault response coordinator Routine Comment: Consulting Provider: Cindy Tele-intensivists Reason for consultation: [employer] services 09/04/23 11:21 Consult to Physical Therapy Evaluate & Treat Comment: Physician Instructions: Evaluate and Treat 09/06/23 08:21 Consult to Speech Therapy Evaluate & Treat Comment: Physician Instructions: Evaluate and treat Discharge provider: Milind Ignacio DO Summary Hospital Course Discharge Diagnosis: Please see hospital course by problem list noted below: Hospital Course: 1. Hyponatremia, severe and nearly resolved - Initial Na 114, initial urine sodium 6 consistent with hypovolemia, given 3% then on NS Na dropped again so restarted on 3%. 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 With salt tablets and fluid restriction, sodium began to correct on it's own to near normal. Has been stable in low 130s prior to discharge. - initially on 1g TID of salt tabs, increased to 2g on 09/06 with improvement after. - urine osm 373 during his admission consistent with SIADH. - continued tele monitoring with only afib as discussed below. 2. New diagnosis atrial fibrillation with RVR - suspect due to electrolyte abnormalities / hyponatremia / recent COVID, but echocardiogram ordered showed EF of 35-40%, so it is possible this was going on prior to admission but not entirely clear. - CXR with congestive appearance, could be ? residual disease from COVID or volume overload. - B/L US negative for DVT, ordered for asymmetric LE edema on presentation. - 09/04 started apixaban 5 mg bid for stroke prevention. - started on metoprolol with reduced EF noted - uptitrated metop XL to 75mg BID with eventual improvement in rate. - if desired, recommend outpatient follow-up / consultation with cardiology. 3. Cardiomyopathy, acute vs chronic systolic heart failure - EF noted on ECHO to be 35-40% - moderately hypertensive as well, continue to adjust medications as needed after discharge. - 09/04 started metoprolol 25 mg bid and losartan 25 mg daily. Increased metoprolol to 75 mg BID thus far. Will likely need continued adjustments moving forward. - stopped diuresis with euvolemia, recommend monitoring weights and edema after discharge. 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 - s/p speech evaluation, ordered for a soft diet. - if available would likely benefit from continued therapies, depending on goals of care discussions with hospice. 5. BPH - continue home finasteride, doxazosin. 6. Myocardial injury - recommend outpatient cardiology consultation if consistent with goals of care. 7. COVID- - patient is asymptomatic from a respiratory standpoint. He tested positive almost 4 weeks ago initially per report. 8. Mild rhabdomyolysis, resolved - consistent with dehydration studies noted above. CK 615 on admission and improved. Time Spent with Patient Time spent: Greater than 30 minutes Exam Vital Signs (past 8 hours): - 09/13/23 04:00 09/13/23 05:22 09/13/23 08:38 Temperature 97.8 F Pulse Rate 100 H Respiratory Rate 20 Blood Pressure 147/101 H 147/101 H Pulse Oximetry 96 Oxygen Delivery Method Room Air Oxygen Flow Rate 0 09/13/23 08:39 Temperature Pulse Rate Respiratory Rate Blood Pressure 147/101 H Pulse Oximetry Oxygen Delivery Method Oxygen Flow Rate Oxygen Delivery Method Room Air Oxygen Flow Rate 0 Narrative Exam Narrative: Gen: alert, NAD, weak Lungs: clear CV: irregular Ext: no edema Neuro: unchanged with Parkinson's Objective Labs 09/08/23 03:19 09/09/23 09:38 [facility] Medical History Secondhand smoke exposure Gross hematuria BPH w urinary obs/LUTS Osteoarthritis (~2004) Peripheral neuropathy (~2011) Parkinson's disease (~2012) Migraines (~2011) Scoliosis (~2004) Osteoporosis (~2009) Osteopenia (~2004) Mumps Measles Hepatitis A (~1985) Chicken pox Benign prostatic hyperplasia (~2003) Hypertension (~1989) Surgical History Anesthesia History of tonsillectomy (~194) Family History Father Alzheimer's disease Hypertension Mother History of acquired heart valve infection Hypertension Mitral valve disease Grandmother Stroke Social History marital status: unmarried,single household members: none housing: assisted living facility Previous occupational history: Flight attendent Smoking Status: Never smoker alcohol intake: current substance use type: does not use Discharge Plan Discharge Plan Patient Disposition: Assisted Living Provider Discharge Comment: 82 M admitted with hyponatremia, due to dehydration and 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 Also found this admission to have newly discovered heart failure with reduced EF. Started on appropriate medications. Patient elected for discharge on hospice, but remains FULL code after extensive discussions here. Continue goals of care discussions with hospice moving forward. Discharge orders & Medications Discharge Orders: Discharge (Order); Ordered 09/13/23 Ordered By: Milind Ignacio Prescriptions: New Eliquis 5 mg Tablet 5 mg PO BID 30 Days Qty: 60 0RF metoprolol succinate 50 mg Tablet Extended Release 24 Hr 75 mg PO BID Qty: 60 0RF losartan 25 mg Tablet 25 mg PO DAILY Qty: 30 0RF Continued ketoconazole 2 % shampoo 1 applic topical 3XW Qty: 120 3RF docusate sodium 100 mg capsule 100 mg PO BEDTIME amantadine HCl 100 mg capsule 100 mg PO DAILY Qty: 0 carbidopa-levodopa 25-100 mg tablet 1 tab PO 5XD Qty: 0 Rx Instructions: 2 tabs at 1030, then 1 tab at noon, 1730 and 2200 finasteride 5 mg tablet 5 mg PO DAILY Qty: 90 3RF doxazosin 4 mg tablet See Rx Instructions .ROUTE .COMPLEX Qty: 90 3RF Dose Instruction: TAKE 1 TABLET DAILY Rx Instructions: TAKE 1 TABLET DAILY magnesium hydroxide [Reeves Milk of Magnesia] 400 mg/5 mL suspension 5 ml PO DAILY PRN (Reason: constipation) Qty: 355 0RF artificial tear([id number]) 0.1-0.3-0.2 % drops 1 drp EYE-BOTH PRN PRN (Reason: Dry Eyes) acetaminophen 325 mg Tablet 650 mg PO Q6HR PRN (Reason: As Needed For Fever/Mild Pain) Qty: 30 0RF Follow up/Referrals: Steff Jacobson DO [Primary Care Provider] - Diet/Activity/Treatments Diet: Diet as Tolerated and Regular Liquid consistency: Normal/Thin Food texture: Soft Diet comment: Soft diet per speech therapy Activity: As tolerated no restrictions Special Rehabilitation Services Rehab type: Physical therapy and Occupational therapy Visit Report/Discharge Packet Stand Alone Forms: Patient Portal/API, Stroke Signs & Symptoms Discharge Data Primary Care Provider: Steff Jacobson Quality VTE Deep Vein Thrombosis/Pulmonary Embolism Present on Admission: No
--- NOTE | 2023-09-13 12:04 | CM.DPNOTE ---
DCP Note EXTRUSION LINE OPERATOR reviewed EMR. Per provider, stable to dc to [facility] today with [facility] to open at 2pm. EXTRUSION LINE OPERATOR faxed signed med list, updated clinicals, and dc summary to [facility] CC Valentine faxed dc summary to [facility]. EXTRUSION LINE OPERATOR spoke with Carlitos at [facility]. Confirmed all is set for dc today. EXTRUSION LINE OPERATOR spoke with Erick and Ada at [facility] to coordinate his dc back to [facility] today. Confirm can accept but cannot provide transport. From RN, BLS would likely be medically appropriate for safe transport home. EXTRUSION LINE OPERATOR spoke with pt and brother, Vidal (p [phone]). Confirm agreeable to BLS transport. Report understanding their may be a bill associated with transport and remain agreeable. EXTRUSION LINE OPERATOR spoke with Bonnie at Ambulance. Can do 1130 transport. EXTRUSION LINE OPERATOR completed and provider signed transport form. EXTRUSION LINE OPERATOR placed signed med list and transport form in dc packet. EXTRUSION LINE OPERATOR updated RN, fire extinguisher charger, pt, edmundoer, and Ada at [facility]. All agreeable. Plan: pt to dc today to [facility] via BLS at 1130. [facility] scheduled to open at 2pm. CM team will continue to follow as needed. MIGUEL Shaw
== END 2023-09-13 12:08 | DRG 640 ==
LOC: ED 15:05 → AC 17:34 → ICU 18:00
PROVIDERS: Internal Medicine; Internal Medicine Critical Care Medicine; Internal Medicine Pulmonary Disease; Student in an Organized Health Care Education/Training Program; Admitting Provider Internal Medicine; Emergency Provider Emergency Medicine; PCP Family Medicine; Referring Provider Emergency Medicine; Visit Provider Internal Medicine
DX: E87.1 Hypo-osmolality and hyponatremia (principal); I50.23 Acute on chronic systolic (congestive) heart failure; U07.1 COVID-19; M62.82 Rhabdomyolysis; I42.9 Cardiomyopathy, unspecified; I5A Non-ischemic myocardial injury (non-traumatic); E86.0 Dehydration; I48.91 Unspecified atrial fibrillation; G20.A1 Parkinson's disease without dyskinesia, without mention of fluctuations; N40.0 Benign prostatic hyperplasia without lower urinary tract symptoms; E86.1 Hypovolemia; I11.0 Hypertensive heart disease with heart failure
CPT/HCPCS: 0241U; 36415; 36592; 71045; 74230; 80048; 80051; 80053; 82550; 83690; 83735; 83880; 83935; 84295; 84300; 84443; 84484; 85025; 85027; 85610; 85730; 87797; 92526; 92610; 92611; 93005; 93010; 93306; 93970; 96360; 96361; 97110; 97161; 97530; 99233; 99284; J1650; J1940; J3475